=== PATIENT | male | born 1960 | race Caucasian/White ===

== ENCOUNTER 2017-08-13 12:20 | Emergency (ER) | payer OTHER ==
--- NOTE | 2017-08-13 13:50 | EDPHYS ---
Physician Documentation [facility] Name: Klever Clarke Age: 57 yrs Sex: Male : 1960 Arrival Date: 08/13/2017 Time: 12:21 Bed 26 Private MD: None, None ED Physician Raz Valerio HPI: 08/13 13:45 This 57 yrs old Male presents to ER via Ambulatory with complaints of Pain rn All Over. 13:45 Reports recently ran out of his steroids for his lupus, broke out in his typical lupus rn rash recently as well as pain in all joints, requesting refill of prednisone. No other acute complaints. . Onset: The symptoms/episode began/occurred at an unknown time. Severity of symptoms: At their worst the symptoms were mild in the emergency department the symptoms are unchanged. The patient has experienced similar episodes in the past. The patient has not recently seen a physician. Historical: - Allergies: 12:36 No Known Allergies; aj - Home Meds: 12:36 None [Active]; aj - PMHx: 12:36 Lupus; aj - PSHx: 12:36 RIGHT eye sx; aj - Immunization history:: Adult Immunizations up to date. - Social history:: Smoking status: Patient uses tobacco products, smokes one-half pack cigarettes per day. - Ebola Screening: : Patient negative for fever greater than or equal to 101.5 degrees Fahrenheit, and additional compatible Ebola Virus Disease symptoms Patient denies exposure to infectious person Patient denies travel to an Ebola-affected area in the 21 days before illness onset No symptoms or risks identified at this time. - Family history:: not pertinent. - Hospitalizations: : No recent hospitalization is reported. ROS: 13:47 Constitutional: Negative for fever, chills, and weight loss, Eyes: Negative for injury, rn pain, redness, and discharge, Neck: Negative for injury, pain, and swelling, Cardiovascular: Negative for chest pain, palpitations, and edema, Respiratory: Negative for shortness of breath, cough, wheezing, and pleuritic chest pain, Abdomen/GI: Negative for abdominal pain, nausea, vomiting, diarrhea, and constipation, MS/Extremity: generalized joint aches Skin: + generalized facial and truncal rash Exam: 13:47 Constitutional: This is a well developed, well nourished patient who is awake, alert, rn and in no acute distress. Head/Face: Normocephalic, atraumatic. Skin: generalized patchy dry rash over face/neck/torso with base of erythema, no fluctuance, no signs of cellulitis MS/ Extremity: Pulses equal, no cyanosis. Neurovascular intact. Full, normal range of motion. Equal circumference. Vital Signs: 12:36 BP 137 / 93; Pulse 68; Resp 16; Temp 97.4; Pulse Ox 97% on R/A; Weight 106.59 kg; aj Height 6 ft. 1 in. (185.42 cm); 12:36 Body Mass Index 31.00 (106.59 kg, 185.42 cm) aj MDM: 13:28 Patient medically screened. rn 13:47 Differential Diagnosis lupus flare. Data reviewed: vital signs, nurses notes, and as a rn result, I will discharge patient. Counseling: I had a detailed discussion with the patient and/or guardian regarding: the historical points, exam findings, and any diagnostic results supporting the discharge/admit diagnosis, the need for outpatient follow up, to return to the emergency department if symptoms worsen or persist or if there are any questions or concerns that arise at home. Special discussion: I discussed with the patient/guardian in detail that at this point there is no indication for admission to the hospital. It is understood, however, that if the symptoms persist or worsen the patient needs to return immediately for re-evaluation. Based on the history and exam findings, there is no indication for further emergent testing or inpatient evaluation. I discussed with the patient/guardian the need to see the receiving manager for further evaluation of the symptoms. Administered Medications: No medications were administered Disposition: 08/13/17 13:49 Discharged to Home. Impression: Lupus erythematosus. - Condition is Stable. - Prescriptions for prednisone 10 mg Oral tablet - take 1 tablet by ORAL route once daily; 60 tablet. Triamcinolone Acetonide 0.1 % Topical Ointment - apply 1 application by TOPICAL route every 12 hours As needed; 1 tube. - Medication Reconciliation Form, Thank You Letter, Antibiotic Education, Prescription Opioid Use form. - Follow up: Private Physician; When: As needed; Reason: Recheck today's complaints, Re-evaluation by your physician. - Problem is an ongoing problem. - Symptoms are unchanged. Signatures: Elsa Calloway RN RN aj Nieto, Roman, MD MD rn Reaves, Rosita, RN RN kr2 Corrections: (The following items were deleted from the chart) 14:13 13:49 08/13/2017 13:49 Discharged to Home. Impression: Lupus erythematosus. Condition kr2 is Stable. Prescriptions for prednisone 10 mg Oral tablet - take 1 tablet by ORAL route once daily; 60 tablet, Triamcinolone Acetonide 0.1 % Topical Ointment - apply 1 application by TOPICAL route every 12 hours As needed; 1 tube. and Forms are Medication Reconciliation Form, Thank You Letter, Antibiotic Education, Prescription Opioid Use. Follow up: Private Physician; When: As needed; Reason: Recheck today's complaints, Re-evaluation by your physician. Problem is an ongoing problem. Symptoms are unchanged. rn
--- NOTE | 2017-08-13 13:50 | ER ---
Nurse's Notes [facility] Name: Klever Clarke Age: 57 yrs Sex: Male : 1960 Arrival Date: 08/13/2017 Time: 12:21 Bed 26 Private MD: None, None Diagnosis: Lupus erythematosus Presentation: 08/13 12:34 Presenting complaint: Patient states: Pain all over body with patches of dry skin to aj face and ears. Patient reports that he has been off of his RX steroids for lupus and is having trouble getting into explosive man. Would also like a second opinion on previously injured right upper arm and shoulder. Transition of care: patient was not received from another setting of care. Onset of symptoms was August 05, 2017. Risk Assessment: Do you want to hurt yourself or someone else? Patient reports no desire to harm self or others. Care prior to arrival: None. 12:34 Method Of Arrival: Ambulatory 12:34 Acuity: NHI 4 aj 13:30 Initial Sepsis Screen: Does the patient meet any 2 criteria? No. Patient's initial kr2 sepsis screen is negative. Does the patient have a suspected source of infection? No. Patient's initial sepsis screen is negative. Triage Assessment: 12:36 General: Appears in no apparent distress. comfortable, Behavior is calm, cooperative, aj appropriate for age. Pain:. Pain: Complains of pain in buttocks, pelvis, right leg and left leg. Neuro: Level of Consciousness is awake, alert, obeys commands, Oriented to person, place, time, situation, Appropriate for age. Respiratory: Airway is patent Respiratory effort is even, unlabored, Respiratory pattern is regular, symmetrical. Derm: Skin is pink, warm \T\ dry. normal, Rash noted that is macular, on face. Historical: - Allergies: 12:36 No Known Allergies; aj - Home Meds: 12:36 None [Active]; aj - PMHx: 12:36 Lupus; aj - PSHx: 12:36 RIGHT eye sx; aj - Immunization history:: Adult Immunizations up to date. - Social history:: Smoking status: Patient uses tobacco products, smokes one-half pack cigarettes per day. - Ebola Screening: : Patient negative for fever greater than or equal to 101.5 degrees Fahrenheit, and additional compatible Ebola Virus Disease symptoms Patient denies exposure to infectious person Patient denies travel to an Ebola-affected area in the 21 days before illness onset No symptoms or risks identified at this time. - Family history:: not pertinent. - Hospitalizations: : No recent hospitalization is reported. Screenin:30 Abuse screen: Denies threats or abuse. Denies injuries from another. Nutritional kr2 screening: No deficits noted. Tuberculosis screening: No symptoms or risk factors identified. Fall Risk None identified. Assessment: 13:30 General: Appears in no apparent distress. uncomfortable, well groomed, well developed, kr2 well nourished, Behavior is calm, cooperative, appropriate for age. Pain: Complains of pain in entire body Pain currently is 8 out of 10 on a pain scale. Quality of pain is described as aching, Is continuous, Alleviated by nothing. Aggravated by increased activity. Neuro: Level of Consciousness is awake, alert, obeys commands, Oriented to person, place, time, situation, Appropriate for age Intact. Cardiovascular: Capillary refill < 3 seconds in bilateral fingers Patient's skin is warm and dry. Respiratory: Airway is patent Respiratory effort is even, unlabored, Respiratory pattern is regular, symmetrical. GI: Abdomen is flat, non-distended. : No signs and/or symptoms were reported regarding the genitourinary system. EENT: Oral mucosa is moist. Derm: Skin is intact, is healthy with good turgor, Skin is pink, warm \T\ dry. Musculoskeletal: Circulation, motion, and sensation intact. Range of motion: limited in right shoulder. Vital Signs: 12:36 BP 137 / 93; Pulse 68; Resp 16; Temp 97.4; Pulse Ox 97% on R/A; Weight 106.59 kg; aj Height 6 ft. 1 in. (185.42 cm); 12:36 Body Mass Index 31.00 (106.59 kg, 185.42 cm) aj ED Course: 12:21 Patient arrived in ED. sb2 12:22 None, None is Private Physician. sb2 12:36 Triage completed. aj 12:36 Arm band placed on left wrist. Patient placed in waiting room, Patient notified of wait aj time. 13:28 Rosita Bhat, KARINA is Primary Nurse. kr2 13:28 Raz Valerio MD is Attending Physician. rn 13:30 Patient has correct armband on for positive identification. Bed in low position. Call kr2 light in reach. Side rails up X 1. Pulse ox on. NIBP on. Door closed. Head of bed elevated. 14:00 No provider procedures requiring assistance completed. Patient did not have IV access kr2 during this emergency room visit. Administered Medications: No medications were administered Outcome: 13:49 Discharge ordered by . rn 14:00 Discharged to home ambulatory. kr2 14:00 Condition: good 14:00 Discharge instructions given to patient, Instructed on discharge instructions, follow up and referral plans. medication usage, Demonstrated understanding of instructions, follow-up care, medications, Prescriptions given X 2. 14:13 Patient left the ED. kr2 Signatures: Elsa Calloway RN Raz Gerardo MD MD rn Reaves, Karey, RN RN kr2 Maria Teresa Toney sb2
== END 2017-08-13 14:13 | disposition home or self-care (01) ==
LOC: ER 12:20
DX: M32.9 Systemic lupus erythematosus, unspecified (principal); F17.210 Nicotine dependence, cigarettes, uncomplicated
CPT/HCPCS: 99283

== ENCOUNTER 2017-10-21 08:31 | Emergency (ER) | payer OTHER, SELFPAY ==
--- NOTE | 2017-10-21 08:44 | EDPHYS ---
Physician Documentation [facility] Name: Klever Clarke Age: 57 yrs Sex: Male : 1960 Arrival Date: 10/21/2017 Time: 08:34 Bed 19 Private MD: None, None ED Physician Darell Arnold HPI: 10/21 08:45 This 57 yrs old Male presents to ER via Ambulatory with complaints of kb Medication Refill. 08:45 The patient presents to the emergency department requesting refill(s) for: prednisone. kb The patient chronically suffers from Lupus. The patient has experienced similar episodes in the past. The patient has not recently seen a physician. Pt states he has been on prednisone 10mg daily for 6 years. Has been out for 4 days and needs a refill. Cannot get in to see foster care social worker until December. Reports rash and joint pain that normally happen when he doesn't take the prednisone. . Historical: - Allergies: 08:45 No Known Allergies; ch - Home Meds: 08:45 prednisone 10 mg Oral tab once daily [Active]; ch - PMHx: 08:45 Lupus; LOW BACK PAIN; r ARM FX-LOCKED R SHOULDER; ch - PSHx: 08:45 None; ch - Immunization history:: Adult Immunizations up to date. - Social history:: Smoking status: Patient uses tobacco products, smokes one-half pack cigarettes per day. - Ebola Screening: : Patient negative for fever greater than or equal to 101.5 degrees Fahrenheit, and additional compatible Ebola Virus Disease symptoms Patient denies exposure to infectious person Patient denies travel to an Ebola-affected area in the 21 days before illness onset No symptoms or risks identified at this time. ROS: 08:45 Constitutional: Negative for fever, chills, and weight loss, Cardiovascular: Negative kb for chest pain, palpitations, and edema, Respiratory: Negative for shortness of breath, cough, wheezing, and pleuritic chest pain, Abdomen/GI: Negative for abdominal pain, nausea, vomiting, diarrhea, and constipation, Back: Negative for injury and pain, Neuro: Negative for headache, weakness, numbness, tingling, and seizure. 08:45 MS/extremity: Positive for pain, all joints. 08:45 Skin: Positive for rash, diffusely. Exam: 08:45 Constitutional: This is a well developed, well nourished patient who is awake, alert, kb and in no acute distress. Head/Face: Normocephalic, atraumatic. Chest/axilla: Normal chest wall appearance and motion. Nontender with no deformity. No lesions are appreciated. Cardiovascular: Regular rate and rhythm with a normal S1 and S2. No gallops, murmurs, or rubs. Normal PMI, no JVD. No pulse deficits. Respiratory: Lungs have equal breath sounds bilaterally, clear to auscultation and percussion. No rales, rhonchi or wheezes noted. No increased work of breathing, no retractions or nasal flaring. Abdomen/GI: Soft, non-tender, with normal bowel sounds. No distension or tympany. No guarding or rebound. No evidence of tenderness throughout. MS/ Extremity: Pulses equal, no cyanosis. Neurovascular intact. Full, normal range of motion. Neuro: Awake and alert, GCS 15, oriented to person, place, time, and situation. Cranial nerves II-XII grossly intact. Motor strength 5/5 in all extremities. Sensory grossly intact. Cerebellar exam normal. Normal gait. 08:45 Skin: rash a moderate rash is noted, rash can be described as erythematous, scaly, and is diffusely located. Vital Signs: 08:45 BP 148 / 105; Pulse 73; Resp 15; Temp 98.3; Pulse Ox 99% on R/A; Weight 108.86 kg; ch Height 6 ft. 1 in. (185.42 cm); 08:45 Body Mass Index 31.66 (108.86 kg, 185.42 cm) ch MDM: 08:36 Patient medically screened. [facility] 08:49 Data reviewed: vital signs, nurses notes. Data interpreted: Pulse oximetry: on room air kb is 99 %. Interpretation: normal. Counseling: I had a detailed discussion with the patient and/or guardian regarding: the historical points, exam findings, and any diagnostic results supporting the discharge/admit diagnosis, the need for outpatient follow up, a family practitioner, a foster care social worker, to return to the emergency department if symptoms worsen or persist or if there are any questions or concerns that arise at home. Administered Medications: No medications were administered Disposition: 11:42 Co-signature as Attending Physician, Darell Arnold MD I agree with the assessment and jazzy plan of care. Disposition: 10/21/17 08:43 Discharged to Home. Impression: Encounter for issue of repeat prescription. - Condition is Stable. - Discharge Instructions: Medicine Refill at the Emergency Department. - Prescriptions for prednisone 10 mg Oral tablet - take 1 tablet by ORAL route once daily; 30 tablet. - Medication Reconciliation Form, Thank You Letter, Antibiotic Education, Prescription Opioid Use form. - Follow up: Emergency Department; When: As needed; Reason: Worsening of condition. Follow up: Private Physician; When: 2 - 3 days; Reason: Recheck today's complaints, Continuance of care, Re-evaluation by your physician. Signatures: Ting Travis, MEY-C MEY-Lashawn Thornton RN RN ch Anderson, Corey, MD MD cha Corrections: (The following items were deleted from the chart) 08:50 08:43 10/21/2017 08:43 Discharged to Home. Impression: Encounter for issue of repeat ch prescription. Condition is Stable. Forms are Medication Reconciliation Form, Thank You Letter, Antibiotic Education, Prescription Opioid Use. Follow up: Emergency Department; When: As needed; Reason: Worsening of condition. Follow up: Private Physician; When: 2 - 3 days; Reason: Recheck today's complaints, Continuance of care, Re-evaluation by your physician. kb
--- NOTE | 2017-10-21 08:44 | ER ---
Nurse's Notes [facility] Name: Klever Clarke Age: 57 yrs Sex: Male : 1960 Arrival Date: 10/21/2017 Time: 08:34 Bed 19 Private MD: None, None Diagnosis: Encounter for issue of repeat prescription Presentation: 10/21 08:40 Presenting complaint: Patient states: I HAVE LUPUS, NO PCP, AND I CANNOT AFFORD TO SEE MY DOCTOR. I HAVE BEEN OUT OF PREDNISONE FOR THE PAST 4 DAYS. I TAKE 10 MG ONCE DAILY. Transition of care: patient was not received from another setting of care. Onset of symptoms was October 17, 2017. Risk Assessment: Do you want to hurt yourself or someone else? Patient reports no desire to harm self or others. Initial Sepsis Screen: Does the patient meet any 2 criteria? No. Patient's initial sepsis screen is negative. Does the patient have a suspected source of infection? No. Patient's initial sepsis screen is negative. Care prior to arrival: None. 08:40 Method Of Arrival: Ambulatory 08:40 Acuity: NHI 5 Triage Assessment: 08:45 General: Appears in no apparent distress. comfortable, Behavior is calm, cooperative, ch appropriate for age. Pain: Pain began PT HAS CHRONIC PAIN ISSUES, NO NEW OR ACUTE PAIN. Neuro: No deficits noted. Respiratory: No deficits noted. Historical: - Allergies: 08:45 No Known Allergies; ch - Home Meds: 08:45 prednisone 10 mg Oral tab once daily [Active]; - PMHx: 08:45 Lupus; LOW BACK PAIN; r ARM FX-LOCKED R SHOULDER; - PSHx: 08:45 None; - Immunization history:: Adult Immunizations up to date. - Social history:: Smoking status: Patient uses tobacco products, smokes one-half pack cigarettes per day. - Ebola Screening: : Patient negative for fever greater than or equal to 101.5 degrees Fahrenheit, and additional compatible Ebola Virus Disease symptoms Patient denies exposure to infectious person Patient denies travel to an Ebola-affected area in the 21 days before illness onset No symptoms or risks identified at this time. Screenin:46 Abuse screen: Denies threats or abuse. Denies injuries from another. Nutritional ch screening: No deficits noted. Tuberculosis screening: No symptoms or risk factors identified. Fall Risk None identified. Assessment: 08:46 Reassessment: Patient appears in no apparent distress at this time. Patient and/or ch family updated on plan of care and expected duration. Pain level reassessed. Patient is alert, oriented x 3, equal unlabored respirations, skin warm/dry/pink. Vital Signs: 08:45 BP 148 / 105; Pulse 73; Resp 15; Temp 98.3; Pulse Ox 99% on R/A; Weight 108.86 kg; ch Height 6 ft. 1 in. (185.42 cm); 08:45 Body Mass Index 31.66 (108.86 kg, 185.42 cm) ED Course: 08:34 Patient arrived in ED. mr 08:34 None, None is Private Physician. mr 08:36 Darell Arnold MD is Attending Physician. [facility] 08:36 Ting Travis FNP-C is PHCP. kb 08:39 Ting Travis FNP-C is PHCP. sg 08:40 Darell Arnold MD is Attending Physician. 08:40 Lashawn Salvador, RN is Primary Nurse. 08:44 Triage completed. 08:45 Arm band placed on left wrist. Patient placed in an exam room, on a stretcher. ch 08:46 No apparent distress. 08:46 Patient has correct armband on for positive identification. 08:46 No provider procedures requiring assistance completed. Patient did not have IV access ch during this emergency room visit. Administered Medications: No medications were administered Outcome: 08:43 Discharge ordered by . kb 08:46 Discharged to home ambulatory. 08:46 Condition: stable 08:46 Discharge instructions given to patient, Instructed on discharge instructions, follow up and referral plans. medication usage, Demonstrated understanding of instructions, follow-up care, medications, Prescriptions given X 1. 08:50 Patient left the ED. Signatures: Ting Travis FNP-C FNP-Ckb Hammond, Christina RN RN Flip Lea RN RN Darell Blanco MD MD cha Rivera, Maria mr
== END 2017-10-21 08:50 | disposition home or self-care (01) ==
LOC: ER 08:31
DX: Z76.0 Encounter for issue of repeat prescription (principal); F17.210 Nicotine dependence, cigarettes, uncomplicated
CPT/HCPCS: 99282

== ENCOUNTER 2017-12-23 09:51 | Emergency (ER) | payer SELFPAY ==
--- NOTE | 2017-12-23 10:41 | ER ---
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 since Friday it has gotten larger, and I feel burning in my L upper abdomen. When I initially did this, the sent me to [employer]. The company was supposed to settle with me on so I could go get surgery on it. My concern is I do lots of heavy lifting, am I safe to work? Do i need to be on light Duty? Can they stitch it up because its small. Transition of care: patient was not received from another setting of care. Onset of symptoms was December 21, 2017. Risk Assessment: Do you want to hurt yourself or someone else? Patient reports no desire to harm self or others. Initial Sepsis Screen: Does the patient meet any 2 criteria? No. Patient's initial sepsis screen is negative. Does the patient have a suspected source of infection? No. Patient's initial sepsis screen is negative. Care prior to arrival: None. 09:58 Method Of Arrival: Ambulatory 09:58 Acuity: NHI 3 Triage Assessment: 10:01 General: Appears in no apparent distress. uncomfortable, Behavior is calm, cooperative, ch appropriate for age. Pain: Complains of pain in umbilical area and left upper quadrant Pain currently is 2 out of 10 on a pain scale. Historical: - Allergies: 10: No Known Allergies; ch - Home Meds: 10: prednisone 10 mg Oral tab once daily [Active]; - PMHx: 10: Lupus; low back pain; r ARM FX-LOCKED R SHOULDER; Umbilical hernia; - PSHx: 10:01 eye; - Immunization history:: Adult Immunizations up to date, Flu vaccine is not up to date. - Social history:: Smoking status: Patient uses tobacco products, smokes one pack cigarettes per day. - Ebola Screening: : Patient negative for fever greater than or equal to 101.5 degrees Fahrenheit, and additional compatible Ebola Virus Disease symptoms Patient denies exposure to infectious person Patient denies travel to an Ebola-affected area in the 21 days before illness onset No symptoms or risks identified at this time. - Family history:: not pertinent. - Hospitalizations: : No recent hospitalization is reported. Screenin:12 Abuse screen: Denies threats or abuse. Denies injuries from another. Nutritional aj1 screening: No deficits noted. Tuberculosis screening: No symptoms or risk factors identified. Fall Risk None identified. Assessment: 10:12 General: Appears in no apparent distress. comfortable, Behavior is calm, cooperative, aj1 appropriate for age. Pain: Complains of pain in umbilical area Pain does not radiate. Pain currently is 2 out of 10 on a pain scale. Quality of pain is described as burning. Neuro: Level of Consciousness is awake, alert, obeys commands. Cardiovascular: Patient's skin is warm and dry. Respiratory: Airway is patent Respiratory effort is even, unlabored, Respiratory pattern is regular, symmetrical. GI: Abdomen is round Bowel sounds present X 4 quads. Abd is soft and non tender X 4 quads. Reports normal bowel habits, Patient currently denies bloody stool. : No signs and/or symptoms were reported regarding the genitourinary system. EENT: No signs and/or symptoms were reported regarding the EENT system. Derm: No signs and/or symptoms reported regarding the dermatologic system. Skin is pink, warm \T\ dry. normal. Musculoskeletal: No signs and/or symptoms reported regarding the musculoskeletal system. Circulation, motion, and sensation intact. Vital Signs: 10:01 BP 159 / 98; Pulse 61; Resp 14; Temp 97.4; Pulse Ox 99% on R/A; Weight 102.06 kg; ch Height 6 ft. 2 in. (187.96 cm); Pain 2/10; 10:01 Body Mass Index 28.89 (102.06 kg, 187.96 cm) ED Course: 09:53 Patient arrived in ED. as 10:00 Triage completed. 10:01 Arm band placed on left wrist. Patient placed in an exam room, on a stretcher. ch 10:03 Yasmin Gupta RN is Primary Nurse. aj1 10:04 Raz Valerio MD is Attending Physician. rn 10:05 Darell Hale PA is PHCP. cp 10:12 Patient has correct armband on for positive identification. Bed in low position. Call aj1 light in reach. Side rails up X 1. 10:12 No provider procedures requiring assistance completed. aj1 10:46 Patient did not have IV access during this emergency room visit. hb Administered Medications: No medications were administered Outcome: 10:41 Discharge ordered by . rn 10:46 Discharged to home ambulatory. hb 10:46 Condition: stable 10:46 Discharge instructions given to patient, Instructed on discharge instructions, follow up and referral plans. Demonstrated understanding of instructions, follow-up care. 10:46 Patient left the ED. hb Signatures: Lsahawn Salvador, RN RN Yasmin Prieto RN RN aj1 Luzma Schaeffer Roman, MD MD rn Page, Corey, PA PA cp Baxter, Heather, RN RN hb
--- NOTE | 2017-12-23 10:42 | EDPHYS ---
Physician Documentation [facility] Name: Klever Clarke Age: 57 yrs Sex: Male : 1960 Arrival Date: 12/23/2017 Time: 09:53 Bed 24 Private MD: ED Physician Raz Valerio HPI: 12/23 10:31 This 57 yrs old Male presents to ER via Ambulatory with complaints of rn Abdominal Pain - Hernia Enlarged. 10:31 The patient presents with enlarged hernia. Onset: The symptoms/episode began/occurred rn at an unknown time. The symptoms do not radiate. Associated signs and symptoms: Pertinent negatives: nausea and vomiting, anorexia, blood in stools, chest pain, diarrhea, dysuria, fever, hematuria, vomiting. The symptoms are described as achy. Modifying factors: The symptoms are alleviated by nothing, the symptoms are aggravated by nothing. Severity of pain: At its worst the pain was very mild in the emergency department the pain is unchanged. The patient has experienced similar episodes in the past. 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 No vomiting. . Historical: - Allergies: 10: No Known Allergies; ch - Home Meds: 10:01 prednisone 10 mg Oral tab once daily [Active]; ch - PMHx: 10:01 Lupus; low back pain; r ARM FX-LOCKED R SHOULDER; Umbilical hernia; - PSHx: 10:01 eye; ch - Immunization history:: Adult Immunizations up to date, Flu vaccine is not up to date. - Social history:: Smoking status: Patient uses tobacco products, smokes one pack cigarettes per day. - Ebola Screening: : Patient negative for fever greater than or equal to 101.5 degrees Fahrenheit, and additional compatible Ebola Virus Disease symptoms Patient denies exposure to infectious person Patient denies travel to an Ebola-affected area in the 21 days before illness onset No symptoms or risks identified at this time. - Family history:: not pertinent. - Hospitalizations: : No recent hospitalization is reported. ROS: 10:31 Constitutional: Negative for fever, chills, and weight loss, Eyes: Negative for injury, rn pain, redness, and discharge, Cardiovascular: Negative for chest pain, palpitations, and edema, Respiratory: Negative for shortness of breath, cough, wheezing, and pleuritic chest pain, Abdomen/GI: Negative for nausea, vomiting, diarrhea, and constipation, Back: Negative for injury and pain, MS/Extremity: Negative for injury and deformity, Skin: Negative for injury, rash, and discoloration, Neuro: Negative for headache, weakness, numbness, tingling, and seizure. Exam: 10:31 Constitutional: This is a well developed, well nourished patient who is awake, alert, rn and in no acute distress. Walked to room without difficulty. Abdomen/GI: soft, non-tender, + easily reducible small masha-umbilical hernia, no skin changes, no rebound/guarding. Vital Signs: 10:01 BP 159 / 98; Pulse 61; Resp 14; Temp 97.4; Pulse Ox 99% on R/A; Weight 102.06 kg; ch Height 6 ft. 2 in. (187.96 cm); Pain 210; 10:01 Body Mass Index 28.89 (102.06 kg, 187.96 cm) ch MDM: 10:04 Patient medically screened. rn 10:31 Differential diagnosis: hernia. Data reviewed: vital signs, nurses notes, and as a rn result, I will discharge patient. Counseling: I had a detailed discussion with the patient and/or guardian regarding: the historical points, exam findings, and any diagnostic results supporting the discharge/admit diagnosis, the need for outpatient follow up, to return to the emergency department if symptoms worsen or persist or if there are any questions or concerns that arise at home. Special discussion: I discussed with the patient/guardian in detail that at this point there is no indication for admission to the hospital. It is understood, however, that if the symptoms persist or worsen the patient needs to return immediately for re-evaluation. Based on the history and exam findings, there is no indication for further emergent testing or inpatient evaluation. I discussed with the patient/guardian the need to see the general surgeon for further evaluation of the symptoms. ED course: Pt with uncomplicated reducible hernia, no signs/symptoms of obstruction/strangulation/incarceration, will dc home with surgery f/u as needed. . Administered Medications: No medications were administered Disposition: 12/23/17 10:41 Discharged to Home. Impression: Umbilical hernia without obstruction or gangrene. - Condition is Stable. - Discharge Instructions: Hernia, Adult. - Medication Reconciliation Form, Thank You Letter, Antibiotic Education, Prescription Opioid Use form. - Follow up: Private Physician; When: As needed; Reason: Recheck today's complaints, Re-evaluation by your physician. - Problem is chronic. - Symptoms have improved. Signatures: Lashawn Salvador RN RN Raz Valerio MD MD rn Baxter, Heather, RN RN Corrections: (The following items were deleted from the chart) 10:46 10:41 12/23/2017 10:41 Discharged to Home. Impression: Umbilical hernia without hb obstruction or gangrene. Condition is Stable. Forms are Medication Reconciliation Form, Thank You Letter, Antibiotic Education, Prescription Opioid Use. Follow up: Private Physician; When: As needed; Reason: Recheck today's complaints, Re-evaluation by your physician. Problem is chronic. Symptoms have improved. rn
== END 2017-12-23 10:46 | disposition home or self-care (01) ==
LOC: ER 09:51
DX: K42.9 Umbilical hernia without obstruction or gangrene (principal); F17.210 Nicotine dependence, cigarettes, uncomplicated
CPT/HCPCS: 99281

== ENCOUNTER 2018-01-03 08:01 | Emergency (ER) | payer SELFPAY ==
[2018-01-03 09:37] LABS: Absolute Lymphocytes (CBC) 0.4 K/uL (0.7-4.9); Absolute Monocytes 0.5 K/uL (0.1-1.3); Absolute Neutrophil 6.3 K/uL (1.8-8.0); Basophils % 0.1 % (0-1.3); Eosinophils % 1.9 % (0-4.4); Hematocrit 42.5 % (39.6-49.0); Lymphocytes % 5.9 % (15.3-44.8); MCH 31.6 pg (27.0-35.0); MCV 94.8 fL (80-100); MPV 10.3 fL (7.6-11.3); Monocytes % 6.7 % (3.3-12.3); RBC Red Blood Cell Count 4.48 M/uL (4.33-5.43)
[2018-01-03 09:44] LABS: BUN Blood Urea Nitrogen 12 mg/dL (7-18); Bicarbonate 27 mmol/L (21-32); Glucose Level 83 mg/dL (74-106); Sodium Level 139 mmol/L (136-145)
[2018-01-03 09:56] LABS: Urine White Blood Cell Casts OK
[2018-01-03 09:57] LABS: Blood Morphology Comment NOT SEEN (NOT SEEN); Platelet Estimate ADEQ
[2018-01-03] MEDS ORDERED: CEFAZOLIN/SWI 1gm 2 GM/20 ML SYR ONE (10:31)
--- NOTE | 2018-01-03 10:59 | EDPHYS ---
Physician Documentation [facility] Name: Klever Clarke Age: 57 yrs Sex: Male : 1960 Arrival Date: 01/03/2018 Time: 08:06 Bed 5 Private MD: None, None ED Physician Marcus Ramos HPI: 01/03 10:48 This 57 yrs old Male presents to ER via Wheelchair with complaints of Leg gs Pain. 10:48 The patient presents with cellulitis of the right mccarty. Description: erythematous, gs warm. Onset: The symptoms/episode began/occurred 2 day(s) ago, and became persistent. Associated signs and symptoms: Pertinent positives: swelling, Pertinent negatives: fever. Severity of symptoms: At their worst the symptoms were moderate, in the emergency department the symptoms are unchanged. The patient has experienced similar episodes in the past, a few times. Historical: - Allergies: 08:26 No Known Allergies; sv - Home Meds: 08:26 prednisone 10 mg Oral tab once daily [Active]; sv - PMHx: 08:26 low back pain; Lupus; r ARM FX-LOCKED R SHOULDER; Umbilical hernia; sv - PSHx: 08:26 eye; sv - Immunization history:: Flu vaccine is not up to date. - Social history:: Smoking status: Patient uses tobacco products, smokes one pack cigarettes per day. - Ebola Screening: : No symptoms or risks identified at this time. ROS: 10:48 All other systems are negative. gs Exam: 10:48 Head/Face: Normocephalic, atraumatic. Eyes: Pupils equal round and reactive to light, gs extra-ocular motions intact. Lids and lashes normal. Conjunctiva and sclera are non-icteric and not injected. Cornea within normal limits. Periorbital areas with no swelling, redness, or edema. ENT: Nares patent. No nasal discharge, no septal abnormalities noted. Tympanic membranes are normal and external auditory canals are clear. Oropharynx with no redness, swelling, or masses, exudates, or evidence of obstruction, uvula midline. Mucous membranes moist. Neck: Trachea midline, no thyromegaly or masses palpated, and no cervical lymphadenopathy. Supple, full range of motion without nuchal rigidity, or vertebral point tenderness. No Meningismus. Chest/axilla: Normal chest wall appearance and motion. Nontender with no deformity. No lesions are appreciated. Cardiovascular: Regular rate and rhythm with a normal S1 and S2. No gallops, murmurs, or rubs. Normal PMI, no JVD. No pulse deficits. Respiratory: Lungs have equal breath sounds bilaterally, clear to auscultation and percussion. No rales, rhonchi or wheezes noted. No increased work of breathing, no retractions or nasal flaring. Abdomen/GI: Soft, non-tender, with normal bowel sounds. No distension or tympany. No guarding or rebound. No evidence of tenderness throughout. Back: No spinal tenderness. No costovertebral tenderness. Full range of motion. Neuro: Awake and alert, GCS 15, oriented to person, place, time, and situation. Cranial nerves II-XII grossly intact. Motor strength 5/5 in all extremities. Sensory grossly intact. Cerebellar exam normal. Normal gait. 10:48 Constitutional: The patient appears alert, awake. 10:48 Musculoskeletal/extremity: Extremities: noted in the right leg: erythema, swelling, Pulses: are normal with no appreciated deficits, Sensation intact. 10:48 Skin: cellulitis, that is moderate, on the right mccarty. Vital Signs: 08:26 BP 158 / 92; Pulse 72; Resp 20; Temp 99; Pulse Ox 97% ; Weight 104.33 kg; Height 6 ft. sv 1 in. (185.42 cm); Pain 6/10; 08:59 BP 150 / 90; Pulse 70; Resp 18; Pulse Ox 98% ; sv 10:00 BP 148 / 92; Pulse 72; Resp 18; Pulse Ox 99% ; sv 11:30 BP 149 / 90; Pulse 73; Resp 18; Pulse Ox 98% ; sv 08:26 Body Mass Index 30.34 (104.33 kg, 185.42 cm) sv MDM: 08:59 Patient medically screened. gs 10:48 Differential diagnosis: cellulitis, dvt. Data reviewed: vital signs, nurses notes. Response to treatment: the patient's symptoms have mildly improved after treatment, and as a result, I will discharge patient. 01/03 09:00 Order name: CBC with Diff; Complete Time: 09:57 gs 01/03 09:00 Order name: Basic Metabolic Panel; Complete Time: :57 01/03 09:00 Order name: Blood Culture* 01/03 09:00 Order name: US Extremity Venous Unilateral Ltd 01/03 09:42 Order name: CBC Smear Scan; Complete Time: 09:57 EDMS Administered Medications: 10:37 Drug: Ancef 2 grams {Note: given IVP per pharmacy instructions.} Route: IVPB; Infused sv Over: 30 mins; Site: right antecubital; 10:44 Follow up: Response: No adverse reaction; IV Status: Completed infusion; IV Intake: 20mlsv Disposition: 01/03/18 10:59 Discharged to Home. Impression: Cellulitis of right lower limb. - Condition is Stable. - Discharge Instructions: Cellulitis, Adult. - Prescriptions for Keflex 500 mg Oral Capsule - take 1 capsule by ORAL route every 6 hours for 10 days; 40 capsule. - Work release form, Medication Reconciliation Form, Thank You Letter, Antibiotic Education, Prescription Opioid Use form. - Follow up: Private Physician; When: 2 - 3 days; Reason: Re-evaluation by your physician. Signatures: Dispatcher [employer] Nayana Corbin RN RN Marcus Ramos MD MD Corrections: (The following items were deleted from the chart) 11:58 10:59 01/03/2018 10:59 Discharged to Home. Impression: Cellulitis of right lower limb. sv Condition is Stable. Forms are Medication Reconciliation Form, Thank You Letter, Antibiotic Education, Prescription Opioid Use. Follow up: Private Physician; When: 2 - 3 days; Reason: Re-evaluation by your physician.
--- NOTE | 2018-01-03 10:59 | ER ---
Nurse's Notes [facility] Name: Klever Clarke Age: 57 yrs Sex: Male : 1960 Arrival Date: 01/03/2018 Time: 08:06 Bed 5 Private MD: None, None Diagnosis: Cellulitis of right lower limb Presentation: 01/03 08:17 Presenting complaint: Patient states: BLE pain and swelling with R>L started yesterday, sv pt has hx of cellulitis to extremity. c/o left neck pain. Transition of care: patient was not received from another setting of care. Onset of symptoms was January 02, 2018. Risk Assessment: Do you want to hurt yourself or someone else? Patient reports no desire to harm self or others. Initial Sepsis Screen: Does the patient meet any 2 criteria? No. Patient's initial sepsis screen is negative. Does the patient have a suspected source of infection? No. Patient's initial sepsis screen is negative. Care prior to arrival: None. 08:17 Method Of Arrival: Wheelchair sv 08:17 Acuity: NHI 3 sv Triage Assessment: 08:17 General: Appears in no apparent distress. uncomfortable, Behavior is calm, cooperative, sv appropriate for age. Pain: Complains of pain in right leg and left leg Pain currently is 6 out of 10 on a pain scale. Pain began 1 day ago. Is continuous, Aggravated by increased activity, weight bearing. EENT: No signs and/or symptoms were reported regarding the EENT system. Neuro: Level of Consciousness is awake, alert, obeys commands, Oriented to person, place, time, situation, Moves all extremities. Full function. Respiratory: Respiratory effort is even, unlabored, Respiratory pattern is regular, symmetrical. Derm: Skin is normal, Redness noted to BLE. Musculoskeletal: Range of motion: intact in all extremities, Swelling present in right leg and left leg. Historical: - Allergies: 08: No Known Allergies; sv - Home Meds: : prednisone 10 mg Oral tab once daily [Active]; sv - PMHx: 08: low back pain; Lupus; r ARM FX-LOCKED R SHOULDER; Umbilical hernia; sv - PSHx: 08: eye; sv - Immunization history:: Flu vaccine is not up to date. - Social history:: Smoking status: Patient uses tobacco products, smokes one pack cigarettes per day. - Ebola Screening: : No symptoms or risks identified at this time. Screenin:27 Abuse screen: Denies threats or abuse. Denies injuries from another. Nutritional sv screening: No deficits noted. Tuberculosis screening: No symptoms or risk factors identified. Fall Risk None identified. Assessment: 08:30 Reassessment: Patient appears in no apparent distress at this time. No changes from sv previously documented assessment. See triage assessment. 10:37 Reassessment: Patient appears in no apparent distress at this time. No changes from sv previously documented assessment. Patient and/or family updated on plan of care and expected duration. Pain level reassessed. Patient is alert, oriented x 3, equal unlabored respirations, skin warm/dry/pink. 11:57 Reassessment: Patient appears in no apparent distress at this time. No changes from sv previously documented assessment. Patient and/or family updated on plan of care and expected duration. Pain level reassessed. Patient is alert, oriented x 3, equal unlabored respirations, skin warm/dry/pink. Vital Signs: 08:26 BP 158 / 92; Pulse 72; Resp 20; Temp 99; Pulse Ox 97% ; Weight 104.33 kg; Height 6 ft. sv 1 in. (185.42 cm); Pain 6/10; 08:59 BP 150 / 90; Pulse 70; Resp 18; Pulse Ox 98% ; sv 10:00 BP 148 / 92; Pulse 72; Resp 18; Pulse Ox 99% ; sv 11:30 BP 149 / 90; Pulse 73; Resp 18; Pulse Ox 98% ; sv 08:26 Body Mass Index 30.34 (104.33 kg, 185.42 cm) sv ED Course: 08:06 Patient arrived in ED. mr 08:06 None, None is Private Physician. mr 08:12 Nayana Dodge, KARINA is Primary Nurse. sv 08:17 Arm band placed on Patient placed in an exam room, on a stretcher. sv 08:18 Marcus Ramos MD is Attending Physician. gs 08:24 Triage completed. sv 08:27 Patient has correct armband on for positive identification. Placed in gown. Bed in low sv position. Pulse ox on. NIBP on. Door closed. Head of bed elevated. 08:35 Initial lab(s) drawn, by me, sent to lab. Inserted saline lock: 20 gauge in right sv antecubital area, using aseptic technique. Blood collected. Flushed right antecubital with 5 ml normal saline. 10:23 Ultrasound completed. Patient tolerated well. Notified ED Physician miguel a. sg3 10:24 US Extremity Venous Unilateral Ltd In Process Unspecified. EDMS 11:56 No provider procedures requiring assistance completed. IV discontinued, intact, sv bleeding controlled, No redness/swelling at site. Pressure dressing applied. Administered Medications: 10:37 Drug: Ancef 2 grams {Note: given IVP per pharmacy instructions.} Route: IVPB; Infused sv Over: 30 mins; Site: right antecubital; 10:44 Follow up: Response: No adverse reaction; IV Status: Completed infusion; IV Intake: 20mlsv Intake: 10:44 IV: 20ml; Total: 20ml. sv Outcome: 10:59 Discharge ordered by . 11:57 Discharged to home ambulatory, wheelchair offered but pt refused. sv 11:57 Condition: stable 11:57 Discharge instructions given to patient, Instructed on discharge instructions, follow up and referral plans. medication usage, Demonstrated understanding of instructions, follow-up care, medications, Prescriptions given X 1. 11:58 Patient left the ED. sv Signatures: Dispatcher [employer] EDMS Nayana Dodge RN RN sv Rivera, Mary mr Starr, Gregory, MD MD gs Godinez, Sarah sg3
--- NOTE | 2018-01-03 11:36 | RAD REPORT ---
EXAM DESCRIPTION: US - Extremity Venous Uni Ltd - 01/03/2018 10:25 am CLINICAL HISTORY: Right leg pain and swelling COMPARISON: None. TECHNIQUE: Real-time sonographic evaluation of the right lower extremity deep venous systems was per formed. FINDINGS: Normal compressibility, flow augmentation, phasic flow and spontaneous flow are identified in the right lower extremity common femoral, superficial femoral, popliteal and posterior tibial vei ns. No intraluminal filling defects seen. IMPRESSION: No DVT in the right lower extremity.
== END 2018-01-03 11:58 | disposition home or self-care (01) ==
LOC: ER 08:01
DX: L03.115 Cellulitis of right lower limb (principal); F17.210 Nicotine dependence, cigarettes, uncomplicated
CPT/HCPCS: 36415; 80048; 85025; 87040; 93971; 96374; 99284; J0690

== ENCOUNTER 2018-02-09 22:02 | Emergency (ER) | payer SELFPAY ==
[2018-02-09] MEDS ORDERED: FENTANYL CITR 100 MCG/2 ML ONE (22:55)
[2018-02-09] MEDS ORDERED: ONDANSETRON 4 MG/2 ML VIAL ONE (22:56)
[2018-02-09 23:24] LABS: Absolute Lymphocytes (CBC) 1.5 K/uL (0.7-4.9); Absolute Monocytes 0.7 K/uL (0.1-1.3); Absolute Neutrophil 9.4 K/uL (1.8-8.0); Basophils % 1.3 % (0-1.3); Eosinophils % 0.8 % (0-4.4); Hematocrit 42.4 % (39.6-49.0); Lymphocytes % 12.6 % (15.3-44.8); MCH 31.4 pg (27.0-35.0); MCV 95.6 fL (80-100); Monocytes % 6.2 % (3.3-12.3); Protime INR 0.96; RBC Red Blood Cell Count 4.44 M/uL (4.33-5.43)
[2018-02-09 23:45] LABS: ALT/SGPT 19 U/L (12-78); AST/SGOT 12 U/L (15-37); Albumin 3.1 g/dL (3.4-5.0); Alkaline Phosphatase 68 U/L (45-117); BUN Blood Urea Nitrogen 23 mg/dL (7-18); Bicarbonate 32 mmol/L (21-32); Bilirubin Direct 0.2 mg/dL (0-0.2); Bilirubin Total 0.5 mg/dL (0.2-1.0); Glucose Level 124 mg/dL (74-106); Lipase 172 U/L (73-393); NT PRO-BNP 134 pg/mL (<125); Potassium 3.6 mmol/L (3.5-5.1); Protein, Total 6.5 g/dL (6.4-8.2); Sodium Level 142 mmol/L (136-145); Troponin (Emerg Dept Use Only) < 0.02 ng/mL (0.0-0.045)
[2018-02-10] MEDS ORDERED: CEFTRIAXONE 1000 MG/VIAL ONE (00:37)
[2018-02-10] MEDS ORDERED: NA CHLORIDE 0.9% 100 ML IV ONE (00:37)
[2018-02-10] MEDS ORDERED: AZITHROMYCIN 500 MG/250 ML BAG ONE (00:38)
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
--- NOTE | 2018-02-10 12:01 | EKG ---
Test Date: 2018-02-09 Test Time: 22:29:19 Woodworking Bench Carpenter: KAEL MEASUREMENT RESULTS: Intervals: Rate: 69 NH: 122 QRSD: 100 QT: 422 QTc: 452 [place]: P: 19 NH: 122 QRS: -7 T: 17 INTERPRETIVE STATEMENTS: Sinus rhythm with premature atrial complexes Moderate voltage criteria for LVH, may be normal variant Borderline ECG Compared to ECG 03/28/2017 13:11:35 Atrial premature complex(es) now present Electronically Signed On 02-10-18 12:00:29 AUDIO VISUAL EQUIPMENT RENTAL CLERK by Patrick Lobo
== END 2018-02-10 02:58 | disposition home or self-care (01) ==
LOC: ER 22:02
DX: S22.41XA Multiple fractures of ribs, right side, initial encounter for closed fracture (principal); V29.9XXA Motorcycle rider (driver) (passenger) injured in unspecified traffic accident, initial encounter; F17.210 Nicotine dependence, cigarettes, uncomplicated
CPT/HCPCS: 36415; 71046; 71260; 74177; 80048; 80076; 83690; 83880; 84484; 85025; 85610; 93005; 96365; 96367; 96375; 99285; J0456; J2405; J3010; Q9967

== ENCOUNTER 2018-04-03 09:54 | Emergency (ER) | payer OTHER, SELFPAY ==
[2018-04-03] MEDS ORDERED: IBUPROFEN 200 MG TAB PO ONE (11:37)
[2018-04-03] MEDS ORDERED: IBUPROFEN 400 MG TAB ONE (11:37)
[2018-04-03] MEDS ORDERED: METHYLPREDNISOLONE 125 MG INJ ONE (11:37)
[2018-04-03] MEDS ORDERED: CYCLOBENZAPRINE 10 MG TAB ONE (11:37)
--- NOTE | 2018-04-03 11:49 | EDPHYS ---
Physician Documentation [facility] Name: Klever Clarke Age: 57 yrs Sex: Male : 1960 Arrival Date: 04/03/2018 Time: 09:58 Bed 20 Private MD: None, None ED Physician Lynn Jeronimo HPI: 04/03 11:44 This 57 yrs old Male presents to ER via Ambulatory with complaints of Back pm1 Pain. 11:44 The patient presents with pain that is acute. The symptoms are located in the left pm1 subscapular area and right subscapular area. Onset: The symptoms/episode began/occurred 3 day(s) ago. The pain does not radiate. Associated signs and symptoms: Pertinent negatives: abdominal pain, chest pain, fever, incontinence, nausea, numbness, tingling, urinary retention, vomiting, weakness. The problem was sustained Sneeze. Modifying factors: The patient symptoms are alleviated by rest, lying on flat, the patient symptoms are aggravated by coughing, movement. Severity of symptoms: in the emergency department the symptoms are unchanged. The patient has experienced similar episodes in the past, several times. The patient has not recently seen a physician. 11:44 Patient took some steroids that it takes for lupus flare up and it improved his pain. pm1 Historical: - Allergies: 10:08 No Known Allergies; sv - PMHx: 10:08 low back pain; Lupus; r ARM FX-LOCKED R SHOULDER; Umbilical hernia; sv 10:09 COPD; sv - PSHx: 10:08 strabismus surgery; sv - Immunization history:: Adult Immunizations up to date, Flu vaccine is not up to date. - Social history:: Smoking status: Patient uses tobacco products, denies chronic smoking, but will smoke occasionally, Patient/guardian denies using street drugs, IV drugs. - Ebola Screening: : No symptoms or risks identified at this time. ROS: 11:44 Constitutional: Negative for fever, chills, and weight loss, Eyes: Negative for injury, pm1 pain, redness, and discharge, ENT: Negative for injury, pain, and discharge, Neck: Negative for injury, pain, and swelling, Cardiovascular: Negative for chest pain, palpitations, and edema, Respiratory: Negative for shortness of breath, cough, wheezing, and pleuritic chest pain, Abdomen/GI: Negative for abdominal pain, nausea, vomiting, diarrhea, and constipation. 11:44 : Negative for injury, bleeding, discharge, and swelling, MS/Extremity: Negative for injury and deformity, Skin: Negative for injury, rash, and discoloration, Neuro: Negative for headache, weakness, numbness, tingling, and seizure. 11:44 Back: Positive for of the left subscapular area and right subscapular area, pain, Negative for decreased range of motion. Exam: 11:44 Constitutional: This is a well developed, well nourished patient who is awake, alert, pm1 and in no acute distress. Head/Face: Normocephalic, atraumatic. Eyes: Pupils equal round and reactive to light, extra-ocular motions intact. Lids and lashes normal. Conjunctiva and sclera are non-icteric and not injected. Cornea within normal limits. Periorbital areas with no swelling, redness, or edema. ENT: Nares patent. No nasal discharge, no septal abnormalities noted. Tympanic membranes are normal and external auditory canals are clear. Oropharynx with no redness, swelling, or masses, exudates, or evidence of obstruction, uvula midline. Mucous membranes moist. Neck: Trachea midline, no thyromegaly or masses palpated, and no cervical lymphadenopathy. Supple, full range of motion without nuchal rigidity, or vertebral point tenderness. No Meningismus. Chest/axilla: Normal chest wall appearance and motion. Nontender with no deformity. No lesions are appreciated. Cardiovascular: Regular rate and rhythm with a normal S1 and S2. No gallops, murmurs, or rubs. Normal PMI, no JVD. No pulse deficits. Respiratory: Lungs have equal breath sounds bilaterally, clear to auscultation and percussion. No rales, rhonchi or wheezes noted. No increased work of breathing, no retractions or nasal flaring. Abdomen/GI: Soft, non-tender, with normal bowel sounds. No distension or tympany. No guarding or rebound. No evidence of tenderness throughout. 11:44 Skin: Warm, dry with normal turgor. Normal color with no rashes, no lesions, and no evidence of cellulitis. MS/ Extremity: Pulses equal, no cyanosis. Neurovascular intact. Full, normal range of motion. 11:44 Back: normal spinal alignment noted, vertebral tenderness, is not appreciated, muscle spasm, is appreciated in the left subscapular area and right subscapular area. 11:44 Neuro: Orientation: is normal, Mentation: is normal, Motor: is normal, moves all fours, strength is normal, strength is 5/5 in all extremities, Gait: is steady, at a normal pace, without difficulty. Vital Signs: 10:09 BP 134 / 94; Pulse 89; Resp 20; Temp 98.7; Pulse Ox 100% ; Weight 108.86 kg; Height 6 sv ft. 1 in. (185.42 cm); Pain 8; 10:09 Body Mass Index 31.66 (108.86 kg, 185.42 cm) sv MDM: 10:47 Patient medically screened. pm1 11:33 Data reviewed: vital signs. Data interpreted: Pulse oximetry: on room air is 100 %. pm1 Interpretation: normal. 11:44 Counseling: I had a detailed discussion with the patient and/or guardian regarding: the pm1 historical points, exam findings, and any diagnostic results supporting the discharge/admit diagnosis, the need for outpatient follow up, to return to the emergency department if symptoms worsen or persist or if there are any questions or concerns that arise at home. Administered Medications: 11:35 Drug: SOLU-Medrol 125 mg Route: IM; Site: left gluteus; em 11:59 Follow up: Response: No adverse reaction; Pain is decreased em 11:35 Drug: Flexeril 10 mg Route: PO; em 11:59 Follow up: Response: No adverse reaction em 11:35 Drug: Ibuprofen 600 mg Route: PO; em 11:59 Follow up: Response: No adverse reaction; Pain is decreased em Disposition: 16:46 Co-signature as Attending Physician, Lynn Jeronimo MD. ma2 Disposition: 04/03/18 11:49 Discharged to Home. Impression: Strain of muscle and tendon of back wall of thorax. - Condition is Stable. - Discharge Instructions: Muscle Strain. - Prescriptions for Naprosyn 500 mg Oral Tablet - take 1 tablet by ORAL route 2 times per day take with food; 30 tablet. Cyclobenzaprine 10 mg Oral Tablet - take 1 tablet by ORAL route every 8 hours As needed; 30 tablet. Medrol (Sherman) 4 mg Oral Tablets, Dose Pack - take 1 tablet by ORAL route as directed - follow package instructions; 1 packet. - Medication Reconciliation Form, Thank You Letter, Antibiotic Education, Prescription Opioid Use form. - Follow up: Emergency Department; When: As needed; Reason: Worsening of condition. Follow up: Private Physician; When: 2 - 3 days; Reason: Recheck today's complaints, Continuance of care, Re-evaluation by your physician. - Problem is new. - Symptoms have improved. Signatures: Nayana Dodge, RN RN Hima Ozuna, RHEOLOGIST RHEOLOGIST em Albin Gandara, MELON PACKER MELON PACKER pm1 Lynn Jeronimo MD MD ma2 Corrections: (The following items were deleted from the chart) 12:00 11:49 04/03/2018 11:49 Discharged to Home. Impression: Strain of muscle and tendon of em back wall of thorax. Condition is Stable. Forms are Medication Reconciliation Form, Thank You Letter, Antibiotic Education, Prescription Opioid Use. Follow up: Emergency Department; When: As needed; Reason: Worsening of condition. Follow up: Private Physician; When: 2 - 3 days; Reason: Recheck today's complaints, Continuance of care, Re-evaluation by your physician. Problem is new. Symptoms have improved. pm1
--- NOTE | 2018-04-03 11:49 | ER ---
Nurse's Notes [facility] Name: Klever Clarke Age: 57 yrs Sex: Male : 1960 Arrival Date: 04/03/2018 Time: 09:58 Bed 20 Private MD: None, None Diagnosis: Strain of muscle and tendon of back wall of thorax Presentation: 04/03 10:08 Presenting complaint: Patient states: mid back pain x 3 days after sneezing. Transition sv of care: patient was not received from another setting of care. Onset of symptoms was March 31, 2018. Care prior to arrival: None. 10:08 Method Of Arrival: Ambulatory sv 10:08 Acuity: NHI 4 sv Triage Assessment: 10:12 General: Appears in no apparent distress. uncomfortable, Behavior is calm, cooperative, sv appropriate for age. Pain: Complains of pain in mid back area Pain currently is 8 out of 10 on a pain scale. Respiratory: Respiratory effort is even, unlabored, Respiratory pattern is regular, symmetrical. Historical: - Allergies: 10:08 No Known Allergies; sv - PMHx: 10:08 low back pain; Lupus; r ARM FX-LOCKED R SHOULDER; Umbilical hernia; sv 10:09 COPD; sv - PSHx: 10:08 strabismus surgery; sv - Immunization history:: Adult Immunizations up to date, Flu vaccine is not up to date. - Social history:: Smoking status: Patient uses tobacco products, denies chronic smoking, but will smoke occasionally, Patient/guardian denies using street drugs, IV drugs. - Ebola Screening: : No symptoms or risks identified at this time. Screenin:03 Abuse screen: Denies threats or abuse. Nutritional screening: No deficits noted. em Tuberculosis screening: No symptoms or risk factors identified. Fall Risk None identified. Assessment: 11:02 General: Appears in no apparent distress. uncomfortable, Behavior is calm, cooperative. em Pain: Complains of pain in mid back area Pain currently is 8 out of 10 on a pain scale. Pain began 2-3 days ago. Neuro: Level of Consciousness is awake, alert, obeys commands, Oriented to person, place, time, situation, Denies paresthesias. Respiratory: Airway is patent Respiratory effort is even, unlabored, Respiratory pattern is regular, symmetrical. Derm: Skin is intact, is healthy with good turgor, Skin is pink, warm \T\ dry. Musculoskeletal: Range of motion: intact in all extremities. 12:00 Reassessment: Patient appears in no apparent distress at this time. Patient and/or em family updated on plan of care and expected duration. Pain level reassessed. Patient is alert, oriented x 3, equal unlabored respirations, skin warm/dry/pink. Patient states feeling better. Patient states symptoms have improved. Vital Signs: 10:09 BP 134 / 94; Pulse 89; Resp 20; Temp 98.7; Pulse Ox 100% ; Weight 108.86 kg; Height 6 sv ft. 1 in. (185.42 cm); Pain 8/10; 10:09 Body Mass Index 31.66 (108.86 kg, 185.42 cm) sv ED Course: 09:58 Patient arrived in ED. sb2 09:58 None, None is Private Physician. sb2 10:08 Triage completed. sv 10:12 Arm band placed on Patient placed in waiting room, Patient notified of wait time. sv 10:47 Albin Gandara NP is PHCP. pm1 10:47 Lynn Jeronimo MD is Attending Physician. pm1 10:50 Mariana Elder RN is Primary Nurse. ss 11:03 Patient has correct armband on for positive identification. Placed in gown. Bed in low em position. 11:54 No provider procedures requiring assistance completed. Patient did not have IV access em during this emergency room visit. Administered Medications: 11:35 Drug: SOLU-Medrol 125 mg Route: IM; Site: left gluteus; em 11:59 Follow up: Response: No adverse reaction; Pain is decreased em 11:35 Drug: Flexeril 10 mg Route: PO; em 11:59 Follow up: Response: No adverse reaction em 11:35 Drug: Ibuprofen 600 mg Route: PO; em 11:59 Follow up: Response: No adverse reaction; Pain is decreased em Outcome: 11:48 Discharge ordered by MD. pm1 12:00 Patient left the ED. em Signatures: Nayana Dodge RN RN Hima Bradford, MONUMENT ERECTOR MONUMENT ERECTOR em Mariana Elder RN RN Albin Gandara NP SPINNING MULE TENDER pm1 Maria Teresa Toney sb2
== END 2018-04-03 12:00 | disposition home or self-care (01) ==
LOC: ER 09:54
DX: S29.012A Strain of muscle and tendon of back wall of thorax, initial encounter (principal); Z72.0 Tobacco use
CPT/HCPCS: 96372; 99282; J2930

== ENCOUNTER 2018-04-15 08:46 | Emergency (ER) | payer OTHER ==
[2018-04-15] MEDS ORDERED: LEVALBUTEROL 1.25 MG/3 ML NEB ONE (09:23)
[2018-04-15] MEDS ORDERED: NA CHLORIDE 0.9% 500 ML ONE (09:44)
[2018-04-15] MEDS ORDERED: METHYLPREDNISOLONE 125 MG INJ ONE (09:44)
--- NOTE | 2018-04-15 10:07 | RAD REPORT ---
EXAM DESCRIPTION: Nadine Wright And Lat (2 Views)04/15/2018 9:45 am CLINICAL HISTORY: sob COMPARISON: Feb 2018 FINDINGS: Mild right basilar atelectasis has partially resolved. Left lung appears clear of acute i nfiltrate The heart is mildly enlarged
--- NOTE | 2018-04-15 10:42 | EDPHYS ---
Physician Documentation [facility] Name: Klever Clarke Age: 57 yrs Sex: Male : 1960 Arrival Date: 04/15/2018 Time: 08:49 Bed 7 Private MD: ED Physician Raz Valerio HPI: 04/15 10:16 This 57 yrs old Male presents to ER via Wheelchair with complaints of rn Shortness Of Breath. 10:16 The patient has shortness of breath at rest, with light activity. Onset: The rn symptoms/episode began/occurred 2 week(s) ago. Duration: The symptoms are intermittent. The patient's shortness of breath is aggravated by exertion, light activity. Severity of symptoms: At their worst the symptoms were mild in the emergency department the symptoms are unchanged. The patient has experienced similar episodes in the past. The patient has not recently seen a physician. 10:16 Reports ran out of his standing prednisone recently, has hx of lupus and COPD, reports rn hasn't been able to get in with pulmonology and doesn't have nebulizer/inhaler at home.. Historical: - Allergies: 09:06 No Known Allergies; iw - Home Meds: 09:06 prednisone 10 mg Oral tab once daily [Active]; iw - PMHx: 09:06 COPD; low back pain; Lupus; r ARM FX-LOCKED R SHOULDER; Umbilical hernia; iw - PSHx: 09:06 strabismus surgery; iw - Immunization history:: Adult Immunizations up to date. - Ebola Screening: : Patient negative for fever greater than or equal to 101.5 degrees Fahrenheit, and additional compatible Ebola Virus Disease symptoms Patient denies exposure to infectious person Patient denies travel to an Ebola-affected area in the 21 days before illness onset No symptoms or risks identified at this time. - Family history:: not pertinent. - Social history:: Smoking status: Patient uses tobacco products, unknown amount. - Hospitalizations: : No recent hospitalization is reported. ROS: 10:16 Constitutional: Negative for fever, chills, and weight loss, Eyes: Negative for injury, rn pain, redness, and discharge, Neck: Negative for injury, pain, and swelling, Cardiovascular: Negative for chest pain, palpitations, and edema, Respiratory: Negative for pleuritic chest pain, Abdomen/GI: Negative for abdominal pain, nausea, vomiting, diarrhea, and constipation, MS/Extremity: Negative for injury and deformity, Skin: Negative for injury, rash, and discoloration, Neuro: Negative for headache, weakness, numbness, tingling, and seizure. Exam: 10:16 Constitutional: This is a well developed, well nourished patient who is awake, alert, rn and in no acute distress. Head/Face: Normocephalic, atraumatic. Eyes: Pupils equal round and reactive to light, extra-ocular motions intact. Lids and lashes normal. Conjunctiva and sclera are non-icteric and not injected. Cornea within normal limits. Periorbital areas with no swelling, redness, or edema. ENT: MMM, no stridor Cardiovascular: Regular rate and rhythm with a normal S1 and S2. No gallops, murmurs, or rubs. No JVD. No pulse deficits. Respiratory: + mild tachypnea with diminished breath sounds bilateral bases Abdomen/GI: soft, non-tender Skin: Warm, dry with normal turgor. Normal color with no rashes, no lesions, and no evidence of cellulitis. MS/ Extremity: Pulses equal, no cyanosis. Neurovascular intact. Full, normal range of motion. Equal circumference. Neuro: Awake and alert, GCS 15, oriented to person, place, time, and situation. Cranial nerves II-XII grossly intact. Motor strength 5/5 in all extremities. Sensory grossly intact. Vital Signs: 08:57 BP 159 / 119; Pulse 63; Resp 22 S; Temp 97.5(O); Pulse Ox 95% on R/A; Pain 0/10; aa5 09:45 BP 154 / 96; Pulse 65; Resp 13; Pulse Ox 100% ; bp 11:00 BP 143 / 97; Pulse 63; Resp 17; Pulse Ox 100% ; bp MDM: 08:56 Patient medically screened. rn 10:40 Differential diagnosis: Chronic Obstructive Pulmonary Disease pneumonia, Pneumothorax. rn Data reviewed: vital signs, nurses notes, lab test result(s), radiologic studies, plain films, and as a result, I will discharge patient. Counseling: I had a detailed discussion with the patient and/or guardian regarding: the historical points, exam findings, and any diagnostic results supporting the discharge/admit diagnosis, lab results, radiology results, the need for outpatient follow up, to return to the emergency department if symptoms worsen or persist or if there are any questions or concerns that arise at home. Response to treatment: the patient's symptoms have markedly improved after treatment, and as a result, I will discharge patient. Special discussion: I discussed with the patient/guardian in detail that at this point there is no indication for admission to the hospital. It is understood, however, that if the symptoms persist or worsen the patient needs to return immediately for re-evaluation. 04/15 09:03 Order name: Flu; Complete Time: 10:00 rn 04/15 09:03 Order name: XRAY Chest Pa And Lat (2 Views); Complete Time: 10:20 rn 04/15 09:03 Order name: IV Start; Complete Time: 09:18 rn Administered Medications: 09:10 Drug: Xopenex (3) 1.25 mg Route: Inhalation; aa5 09:48 Drug: NS 0.9% 500 ml Route: IV; Rate: bolus; Site: right antecubital; aa5 09:48 Drug: SOLU-Medrol 125 mg Route: IVP; Site: right antecubital; aa5 09:55 Follow up: Response: No adverse reaction aa5 Disposition: 04/15/18 10:41 Discharged to Home. Impression: Chronic obstructive pulmonary disease with (acute) exacerbation. - Condition is Stable. - Discharge Instructions: Chronic Obstructive Pulmonary Disease Exacerbation. - Prescriptions for prednisone 10 mg Oral tablet - take 1 tablet by ORAL route once daily; 30 tablet. Prednisone 20 mg Oral Tablet - take 3 tablet by ORAL route once daily for 5 days; 15 tablet. Albuterol Sulfate 90 mcg/actuation - inhale 1-2 puff by INHALATION route every 4-6 hours; 1 Inhaler. - Medication Reconciliation Form, Thank You Letter, Antibiotic Education, Prescription Opioid Use form. - Follow up: Private Physician; When: As needed; Reason: Recheck today's complaints, Re-evaluation by your physician. - Problem is an acute exacerbation. - Symptoms have improved. Signatures: Dispatcher [employer] Elham Merrill RN RN Raz Valerio MD MD rn Calderon, Audri, RN RN aa5 Len Dumont RN RN bp Corrections: (The following items were deleted from the chart) 11:31 10:41 04/15/2018 10:41 Discharged to Home. Impression: Chronic obstructive pulmonary bp disease with (acute) exacerbation. Condition is Stable. Forms are Medication Reconciliation Form, Thank You Letter, Antibiotic Education, Prescription Opioid Use. Follow up: Private Physician; When: As needed; Reason: Recheck today's complaints, Re-evaluation by your physician. Problem is an acute exacerbation. Symptoms have improved. rn
--- NOTE | 2018-04-15 10:42 | ER ---
Nurse's Notes [facility] Name: Klever Clarke Age: 57 yrs Sex: Male : 1960 Arrival Date: 04/15/2018 Time: 08:49 Bed 7 Private MD: Diagnosis: Chronic obstructive pulmonary disease with (acute) exacerbation Presentation: 04/15 09:04 Presenting complaint: Patient states: SOB X 2 weeks, hx of lupus and COPD. Transition iw of care: patient was not received from another setting of care. Onset of symptoms was April 06, 2018. Risk Assessment: Do you want to hurt yourself or someone else? Patient reports no desire to harm self or others. Initial Sepsis Screen: Does the patient meet any 2 criteria? No. Patient's initial sepsis screen is negative. Does the patient have a suspected source of infection? No. Patient's initial sepsis screen is negative. Care prior to arrival: None. 09:04 Method Of Arrival: Wheelchair iw 09:04 Acuity: NHI 3 iw Triage Assessment: 11:28 Respiratory: Onset: The symptoms/episode began/occurred at an unknown time. the patient bp has moderate shortness of breath. Respiratory: Airway is patent. Historical: - Allergies: 09:06 No Known Allergies; iw - Home Meds: 09:06 prednisone 10 mg Oral tab once daily [Active]; iw - PMHx: 09:06 COPD; low back pain; Lupus; r ARM FX-LOCKED R SHOULDER; Umbilical hernia; iw - PSHx: 09:06 strabismus surgery; iw - Immunization history:: Adult Immunizations up to date. - Ebola Screening: : Patient negative for fever greater than or equal to 101.5 degrees Fahrenheit, and additional compatible Ebola Virus Disease symptoms Patient denies exposure to infectious person Patient denies travel to an Ebola-affected area in the 21 days before illness onset No symptoms or risks identified at this time. - Family history:: not pertinent. - Social history:: Smoking status: Patient uses tobacco products, unknown amount. - Hospitalizations: : No recent hospitalization is reported. Screenin:00 Abuse screen: Denies threats or abuse. Nutritional screening: No deficits noted. aa5 Tuberculosis screening: No symptoms or risk factors identified. Fall Risk None identified. Assessment: 08:58 General: Appears comfortable, Behavior is calm, cooperative. Pain: Denies pain. Neuro: aa5 Level of Consciousness is awake, alert, obeys commands, Oriented to person, place, time, situation. Cardiovascular: Heart tones S1 S2 present Rhythm is regular. Respiratory: Reports shortness of breath on exertion cough that is productive, Airway is patent Respiratory effort is even, unlabored, Respiratory pattern is regular, symmetrical, Breath sounds are clear in right upper lobe, left upper lobe, right middle lobe, left lower lobe, right lower lobe, left posterior upper lobe and right posterior upper lobe Breath sounds are diminished in left posterior lower lobe, right posterior middle lobe and right posterior lower lobe. GI: No signs and/or symptoms were reported involving the gastrointestinal system. : No signs and/or symptoms were reported regarding the genitourinary system. EENT: No signs and/or symptoms were reported regarding the EENT system. Derm: Skin is pink, warm \T\ dry. Musculoskeletal: Range of motion: intact in all extremities. 11:24 Reassessment: PT D/C HOME AMBULATORY, DX WITH ACUTE COPD. bp Vital Signs: 08:57 BP 159 / 119; Pulse 63; Resp 22 S; Temp 97.5(O); Pulse Ox 95% on R/A; Pain 0/10; aa5 09:45 BP 154 / 96; Pulse 65; Resp 13; Pulse Ox 100% ; bp 11:00 BP 143 / 97; Pulse 63; Resp 17; Pulse Ox 100% ; bp ED Course: 08:49 Patient arrived in ED. rg4 08:55 Raz Valerio MD is Attending Physician. rn 08:57 Arm band placed on. aa5 08:57 Patient has correct armband on for positive identification. aa5 08:59 Sheila Rosa RN is Primary Nurse. aa5 09:05 Triage completed. iw 09:17 Inserted saline lock: 22 gauge in right antecubital area, using aseptic technique. jb1 09:32 Patient moved to radiology via wheelchair. jb2 09:39 X-ray completed. Portable x-ray completed in exam room. Patient tolerated procedure jb2 well. 09:40 Patient moved back from radiology. jb2 09:42 XRAY Chest Pa And Lat (2 Views) In Process Unspecified. EDMS 09:55 Report given to KARINA Hunter. aa5 09:55 No provider procedures requiring assistance completed. aa5 11:24 IV discontinued, intact, bleeding controlled, No redness/swelling at site. Pressure bp dressing applied. Administered Medications: 09:10 Drug: Xopenex (3) 1.25 mg Route: Inhalation; aa5 09:48 Drug: NS 0.9% 500 ml Route: IV; Rate: bolus; Site: right antecubital; aa5 09:48 Drug: SOLU-Medrol 125 mg Route: IVP; Site: right antecubital; aa5 09:55 Follow up: Response: No adverse reaction aa5 Outcome: 10:41 Discharge ordered by . rn 11:24 Discharged to home ambulatory. bp 11:24 Condition: stable 11:24 Discharge instructions given to patient, Instructed on discharge instructions, follow up and referral plans. medication usage, benefits of quitting smoking, Demonstrated understanding of instructions, follow-up care, medications, Prescriptions given X 3. 11:31 Patient left the ED. bp Signatures: Dispatcher [employer] EDMS Nick Espinal jb1 Jermaine Conrad2 Elham Lassiter RN RN iw Nieto, Roman, MD MD rn Calderon, Audri, RN RN shana5 Myra Holloway4 Len Dumont RN RN bp
== END 2018-04-15 11:31 | disposition home or self-care (01) ==
LOC: ER 08:46
DX: J44.1 Chronic obstructive pulmonary disease with (acute) exacerbation (principal); Z72.0 Tobacco use
CPT/HCPCS: 71046; 87804; 96374; 99284; J2930

== ENCOUNTER 2018-05-20 10:39 | Emergency (ER) | payer OTHER ==
[2018-05-20] MEDS ORDERED: LEVALBUTEROL 1.25 MG/3 ML NEB ONE ×2 (13:22)
[2018-05-20] MEDS ORDERED: METHYLPREDNISOLONE 125 MG INJ ONE (13:22)
[2018-05-20 13:33] LABS: Absolute Lymphocytes (CBC) 0.7 K/uL (0.7-4.9); Absolute Monocytes 0.4 K/uL (0.1-1.3); Absolute Neutrophil 4.5 K/uL (1.8-8.0); Basophils % 0.1 % (0-1.3); Eosinophils % 1.1 % (0-4.4); Hematocrit 46.5 % (39.6-49.0); Lymphocytes % 12.9 % (15.3-44.8); MPV 9.8 fL (7.6-11.3); Monocytes % 7.3 % (3.3-12.3); RBC Red Blood Cell Count 5.03 M/uL (4.33-5.43)
[2018-05-20 13:34] LABS: Protime INR 1.11
--- NOTE | 2018-05-20 13:43 | RAD REPORT ---
EXAM DESCRIPTION: RAD - Chest Single View - 05/20/2018 1:28 pm CLINICAL HISTORY: shortness of breath Chest pain. COMPARISON: Chest Pa And Lat (2 Views) dated 04/15/2018; Chest Pa And Lat (2 Views) dated 02/09/2018; C hest Single View dated 03/28/2017; Chest Single View dated 01/25/2017 FINDINGS: Portable technique limits examination quality. Mild interstitial prominence is noted, similar to prior study, probably representing mild interstitia l pulmonary edema. The heart is mildly enlarged in size. No displaced fractures. IMPRESSION: Mild CHF suspected.
[2018-05-20 14:02] LABS: ALT/SGPT 16 U/L (12-78); AST/SGOT 17 U/L (15-37); Albumin 3.4 g/dL (3.4-5.0); Alkaline Phosphatase 105 U/L (45-117); BUN Blood Urea Nitrogen 7 mg/dL (7-18); Bicarbonate 28 mmol/L (21-32); Bilirubin Direct 0.2 mg/dL (0-0.2); Bilirubin Total 0.7 mg/dL (0.2-1.0); Glucose Level 79 mg/dL (74-106); Magnesium 1.9 mg/dL (1.8-2.4); NT PRO-BNP 261 pg/mL (<125); Potassium 3.9 mmol/L (3.5-5.1); Protein, Total 7.3 g/dL (6.4-8.2); Sodium Level 141 mmol/L (136-145); Troponin (Emerg Dept Use Only) < 0.02 ng/mL (0.0-0.045)
--- NOTE | 2018-05-20 14:13 | ER ---
Nurse's Notes [facility] Name: Klever Clarke Age: 57 yrs Sex: Male : 1960 Arrival Date: 05/20/2018 Time: 10:42 Bed 13 Private MD: Diagnosis: Chronic obstructive pulmonary disease with (acute) exacerbation Presentation: 05/20 10:54 Presenting complaint: Patient states: recently diagnosed with COPD, coughing at night. dm5 no appetite. Was given albuterol inhaler the last time he was here. Hasn't been able to follow up with regular doctor or specialist. Transition of care: patient was not received from another setting of care. Onset of symptoms was May 19, 2018. Risk Assessment: Do you want to hurt yourself or someone else? Patient reports no desire to harm self or others. Initial Sepsis Screen: Does the patient meet any 2 criteria? No. Patient's initial sepsis screen is negative. Does the patient have a suspected source of infection? No. Patient's initial sepsis screen is negative. Care prior to arrival: None. 10:54 Method Of Arrival: Ambulatory dm5 10:54 Acuity: NHI 3 dm5 Triage Assessment: 10:56 General: Appears in no apparent distress. Behavior is calm. Pain: Complains of pain in dm5 every day lupus pain. Historical: - Allergies: 10:56 No Known Allergies; dm5 - Home Meds: 12:44 prednisone 10 mg Oral tab once daily [Active]; rv - PMHx: 10:56 COPD; low back pain; Lupus; r ARM FX-LOCKED R SHOULDER; Umbilical hernia; dm5 - PSHx: 10:56 eye surgery many years ago; dm5 - Immunization history:: Adult Immunizations not up to date. - Social history:: Smoking status: Patient/guardian denies using tobacco. - Ebola Screening: : Patient negative for fever greater than or equal to 101.5 degrees Fahrenheit, and additional compatible Ebola Virus Disease symptoms Patient denies exposure to infectious person Patient denies travel to an Ebola-affected area in the 21 days before illness onset No symptoms or risks identified at this time. Screenin:42 Abuse screen: Denies threats or abuse. Denies injuries from another. Nutritional rv screening: No deficits noted. Tuberculosis screening: No symptoms or risk factors identified. Fall Risk None identified. Assessment: 12:41 General: Appears in no apparent distress. comfortable, Behavior is calm, cooperative. rv Pain: Denies pain. Neuro: Level of Consciousness is awake, alert, obeys commands, Oriented to person, place, time, situation. Cardiovascular: Capillary refill < 3 seconds. Respiratory: Breath sounds with crackles in left posterior lower lobe. GI: No signs and/or symptoms were reported involving the gastrointestinal system. : No signs and/or symptoms were reported regarding the genitourinary system. EENT: No signs and/or symptoms were reported regarding the EENT system. Derm: Skin is intact. Musculoskeletal: No signs and/or symptoms reported regarding the musculoskeletal system. Vital Signs: 10:56 BP 150 / 111; Pulse 77; Resp 20; Temp 97.9; Pulse Ox 97% on R/A; Weight 104.33 kg; dm5 Height 6 ft. 1 in. (185.42 cm); Pain 0/10; 12:35 BP 126 / 96 LA; Pulse 73; Resp 17 S; Pulse Ox 96% on R/A; rv 13:00 BP 145 / 107 LA; Pulse 79; Resp 17 S; Pulse Ox 95% on R/A; rv 13:30 BP 141 / 87 LA; Pulse 73; Resp 18 S; Pulse Ox 100% on R/A; rv 14:27 BP 152 / 93 LA; Pulse 80; Resp 18; Pulse Ox 96% on R/A; rv 10:56 Body Mass Index 30.34 (104.33 kg, 185.42 cm) dm5 ED Course: 10:42 Patient arrived in ED. as 10:55 Triage completed. dm5 10:56 Arm band placed on right wrist. Patient placed in waiting room. 5 12:34 Mele Dexter PA is PHCP. m 12:34 Darell Arnold MD is Attending Physician. jmm 12:43 Patient has correct armband on for positive identification. Bed in low position. Call rv light in reach. Side rails up X 1. Pulse ox on. NIBP on. 13:20 Inserted saline lock: 20 gauge in right antecubital area, using aseptic technique. rv Blood collected. 13:29 XRAY Chest (1 view) In Process Unspecified. EDMS 13:53 EKG done, by manufacturing technology professor. reviewed by Mele DOW. sm3 14:27 No provider procedures requiring assistance completed. IV discontinued, bleeding rv controlled, No redness/swelling at site. Pressure dressing applied. Administered Medications: 13:10 Drug: Xopenex (3) 1.25 mg Route: Inhalation; rv 13:41 Follow up: Response: Marked relief of symptoms rv 13:20 Drug: SOLU-Medrol 125 mg Route: IVP; Site: right antecubital; rv 13:41 Follow up: Response: Marked relief of symptoms rv Outcome: 14:12 Discharge ordered by MD. patricia 14:27 Discharged to home ambulatory. rv 14:27 Condition: good 14:27 Discharge instructions given to patient, Instructed on discharge instructions, follow up and referral plans. medication usage, Demonstrated understanding of instructions, follow-up care, medications, Prescriptions given X 2. 14:28 Patient left the ED. rv Signatures: Dispatcher [employer] EDMS Shea Green, RN RN dm5 Mele Dexter PA PA jmm Martinez, Amelia as Montes, Shakira sm3 Rajan Colon RN RN rv
--- NOTE | 2018-05-20 14:13 | EDPHYS ---
Physician Documentation [facility] Name: Klever Clarke Age: 57 yrs Sex: Male : 1960 Arrival Date: 05/20/2018 Time: 10:42 Bed 13 Private MD: ED Physician Darell Arnold HPI: 05/20 12:57 This 57 yrs old Male presents to ER via Ambulatory with complaints of COPD jmm Exacerbation. 12:57 The patient or guardian reports cough. Onset: The symptoms/episode began/occurred jmm gradually, 1 month(s) ago. Patient complaints of ongoing shortness of breath over the past month since being diagnosed with COPD. Patient states symptoms have worsened over the past 3 days after running out of his prednisone. Patient denies chest pain but states he feels tightness upon laying down. . Historical: - Allergies: 10:56 No Known Allergies; dm5 - Home Meds: 12:44 prednisone 10 mg Oral tab once daily [Active]; rv - PMHx: 10:56 COPD; low back pain; Lupus; r ARM FX-LOCKED R SHOULDER; Umbilical hernia; dm5 - PSHx: 10:56 eye surgery many years ago; dm5 - Immunization history:: Adult Immunizations not up to date. - Social history:: Smoking status: Patient/guardian denies using tobacco. - Ebola Screening: : Patient negative for fever greater than or equal to 101.5 degrees Fahrenheit, and additional compatible Ebola Virus Disease symptoms Patient denies exposure to infectious person Patient denies travel to an Ebola-affected area in the 21 days before illness onset No symptoms or risks identified at this time. ROS: 12:57 Constitutional: Negative for fever, chills, and weight loss, Eyes: Negative for injury, jmm pain, redness, and discharge. 12:57 Respiratory: Positive for shortness of breath. 12:57 All other systems are negative. Exam: 12:57 Constitutional: This is a well developed, well nourished patient who is awake, alert, jmm and in no acute distress. Head/Face: atraumatic. Eyes: EOMI, no conjunctival erythema appreciated ENT: Moist Mucus Membranes Neck: Trachea midline, Supple Chest/axilla: Normal chest wall appearance and motion. Cardiovascular: Regular rate and rhythm. No edema appreciated 12:57 Abdomen/GI: Non distended, soft Back: Normal ROM Skin: General appearance color normal MS/ Extremity: Moves all extremities, no obvious deformities appreciated, no edema noted to the lower extremities Neuro: Awake and alert, normal gait Psych: Behavior is normal, Mood is normal, Patient is cooperative and pleasant 12:57 Respiratory: decreased breath sounds noted to the right lung base. Vital Signs: 10:56 BP 150 / 111; Pulse 77; Resp 20; Temp 97.9; Pulse Ox 97% on R/A; Weight 104.33 kg; dm5 Height 6 ft. 1 in. (185.42 cm); Pain 0/10; 12:35 BP 126 / 96 LA; Pulse 73; Resp 17 S; Pulse Ox 96% on R/A; rv 13:00 BP 145 / 107 LA; Pulse 79; Resp 17 S; Pulse Ox 95% on R/A; rv 13:30 BP 141 / 87 LA; Pulse 73; Resp 18 S; Pulse Ox 100% on R/A; rv 14:27 BP 152 / 93 LA; Pulse 80; Resp 18; Pulse Ox 96% on R/A; rv 10:56 Body Mass Index 30.34 (104.33 kg, 185.42 cm) dm5 MDM: 12:49 Patient medically screened. jazzy 14:09 Data reviewed: vital signs, EMS record, lab test result(s), EKG, radiologic studies, [facility] plain films. Test interpretation: by ED physician or midlevel provider: ECG. Counseling: I had a detailed discussion with the patient and/or guardian regarding: the historical points, exam findings, and any diagnostic results supporting the discharge/admit diagnosis, lab results, radiology results, the need for outpatient follow up, to return to the emergency department if symptoms worsen or persist or if there are any questions or concerns that arise at home. ED course: Patient states that he feels much better. Patient is alert, non toxic in appearance, and shows no signs of resp distress. I discussed lab and chest xray findings with the patient. Patient will follow up with his PCP for further evaluation. Patient is otherwise given strict return precautions. Patient understood and agrees with the plan of care. . 05/20 12:56 Order name: Basic Metabolic Panel; Complete Time: 14:03 [facility] 05/20 12:56 Order name: CBC with Diff [facility] 05/20 12:56 Order name: LFT's; Complete Time: 14:03 [facility] 05/20 12:56 Order name: Magnesium; Complete Time: 14:03 [facility] 05/20 12:56 Order name: NT PRO-BNP; Complete Time: 14:03 [facility] 05/20 12:56 Order name: PT-INR; Complete Time: 14:03 [facility] 05/20 12:56 Order name: Troponin (emerg Dept Use Only); Complete Time: 14:03 [facility] 05/20 12:56 Order name: XRAY Chest (1 view); Complete Time: 14:03 [facility] 05/20 12:56 Order name: EKG; Complete Time: 12:57 [facility] 05/20 12:56 Order name: Cardiac monitoring; Complete Time: 13:39 [facility] 05/20 12:56 Order name: EKG - Nurse/Tech; Complete Time: 13:39 [facility] 05/20 13:54 Order name: CBC Smear Scan [facility] 05/20 12:56 Order name: IV Saline Lock; Complete Time: 13:39 [facility] 05/20 12:56 Order name: Labs collected and sent; Complete Time: 13:39 [facility] 05/20 12:56 Order name: O2 Per Protocol; Complete Time: 13:39 [facility] 05/20 12:56 Order name: O2 Sat Monitoring; Complete Time: 13:39 jm Administered Medications: 13:10 Drug: Xopenex (3) 1.25 mg Route: Inhalation; rv 13:41 Follow up: Response: Marked relief of symptoms rv 13:20 Drug: SOLU-Medrol 125 mg Route: IVP; Site: right antecubital; rv 13:41 Follow up: Response: Marked relief of symptoms rv Disposition: 15:15 Co-signature as Attending Physician, Darell Arnold MD I agree with the assessment and jazzy plan of care. Disposition: 05/20/18 14:12 Discharged to Home. Impression: Chronic obstructive pulmonary disease with (acute) exacerbation. - Condition is Stable. - Discharge Instructions: Chronic Obstructive Pulmonary Disease Exacerbation. - Prescriptions for Prednisone 20 mg Oral Tablet - take 1 tablet by ORAL route once daily .; 30 tablet. Albuterol Sulfate 90 mcg/actuation - inhale 1-2 puff by INHALATION route every 4-6 hours; 1 Inhaler. - Medication Reconciliation Form, Thank You Letter, Antibiotic Education, Prescription Opioid Use form. - Follow up: Private Physician; When: 2 - 3 days; Reason: Recheck today's complaints, Continuance of care, Re-evaluation by your physician. Signatures: Dispatcher [employer] Shea Thompson, RN RN Darell Menard MD MD cha Mickail, Joel, PA PA jmm Vicente, Ronaldo, RN RN rv Corrections: (The following items were deleted from the chart) 14:28 14:12 05/20/2018 14:12 Discharged to Home. Impression: Chronic obstructive pulmonary rv disease with (acute) exacerbation. Condition is Stable. Forms are Medication Reconciliation Form, Thank You Letter, Antibiotic Education, Prescription Opioid Use. Follow up: Private Physician; When: 2 - 3 days; Reason: Recheck today's complaints, Continuance of care, Re-evaluation by your physician. harshad
[2018-05-20 15:33] LABS: Blood Morphology Comment NOT SEEN (NOT SEEN); Platelet Estimate ADEQ; Urine White Blood Cell Casts OK
--- NOTE | 2018-05-21 10:34 | EKG ---
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
== END 2018-05-20 14:28 | disposition home or self-care (01) ==
LOC: ER 10:39
DX: J44.1 Chronic obstructive pulmonary disease with (acute) exacerbation (principal)
CPT/HCPCS: 36415; 71045; 80048; 80076; 83735; 83880; 84484; 85025; 85610; 93005; 96374; 99285; J2930

== ENCOUNTER 2018-06-11 09:45 | Emergency (ER) | payer OTHER ==
[2018-06-11] MEDS ORDERED: FENTANYL CITR 100 MCG/2 ML ONE (10:37)
[2018-06-11] MEDS ORDERED: NA CHLORIDE 0.9% 1,000 ML ONE (10:38)
[2018-06-11 10:39] LABS: Absolute Lymphocytes (CBC) 1.4 K/uL (0.7-4.9); Absolute Monocytes 0.6 K/uL (0.1-1.3); Absolute Neutrophil 4.9 K/uL (1.8-8.0); Basophils % 1.5 % (0-1.3); Eosinophils % 0.9 % (0-4.4); Hematocrit 46.8 % (39.6-49.0); Lymphocytes % 20.2 % (15.3-44.8); MPV 10.1 fL (7.6-11.3); Monocytes % 8.3 % (3.3-12.3); RBC Red Blood Cell Count 4.91 M/uL (4.33-5.43)
[2018-06-11 10:50] LABS: ALT/SGPT 18 U/L (12-78); AST/SGOT 15 U/L (15-37); Albumin 3.8 g/dL (3.4-5.0); Alkaline Phosphatase 91 U/L (45-117); BUN Blood Urea Nitrogen 19 mg/dL (7-18); Bicarbonate 31 mmol/L (21-32); Bilirubin Direct 0.2 mg/dL (0-0.2); Bilirubin Total 0.6 mg/dL (0.2-1.0); Glucose Level 87 mg/dL (74-106); Lipase 208 U/L (73-393); Potassium 3.7 mmol/L (3.5-5.1); Protein, Total 7.4 g/dL (6.4-8.2); Sodium Level 144 mmol/L (136-145)
[2018-06-11 11:48] LABS: Urine Bacteria <20 /HPF (NONE SEEN); Urine Culture Reflex Order NOT NEEDED; Urine Mucus 2+ /HPF (NONE SEEN); Urine RBC <5 /HPF (NONE SEEN)
--- NOTE | 2018-06-11 12:24 | RAD REPORT ---
EXAM DESCRIPTION: CT - Stone Protocol - 06/11/2018 12:11 pm CLINICAL HISTORY: Flank pain. FLANK PAIN COMPARISON: Stone Protocol dated 05/23/2017; Chest Abdomen Pelvis W Cont dated 02/10/2018 TECHNIQUE: Axial images were obtained without oral or IV contrast. Lack of contrast limits solid org an and vascular assessment. The [id number] spans the entirety of the system partially obscuring uppermost abdomen and lung bases. Coronal reformatted images were obtained and reviewed. All CT scans are performed using dose optimization technique as appropriate and may include automated exposure control or mA/KV adjustment according to patient size. FINDINGS: Linear subsegmental atelectasis is present in the right lung base. Imaged portions of the liver and spleen show no suspicious findings on non-contrast imaging. The panc reas and adrenal glands are normal. No pathologic lymphadenopathy in the abdomen or pelvis. No urinary tract stones or obstructive uropathy. No bowel obstruction, free air, free fluid or abscess. Normal appendix noted.Small fat containing umb ilical hernia. Marked anterolisthesis of L5 on S1 is seen with chronic bilateral spondylolysis. Moderate central com pression deformity affects L4, chronic. IMPRESSION: No urinary tract stones or obstructive uropathy. Significant anterolisthesis of L5 on S1 with bilateral spondylolysis, chronic.
[2018-06-11 12:35] LABS: Urine Blood NEGATIVE (NEG); Urine Glucose NEGATIVE (NEG); Urine Protein NEGATIVE (NEG); Urine pH 5.5 (5.0-7.0)
--- NOTE | 2018-06-11 12:44 | EDPHYS ---
Physician Documentation [facility] Name: Klever Clarke Age: 57 yrs Sex: Male : 1960 Arrival Date: 06/11/2018 Time: 09:48 Bed 15 Private MD: None, None ED Physician Raz Valerio HPI: 06/11 10:13 This 57 yrs old Male presents to ER via Ambulatory with complaints of snw Possible Kidney Stone. 10:13 The patient complains of pain in the right mid back. The pain does not radiate. Onset: snw The symptoms/episode began/occurred gradually, 1 month(s) ago, and became worse 1 week(s) ago. Modifying factors: the symptoms are aggravated by movement. Severity of pain: At its worst the pain was moderate. The patient has experienced similar episodes in the past. one month ago. Pt does now have a PCP, Dr. Velasco, but has not seen him yet. Historical: - Allergies: 10:00 No Known Allergies; ss - Home Meds: 10:00 prednisone 10 mg Oral tab once daily [Active]; ss - PMHx: 10:00 COPD; low back pain; Lupus; ss 10:00 Kidney stones; ss - PSHx: 10:00 eye surgery many years ago; Hernia repair; ss - Immunization history:: Adult Immunizations unknown. - Social history:: Smoking status: Patient/guardian denies using tobacco, but has a distant history of tobacco abuse. - Ebola Screening: : Patient denies exposure to infectious person Patient denies travel to an Ebola-affected area in the 21 days before illness onset. ROS: 10:09 Constitutional: Negative for fever, chills, and weight loss, Eyes: Negative for injury, snw pain, redness, and discharge, ENT: Negative for injury, pain, and discharge, Neck: Negative for injury, pain, and swelling, Cardiovascular: Negative for chest pain, palpitations, and edema, Respiratory: Negative for shortness of breath, cough, wheezing, and pleuritic chest pain, Abdomen/GI: Negative for abdominal pain, nausea, vomiting, diarrhea, and constipation, Back: Negative for injury and pain, : Negative for injury, bleeding, discharge, and swelling, Skin: Negative for injury, rash, and discoloration, Neuro: Negative for headache, weakness, numbness, tingling, and seizure. 10:09 Back: Negative for injury. Right flank pain x 1 month, given Tamulosin with some relief but over the past week the pain has increased in intensity and is more constant MS/Extremity: Negative for injury and deformity. 10:09 Constitutional: Negative for fever. 10:09 Abdomen/GI: Negative for nausea and vomiting. Exam: 10:09 Head/Face: Normocephalic, atraumatic. Eyes: Pupils equal round and reactive to light, snw extra-ocular motions intact. Lids and lashes normal. Conjunctiva and sclera are non-icteric and not injected. Cornea within normal limits. Periorbital areas with no swelling, redness, or edema. ENT: Nares patent. No nasal discharge, no septal abnormalities noted. Tympanic membranes are normal and external auditory canals are clear. Oropharynx with no redness, swelling, or masses, exudates, or evidence of obstruction, uvula midline. Mucous membranes moist. Neck: Trachea midline, no thyromegaly or masses palpated, and no cervical lymphadenopathy. Supple, full range of motion without nuchal rigidity, or vertebral point tenderness. No Meningismus. Chest/axilla: Normal chest wall appearance and motion. Nontender with no deformity. No lesions are appreciated. Cardiovascular: Regular rate and rhythm with a normal S1 and S2. No gallops, murmurs, or rubs. Normal PMI, no JVD. No pulse deficits. Respiratory: Lungs have equal breath sounds bilaterally, clear to auscultation and percussion. No rales, rhonchi or wheezes noted. No increased work of breathing, no retractions or nasal flaring. Abdomen/GI: Soft, non-tender, with normal bowel sounds. No distension or tympany. No guarding or rebound. No evidence of tenderness throughout. Back: No spinal tenderness. No costovertebral tenderness. Full range of motion. MS/ Extremity: Pulses equal, no cyanosis. Neurovascular intact. Full, normal range of motion. Neuro: Awake and alert, GCS 15, oriented to person, place, time, and situation. Cranial nerves II-XII grossly intact. Motor strength 5/5 in all extremities. Sensory grossly intact. Cerebellar exam normal. Normal gait. Psych: Awake, alert, with orientation to person, place and time. Behavior, mood, and affect are within normal limits. 10:09 Constitutional: The patient appears alert, awake, hyperemic appearance 10:09 Skin: Appearance: Color: erythematous, karissa, Temperature: normal temperature, Moisture: normal moisture. Vital Signs: 10:00 BP 141 / 94; Pulse 86; Resp 16; Temp 98.0(TE); Pulse Ox 99% on R/A; Weight 104.33 kg; ss Height 6 ft. 1 in. (185.42 cm); Pain 9/10; 11:39 BP 132 / 84 LA; Pulse 64; Resp 16 S; Pulse Ox 97% on R/A; rv 12:46 BP 143 / 86 LA Supine; Pulse 84; Resp 18; Pulse Ox 99% on R/A; rv 10:00 Body Mass Index 30.34 (104.33 kg, 185.42 cm) ss MDM: 10:03 Patient medically screened. snw 12:47 Data reviewed: vital signs, nurses notes. Data interpreted: Pulse oximetry: on room air snw is 99 %. Interpretation: normal. Counseling: I had a detailed discussion with the patient and/or guardian regarding: the historical points, exam findings, and any diagnostic results supporting the discharge/admit diagnosis, lab results, radiology results, the need for outpatient follow up, to return to the emergency department if symptoms worsen or persist or if there are any questions or concerns that arise at home. Special discussion: I have referred the patient to see his PCP for further evaluation of high blood pressure. Based on the history and exam findings, there is no indication for further emergent testing or inpatient evaluation. I discussed with the patient/guardian the need to see the primary care provider for further evaluation of the symptoms. 06/11 10:01 Order name: Urine Microscopic Only; Complete Time: 11:55 snw 06/11 10:09 Order name: Basic Metabolic Panel; Complete Time: 11:55 snw 06/11 10:09 Order name: CBC with Diff; Complete Time: 11:55 snw 06/11 10:09 Order name: Hepatic Function; Complete Time: 11:55 snw 06/11 10:09 Order name: Lipase; Complete Time: 11:55 snw 06/11 11:40 Order name: Urine Dipstick--Ancillary (enter results) eb 06/11 10:01 Order name: Urine Dipstick-Ancillary (obtain specimen); Complete Time: 11:39 snw 06/11 10:09 Order name: IV Saline Lock; Complete Time: 10:39 snw 06/11 10:09 Order name: Labs collected and sent; Complete Time: 10:39 snw 06/11 11:55 Order name: CT Stone Protocol; Complete Time: 12:36 snw Administered Medications: 10:20 Drug: NS 0.9% 1000 ml Route: IV; Rate: 125 ml/hr; Site: right antecubital; rv 13:35 Follow up: IV Status: Completed infusion rv 10:20 Drug: fentaNYL (PF) 50 mcg Route: IVP; Site: right antecubital; rv 11:09 Follow up: Response: Pain is decreased rv Disposition: 17:48 Co-signature as Attending Physician, Raz Valerio MD. rn Disposition: 06/11/18 12:43 Discharged to Home. Impression: Muscle spasm of back. - Condition is Stable. - Discharge Instructions: Flank Pain, Adult, Hypertension, Muscle Cramps and Spasms. - Prescriptions for orphenadrine citrate 100 mg Oral Tablet Sustained Release - take 1 tablet by ORAL route 2 times per day As needed; 20 tablet. - Work release form, Medication Reconciliation Form, Thank You Letter, Antibiotic Education, Prescription Opioid Use form. - Follow up: Private Physician; When: 2 - 3 days; Reason: Recheck today's complaints, Continuance of care, Re-evaluation by your physician. Follow up: Emergency Department; When: As needed; Reason: Worsening of condition. Signatures: Dispatcher [employer] EDKY Malia Smith, HARNESS FITTER-C HARNESS FITTER-Csnw Raz Valerio MD MD rn Smirch, Shelby, RN RN ss Vicente, Ronaldo, RN RN rv Corrections: (The following items were deleted from the chart) 13:01 12:43 06/11/2018 12:43 Discharged to Home. Impression: Muscle spasm of back. Condition rv is Stable. Forms are Medication Reconciliation Form, Thank You Letter, Antibiotic Education, Prescription Opioid Use. Follow up: Private Physician; When: 2 - 3 days; Reason: Recheck today's complaints, Continuance of care, Re-evaluation by your physician. Follow up: Emergency Department; When: As needed; Reason: Worsening of condition. snw
--- NOTE | 2018-06-11 12:44 | ER ---
Nurse's Notes [facility] Name: Klever Clarke Age: 57 yrs Sex: Male : 1960 Arrival Date: 06/11/2018 Time: 09:48 Bed 15 Private MD: None, None Diagnosis: Muscle spasm of back Presentation: 06/11 09:58 Presenting complaint: Patient states: L flank pain >1 month. Pt reports he was ss diagnosed with a kidney stone a month ago and was given tamsulosin which helped, but the pain has gotten much worse for the past week. Transition of care: patient was not received from another setting of care. Onset of symptoms is unknown. Risk Assessment: Do you want to hurt yourself or someone else? Patient reports no desire to harm self or others. Initial Sepsis Screen: Does the patient meet any 2 criteria? No. Patient's initial sepsis screen is negative. Does the patient have a suspected source of infection? No. Patient's initial sepsis screen is negative. Care prior to arrival: None. 09:58 Method Of Arrival: Ambulatory ss 09:58 Acuity: NHI 3 ss Historical: - Allergies: 10:00 No Known Allergies; ss - Home Meds: 10:00 prednisone 10 mg Oral tab once daily [Active]; ss - PMHx: 10:00 COPD; low back pain; Lupus; ss 10:00 Kidney stones; ss - PSHx: 10:00 eye surgery many years ago; Hernia repair; ss - Immunization history:: Adult Immunizations unknown. - Social history:: Smoking status: Patient/guardian denies using tobacco, but has a distant history of tobacco abuse. - Ebola Screening: : Patient denies exposure to infectious person Patient denies travel to an Ebola-affected area in the 21 days before illness onset. Screenin:40 Abuse screen: Denies threats or abuse. Denies injuries from another. Nutritional rv screening: No deficits noted. Tuberculosis screening: No symptoms or risk factors identified. Fall Risk None identified. Assessment: 10:39 General: Appears in no apparent distress. uncomfortable, Behavior is calm, cooperative. rv Pain: Complains of pain in right mid back. Neuro: Level of Consciousness is awake, alert, obeys commands, Oriented to person, place, time, situation. Cardiovascular: Capillary refill < 3 seconds. Respiratory: Airway is patent. GI: Bowel sounds present X 4 quads. Abd is soft and non tender X 4 quads. : No signs and/or symptoms were reported regarding the genitourinary system. EENT: No signs and/or symptoms were reported regarding the EENT system. Derm: Skin is intact. Musculoskeletal: No signs and/or symptoms reported regarding the musculoskeletal system. 11:39 Reassessment: Patient appears in no apparent distress at this time. Patient and/or rv family updated on plan of care and expected duration. Pain level reassessed. Patient is alert, oriented x 3, equal unlabored respirations, skin warm/dry/pink. Patient states feeling better. Patient states symptoms have improved. Vital Signs: 10:00 BP 141 / 94; Pulse 86; Resp 16; Temp 98.0(TE); Pulse Ox 99% on R/A; Weight 104.33 kg; ss Height 6 ft. 1 in. (185.42 cm); Pain 9/10; 11:39 BP 132 / 84 LA; Pulse 64; Resp 16 S; Pulse Ox 97% on R/A; rv 12:46 BP 143 / 86 LA Supine; Pulse 84; Resp 18; Pulse Ox 99% on R/A; rv 10:00 Body Mass Index 30.34 (104.33 kg, 185.42 cm) ED Course: 09:48 Patient arrived in ED. mr 09:48 None, None is Private Physician. mr 09:59 Triage completed. ss 10:00 Arm band placed on right wrist. ss 10:03 Mal[facility] Smith [facility]-C [facility]. snw 10:03 Raz Valerio MD is Attending Physician. snw 10:30 No provider procedures requiring assistance completed. Inserted saline lock: 20 gauge rv in right antecubital area, using aseptic technique. 10:40 Patient has correct armband on for positive identification. Call light in reach. Side rv rails up X 1. Pulse ox on. NIBP on. 11:39 Urine Microscopic Only Sent. rv 12:12 CT Stone Protocol In Process Unspecified. EDMS 12:48 IV discontinued, bleeding controlled, No redness/swelling at site. Pressure dressing rv applied. 13:00 Rajan Colon RN is Primary Nurse. rv Administered Medications: 10:20 Drug: NS 0.9% 1000 ml Route: IV; Rate: 125 ml/hr; Site: right antecubital; rv 13:35 Follow up: IV Status: Completed infusion rv 10:20 Drug: fentaNYL (PF) 50 mcg Route: IVP; Site: right antecubital; rv 11:09 Follow up: Response: Pain is decreased rv Outcome: 12:43 Discharge ordered by MD. angel 12:47 Discharged to home ambulatory. rv 12:47 Condition: good 13:00 Discharge instructions given to patient, Instructed on discharge instructions, follow rv up and referral plans. medication usage, Demonstrated understanding of instructions, follow-up care, medications, Prescriptions given X 1. 13:01 Patient left the ED. rv Signatures: Dispatcher [employer] EDMS Malia Smith, HAND ZIPPER TRIMMER-C HAND ZIPPER TRIMMER-Jenise Matute Shelby, RN RN Rajan Mahajan RN RN rv
== END 2018-06-11 13:01 | disposition home or self-care (01) ==
LOC: ER 09:45
DX: M62.830 Muscle spasm of back (principal); J44.9 Chronic obstructive pulmonary disease, unspecified
CPT/HCPCS: 36415; 74176; 76377; 80048; 80076; 81003; 81015; 83690; 85025; 96361; 96374; 99284; J3010; J7030

== ENCOUNTER 2018-06-21 11:25 | Emergency (ER) | payer OTHER ==
[2018-06-21] MEDS ORDERED: HYDROCODONE/APAP 7.5/325 MG TAB ONE (12:29)
--- NOTE | 2018-06-21 13:40 | RAD REPORT ---
EXAM DESCRIPTION: RAD - Chest Single View - 06/21/2018 12:45 pm CLINICAL HISTORY: Dyspnea, shortness of breath COMPARISON: May 2018 TECHNIQUE: AP portable chest image was obtained 1229 hours . FINDINGS: Lung volumes are low accentuating lung markings. Patient likely has interstitial edema or infiltrate superimposed on the chronic lung pattern. Heart size is normal range and stable. Vascular engorgement is seen. Trachea is midline. No measurable pleural effusion and no pneumothorax. No acute bony abnormality seen. No acute aortic findings suspected. IMPRESSION: Mild interstitial edema or infiltrate superimposed on chronic interstitial disease.
[2018-06-21] MEDS ORDERED: IPRATROPIUM BROM 0.5MG/2.5ML ONE (13:56)
[2018-06-21] MEDS ORDERED: AZITHROMYCIN 250 MG TAB ONE (13:56)
[2018-06-21] MEDS ORDERED: ALBUTEROL 2.5 MG/3 ML NEB SOL ONE (13:56)
--- NOTE | 2018-06-21 14:27 | EDPHYS ---
Physician Documentation [facility] Name: Klever Clarke Age: 57 yrs Sex: Male : 1960 Arrival Date: 06/21/2018 Time: 11:25 Bed 19 Private MD: Hebert Velasco T ED Physician Darell Arnold HPI: 06/21 13:04 This 57 yrs old Male presents to ER via Ambulatory with complaints of Back kb Pain. 13:04 The patient presents with pain that is acute. The symptoms are located in the mid back kb area. Onset: The symptoms/episode began/occurred 2 week(s) ago, and became worse today. The pain does not radiate. Associated signs and symptoms: The patient has no apparent associated signs or symptoms. The problem was sustained when bending over. Modifying factors: The patient symptoms are alleviated by nothing, the patient symptoms are aggravated by any movement. Severity of symptoms: At their worst the symptoms were moderate, in the emergency department the symptoms have improved. The patient has experienced similar episodes in the past. The patient has not recently seen a physician. Historical: - Allergies: 11:38 No Known Allergies; aa5 - PMHx: 11:38 COPD; Kidney stones; low back pain; Lupus; aa5 - PSHx: 11:38 eye surgery many years ago; Hernia repair; aa5 - Immunization history:: Flu vaccine is not up to date. - Social history:: Smoking status: Patient/guardian denies using tobacco. - Ebola Screening: : No symptoms or risks identified at this time. ROS: 13:03 Constitutional: Negative for fever, chills, and weight loss, Cardiovascular: Negative kb for chest pain, palpitations, and edema, Respiratory: Negative for shortness of breath, cough, wheezing, and pleuritic chest pain, Abdomen/GI: Negative for abdominal pain, nausea, vomiting, diarrhea, and constipation, : Negative for injury, bleeding, discharge, and swelling, MS/Extremity: Negative for injury and deformity, Skin: Negative for injury, rash, and discoloration, Neuro: Negative for headache, weakness, numbness, tingling, and seizure. 13:03 Back: Positive for pain at rest, of the left subscapular area, right subscapular area and thoracic area. Exam: 13:03 Constitutional: This is a well developed, well nourished patient who is awake, alert, kb and in no acute distress. Head/Face: Normocephalic, atraumatic. ENT: Nares patent. No nasal discharge, no septal abnormalities noted. Tympanic membranes are normal and external auditory canals are clear. Oropharynx with no redness, swelling, or masses, exudates, or evidence of obstruction, uvula midline. Mucous membranes moist. Neck: Trachea midline, no thyromegaly or masses palpated, and no cervical lymphadenopathy. Supple, full range of motion without nuchal rigidity, or vertebral point tenderness. No Meningismus. Chest/axilla: Normal chest wall appearance and motion. Nontender with no deformity. No lesions are appreciated. Cardiovascular: Regular rate and rhythm with a normal S1 and S2. No gallops, murmurs, or rubs. Normal PMI, no JVD. No pulse deficits. Respiratory: Lungs have equal breath sounds bilaterally, clear to auscultation and percussion. No rales, rhonchi or wheezes noted. No increased work of breathing, no retractions or nasal flaring. Abdomen/GI: Soft, non-tender, with normal bowel sounds. No distension or tympany. No guarding or rebound. No evidence of tenderness throughout. Skin: Warm, dry with normal turgor. Normal color with no rashes, no lesions, and no evidence of cellulitis. MS/ Extremity: Pulses equal, no cyanosis. Neurovascular intact. Full, normal range of motion. Neuro: Awake and alert, GCS 15, oriented to person, place, time, and situation. Cranial nerves II-XII grossly intact. Motor strength 5/5 in all extremities. Sensory grossly intact. Cerebellar exam normal. Normal gait. 13:03 Back: vertebral tenderness, is appreciated at T10, T11 and T12. Vital Signs: 11:38 BP 160 / 93; Pulse 84; Resp 18 S; Temp 99.2(TE); Pulse Ox 97% on R/A; Weight 93.89 kg aa5 (R); Height 6 ft. 1 in. (185.42 cm) (R); Pain 8/10; 13:32 BP 154 / 105; Pulse 73; Resp 20; Pulse Ox 94% on R/A; Pain 0/10; mh5 14:58 BP 151 / 98; Pulse 74; Resp 18; Pulse Ox 99% on R/A; Pain 0/10; em 11:38 Body Mass Index 27.31 (93.89 kg, 185.42 cm) aa5 MDM: 11:39 Patient medically screened. [facility] 13:03 Data reviewed: vital signs, nurses notes. Data interpreted: Pulse oximetry: on room air kb is 97 %. Interpretation: normal. Counseling: I had a detailed discussion with the patient and/or guardian regarding: the historical points, exam findings, and any diagnostic results supporting the discharge/admit diagnosis, radiology results, the need for outpatient follow up, a family practitioner, to return to the emergency department if symptoms worsen or persist or if there are any questions or concerns that arise at home. 06/21 11:51 Order name: Chest Single View XRAY; Complete Time: 13:41 kb Administered Medications: 12:18 Drug: [place] (7.5 mg-325 mg) 1 tabs Route: PO; em 13:49 Follow up: Response: No adverse reaction; Pain is decreased em 13:49 Drug: DuoNeb (3:1) (2.5 mg - 0.5 mg) 3 ml Route: Nebulizer; em 14:56 Follow up: Response: No adverse reaction; Marked relief of symptoms em 13:49 Drug: Zithromax 500 mg Route: PO; em 14:57 Follow up: Response: No adverse reaction em Disposition: 06/22 09:11 Co-signature as Attending Physician, Darell Arnold MD I agree with the assessment and [facility] plan of care. Disposition: 06/21/18 14:26 Discharged to Home. Impression: Pneumonia, unspecified organism, Back pain, Chronic obstructive pulmonary disease, unspecified. - Condition is Stable. - Discharge Instructions: Chronic Obstructive Pulmonary Disease, Back Pain, Adult, [id number], Community-Acquired Pneumonia, Adult, [id number]. - Prescriptions for Zithromax 500 mg Oral Tablet - take 1 tablet by ORAL route once daily for 5 days; 5 tablet. - Medication Reconciliation Form, Thank You Letter, Antibiotic Education, Prescription Opioid Use form. - Follow up: Private Physician; When: 2 - 3 days; Reason: Recheck today's complaints, Continuance of care, Re-evaluation by your physician. Follow up: Emergency Department; When: As needed; Reason: Worsening of condition. Signatures: Dispatcher [employer] Tign Briceno, TRANSPORTATION ENGINEER-C TRANSPORTATION ENGINEER-Ckb Darell Arnold MD MD cha Munoz, Edgar, CATTLE SORTER CATTLE SORTER em Sheila Rosa, RN RN aa5 Corrections: (The following items were deleted from the chart) 06/21 14:26 14:26 06/21/2018 14:26 Discharged to Home. Impression: Pneumonia, unspecified organism. kb Condition is Stable. Forms are Medication Reconciliation Form, Thank You Letter, Antibiotic Education, Prescription Opioid Use. Follow up: Private Physician; When: 2 - 3 days; Reason: Recheck today's complaints, Continuance of care, Re-evaluation by your physician. Follow up: Emergency Department; When: As needed; Reason: Worsening of condition. kb 14:59 14:26 06/21/2018 14:26 Discharged to Home. Impression: Pneumonia, unspecified organism; em Back pain; Chronic obstructive pulmonary disease, unspecified. Condition is Stable. Forms are Medication Reconciliation Form, Thank You Letter, Antibiotic Education, Prescription Opioid Use. Follow up: Private Physician; When: 2 - 3 days; Reason: Recheck today's complaints, Continuance of care, Re-evaluation by your physician. Follow up: Emergency Department; When: As needed; Reason: Worsening of condition. kb
--- NOTE | 2018-06-21 14:27 | ER ---
Nurse's Notes [facility] Name: Klever Clarke Age: 57 yrs Sex: Male : 1960 Arrival Date: 06/21/2018 Time: 11:25 Bed 19 Private MD: Hebert Velasco T Diagnosis: Pneumonia, unspecified organism;Back pain;Chronic obstructive pulmonary disease, unspecified Presentation: 06/21 11:37 Presenting complaint: Patient states: lower back pain that began last night. Pt states aa5 "I am having back spasms". Transition of care: patient was not received from another setting of care. Onset of symptoms was June 2018. Risk Assessment: Do you want to hurt yourself or someone else? Patient reports no desire to harm self or others. Initial Sepsis Screen: Does the patient meet any 2 criteria? No. Patient's initial sepsis screen is negative. Does the patient have a suspected source of infection? No. Patient's initial sepsis screen is negative. Care prior to arrival: None. 11:37 Method Of Arrival: Ambulatory aa5 11:37 Acuity: NHI 3 aa5 Historical: - Allergies: 11:38 No Known Allergies; aa5 - PMHx: 11:38 COPD; Kidney stones; low back pain; Lupus; aa5 - PSHx: 11:38 eye surgery many years ago; Hernia repair; aa5 - Immunization history:: Flu vaccine is not up to date. - Social history:: Smoking status: Patient/guardian denies using tobacco. - Ebola Screening: : No symptoms or risks identified at this time. Screenin:13 Abuse screen: Denies threats or abuse. Nutritional screening: No deficits noted. em Tuberculosis screening: No symptoms or risk factors identified. Fall Risk None identified. Assessment: 12:04 General: Appears in no apparent distress. uncomfortable, Behavior is calm, cooperative, em Denies fever. Pain: Complains of pain in lumbar area Pain currently is 8 out of 10 on a pain scale. Quality of pain is described as "spasms" Pain began 1 day ago. Aggravated by exercise, repositioning. Neuro: Level of Consciousness is awake, alert, obeys commands, Oriented to person, place, time, situation, Denies paresthesias. Cardiovascular: Capillary refill < 3 seconds Patient's skin is warm and dry. Respiratory: Airway is patent Respiratory effort is even, unlabored, Respiratory pattern is regular, symmetrical. Derm: Skin is intact, is healthy with good turgor, Skin is pink, warm \\T\\ dry. Musculoskeletal: Circulation, motion, and sensation intact. Capillary refill < 3 seconds, Range of motion: intact in all extremities. 12:30 General: The previous assessment is accurate, call light remains within reach. . ss 13:49 Reassessment: Patient appears in no apparent distress at this time. Patient and/or em family updated on plan of care and expected duration. Pain level reassessed. Patient is alert, oriented x 3, equal unlabored respirations, skin warm/dry/pink. Patient denies pain at this time. Patient states feeling better. Patient states symptoms have improved. 14:58 Reassessment: Patient appears in no apparent distress at this time. Patient and/or em family updated on plan of care and expected duration. Pain level reassessed. Patient is alert, oriented x 3, equal unlabored respirations, skin warm/dry/pink. Patient denies pain at this time. Patient states feeling better. Patient states symptoms have improved. Vital Signs: 11:38 BP 160 / 93; Pulse 84; Resp 18 S; Temp 99.2(TE); Pulse Ox 97% on R/A; Weight 93.89 kg aa5 (R); Height 6 ft. 1 in. (185.42 cm) (R); Pain 8/10; 13:32 BP 154 / 105; Pulse 73; Resp 20; Pulse Ox 94% on R/A; Pain 0/10; mh5 14:58 BP 151 / 98; Pulse 74; Resp 18; Pulse Ox 99% on R/A; Pain 0/10; em 11:38 Body Mass Index 27.31 (93.89 kg, 185.42 cm) aa5 ED Course: 11:25 Patient arrived in ED. as 11:25 Hebert Velasco MD is Private Physician. as 11:37 Arm band placed on. aa5 11:38 Triage completed. aa5 11:38 [facility]ing Travis [facility]-C [facility]. kb 11:38 Darell Arnold MD is Attending Physician. kb 11:55 Hima Bradford LVN is Primary Nurse. em 12:13 Patient has correct armband on for positive identification. Bed in low position. Call em light in reach. Side rails up X2. 12:46 Chest Single View XRAY In Process Unspecified. EDMS 14:56 No provider procedures requiring assistance completed. Patient did not have IV access em during this emergency room visit. Administered Medications: 12:18 Drug: [place] (7.5 mg-325 mg) 1 tabs Route: PO; em 13:49 Follow up: Response: No adverse reaction; Pain is decreased em 13:49 Drug: DuoNeb (3:1) (2.5 mg - 0.5 mg) 3 ml Route: Nebulizer; em 14:56 Follow up: Response: No adverse reaction; Marked relief of symptoms em 13:49 Drug: Zithromax 500 mg Route: PO; em 14:57 Follow up: Response: No adverse reaction em Outcome: 14:26 Discharge ordered by . kb 14:56 Discharged to home ambulatory. em 14:56 Condition: good 14:56 Discharge instructions given to patient, Instructed on discharge instructions, follow up and referral plans. medication usage, Demonstrated understanding of instructions, follow-up care, medications, Prescriptions given X 1. 14:59 Patient left the ED. em Signatures: Dispatcher [employer] EDMS Ting Travis, DAIRY MACHINE OPERATOR FARMWORKER-C DAIRY MACHINE OPERATOR FARMWORKER-Ckb Hima Bradford, PHARMACY RESOURCE TECH PHARMACY RESOURCE TECH em Luzma Schaeffer Audri, RN RN aa5 Mariana Elder, Anya Smith RN [facility]
== END 2018-06-21 14:59 | disposition home or self-care (01) ==
LOC: ER 11:25
DX: J18.9 Pneumonia, unspecified organism (principal); J44.9 Chronic obstructive pulmonary disease, unspecified
CPT/HCPCS: 71045; 94640; 99284

== ENCOUNTER 2018-06-22 14:51 | Emergency (ER) | payer OTHER ==
[2018-06-22] MEDS ORDERED: HYDROCODONE/APAP 7.5/325 MG TAB ONE (16:11)
[2018-06-22] MEDS ORDERED: KETOROLAC 30 MG/ML INJ ONE (16:56)
--- NOTE | 2018-06-22 17:17 | ER ---
Nurse's Notes [facility] Name: Klever Clarke Age: 57 yrs Sex: Male : 1960 Arrival Date: 06/22/2018 Time: 15:03 Bed Treatment Private MD: Diagnosis: Low back pain-mid back Presentation: 06/22 15:04 Presenting complaint: Patient states: back pain that began 1 week ago. Pt was seen in ER yesterday for same complaint, but reports that the pain has not improved. Pt states that his PCP told him to come to the ER if his pain is not manageable. Transition of care: patient was not received from another setting of care. Onset of symptoms was June 15, 2018. Risk Assessment: Do you want to hurt yourself or someone else? Patient reports no desire to harm self or others. Initial Sepsis Screen: Does the patient meet any 2 criteria? HR > 90 bpm. Does the patient have a suspected source of infection? No. Patient's initial sepsis screen is negative. Care prior to arrival: None. 15:04 Method Of Arrival: Ambulatory 15:04 Acuity: NHI 4 Historical: - Allergies: 15:07 No Known Allergies; ss - Home Meds: 15:07 prednisone 10 mg Oral tab once daily [Active]; gabapentin oral oral [Active]; ss 15:07 orphenadrine citrate 100 mg oral TbER 1 tab 2 times per day [Active]; ss - PMHx: 15:07 COPD; Kidney stones; low back pain; Lupus; ss - PSHx: 15:07 eye surgery many years ago; Hernia repair; - Immunization history:: Adult Immunizations unknown. - Social history:: Smoking status: Patient/guardian denies using tobacco. - Ebola Screening: : Patient denies exposure to infectious person Patient denies travel to an Ebola-affected area in the 21 days before illness onset. Screenin:14 Abuse screen: Denies threats or abuse. Denies injuries from another. Nutritional aj1 screening: No deficits noted. Tuberculosis screening: No symptoms or risk factors identified. 17:34 Fall Risk None identified. aj1 Assessment: 16:14 General: Appears uncomfortable, Behavior is calm, cooperative, appropriate for age. aj1 Pain: Complains of pain in mid back area. Neuro: Level of Consciousness is awake, alert, obeys commands, Oriented to person, place, time, situation, Moves all extremities. Full function Gait is steady. Cardiovascular: Patient's skin is warm and dry. Respiratory: Airway is patent Respiratory effort is even, unlabored, Respiratory pattern is regular, symmetrical. GI: No signs and/or symptoms were reported involving the gastrointestinal system. : No signs and/or symptoms were reported regarding the genitourinary system. EENT: No signs and/or symptoms were reported regarding the EENT system. Derm: No signs and/or symptoms reported regarding the dermatologic system. Skin is pink, warm \T\ dry. normal. Musculoskeletal: No signs and/or symptoms reported regarding the musculoskeletal system. Circulation, motion, and sensation intact. 16:48 Reassessment: Patient appears in no apparent distress at this time. No changes from 1 previously documented assessment. Patient and/or family updated on plan of care and expected duration. Pain level reassessed. Patient is alert, oriented x 3, equal unlabored respirations, skin warm/dry/pink. Patient reports continued pain at this time. Medicated with Toradol. 17:33 Reassessment: Patient appears in no apparent distress at this time. No changes from aj1 previously documented assessment. Patient and/or family updated on plan of care and expected duration. Pain level reassessed. Patient is alert, oriented x 3, equal unlabored respirations, skin warm/dry/pink. Vital Signs: 15:07 BP 157 / 105; Pulse 98; Resp 18; Temp 98.4(TE); Pulse Ox 95% on R/A; Weight 93.89 kg; ss Height 6 ft. 1 in. (185.42 cm); Pain 9/10; 15:07 Body Mass Index 27.31 (93.89 kg, 185.42 cm) ED Course: 15:03 Patient arrived in ED. as 15:06 Triage completed. ss 15:07 Arm band placed on left wrist. ss 15:46 Ting Travis FNP-C is PHCP. kb 15:46 Darell Arnold MD is Attending Physician. kb 15:55 Yasmin Gupta, KARINA is Primary Nurse. aj1 16:06 Radiology exam delayed due to patient refusing to lay down for exam at this time due to nj pain, will try again at a later time. 16:14 Patient has correct armband on for positive identification. Call light in reach. aj1 16:14 No provider procedures requiring assistance completed. aj1 17:00 Radiology exam delayed due to pt still unable to lay down flat for exam; Ting rizo2 notifiied. 17:16 Emerson Davies MD is Referral Physician. kb 17:34 Patient did not have IV access during this emergency room visit. aj1 Administered Medications: 16:10 Drug: [place] (7.5 mg-325 mg) 1 tabs Route: PO; aj1 17:34 Follow up: Response: No adverse reaction aj1 16:47 Drug: TORadol 60 mg Route: IM; Site: left gluteus; aj1 17:35 Follow up: Response: No adverse reaction aj1 Outcome: 17:16 Discharge ordered by MD. kb 17:34 Discharged to home ambulatory. aj1 17:34 Condition: good 17:34 Discharge instructions given to patient, Instructed on discharge instructions, follow up and referral plans. Demonstrated understanding of instructions, follow-up care. 17:35 Patient left the ED. aj1 Signatures: Ting Travis, CORPORATION OFFICER-C CORPORATION OFFICER-Ckb Yasmin Gupta, RN RN aj1 Luzma Schaeffer Shelby, KARINA RN Cuate Brown [place] vm2 Lizbeth Holloway [facility] Corrections: (The following items were deleted from the chart) 16:10 15:53 Patient moved to [address]
--- NOTE | 2018-06-22 17:17 | EDPHYS ---
Physician Documentation [facility] Name: Klever Clarke Age: 57 yrs Sex: Male : 1960 Arrival Date: 06/22/2018 Time: 15:03 Bed Treatment Private MD: ED Physician Darell Arnold HPI: 06/22 15:57 This 57 yrs old Male presents to ER via Ambulatory with complaints of Back kb Pain. 15:57 The patient presents with pain that is acute. The symptoms are located in the mid back kb area. Onset: The symptoms/episode began/occurred 1 week(s) ago. The pain does not radiate. Associated signs and symptoms: The patient has no apparent associated signs or symptoms. The problem was sustained when lifting heavy object. Modifying factors: The patient symptoms are alleviated by nothing, the patient symptoms are aggravated by any movement. Severity of symptoms: At their worst the symptoms were moderate, in the emergency department the symptoms are unchanged. The patient has not experienced similar symptoms in the past. Pt returned for continued pain to mid back. States he was lifting something heavy at work a week ago and hurt his back. This is his third visit to the ER for same pain. Chest x-ray done yesterday with incidental finding of pneumonia, put on zithromax. States he went to work last night, came home and took gabapentin and a muscle relaxer. 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 States the pain is in his spine and radiates out. Massage decreases the pain. . Historical: - Allergies: 15:07 No Known Allergies; ss - Home Meds: 15:07 prednisone 10 mg Oral tab once daily [Active]; gabapentin oral oral [Active]; ss 15:07 orphenadrine citrate 100 mg oral TbER 1 tab 2 times per day [Active]; ss - PMHx: 15:07 COPD; Kidney stones; low back pain; Lupus; ss - PSHx: 15:07 eye surgery many years ago; Hernia repair; ss - Immunization history:: Adult Immunizations unknown. - Social history:: Smoking status: Patient/guardian denies using tobacco. - Ebola Screening: : Patient denies exposure to infectious person Patient denies travel to an Ebola-affected area in the 21 days before illness onset. ROS: 15:55 Constitutional: Negative for fever, chills, and weight loss, Cardiovascular: Negative kb for chest pain, palpitations, and edema, Respiratory: Negative for shortness of breath, cough, wheezing, and pleuritic chest pain, Abdomen/GI: Negative for abdominal pain, nausea, vomiting, diarrhea, and constipation, : Negative for injury, bleeding, discharge, and swelling, MS/Extremity: Negative for injury and deformity, Skin: Negative for injury, rash, and discoloration, Neuro: Negative for headache, weakness, numbness, tingling, and seizure. 15:55 Back: Positive for pain at rest, pain with movement, of the mid back area. Exam: 15:55 Constitutional: This is a well developed, well nourished patient who is awake, alert, kb and in no acute distress. Head/Face: Normocephalic, atraumatic. Chest/axilla: Normal chest wall appearance and motion. Nontender with no deformity. No lesions are appreciated. Cardiovascular: Regular rate and rhythm with a normal S1 and S2. No gallops, murmurs, or rubs. Normal PMI, no JVD. No pulse deficits. Respiratory: Lungs have equal breath sounds bilaterally, clear to auscultation and percussion. No rales, rhonchi or wheezes noted. No increased work of breathing, no retractions or nasal flaring. Abdomen/GI: Soft, non-tender, with normal bowel sounds. No distension or tympany. No guarding or rebound. No evidence of tenderness throughout. Skin: Warm, dry with normal turgor. Normal color with no rashes, no lesions, and no evidence of cellulitis. MS/ Extremity: Pulses equal, no cyanosis. Neurovascular intact. Full, normal range of motion. Neuro: Awake and alert, GCS 15, oriented to person, place, time, and situation. Cranial nerves II-XII grossly intact. Motor strength 5/5 in all extremities. Sensory grossly intact. Cerebellar exam normal. Normal gait. 15:55 Back: pain, that is mild, of the mid back area, ROM is painful, normal spinal alignment noted. Vital Signs: 15:07 BP 157 / 105; Pulse 98; Resp 18; Temp 98.4(TE); Pulse Ox 95% on R/A; Weight 93.89 kg; ss Height 6 ft. 1 in. (185.42 cm); Pain 9/10; 15:07 Body Mass Index 27.31 (93.89 kg, 185.42 cm) ss MDM: 15:47 Patient medically screened. kb 15:52 Data reviewed: vital signs, nurses notes. Data interpreted: Pulse oximetry: on room air kb is 95 %. Interpretation: normal. 16:33 ED course: pt reports pain gets worse when he lays flat. unable to lay flat for CT at this time. States "that pain medication you gave me yesterday made the pain go away and I felt better so I think I will be able to do it when it kicks in.". 17:14 Counseling: I had a detailed discussion with the patient and/or guardian regarding: the kb historical points, exam findings, and any diagnostic results supporting the discharge/admit diagnosis, the need for outpatient follow up, a family practitioner, to return to the emergency department if symptoms worsen or persist or if there are any questions or concerns that arise at home. ED course: Pt sleeping when I walked into room. Pt comfortable until he tries to lay flat. Unable to lay flat due to increased pain. CT from 06/11/18 reviewed. History and diagnostics discussed with ERP. Pt to be discharged home to follow up with Dr Davies. . Administered Medications: 16:10 Drug: Walton (7.5 mg-325 mg) 1 tabs Route: PO; aj1 17:34 Follow up: Response: No adverse reaction aj 16:47 Drug: TORadol 60 mg Route: IM; Site: left gluteus; aj1 17:35 Follow up: Response: No adverse reaction aj1 Disposition: 06/23 07:00 Co-signature as Attending Physician, Darell Arnold MD I agree with the assessment and jazzy plan of care. Disposition: 06/22/18 17:16 Discharged to Home. Impression: Low back pain - mid back. - Condition is Stable. - Discharge Instructions: Back Injury Prevention, Etix-at-Sxcb, Back Pain, Adult, Ygyu-lr-Teti, Back Exercises, Muly-xk-Nlhj. - Medication Reconciliation Form, Thank You Letter, Antibiotic Education, Prescription Opioid Use form. - Follow up: Emergency Department; When: As needed; Reason: Worsening of condition. Follow up: Private Physician; When: 2 - 3 days; Reason: Recheck today's complaints, Continuance of care, Re-evaluation by your physician. Follow up: Emerson Davies MD; When: 2 - 3 days; Reason: Recheck today's complaints. Signatures: Dispatcher [employer] [facility] Thaddeus Ting, ELECTRIC METER INSPECTOR-C ELECTRIC METER INSPECTOR-Yasmin Talamantes RN RN aj1 Darell Arnold MD MD cha Smirch, Shelby, RN RN ss Corrections: (The following items were deleted from the chart) 06/22 17:11 15:50 Thoracic Spine WO Cont+CT.RAD.BRZ ordered. [facility] EDIA 17:16 17:16 06/22/2018 17:16 Discharged to Home. Impression: Low back pain - mid back. kb Condition is Stable. Forms are Medication Reconciliation Form, Thank You Letter, Antibiotic Education, Prescription Opioid Use. Follow up: Emergency Department; When: As needed; Reason: Worsening of condition. Follow up: Private Physician; When: 2 - 3 days; Reason: Recheck today's complaints, Continuance of care, Re-evaluation by your physician. kb 17:35 17:16 06/22/2018 17:16 Discharged to Home. Impression: Low back pain - mid back. aj1 Condition is Stable. Discharge Instructions: Back Injury Prevention, Iait-cb-Eszc, Back Pain, Adult, Zktg-cd-Dswb, Back Exercises, Ztsw-cc-Dcsa. Forms are Medication Reconciliation Form, Thank You Letter, Antibiotic Education, Prescription Opioid Use. Follow up: Emergency Department; When: As needed; Reason: Worsening of condition. Follow up: Private Physician; When: 2 - 3 days; Reason: Recheck today's complaints, Continuance of care, Re-evaluation by your physician. Follow up: Emerson Davies; When: 2 - 3 days; Reason: Recheck today's complaints. kb
== END 2018-06-22 17:35 | disposition home or self-care (01) ==
LOC: ER 14:51
DX: M54.5 Low back pain (principal); J44.9 Chronic obstructive pulmonary disease, unspecified; Z79.52 Long term (current) use of systemic steroids; Z79.899 Other long term (current) drug therapy
CPT/HCPCS: 96372; 99283

== ENCOUNTER 2018-10-21 18:16 | Emergency (ER) | payer OTHER ==
[2018-10-21] MEDS ORDERED: KETOROLAC 30 MG/ML INJ ONE (19:33)
[2018-10-21] MEDS ORDERED: NA CHLORIDE 0.9% 1,000 ML ONE (19:33)
[2018-10-21 19:40] LABS: Absolute Lymphocytes (CBC) 0.3 K/uL (0.7-4.9); Basophils % 0.4 % (0-1.3); Hematocrit 49.3 % (39.6-49.0); Lymphocytes % 3.1 % (15.3-44.8); MPV 10.1 fL (7.6-11.3); RBC Red Blood Cell Count 5.34 M/uL (4.33-5.43)
[2018-10-21 19:54] LABS: BUN Blood Urea Nitrogen 9 mg/dL (7-18); Bicarbonate 30 mmol/L (21-32); Glucose Level 109 mg/dL (74-106); Potassium 3.9 mmol/L (3.5-5.1); Sodium Level 135 mmol/L (136-145)
[2018-10-21 20:10] LABS: Blood Morphology Comment NOT SEEN (NOT SEEN); Platelet Estimate ADEQ; Urine White Blood Cell Casts OK
--- NOTE | 2018-10-21 22:52 | ER ---
Nurse's Notes [facility] Name: Klever Clarke Age: 58 yrs Sex: Male : 1960 Arrival Date: 10/21/2018 Time: 18:18 Bed 7 Private MD: Diagnosis: Diarrhea, unspecified;Dehydration;Headache Presentation: 10/21 18:46 Presenting complaint: Patient states: "I ate some pepperoni last night and I think it aa5 was questionable because I started with chills, nausea, diarrhea, and stomach cramps". pt denies vomiting. Transition of care: patient was not received from another setting of care. Onset of symptoms was October 21, 2018. Risk Assessment: Do you want to hurt yourself or someone else? Patient reports no desire to harm self or others. Initial Sepsis Screen: Does the patient meet any 2 criteria? No. Patient's initial sepsis screen is negative. Does the patient have a suspected source of infection? No. Patient's initial sepsis screen is negative. Care prior to arrival: None. 18:46 Acuity: NHI 3 aa5 18:46 Method Of Arrival: Ambulatory aa5 Historical: - Allergies: 18:48 No Known Allergies; aa5 - Home Meds: 18:48 prednisone 10 mg Oral tab once daily [Active]; aa5 19:40 gabapentin Oral [Active]; orphenadrine citrate 100 mg Oral TbER 1 tab 2 times per day lp1 [Active]; - PMHx: 18:48 COPD; Kidney stones; low back pain; Lupus; aa5 - PSHx: 18:48 eye surgery many years ago; Hernia repair; aa5 - Immunization history:: Flu vaccine is not up to date. - Social history:: Smoking status: Patient uses tobacco products, denies chronic smoking, but will smoke occasionally. - Ebola Screening: : No symptoms or risks identified at this time. Screenin:32 Abuse screen: Denies threats or abuse. Denies injuries from another. Nutritional lp1 screening: No deficits noted. Tuberculosis screening: No symptoms or risk factors identified. Fall Risk None identified. Assessment: 19:15 General: Appears in no apparent distress. Behavior is calm, cooperative, appropriate lp1 for age. Pain: Complains of pain in right lower quadrant and left lower quadrant Quality of pain is described as aching, crampy. Neuro: Level of Consciousness is awake, alert, obeys commands, Reports headache frontal area, occipital area. Cardiovascular: Patient's skin is warm and dry. Respiratory: Respiratory effort is even, unlabored. GI: Abdomen is non-distended, Bowel sounds present X 4 quads. Reports diarrhea, Patient currently denies vomiting. : No signs and/or symptoms were reported regarding the genitourinary system. EENT: No signs and/or symptoms were reported regarding the EENT system. Derm: Skin is intact, Skin is dry, Skin is normal. Musculoskeletal: Circulation, motion, and sensation intact. 21:06 Reassessment: Patient states headache resolved; Patient states feeling better. Patient lp1 states symptoms have improved. Neuro: Level of Consciousness is awake, alert, obeys commands. Respiratory: Respiratory effort is even, unlabored. Derm: Skin is normal. 21:30 Reassessment: Patient aware of pending discharge, aware of pending discharge papers. lp1 22:00 Reassessment: Provider at bedside with patient; Patient aware of continued stay for lp1 ordered CT. 22:29 Reassessment: Patient is alert, oriented x 3, equal unlabored respirations, skin lp1 warm/dry/pink. Patient aware of pending CT results Patient denies pain at this time. Vital Signs: 18:48 BP 136 / 96; Pulse 83; Resp 18 S; Temp 98.5(O); Pulse Ox 97% on R/A; Weight 90.72 kg aa5 (R); Height 5 ft. 9 in. (175.26 cm) (R); Pain 5/10; 21:05 BP 164 / 92; Pulse 83; Resp 18; Temp 98.6(O); Pulse Ox 95% on R/A; Pain 2/10; lp1 18:48 Body Mass Index 29.53 (90.72 kg, 175.26 cm) aa5 ED Course: 18:18 Patient arrived in ED. as 18:47 Triage completed. aa5 18:47 Arm band placed on. aa5 19:02 Marcus Ramos MD is Attending Physician. 19:20 Radha Castro, RN is Primary Nurse. lp1 19:30 Missed attempt(s): 20 gauge in left forearm. Bleeding controlled, band aid applied, oe catheter tip intact. 19:32 Patient has correct armband on for positive identification. Call light in reach. Pulse lp1 ox on. NIBP on. 19:39 Inserted saline lock: 20 gauge in left antecubital area, using aseptic technique. Blood oe collected. 21:07 No provider procedures requiring assistance completed. lp1 21:30 IV discontinued, No redness/swelling at site. Pressure dressing applied. lp1 22:05 CT Head Brain wo Cont In Process Unspecified. EDMS Administered Medications: 19:39 Drug: NS 0.9% 1000 ml Route: IV; Rate: 1 bolus; Site: left antecubital; lp1 19:39 Drug: TORadol - Ketorolac 15 mg Route: IVP; Site: left antecubital; lp1 Outcome: 22:51 Discharge ordered by . gs 23:33 Patient left the ED. lp1 Signatures: Dispatcher [employer] EDMS Lumza Schaeffer Audri, RN RN aa5 Radha Castro RN RN lp1 Jarek Landers Gregory, MD MD gs Corrections: (The following items were deleted from the chart) 19:39 19:15 Neuro: Level of Consciousness is awake, alert, obeys commands, lp1 lp1
--- NOTE | 2018-10-21 22:52 | EDPHYS ---
Physician Documentation [facility] Name: Klever Clarke Age: 58 yrs Sex: Male : 1960 Arrival Date: 10/21/2018 Time: 18:18 Bed 7 Private MD: ED Physician Marcus Ramos HPI: 10/21 21:35 This 58 yrs old Male presents to ER via Ambulatory with complaints of gs Diarrhea. 21:35 The patient presents to the emergency department with diarrhea, abdominal pain. Onset: gs The symptoms/episode began/occurred last night. Possible causes: bad food exposure. The symptoms are aggravated by nothing. The symptoms are alleviated by nothing. Associated signs and symptoms: Pertinent positives: abdominal pain, diarrhea, nausea. Severity of symptoms: At their worst the symptoms were severe in the emergency department the symptoms have improved moderately. The patient has experienced similar episodes in the past, a few times. also complains of headache gradual onset located back of neck and back of head, not worst ever, feels dehydrated.. Historical: - Allergies: 18:48 No Known Allergies; aa5 - Home Meds: 18:48 prednisone 10 mg Oral tab once daily [Active]; aa5 19:40 gabapentin Oral [Active]; orphenadrine citrate 100 mg Oral TbER 1 tab 2 times per day lp1 [Active]; - PMHx: 18:48 COPD; Kidney stones; low back pain; Lupus; aa5 - PSHx: 18:48 eye surgery many years ago; Hernia repair; aa5 - Immunization history:: Flu vaccine is not up to date. - Social history:: Smoking status: Patient uses tobacco products, denies chronic smoking, but will smoke occasionally. - Ebola Screening: : No symptoms or risks identified at this time. ROS: 21:35 All other systems are negative. gs Exam: 21:35 Head/Face: Normocephalic, atraumatic. Eyes: Pupils equal round and reactive to light, gs extra-ocular motions intact. Lids and lashes normal. Conjunctiva and sclera are non-icteric and not injected. Cornea within normal limits. Periorbital areas with no swelling, redness, or edema. ENT: Nares patent. No nasal discharge, no septal abnormalities noted. Tympanic membranes are normal and external auditory canals are clear. Oropharynx with no redness, swelling, or masses, exudates, or evidence of obstruction, uvula midline. Mucous membranes moist. Neck: Trachea midline, no thyromegaly or masses palpated, and no cervical lymphadenopathy. Supple, full range of motion without nuchal rigidity, or vertebral point tenderness. No Meningismus. Chest/axilla: Normal chest wall appearance and motion. Nontender with no deformity. No lesions are appreciated. Cardiovascular: Regular rate and rhythm with a normal S1 and S2. No gallops, murmurs, or rubs. Normal PMI, no JVD. No pulse deficits. Respiratory: Lungs have equal breath sounds bilaterally, clear to auscultation and percussion. No rales, rhonchi or wheezes noted. No increased work of breathing, no retractions or nasal flaring. Abdomen/GI: Soft, non-tender, with normal bowel sounds. No distension or tympany. No guarding or rebound. No evidence of tenderness throughout. Back: No spinal tenderness. No costovertebral tenderness. Full range of motion. Skin: Warm, dry with normal turgor. Normal color with no rashes, no lesions, and no evidence of cellulitis. MS/ Extremity: Pulses equal, no cyanosis. Neurovascular intact. Full, normal range of motion. Neuro: Awake and alert, GCS 15, oriented to person, place, time, and situation. Cranial nerves II-XII grossly intact. Motor strength 5/5 in all extremities. Sensory grossly intact. Cerebellar exam normal. Normal gait. 21:35 Constitutional: The patient appears alert, awake. Vital Signs: 18:48 BP 136 / 96; Pulse 83; Resp 18 S; Temp 98.5(O); Pulse Ox 97% on R/A; Weight 90.72 kg aa5 (R); Height 5 ft. 9 in. (175.26 cm) (R); Pain 5/10; 21:05 BP 164 / 92; Pulse 83; Resp 18; Temp 98.6(O); Pulse Ox 95% on R/A; Pain 2/10; lp1 18:48 Body Mass Index 29.53 (90.72 kg, 175.26 cm) aa5 MDM: 19:20 Patient medically screened. gs 22:51 Differential diagnosis: Nonspecific abd pain, gastroenteritis, dehydration. Data gs reviewed: vital signs, nurses notes. ED course: pt requested ct wants to make sure she has aneurysm. 10/21 19:15 Order name: CBC with Diff; Complete Time: 20:29 10/21 19:15 Order name: Basic Metabolic Panel; Complete Time: 20:29 10/21 19:47 Order name: CBC Smear Scan; Complete Time: 20:29 EDUT 10/21 21:40 Order name: CT Head Brain wo Cont gs Administered Medications: 19:39 Drug: NS 0.9% 1000 ml Route: IV; Rate: 1 bolus; Site: left antecubital; lp1 19:39 Drug: TORadol - Ketorolac 15 mg Route: IVP; Site: left antecubital; lp1 Disposition: 10/21/18 22:51 Discharged to Home. Impression: Diarrhea, unspecified, Dehydration, Headache. - Condition is Stable. - Discharge Instructions: Dehydration, Adult, Diarrhea, Adult, General Headache Without Cause. - Medication Reconciliation Form, Thank You Letter, Antibiotic Education, Prescription Opioid Use form. - Follow up: Private Physician; When: 2 - 3 days; Reason: Re-evaluation by your physician. Signatures: Dispatcher [employer] EDSheila Bender, RN RN aa5 Radha Castro RN RN lp1 Marcus Ramos MD MD Corrections: (The following items were deleted from the chart) 23:33 22:51 10/21/2018 22:51 Discharged to Home. Impression: Diarrhea, unspecified; lp1 Dehydration; Headache. Condition is Stable. Forms are Medication Reconciliation Form, Thank You Letter, Antibiotic Education, Prescription Opioid Use. Follow up: Private Physician; When: 2 - 3 days; Reason: Re-evaluation by your physician. gs
--- NOTE | 2018-10-22 09:35 | RAD REPORT ---
EXAM DESCRIPTION: CT - Head Brain Wo Cont - 10/22/2018 1:50 am CLINICAL HISTORY: Headache. COMPARISON: None. TECHNIQUE: CT scan of the brain without IV contrast. This exam was performed according to our depa rtmental dose-optimization program, which includes automated exposure control, adjustment of the mA a nd/or kV according to patient size and/or use of iterative reconstruction technique. FINDINGS: The ventricles, cisterns, and sulci are age-appropriate. No evidence of acute infarction, intracranial hemorrhage, extra-axial fluid collection, or midline shift. No air-fluid levels are seen in the paranasal sinuses to suggest acute sinusitis. No depressed skull fracture. IMPRESSION: No acute intracranial findings. Electronically signed by: Hung Mckeon MD 10/21/2018 10:22 PM CDT Due to temporary technical issues with the PACS/Fluency reporting system, reports are being signed by the in house radiologist as a courtesy to ensure prompt reporting. The interpreting radiologist is f ully responsible for the content of the report.
== END 2018-10-21 23:33 | disposition home or self-care (01) ==
LOC: ER 18:16
DX: E86.0 Dehydration (principal); R51 Headache; J44.9 Chronic obstructive pulmonary disease, unspecified; F17.210 Nicotine dependence, cigarettes, uncomplicated; Z87.442 Personal history of urinary calculi
CPT/HCPCS: 85025; 80048; 36415; 70450; J7030

== ENCOUNTER 2018-10-25 06:11 | Emergency (ER) | payer OTHER ==
[2018-10-25] MEDS ORDERED: NA CHLORIDE 0.9% 1,000 ML ONE ×2 (06:21→08:11)
[2018-10-25 06:51] LABS: Absolute Lymphocytes (CBC) 0.6 K/uL (0.7-4.9); Basophils % 0.6 % (0-1.3); Hematocrit 50.8 % (39.6-49.0); Lymphocytes % 8.6 % (15.3-44.8); MPV 10.4 fL (7.6-11.3); RBC Red Blood Cell Count 5.53 M/uL (4.33-5.43)
[2018-10-25 06:54] LABS: ALT/SGPT 14 U/L (12-78); AST/SGOT 17 U/L (15-37); Albumin 3.3 g/dL (3.4-5.0); Alkaline Phosphatase 80 U/L (45-117); BUN Blood Urea Nitrogen 9 mg/dL (7-18); Bicarbonate 31 mmol/L (21-32); Bilirubin Direct 0.1 mg/dL (0-0.2); Bilirubin Total 0.5 mg/dL (0.2-1.0); Glucose Level 108 mg/dL (74-106); Potassium 3.9 mmol/L (3.5-5.1); Protein, Total 7.7 g/dL (6.4-8.2); Sodium Level 138 mmol/L (136-145)
[2018-10-25] MEDS ORDERED: DICYCLOMINE HCL 10 MG CAP ONE (07:35)
[2018-10-25] MEDS ORDERED: CIPROFLOXACIN 400mg IV 400 MG/200 ML BAG IV ONE (08:11)
--- NOTE | 2018-10-25 08:34 | RAD REPORT ---
EXAM DESCRIPTION: CT - Abdomen Pelvis W Contrast - 10/25/2018 7:58 am CLINICAL HISTORY: Abdominal pain with diarrhea COMPARISON: 06/26 TECHNIQUE: Computed axial tomography of the abdomen pelvis was obtained. 100 cc Isovue-300 was admin istered intravenously. Oral contrast was not requested which limits evaluation of bowel. All CT scans are performed using dose optimization technique as appropriate and may include automated exposure control or mA/KV adjustment according to patient size. FINDINGS: Fatty liver Spleen, pancreas, adrenal and kidneys appear unremarkable. There is no evidence of diverticulitis. The wall of the entire colon is mildly to moderately thickene d. Small umbilical hernia. Mild diastasis rectus abdominis muscles Bold thoracic and lumbar vertebral compression fractures. Moderate anterior subluxation of L5 on S1. Spondylosis L5 IMPRESSION: Mild to moderate pancolitis
--- NOTE | 2018-10-25 08:42 | ER ---
Nurse's Notes [facility] Name: Klever Clarke Age: 58 yrs Sex: Male : 1960 Arrival Date: 10/25/2018 Time: 06:12 Bed 18 Private MD: Hebert Velasco T Diagnosis: Pancolitis Presentation: 10/25 06:21 Presenting complaint: Patient states: diarrhea and abd pain x 1 week. Transition of aa1 care: patient was not received from another setting of care. Onset of symptoms was October 18, 2018. Risk Assessment: Do you want to hurt yourself or someone else? Patient reports no desire to harm self or others. Initial Sepsis Screen: Does the patient meet any 2 criteria? No. Patient's initial sepsis screen is negative. Does the patient have a suspected source of infection? No. Patient's initial sepsis screen is negative. Care prior to arrival: None. 06:21 Method Of Arrival: Ambulatory aa1 06:21 Acuity: NHI 3 aa1 Triage Assessment: 06:22 General: Appears in no apparent distress. comfortable, unkempt, Behavior is calm, aa1 cooperative, appropriate for age. Historical: - Allergies: 06:22 No Known Allergies; aa1 - Home Meds: 06:22 prednisone 10 mg Oral tab once daily [Active]; aa1 - PMHx: 06:22 COPD; Kidney stones; low back pain; Lupus; aa1 - PSHx: 06:22 eye surgery many years ago; Hernia repair; aa1 - Immunization history:: Flu vaccine is not up to date. - Social history:: Smoking status: Patient/guardian denies using tobacco. - Ebola Screening: : No symptoms or risks identified at this time. Screenin:29 Abuse screen: Denies threats or abuse. Denies injuries from another. Nutritional rr5 screening: No deficits noted. Tuberculosis screening: No symptoms or risk factors identified. Fall Risk IV access (20 points). Total Aburto Fall Scale indicates No Risk (0-24 pts). Assessment: 06:30 General: Appears in no apparent distress. uncomfortable, Behavior is calm, cooperative, rr5 appropriate for age. 06:30 Pain: Complains of pain in abdomen Pain does not radiate. Pain currently is 7 out of 10 rr5 on a pain scale. Quality of pain is described as aching, Pain began gradually, Is intermittent. Neuro: Level of Consciousness is awake, alert, obeys commands, Oriented to person, place, time, situation, Appropriate for age. Cardiovascular: Capillary refill < 3 seconds Patient's skin is warm and dry. Respiratory: Airway is patent Respiratory effort is even, unlabored, Respiratory pattern is regular, symmetrical. GI: Abdomen is flat, Reports lower abdominal pain, upper abdominal pain, diarrhea. : No signs and/or symptoms were reported regarding the genitourinary system. EENT: No signs and/or symptoms were reported regarding the EENT system. Derm: Skin is intact, Skin temperature is warm. Musculoskeletal: Circulation, motion, and sensation intact. Capillary refill < 3 seconds. 07:18 Reassessment: Patient appears in no apparent distress at this time. Patient and/or em family updated on plan of care and expected duration. Pain level reassessed. Patient is alert, oriented x 3, equal unlabored respirations, skin warm/dry/pink. 07:45 Reassessment: obtained stool specimen, blood noted in loose stool, sent to lab. em 08:30 Reassessment: Patient appears in no apparent distress at this time. Patient and/or em family updated on plan of care and expected duration. Pain level reassessed. Patient is alert, oriented x 3, equal unlabored respirations, skin warm/dry/pink. Patient denies pain at this time. Patient states feeling better. 09:30 Reassessment: Patient appears in no apparent distress at this time. Patient and/or ph family updated on plan of care and expected duration. Pain level reassessed. Patient is alert, oriented x 3, equal unlabored respirations, skin warm/dry/pink. D/C pending completion of IV antibiotics. Vital Signs: 06:22 BP 138 / 90; Pulse 95; Resp 20; Temp 98.3; Pulse Ox 96% on R/A; Weight 90.72 kg; Height aa1 5 ft. 9 in. (175.26 cm); Pain 7/10; 07:19 BP 137 / 89; Pulse 78; Resp 18; Pulse Ox 99% on R/A; em 08:16 BP 134 / 94; Pulse 77; Resp 16; Pulse Ox 99% on R/A; Pain 0/10; em 09:30 BP 132 / 87; Pulse 78; Resp 18; Pulse Ox 98% on R/A; ph 10:30 BP 127 / 87; Pulse 75; Resp 18; Temp 97.8; Pulse Ox 97% on R/A; ph 06:22 Body Mass Index 29.53 (90.72 kg, 175.26 cm) aa1 ED Course: 06:12 Patient arrived in ED. am2 06:12 Hebert Velasco MD is Private Physician. am2 06:15 Malia Smith [facility]-C [facility] snw 06:15 Jas Hart MD is Attending Physician. snw 06:20 Papo Lee RN is Primary Nurse. rr5 06:22 Triage completed. aa1 06:22 Arm band placed on right wrist. aa1 06:29 Inserted saline lock: 20 gauge in right forearm, using aseptic technique. Blood rr5 collected. 06:32 Patient has correct armband on for positive identification. Placed in gown. Bed in low rr5 position. Call light in reach. Side rails up X2. Pulse ox on. NIBP on. 07:54 CT completed. Patient tolerated procedure well. Patient moved back from CT. bq 07:58 CT Abd/Pelvis - IV Contrast Only In Process Unspecified. EDMS 08:41 Hebert Velasco MD is Referral Physician. snw 10:23 No provider procedures requiring assistance completed. IV discontinued, intact, ph bleeding controlled, No redness/swelling at site. Pressure dressing applied. Administered Medications: 06:29 Drug: NS 0.9% 1000 ml Route: IV; Rate: 1 bolus; Site: right forearm; rr5 07:38 Follow up: IV Status: Completed infusion; IV Intake: 1000ml em 07:38 Drug: Bentyl 20 mg Route: PO; em 08:20 Follow up: Response: No adverse reaction; Pain is decreased em 08:18 Drug: NS 0.9% 1000 ml Route: IV; Rate: 125 ml/hr; Site: right forearm; em 10:21 Follow up: Response: No adverse reaction; IV Status: Completed infusion ph 08:20 Drug: Cipro 400 mg Volume: 200 ml; Route: IVPB; Infused Over: 60 mins; Site: right em forearm; 10:22 Follow up: Response: No adverse reaction; IV Status: Completed infusion ph 09:07 Drug: Flagyl 500 mg Volume: 100 ml; Route: IVPB; Rate: 200 ml/hr; Infused Over: 30 em mins; Site: right forearm; 10:22 Follow up: Response: No adverse reaction; IV Status: Completed infusion ph Intake: 07:38 IV: 1000ml; Total: 1000ml. em Outcome: 08:42 Discharge ordered by MD. angel 10:24 Discharged to home ambulatory. ph 10:24 Condition: good 10:24 Discharge instructions given to patient, Instructed on discharge instructions, follow up and referral plans. medication usage, Demonstrated understanding of instructions, follow-up care, medications, Prescriptions given X 3. 10:31 Patient left the ED. ph Signatures: Dispatcher [employer] EDMary Escamilla RN RN aa1 Malia Smith, OPERATION SHIFT SUPERVISOR-C OPERATION SHIFT SUPERVISOR-Csnw Brandi Yoon Edgar, MEDICAL RECORDS ANALYST MEDICAL RECORDS ANALYST Dennise Finn RN RN ph Elsa Galvan Raymond RN RN rr5
--- NOTE | 2018-10-25 08:43 | EDPHYS ---
Physician Documentation [facility] Name: Klever Clarke Age: 58 yrs Sex: Male : 1960 Arrival Date: 10/25/2018 Time: 06:12 Bed 18 Private MD: Hebert Velasco T ED Physician Jas Hart HPI: 10/25 07:33 This 58 yrs old Male presents to ER via Ambulatory with complaints of snw Diarrhea. 07:33 The patient presents to the emergency department with diarrhea, 4 times today. Onset: snw The symptoms/episode began/occurred 1 week(s) ago, and became persistent. Possible causes: unknown. The symptoms are aggravated by nothing. Associated signs and symptoms: Pertinent positives: diarrhea. Severity of symptoms: At their worst the symptoms were moderate in the emergency department the symptoms are unchanged. It is unknown whether or not the patient has had similar symptoms in the past. The patient has been recently seen by a physician: The patient has been recently seen at the [facility] Emergency Department, for similar complaints labs were performed, one week ago, no improvement. Historical: - Allergies: 06:22 No Known Allergies; aa1 - Home Meds: 06:22 prednisone 10 mg Oral tab once daily [Active]; aa1 - PMHx: 06:22 COPD; Kidney stones; low back pain; Lupus; aa1 - PSHx: 06:22 eye surgery many years ago; Hernia repair; aa1 - Immunization history:: Flu vaccine is not up to date. - Social history:: Smoking status: Patient/guardian denies using tobacco. - Ebola Screening: : No symptoms or risks identified at this time. ROS: 07:33 Constitutional: Negative for fever, chills, and weight loss, Eyes: Negative for injury, snw pain, redness, and discharge, ENT: Negative for injury, pain, and discharge, Neck: Negative for injury, pain, and swelling, Cardiovascular: Negative for chest pain, palpitations, and edema, Respiratory: Negative for shortness of breath, cough, wheezing, and pleuritic chest pain, Back: Negative for injury and pain, : Negative for injury, bleeding, discharge, and swelling, MS/Extremity: Negative for injury and deformity, Skin: Negative for injury, rash, and discoloration, Neuro: Negative for headache, weakness, numbness, tingling, and seizure. 07:33 Abdomen/GI: Positive for abdominal pain, diarrhea, abdominal cramps, of the suprapubic area, right lower quadrant and left lower quadrant. Exam: 07:33 Constitutional: This is a well developed, well nourished patient who is awake, alert, snw and in no acute distress. Head/Face: Normocephalic, atraumatic. Eyes: Pupils equal round and reactive to light, extra-ocular motions intact. Lids and lashes normal. Conjunctiva and sclera are non-icteric and not injected. Cornea within normal limits. Periorbital areas with no swelling, redness, or edema. ENT: Nares patent. No nasal discharge, no septal abnormalities noted. Tympanic membranes are normal and external auditory canals are clear. Oropharynx with no redness, swelling, or masses, exudates, or evidence of obstruction, uvula midline. Mucous membranes moist. Neck: Trachea midline, no thyromegaly or masses palpated, and no cervical lymphadenopathy. Supple, full range of motion without nuchal rigidity, or vertebral point tenderness. No Meningismus. Chest/axilla: Normal chest wall appearance and motion. Nontender with no deformity. No lesions are appreciated. Cardiovascular: Regular rate and rhythm with a normal S1 and S2. No gallops, murmurs, or rubs. Normal PMI, no JVD. No pulse deficits. Respiratory: Lungs have equal breath sounds bilaterally, clear to auscultation and percussion. No rales, rhonchi or wheezes noted. No increased work of breathing, no retractions or nasal flaring. Back: No spinal tenderness. No costovertebral tenderness. Full range of motion. Skin: Warm, dry with normal turgor. Normal color with no rashes, no lesions, and no evidence of cellulitis. MS/ Extremity: Pulses equal, no cyanosis. Neurovascular intact. Full, normal range of motion. Neuro: Awake and alert, GCS 15, oriented to person, place, time, and situation. Cranial nerves II-XII grossly intact. Motor strength 5/5 in all extremities. Sensory grossly intact. Cerebellar exam normal. Normal gait. Psych: Awake, alert, with orientation to person, place and time. Behavior, mood, and affect are within normal limits. 07:33 Abdomen/GI: Inspection: abdomen appears normal, Bowel sounds: diminished, Palpation: mild abdominal tenderness, in the suprapubic area, right lower quadrant and left lower quadrant, no appreciated organomegaly. Vital Signs: 06:22 BP 138 / 90; Pulse 95; Resp 20; Temp 98.3; Pulse Ox 96% on R/A; Weight 90.72 kg; Height aa1 5 ft. 9 in. (175.26 cm); Pain 7/10; 07:19 BP 137 / 89; Pulse 78; Resp 18; Pulse Ox 99% on R/A; em 08:16 BP 134 / 94; Pulse 77; Resp 16; Pulse Ox 99% on R/A; Pain 0/10; em 09:30 BP 132 / 87; Pulse 78; Resp 18; Pulse Ox 98% on R/A; ph 10:30 BP 127 / 87; Pulse 75; Resp 18; Temp 97.8; Pulse Ox 97% on R/A; ph 06:22 Body Mass Index 29.53 (90.72 kg, 175.26 cm) aa1 MDM: 06:15 Patient medically screened. snw 07:49 Data reviewed: vital signs, nurses notes. Data interpreted: Pulse oximetry: on room air snw is 99 %. Interpretation: normal. Counseling: I had a detailed discussion with the patient and/or guardian regarding: the historical points, exam findings, and any diagnostic results supporting the discharge/admit diagnosis, the presence of at least one elevated blood pressure reading (>120/80) during this emergency department visit, lab results. 10/25 06:16 Order name: Basic Metabolic Panel; Complete Time: 06:57 snw 10/25 06:16 Order name: CBC with Diff; Complete Time: 07:23 snw 10/25 06:16 Order name: Hepatic Function; Complete Time: 06:57 snw 10/25 07:49 Order name: Stool Culture snw 10/25 07:49 Order name: Ova And Parasites snw 10/25 07:49 Order name: Occult Blood snw 10/25 07:31 Order name: CT Abd/Pelvis - IV Contrast Only; Complete Time: 08:40 snw 10/25 07:49 Order name: Fecal Leukocyte Stain snw 10/25 07:49 Order name: CDIFF snw 10/25 07:50 Order name: Stool Culture EDMS 10/25 07:50 Order name: Ova and Parasites EDTN 10/25 07:50 Order name: Occult Blood; Complete Time: 08:50 EDMS 10/25 06:16 Order name: IV Saline Lock; Complete Time: 06:29 snw 10/25 06:16 Order name: Labs collected and sent; Complete Time: 06:29 snw Administered Medications: 06:29 Drug: NS 0.9% 1000 ml Route: IV; Rate: 1 bolus; Site: right forearm; rr5 07:38 Follow up: IV Status: Completed infusion; IV Intake: 1000ml em 07:38 Drug: Bentyl 20 mg Route: PO; em 08:20 Follow up: Response: No adverse reaction; Pain is decreased em 08:18 Drug: NS 0.9% 1000 ml Route: IV; Rate: 125 ml/hr; Site: right forearm; em 10:21 Follow up: Response: No adverse reaction; IV Status: Completed infusion ph 08:20 Drug: Cipro 400 mg Volume: 200 ml; Route: IVPB; Infused Over: 60 mins; Site: right em forearm; 10:22 Follow up: Response: No adverse reaction; IV Status: Completed infusion ph 09:07 Drug: Flagyl 500 mg Volume: 100 ml; Route: IVPB; Rate: 200 ml/hr; Infused Over: 30 em mins; Site: right forearm; 10:22 Follow up: Response: No adverse reaction; IV Status: Completed infusion ph Disposition: 10/25/18 08:42 Discharged to Home. Impression: Pancolitis. - Condition is Stable. - Discharge Instructions: Food Choices to Help Relieve Diarrhea, Adult, Rehydration, Adult, Colitis, Bloody Diarrhea. - Prescriptions for Bentyl 20 mg Oral Tablet - take 1 tablet by ORAL route every 6 hours As needed; 20 tablet. Cipro 500 mg Oral Tablet - take 1 tablet by ORAL route every 12 hours for 10 days; 20 tablet. Flagyl 500 mg Oral Tablet - take 1 tablet by ORAL route every 8 hours for 10 days; 30 tablet. - Medication Reconciliation Form, Thank You Letter, Antibiotic Education, Prescription Opioid Use, Work release form form. - Follow up: Hebert Velasco MD; When: 2 - 3 days; Reason: Recheck today's complaints, Continuance of care, Re-evaluation by your physician. Follow up: Emergency Department; When: As needed; Reason: Worsening of condition. Addendum: 10/26/2018 10:44 Co-signature as Attending Physician, Jas Hart MD I agree with the assessment and t w4 plan of care. Signatures: Dispatcher [employer] Mary Carpenter, RN RN aa1 Malia Smith, [employer] SUPERVISOR-C [employer] SUPERVISOR-Csnw Hima Bradford, SCIENTOLOGIST SCIENTOLOGIST em Dennise Martinez, RN RN Jas Hart MD MD tw4 Papo Lee RN RN rr5 Corrections: (The following items were deleted from the chart) 10/25 10:31 08:42 10/25/2018 08:42 Discharged to Home. Impression: Pancolitis. Condition is Stable. ph Forms are Medication Reconciliation Form, Thank You Letter, Antibiotic Education, Prescription Opioid Use. Follow up: Hebert Velasco; When: 2 - 3 days; Reason: Recheck today's complaints, Continuance of care, Re-evaluation by your physician. Follow up: Emergency Department; When: As needed; Reason: Worsening of condition. snw
[2018-10-25] MEDS ORDERED: METRONIDAZOLE 500mg IVPB 500 MG/100 ML BAG IV ONE (08:48)
== END 2018-10-25 10:31 | disposition home or self-care (01) ==
LOC: ER 06:11
DX: K51.00 Ulcerative (chronic) pancolitis without complications (principal); J44.9 Chronic obstructive pulmonary disease, unspecified
CPT/HCPCS: 96365; 96361; 87045; 85025; 80048; 36415; 89055; 87177; 82274; 80076; 87046; 87493; 87209; 74177; 99284; Q9967; J7030 ×2; J0744

== ENCOUNTER 2021-02-15 09:45 | Emergency (ER) | payer OTHER, SELFPAY ==
--- OUTSIDE RECORDS SUMMARY | 2021-02-15 09:49 | XMS REPORT | Continuity of Care Document ---
:1960 Author Organization [facility] t Address [address] [place] [address] Care Team Providers Name Role Phone Ally Alexis Jr. Primary Care Physician Marino DURHAM, Rubina Attending Clinician Doctor Unassigned, Name Attending Clinician Unavailable Asael COLLINS Attending Clinician Unavailable Pob[facility], Care [facility] Attending Clinician Unavailable Danitza MATHIAS Attending Clinician Payers Payer Name Policy Type Policy Number Effective Date Expiration Date S ource Problems Condition Condition Condition Status Onset Resolution Last Treating Co mments Source Name Details Category Date Date Treatment Clinician Date No known No known Disease Unive rs active active ity of problems problems [facility] Allergies, Adverse Reactions, Alerts Allergy Allergy Status Severity Reaction(s) Onset Inactive Treating Comm ents Source Name Type Date Date Clinician NO KNOWN Drug Active Univers ALLERGIE Class ity of S [facility] Social History Social Habit Start Date Stop Date Quantity Comments Source Tobacco use and 2020-11-01 2020-11-01 Never used Universit y of exposure 00:00:00 00:00:00 [facility] Alcohol intake 2020-11-01 2020-11-01 Current University of 00:00:00 00:00:00 non-drinker of [facility] alcohol Branch (finding) Sex Ass[birth year] Universit y of 00:00:00 00:00:00 [facility] Smoking Status Start Date Stop Date Source Current every day smoker 2020-11-01 00:00:00 Uni versity of [facility] Medications Ordered Filled Start Stop Current Ordering Indication Dosage Frequency Signature Comments Components Source Medication Medication Date Date Medication? Clinician (SIG) Name Name predniSONE 2020- No [id number] Take 1 Univers 5 mg tablet 11-15 tablet by it y of 00:00: 04:59 mouth [place] 00 :00 daily for Medical 7 days, Branch THEN 0.5 tablets daily for 7 days. predniSONE 2020-2020- No [id number] Take 1 Univers 5 mg tablet 11-15 tablet by it y of 00:00: 04:59 mouth [place] 00 :00 daily for Medical 7 days, Branch THEN 0.5 tablets daily for 7 days. predniSONE 2020-2020- No 20mg Take 20 mg Univers (DELTASONE) 8-25 08-25 by mouth ity of 20 mg 21:01: 00:00 daily. [place] tablet 23 : [facility] predniSONE 2020-2020- No 20mg Take 20 mg Univers (DELTASONE) 8-25 08-25 by mouth ity of 20 mg 21:01: 00:00 daily. [place] tablet 23 : [facility] predniSONE 2020- No [id number] Take 0.5 Univers 20 mg 8-25 - tablets by ity of tablet 00:00: 04:59 mouth 2 [place] 00 :00 ([facility]) [facility] daily for 7 days, THEN 0.5 tablets daily for 7 days. predniSONE 2020- No [id number] Take 0.5 Univers 20 mg 8-25 - tablets by ity of tablet 00:00: 04:59 mouth 2 [place] 00 :00 ([facility]) [facility] daily for 7 days, THEN 0.5 tablets daily for 7 days. methylPREDN 2018-0 Yes 84mg Take 21 Uni vers ISolone 5-07 tablets by ity of (MEDROL, 00:00: mouth [place] SUZY,) 4 mg 00 SEE-INSTRU Med ical tablets CTIONS. Branch follow package directions methylPREDN 2018-0 Yes 84mg Take 21 Uni vers ISolone 5-07 tablets by ity of (MEDROL, 00:00: mouth [place] SUZY,) 4 mg 00 SEE-INSTRU Med ical tablets CTIONS. Branch follow package directions methylPREDN 2018-0 Yes 84mg Take 21 Uni vers ISolone 5-07 tablets by ity of (MEDROL, 00:00: mouth [place] SUZY,) 4 mg 00 SEE-INSTRU Med ical tablets CTIONS. Branch follow package directions methylPREDN 2018-0 Yes 84mg Take 21 Uni vers ISolone 5-07 tablets by ity of (MEDROL, 00:00: mouth [place] SUZY,) 4 mg 00 SEE-INSTRU Med ical tablets CTIONS. Branch follow package directions methylPREDN 2017-0 2020- No 84mg Take 21 Un rey ISolone 5-07 08-25 tablets by ity o f (MEDROL, 00:00: 00:00 mouth [place] SUZY,) 4 mg 00 :00 SEE-INSTRU Med ical tablets CTIONS. Branch follow package directions methylPREDN 2017-0 2020- No 84mg Take 21 Un rey ISolone 5-07 08-25 tablets by ity o f (MEDROL, 00:00: 00:00 mouth [place] SUZY,) 4 mg 00 :00 SEE-INSTRU Med ical tablets CTIONS. Branch follow package directions predniSONE 2018-0 Yes 20mg Take 20 mg U nivers (DELTASONE) 4-12 by mouth ity of 20 mg 14:00: daily. [address] predniSONE 2018-0 Yes 20mg Take 20 mg U nivers (DELTASONE) 4-12 by mouth ity of 20 mg 14:00: daily. [address] predniSONE 2018-0 Yes 20mg Take 20 mg U nivers (DELTASONE) 4-12 by mouth ity of 20 mg 14:00: daily. [address] predniSONE 2018-0 Yes 20mg Take 20 mg U nivers (DELTASONE) 4-12 by mouth ity of 20 mg 14:00: daily. [address] traMADOL 50 2018-0 Yes 50mg Take 1 Univ ers mg tablet 2-19 tablet by ity o f 00:00: mouth [place] every 4 Medical (four) Branch hours as needed for Pain (scale 4-6) or Pain unrelieved by non-narcot ic analgesics . traMADOL 50 2018-0 Yes 50mg Take 1 Univ ers mg tablet 2-19 tablet by ity o f 00:00: mouth [place] every 4 Medical (four) Branch hours as needed for Pain (scale 4-6) or Pain unrelieved by non-narcot ic analgesics . traMADOL 50 Yes 50mg Take 1 Univ ers mg tablet 2-19 tablet by ity o f 00:00: mouth [place] 00 every 4 Medical (four) Branch hours as needed for Pain (scale 4-6) or Pain unrelieved by non-narcot ic analgesics . traMADOL 50 Yes 50mg Take 1 Univ ers mg tablet 2-19 tablet by ity o f 00:00: mouth [place] 00 every 4 Medical (four) Branch hours as needed for Pain (scale 4-6) or Pain unrelieved by non-narcot ic analgesics . traMADOL 50 2020- No 50mg Take 1 Uni vers mg tablet 2- 08-25 tablet by ity of 00:00: 00:00 mouth [place] 00 :00 every 4 Medical (four) Branch hours as needed for Pain (scale 4-6) or Pain unrelieved by non-narcot ic analgesics . traMADOL 50 No 50mg Take 1 Uni vers mg tablet 2-26 10-25 tablet by ity of 00:00: 00:00 mouth [place] 00 :00 every 4 Medical (four) Branch hours as needed for Pain (scale 4-6) or Pain unrelieved by non-narcot ic analgesics . acetaminoph Yes 1-2 by [facility] en-codeine 2-02 mouth ity of (TYLENOL-CO 00:00: every 4-6 [place] DEINE #3) 00 hours as Medica l 300-30 mg needed prn Bran ch tablet pain acetaminoph Yes 1-2 by [facility] en-codeine 2-02 mouth ity of (TYLENOL-CO 00:00: every 4-6 [place] DEINE #3) 00 hours as Medica l 300-30 mg needed prn Bran ch tablet pain acetaminoph Yes 1-2 by [facility] [place] [facility] ers en-codeine 2-02 mouth ity of (TYLENOL-CO 00:00: every 4-6 [place] DEINE #3) 00 hours as Medica l 300-30 mg needed prn Bran ch tablet pain acetaminoph Yes 1-2 by [facility] en-codeine 2-02 mouth ity of (TYLENOL-CO 00:00: every 4-6 [place] DEINE #3) 00 hours as Medica l 300-30 mg needed prn Bran ch tablet pain acetaminoph 2020- No 1-2 by Uni vers en-codeine 04-11 mouth ity of (TYLENOL-CO 00:00: 00:00 every 4-6 [place] DEINE #3) 00 :00 hours as Medica l 300-30 mg needed prn Bran ch tablet pain acetaminoph 2020- No 1-2 by Uni vers en-codeine 04-11 mouth ity of (TYLENOL-CO 00:00: 00:00 every 4-6 [place] DEINE #3) 00 :00 hours as Medica l 300-30 mg needed prn Bran ch tablet pain docusate Yes 100mg Take 1 Univer s (COLACE) 4-20 capsule by ity o f 100 mg 00:00: mouth 3 [place] capsule 00 (three) Medical times Branch daily. Polyethylen Yes 1{packe Take 1 U nivers e Glycol 4-20 t} Packet by ity of 3350 00:00: mouth 2 [place] (MIRALAX) 00 (two) Medical 17 gram times Branch powder daily. docusate Yes 100mg Take 1 Univer s (COLACE) 4-20 capsule by ity o f 100 mg 00:00: mouth 3 [place] capsule 00 (three) Medical times Branch daily. Polyethylen Yes 1{packe Take 1 U nivers e Glycol 4-20 t} Packet by ity of 3350 00:00: mouth 2 [place] (MIRALAX) 00 (two) Medical 17 gram times Branch powder daily. docusate 0 Yes 100mg Take 1 Univer s (COLACE) 4-20 capsule by ity o f 100 mg 00:00: mouth 3 [place] capsule 00 (three) Medical times Branch daily. docusate 2015-0 Yes 100mg Take 1 Univer s (COLACE) 4-20 capsule by ity o f 100 mg 00:00: mouth 3 [place] capsule 00 (three) Medical times Branch daily. Polyethylen Yes 1{packe Take 1 U nivers e Glycol 4-20 t} Packet by ity of 3350 00:00: mouth 2 [place] (MIRALAX) 00 (two) Medical 17 gram times Branch powder daily. Polyethylen Yes 1{packe Take 1 U nivers e Glycol 4-20 t} Packet by ity of 3350 00:00: mouth 2 [place] (MIRALAX) 00 (two) Medical 17 gram times Branch powder daily. docusate 2020- No 100mg Take 1 Unive rs (COLACE) 4-20 08-25 capsule by ity of 100 mg 00:00: 00:00 mouth 3 [place] capsule 00 :00 (three) Medical times Branch daily. Polyethylen 2020- No 1{packe Take 1 Univers e Glycol 4-20 08-25 t} Packet by ity o f 3350 00:00: 00:00 mouth 2 [place] (MIRALAX) 00 :00 (two) Medical 17 gram times Branch powder daily. docusate 2020- No 100mg Take 1 Unive rs (COLACE) 4-20 08-25 capsule by ity of 100 mg 00:00: 00:00 mouth 3 [place] capsule 00 :00 (three) Medical times Branch daily. Polyethylen 2020- No 1{packe Take 1 Univers e Glycol 4-20 08-25 t} Packet by ity o f 3350 00:00: 00:00 mouth 2 [place] (MIRALAX) 00 :00 (two) Medical 17 gram times Branch powder daily. Vital Signs Vital Name Observation Time Observation Value Comments Source Heart rate 2020-11-01 20:25:00 75 /min [facility] Body temperature 2020-11-01 20:25:00 36.33 Jammie [facility] Respiratory rate 2020-11-01 20:25:00 18 /min [facility] Body weight 2020-11-01 20:25:00 90.719 kg [facility] BMI 2020-11-01 20:25:00 26.39 kg/m2 [facility] Oxygen saturation in 2020-11-01 20:25:00 95 /min [facility] Arterial blood by [facility] Pulse oximetry Branch Systolic blood 2020-11-01 20:25:00 149 mm[Hg] [facility] sity of pressure [facility] Diastolic blood 2020-11-01 20:25:00 110 mm[Hg] Unive rsity of pressure [facility] Systolic blood 2019-06-24 15:29:00 156 mm[Hg] Univer sity of pressure [facility] Diastolic blood 2019-06-24 15:29:00 97 mm[Hg] Unive rsity of pressure [facility] Heart rate 2019-06-24 15:29:00 66 /min Universi ty of [facility] Body temperature 2019-06-24 15:22:00 36.67 Jammie [facility] [place] [facility] ersity of [facility] Respiratory rate 2019-06-24 15:22:00 18 /min [facility] [place] [facility] Body height 2019-06-24 15:22:00 185.4 cm Universi ty of [facility] Body weight 2019-06-24 15:22:00 90.719 kg Universi ty [facility] BMI 2019-06-24 15:22:00 26.39 kg/m2 [facility] Oxygen saturation in 2019-06-24 15:22:00 95 /min [facility] Arterial blood by [facility] Pulse oximetry Branch Procedures Procedure Date / Time Performed Performing Clinician [facility] e CONSENT/REFUSAL FOR 2020-11-01 20:11:27 Doctor Unassigned, No Un [facility] DIAGNOSIS AND Name Medical Branch TREATMENT Encounters Start End Encounter Admission Attending Care Care Encounter Source Date/Time Date/Time Type Type Clinicians Facility Department ID 2021-01-08 Emergency [facility] [id number] Univers 18:06:45 ity of [facility] 2020-11-01 2020-11-01 Emergency [facility] [id number] Univers 15:27:00 16:34:00 Maxine Alberto [id number] ity of [place] [id number] [facility] [id number] [facility] 084 Branch 2020-11-01 2020-11-01 Orders Doctor HERRING [id number] Univers 00:00:00 00:00:00 Only Unassigned, SIDRA [id number] ity of [place] [facility] [id number] [facility] [id number] [facility] 009 Branch 2019-06-25 2019-06-25 Telephone NEVAEH Vyas [id number] Univers 00:00:00 00:00:00 Yelena VALENTE [id number] it y of [facility] [id number] Nikita as [id number] [address] 2019-06-24 2019-06-24 Urgent Pob1, Acute Care Clinic [facility] [id number] Univers 10:06:34 10:26:34 [facility] [id number] ity [facility] [id number] Nikita as Lizet [id number] [facility] [address] 2019-06-24 2019-06-24 Outpatient R [facility] [id number] Univers 10:00:00 10:00:00 ity of [facility] Results This patient has no known results.
[2021-02-15] MEDS ORDERED: predniSONE 10 MG TAB ONE (10:21)
--- NOTE | 2021-02-15 11:14 | RAD REPORT ---
EXAM DESCRIPTION: RAD - Chest Single View - 02/15/2021 11:09 am CLINICAL HISTORY: COPD COMPARISON: Chest Pa And Lat (2 Views) dated 10/28/2018; Chest Single View dated 06/21/2018; Chest Sin gle View dated 05/20/2018; Chest Pa And Lat (2 Views) dated 04/15/2018 FINDINGS: Lines: None. Lungs: Increasing a diffuse prominence of the pulmonary interstitium. Pleural: No significant pleural effusions or pneumothorax. Cardiac: Cardiomegaly. Bones: No acute fractures. Other: IMPRESSION: Increasing prominence of the pulmonary interstitium may reflect either interstitial марина a or a mild infectious or inflammatory process.
--- NOTE | 2021-02-15 11:29 | ER ---
Nurse's Notes [facility] Name: Klever Clarke Age: 60 yrs Sex: Male : 1960 Arrival Date: 02/15/2021 Time: 09:48 Bed 7 Private MD: Diagnosis: Acute bronchitis, unspecified Presentation: 02/15 09:57 Chief complaint: Patient states: SOB, nonradiating, midsternal chest pain x 3 days, no [facility] insurance so warp preparer wont refill medication for lupus, haven't had medication in 5 days. Coronavirus screen: shortness of breath, Client presents with at least one sign or symptom that may indicate coronavirus-19. Standard/surgical mask placed on the client. Provider contacted for isolation considerations. Ebola Screen: No symptoms or risks identified at this time. Initial Sepsis Screen: Does the patient meet any 2 criteria? No. Patient's initial sepsis screen is negative. Does the patient have a suspected source of infection? No. Patient's initial sepsis screen is negative. Risk Assessment: Do you want to hurt yourself or someone else? Patient reports no desire to harm self or others. Onset of symptoms was February 12, 2021. Care prior to arrival: None. 09:57 Method Of Arrival: Ambulatory [facility] 09:57 Acuity: NHI 2 jl7 Triage Assessment: 10:00 General: Appears in no apparent distress. uncomfortable, Behavior is cooperative. Pain: jl7 Complains of pain in mid-sternal area Pain does not radiate. Pain currently is 4 out of 10 on a pain scale. Quality of pain is described as pressure, Pain began 2-3 days ago. Cardiovascular: Patient's skin is warm and dry. Respiratory: Airway is patent Respiratory effort is even, labored, Respiratory pattern is symmetrical, tachypnea. Historical: - Allergies: 10:00 No Known Allergies; jl7 - Home Meds: 10:00 prednisone 10 mg Oral tab once daily [Active]; jl7 - PMHx: 10:00 COPD; Kidney stones; low back pain; Lupus; jl7 - Immunization history:: Client reports having NOT received the Covid vaccine. - Social history:: Smoking status: Patient reports the use of cigarette tobacco products. Screenin:03 Abuse screen: Denies threats or abuse. Nutritional screening: No deficits noted. tw2 Tuberculosis screening: No symptoms or risk factors identified. Fall Risk None identified. Assessment: 10:06 Reassessment: provider at bedside at this time. tw2 10:22 General: Appears in no apparent distress. slender, well groomed, Behavior is calm, tw2 cooperative, appropriate for age. Pain: Complains of pain in chest. Neuro: Neuro: Level of Consciousness is awake, alert, obeys commands, Oriented to person, place, time, situation. Cardiovascular: Reports chest pain, shortness of breath, since 3 days now because "rosa maria been without my medication for lupus and my copd seems to be getting worse". Respiratory: Airway is patent Respiratory effort is even, unlabored, Respiratory pattern is regular, symmetrical, tachypnea. Respiratory: Denies cough. GI: No signs and/or symptoms were reported involving the gastrointestinal system. Musculoskeletal: Range of motion: intact in all extremities. 10:53 Reassessment: xray at bedside at this time. tw2 10:54 Reassessment: Patient appears in no apparent distress at this time. No changes from tw2 previously documented assessment. Patient and/or family updated on plan of care and expected duration. Pain level reassessed. 11:44 Reassessment: Patient appears in no apparent distress at this time. No changes from tw2 previously documented assessment. Patient and/or family updated on plan of care and expected duration. Pain level reassessed. Vital Signs: 09:57 BP 153 / 90; Pulse 68; Resp 22; Temp 99.6; Pulse Ox 94% ; Weight 108.86 kg; Height 6 jl7 ft. 1 in. (185.42 cm); Pain 4/10; 10:09 Pulse Ox 95% on R/A; tw2 10:53 BP 134 / 82; Pulse 93; Resp 20; Pulse Ox 95% on R/A; tw2 11:31 BP 136 / 85; Pulse 86; Resp 17; Pulse Ox 95% on R/A; tw2 09:57 Body Mass Index 31.66 (108.86 kg, 185.42 cm) jl7 ED Course: 09:48 Patient arrived in ED. ds1 10:00 Triage completed. jl7 10:00 Arm band placed on right wrist. jl7 10:03 Rosemary Brown MD is Attending Physician. sp3 10:03 Bed in low position. Call light in reach. environmental monitoring technician on. Pulse ox on. NIBP on. tw2 10:06 Petrona Sepulveda, RN is Primary Nurse. tw2 10:09 Patient maintains SpO2 saturation greater than 95% on room air. tw2 11:08 Chest Single View XRAY In Process Unspecified. EDMS 11:44 No provider procedures requiring assistance completed. Patient did not have IV access tw2 during this emergency room visit. Administered Medications: 10:22 Drug: predniSONE 10 mg Route: PO; tw2 10:54 Follow up: Response: No adverse reaction tw2 Outcome: 11:29 Discharge ordered by . sp3 11:44 Discharged to home ambulatory. tw2 11:44 Condition: stable 11:44 Discharge instructions given to patient, Instructed on discharge instructions, follow up and referral plans. medication usage, Demonstrated understanding of instructions, follow-up care, medications. 11:46 Patient left the ED. tw2 Signatures: Dispatcher [employer] EDCT Elizabeth Chavira ds1 Petrona Sepulveda RN RN tw2 Jakob Torre RN RN jl7 Rosemary Brown MD MD sp3 Corrections: (The following items were deleted from the chart) 10:28 10:22 Cardiovascular: Reports chest pain, shortness of breath, tw2 tw2
--- NOTE | 2021-02-15 11:30 | EDPHYS ---
Physician Documentation [facility] Name: Klever Clarke Age: 60 yrs Sex: Male : 1960 Arrival Date: 02/15/2021 Time: 09:48 Bed 7 Private MD: ED Physician Rosemary Brown HPI: 02/15 10:20 This 60 yrs old Male presents to ER via Ambulatory with complaints of Needing sp3 prednisone refill. 10:20 60-year-old male with a history of COPD, lupus, kidney stones presents with chief sp3 complaint needing a prednisone refill secondary to running out. Patient is been on 10 mg prednisone for "years". Patient complains of mild wheezing that he normally gets and a headache which he normally gets when he delays his prednisone or misses a dose on accident. His last dose was 3 days ago. Patient is not having chest pain per se, pain in his left arm, or any other new findings. Patient states he would not of come into the ED but only received it is because he had no other option to get the prednisone. Review of systems is otherwise negative.. Historical: - Allergies: 10:00 No Known Allergies; jl7 - Home Meds: 10:00 prednisone 10 mg Oral tab once daily [Active]; jl7 - PMHx: 10:00 COPD; Kidney stones; low back pain; Lupus; jl7 - Immunization history:: Client reports having NOT received the Covid vaccine. - Social history:: Smoking status: Patient reports the use of cigarette tobacco products. ROS: 10:29 Constitutional: Negative for fever, chills, and weight loss, Eyes: Negative for injury, sp3 pain, redness, and discharge, ENT: Negative for injury, pain, and discharge, Neck: Negative for injury, pain, and swelling, Cardiovascular: Negative for chest pain, palpitations, and edema, Abdomen/GI: Negative for abdominal pain, nausea, vomiting, diarrhea, and constipation, Back: Negative for injury and pain, MS/Extremity: Negative for injury and deformity, Skin: Negative for injury, rash, and discoloration, Neuro: Negative for headache, weakness, numbness, tingling, and seizure, Psych: Negative for depression, anxiety, suicide ideation, homicidal ideation, and hallucinations, Allergy/Immunology: Negative for hives, rash, and allergies, Endocrine: Negative for neck swelling, polydipsia, polyuria, polyphagia, and marked weight changes, Hematologic/Lymphatic: Negative for swollen nodes, abnormal bleeding, and unusual bruising. 10:29 All other systems are negative. Exam: 10:30 Constitutional: This is a well developed, well nourished patient who is awake, alert, sp3 and in no acute distress. Head/Face: Normocephalic, atraumatic. Eyes: Pupils equal round and reactive to light, extra-ocular motions intact. Lids and lashes normal. Conjunctiva and sclera are non-icteric and not injected. Cornea within normal limits. Periorbital areas with no swelling, redness, or edema. ENT: Nares patent. No nasal discharge, no septal abnormalities noted. External auditory canals are clear. Oropharynx with no redness, swelling, or masses, exudates, or evidence of obstruction, uvula midline. Mucous membranes moist. Neck: Trachea midline, no thyromegaly or masses palpated, and no cervical lymphadenopathy. Supple, full range of motion without nuchal rigidity, or vertebral point tenderness. No Meningismus. Chest/axilla: Normal chest wall appearance and motion. Nontender with no deformity. No lesions are appreciated. Cardiovascular: Regular rate and rhythm with a normal S1 and S2. No gallops, murmurs, or rubs. Normal PMI, no JVD. No pulse deficits. Abdomen/GI: Soft, non-tender, with normal bowel sounds. No distension or tympany. No guarding or rebound. No evidence of tenderness throughout. Back: No spinal tenderness. No costovertebral tenderness. Full range of motion. Skin: Warm, dry with normal turgor. Normal color with no rashes, no lesions, and no evidence of cellulitis. MS/ Extremity: Pulses equal, no cyanosis. Neurovascular intact. Full, normal range of motion. Neuro: Awake and alert, GCS 15, oriented to person, place, time, and situation. Cranial nerves II-XII grossly intact. Motor strength 5/5 in all extremities. Sensory grossly intact. Cerebellar exam normal. Normal gait. Psych: Awake, alert, with orientation to person, place and time. Behavior, mood, and affect are within normal limits. 10:30 Respiratory: No respiratory distress or accessory muscle use patient has mild diffuse wheezes scattered inspiratory only. Patient is not tachypneic at all.. 10:31 ECG was reviewed by the Attending Physician. Normal sinus rhythm at 84 bpm with rate sp3 variation due to sinus arrhythmia, normal intervals, normal QRS, mild leftward axis, nonspecific diffuse ST/T changes without evidence of ischemia. Vital Signs: 09:57 BP 153 / 90; Pulse 68; Resp 22; Temp 99.6; Pulse Ox 94% ; Weight 108.86 kg; Height 6 jl7 ft. 1 in. (185.42 cm); Pain 4/10; 10:09 Pulse Ox 95% on R/A; tw2 10:53 BP 134 / 82; Pulse 93; Resp 20; Pulse Ox 95% on R/A; tw2 11:31 BP 136 / 85; Pulse 86; Resp 17; Pulse Ox 95% on R/A; tw2 09:57 Body Mass Index 31.66 (108.86 kg, 185.42 cm) jl7 MDM: 10:05 Patient medically screened. sp3 10:30 Data reviewed: vital signs, nurses notes. ED course: Will review EKG and chest x-ray sp3 and give prednisone here in the ED 10 mg. Will discharge patient home on 30 days supply of 10 mg prednisone until he can be seen by his new emission technician which he has identified in [place]. Patient was also given another local new PCP referral who is seeing him for patients. Patient has no further questions and is acceptable with this plan.. 11:27 ED course: Patient on prednisone and Z-Sherman given chest x-ray findings.. sp3 02/15 10:16 Order name: Chest Single View XRAY; Complete Time: 11:27 sp3 02/15 10:16 Order name: EKG - Nurse/Tech; Complete Time: 10:20 sp3 Administered Medications: 10:22 Drug: predniSONE 10 mg Route: PO; tw2 10:54 Follow up: Response: No adverse reaction tw2 Disposition Summary: 02/15/21 11:29 Discharge Ordered Location: Home sp3 Condition: Stable sp3 Diagnosis - Acute bronchitis, unspecified sp3 Followup: sp3 - With: Private Physician - When: Upon discharge from the Emergency Department - Reason: Recheck today's complaints Discharge Instructions: - Discharge Summary Sheet sp3 - Acute Bronchitis, Adult sp3 Forms: - Medication Reconciliation Form sp3 - Thank You Letter sp3 - Antibiotic Education sp3 - Prescription Opioid Use sp3 Prescriptions: - prednisone 10 mg Oral tablet - take 1 tablet by ORAL route once daily; 30 tablet; Refills: 0, Product sp3 Selection Permitted - Zithromax Z-Sherman 250 mg Oral Tablet - take 1 tablet by ORAL route as directed for 5 days Day 1 - take two (2) tablets sp3 one time. Day 2, 3, 4 , 5 take one (1) tablet once daily.; 6 tablet; Refills: 0, Product Selection Permitted Signatures: Dispatcher [employer] Petrona Teixeira RN RN tw2 Jakob Torre RN RN jl7 Rosemary Brown MD MD sp3
[2021-02-15 11:52] VITALS: TEMP 99.6
[2021-02-15 11:53] VITALS: O2SAT 95
[2021-02-15 11:57] VITALS: BP 136/85
== END 2021-02-15 11:46 | disposition home or self-care (01) ==
LOC: ER 09:45
DX: J20.9 Acute bronchitis, unspecified (principal); J44.9 Chronic obstructive pulmonary disease, unspecified; Z72.0 Tobacco use
CPT/HCPCS: 71045; 93005; 99284; J7512

== ENCOUNTER 2021-05-26 09:26 | Emergency (ER) | payer SELFPAY ==
--- OUTSIDE RECORDS SUMMARY | 2021-05-26 09:29 | XMS REPORT | Continuity of Care Document ---
:1960 Author Organization [facility] t Address [address] [place] [address] Care Team Providers Name Role Phone PCP, DOES NOT HAVE A Primary Care Physician Unavailable FERNANDES Attending Clinician Unavailable Fernandes DO Attending Clinician Doctor Unassigned, Name Attending Clinician Unavailable Marino LEAD RELAY TESTER, G Attending Clinician Asael RN Attending Clinician Unavailable Pob1, Care Clinic Attending Clinician Unavailable Danitza NASHP Attending Clinician FERNANDES Admitting Clinician Unavailable Payers Payer Name Policy Type Policy Number Effective Date Expiration Date S ource Problems Condition Condition Condition Status Onset Resolution Last Treating Co mments Source Name Details Category Date Date Treatment Clinician Date No known No known Disease Unive rs active active ity of problems problems [facility] Allergies, Adverse Reactions, Alerts Allergy Allergy Status Severity Reaction(s) Onset Inactive Treating Comm ents Source Name Type Date Date Clinician NO KNOWN Drug Active Univers ALLERGIE Class ity of S [facility] Social History Social Habit Start Date Stop Date Quantity Comments Source Exposure to Not sure University SARS-CoV-2 [facility] (event) Branch Alcohol intake 2020-11-01 2020-11-01 Current University 00:00:00 00:00:00 non-drinker of [facility] alcohol Branch (finding) Tobacco use and 2017-04-09 2017-04-09 Never used Universit y of exposure 00:00:00 00:00:00 [facility] Sex Ass[birth year] Universit y of 00:00:00 00:00:00 [facility] Smoking Status Start Date Stop Date Source Current every day smoker 2017-04-09 00:00:00 [facility] [place] [facility] Medications Ordered Filled Start Stop Current Ordering Indication Dosage Frequency Signature Comments Components Source Medication Medication Date Date Medication? Clinician (SIG) Name Name naproxen Yes [id number] 550mg Take 1 Univers sodium - tablet by ity of (ANAPROX 00:00: mouth 2 [place] DS) 550 mg 00 (two) Medical tablet times Branch daily with meals. predniSONE Yes [id number] Take bid Univers 10 mg 2-02 for 1 week ity of tablet 00:00: then QD [place] 00 thereafter Medical for lupus Branch predniSONE Yes [id number] Take bid Univers 10 mg 2-02 for 1 week ity of tablet 00:00: then QD [place] 00 thereafter Medical for lupus Branch predniSONE Yes [id number] Take bid Univers 10 mg - for 1 week ity of tablet 00:00: then QD [place] 00 thereafter Medical for lupus Branch predniSONE 2021-2021- No [id number] Take bid Univers 10 mg 2-04 11- for 1 week ity of tablet 00:00: 00:00 then QD [place] 00 :00 thereafter Medical for lupus Branch predniSONE 2020-2020- No [id number] Take 1 Univers 5 mg tablet 11-15 tablet by it y of 00:00: 04:59 mouth [place] 00 :00 daily for Medical 7 days, Branch THEN 0.5 tablets daily for 7 days. predniSONE 2020-2020- No [id number] Take 1 Univers 5 mg tablet 11-15 tablet by it y of 00:00: 04:59 mouth [place] 00 :00 daily for Medical 7 days, Branch THEN 0.5 tablets daily for 7 days. predniSONE 2020-2020- No 20mg Take 20 mg Univers (DELTASONE) 8-25 08-25 by mouth ity of 20 mg 21:01: 00:00 daily. [place] tablet 23 :00 Medical Branch predniSONE 2020-2020- No 20mg Take 20 mg Univers (DELTASONE) 8-25 08-25 by mouth ity of 20 mg 21:01: 00:00 daily. [place] tablet 23 :00 Medical Branch predniSONE 2020-2020- No [id number] Take 0.5 Univers 20 mg 8-25 09-09 tablets by ity of tablet 00:00: 04:59 mouth 2 [place] 00 :00 (two) Medical times [place] daily for 7 days, THEN 0.5 tablets daily for 7 days. predniSONE 2020- No [id number] Take 0.5 Univers 20 mg 8-25 -09 tablets by ity of tablet 00:00: 04:59 mouth 2 [place] 00 :00 (two) Medical times [place] daily for 7 days, THEN 0.5 tablets [...] tablets CTIONS. Branch follow package directions predniSONE Yes 20mg Take 20 mg U nivers (DELTASONE) 4-12 by mouth ity of 20 mg 14:00: daily. [place] tablet 56 Medical Branch predniSONE 2018-0 Yes 20mg Take 20 mg U nivers (DELTASONE) 4-12 by mouth ity of 20 mg 14:00: daily. [place] tablet 56 Medical Branch predniSONE 2018-0 Yes 20mg Take 20 mg U nivers (DELTASONE) 4-12 by mouth ity of 20 mg 14:00: daily. [place] tablet 56 Medical Branch predniSONE 2018-0 Yes 20mg Take 20 mg U nivers (DELTASONE) 4-12 by mouth ity of 20 mg 14:00: daily. [place] tablet 56 Medical Branch traMADOL 50 2018-0 Yes 50mg Take 1 [...] by non-narcot ic analgesics . traMADOL 50 2017-0 2020- No 50mg Take 1 Uni vers mg tablet 2-19 08-25 tablet by ity of 00:00: 00:00 mouth [place] 00 :00 every 4 Medical (four) Branch hours as needed for Pain (scale 4-6) or Pain unrelieved by non-narcot ic analgesics . traMADOL 50 2017-0 2020- No 50mg Take 1 Uni vers mg tablet 2-19 08-25 tablet by ity of 00:00: 00:00 mouth [place] 00 :00 every 4 Medical (four) Branch hours as needed for Pain (scale 4-6) or Pain unrelieved by non-narcot ic analgesics . acetaminoph Yes 1-2 by [facility] ers en-codeine 2-02 mouth ity of (TYLENOL-CO 00:00: every 4-6 [place] DEINE #3) 00 hours as Medica l 300-30 mg needed prn Bran ch tablet pain acetaminoph Yes 1-2 by [facility] ers en-codeine 2-02 mouth ity of (TYLENOL-CO 00:00: every 4-6 [place] DEINE #3) 00 hours as Medica l 300-30 mg needed prn Bran ch tablet pain acetaminoph Yes 1-2 by [facility] en-codeine 2-02 mouth ity of (TYLENOL-CO 00:00: every 4-6 [place] DEINE #3) 00 hours as Medica l 300-30 mg needed prn Bran ch tablet pain acetaminoph Yes 1-2 by [facility] ers en-codeine 2-02 mouth ity of (TYLENOL-CO 00:00: every 4-6 [place] DEINE #3) 00 hours as Medica l 300-30 mg needed prn Bran ch tablet pain acetaminoph 202- No 1-2 by [facility] vers en-codeine 2-02 08-25 mouth ity of (TYLENOL-CO 00:00: 00:00 every 4-6 [place] DEINE #3) 00 :00 hours as Medica l 300-30 mg needed prn Bran ch tablet pain acetaminoph 202- No 1-2 by [facility] vers en-codeine 2-02 08-25 mouth ity of (TYLENOL-CO 00:00: 00:00 every [...] 00 (three) Medical times Branch daily. docusate Yes 100mg Take 1 Univer [...] Name Observation Time Observation Value Comments Source Systolic blood 2021-05-02 18:52:58 140 mm[Hg] Univer sity of [facility] [place] [facility] Diastolic blood 2021-05-02 18:52:58 82 mm[Hg] Unive rsity of pressure [place] [facility] Heart rate 2021-05-02 18:52:58 88 /min [facility] [place] [facility] Respiratory rate 2021-05-02 18:52:58 18 /min Univ [facility] [place] [facility] Oxygen saturation in 2021-05-02 18:52:58 99 /min University of Arterial blood by [place] [employer] [facility] Pulse oximetry Branch Body temperature 2021-05-02 16:31:00 36.44 Jammie Univ [facility] [place] [facility] Body weight 2021-05-02 16:30:00 90.719 kg [facility] [place] [facility] BMI 2021-05-02 16:30:00 26.39 kg/m2 [facility] [place] [facility] Systolic blood 2021-04-11 18:06:00 143 mm[Hg] Univer [facility]ity [facility] [place] [facility] Diastolic blood 2021-04-11 18:06:00 91 mm[Hg] Unive rsity [facility] [place] [facility] Heart rate 2021-04-11 18:04:00 60 /min [facility] [place] [facility] Body temperature 2021-04-11 18:04:00 37.06 Jammie Univ [facility] [place] [facility] Respiratory rate 2021-04-11 18:04:00 18 /min Univ [facility] [place] [facility] Body weight 2021-04-11 18:04:00 90.719 kg [facility] [place] [facility] BMI 2021-04-11 18:04:00 26.39 kg/m2 [facility] [place] [facility] Oxygen saturation in 2021-04-11 18:04:00 96 /min University of Arterial blood by [facility] Pulse oximetry Branch Systolic blood 2020-11-01 20:25:00 149 mm[Hg] Univer sity [facility] [place] [facility] Diastolic blood 2020-11-01 20:25:00 110 mm[Hg] Unive rsity of pressure [place] [facility] Heart rate 2020-11-01 20:25:00 75 /min Universi ty of [facility] Body temperature 2020-11-01 20:25:00 36.33 Jammie Univ ersity of [facility] Respiratory rate 2020-11-01 20:25:00 18 /min Univ ersity of [facility] Body weight 2020-11-01 20:25:00 90.719 kg [facility] [place] [facility] [place] BMI 2020-11-01 20:25:00 26.39 kg/m2 [facility] [place] [facility] [place] Oxygen saturation in 2020-11-01 20:25:00 95 /min University of Arterial blood by [facility] Pulse oximetry Branch Systolic blood 2019-06-24 15:29:00 156 mm[Hg] Univer sity of [facility] Diastolic blood 2019-06-24 15:29:00 97 mm[Hg] Unive rsity of [facility] Heart rate 2019-06-24 15:29:00 66 /min Universi ty [facility] [place] [facility] [place] Body temperature 2019-06-24 15:22:00 36.67 Jammie [facility] ersity [facility] [place] [facility] [place] Respiratory rate 2019-06-24 15:22:00 18 /min [facility] Body height 2019-06-24 15:22:00 185.4 cm Universi ty [facility] [place] [facility] [place] Body weight 2019-06-24 15:22:00 90.719 kg Universi [facility] [place] [facility] [place] BMI 2019-06-24 15:22:00 26.39 kg/m2 [facility]i [facility] [place] [facility] [place] Oxygen saturation in 2019-06-24 15:22:00 95 /min University of Arterial blood by [facility] Pulse oximetry Branch Procedures Procedure Date / Time Performed Performing Clinician [place] e XR KNEE 3 VW LEFT 2021-05-02 16:49:35 Jered Fernandes [facility] CONSENT/REFUSAL FOR 2021-05-02 16:22:18 Doctor Unassigned, No Un [facility] DIAGNOSIS AND Name Medical Branch TREATMENT COMP. METABOLIC PANEL 2021-04-11 19:06:00 Jered Fernandes [facility] ([id number]) [facility] CBC WITH DIFF 2021-04-11 19:06:00 Jered Fernandes o f [facility] NOTICE OF PRIVACY 2021-04-11 17:29:34 Doctor Unassigned, No [facility] [place] [facility] Name Medical Branch CONSENT/REFUSAL FOR 2021-04-11 17:29:14 Doctor Unassigned, No Un [facility] [place] DIAGNOSIS AND Name Medical Branch TREATMENT CONSENT/REFUSAL FOR 2020-11-01 20:11:27 Doctor Unassigned, No Un [facility] [place] DIAGNOSIS AND Name Medical Branch TREATMENT Encounters Start End Encounter Admission Attending Care Care Encounter Source Date/Time Date/Time Type Type Clinicians Facility Department ID 2021-01-08 Emergency [facility] [id number] Univers 18:06:45 ity of [facility] 2021-05-02 2021-05-02 Emergency Yogi FERNANDES [facility] ERT [id number] Univers 10:34:00 12:59:00 JERED pizarro [facility] [place] [facility] 2021-05-02 2021-05-02 Emergency [facility] [id number] Univers 10:34:00 12:59:00 Jered ALBERTO [id number] i ty of [place] 4.2.7.2.[address] [facility] [id number] [facility] 084 [place] 2021-05-02 2021-05-02 Orders Doctor HERRING [id number] Univers 00:00:00 00:00:00 Only Unassigned, SIDRA 350.1.13.10 ity of [place] [facility] 4.2.7.2.686 Nikita as [id number] [facility] 009 Branch 2021-04-11 2021-04-11 [facility] [id number] Univers 12:06:00 13:47:00 JERED pizarro [facility] [place] [facility] 2021-04-11 2021-04-11 [facility] [id number] Univers 12:06:00 13:47:00 Jered ALBERTO 350.1.13.10 i ty of [place] 4.2.7.2.[address] [facility] [id number] [place] [id number] [place] 2020-11-01 2020-11-01 [facility] [id number] Univers 15:27:00 16:34:00 Maxine Alberto 350.1.13.10 ity of [place] 4.2.7.2.686 [place] [facility] [id number] [facility] 084 [place] 2020-11-01 2020-11-01 Orders Doctor NEVAEH [id number] Univers 00:00:00 00:00:00 Only Unassigned, SIDRA [id number] ity of [place] [facility] 4.2.7.2.686 Nikita as [id number] [facility] 009 Branch 2019-06-25 2019-06-25 Telephone NEVAEH Vyas [id number] Univers 00:00:00 00:00:00 Yelena VALENTE 350.1.13.10 it y of HOSPITAL 4.2.7.2.686 Nikita as [id number] [facility] 019 [place] 2019-06-24 2019-06-24 Urgent Pob1, Acute Care Clinic [facility] 1. [id number] Univers 10:06:34 10:26:34 Care Danitza Plix 350.1.13.10 ity of [place] 4.2.7.2.686 Nikita as Professio [id number] [facility] [address] [place] [address] 2019-06-24 2019-06-24 Outpatient R [facility] [id number] Univers 10:00:00 10:00:00 ity of [facility] Results Test Description Test Time Test Comments Results Result Comments Source COMP. METABOLIC PANEL (33136) 2021-04-11 19:24:53 Test Item Value Reference Range Interpretation Comme nts NA (test code = 1767344687) 139 mmol/L 135-145 K (test code = 4338001042) 4.3 mmol/L 3.5-5.0 CL (test code = 3676515980) 102 mmol/L 98-108 CO2 TOTAL (test code = 1542694639) 32 mmol/L 23-31 H AGAP (test code = 0516004579) 2-16 BUN (test code = 2328666602) 3 mg/dL 7-23 L GLUCOSE (test code = 1688840880) 90 mg/dL 70-110 CREATININE (test code = 0.59 mg/dL 0.60-1.25 L 7053261120) TOTAL BILI (test code = 0.6 mg/dL 0.1-1.1 9927482820) CALCIUM (test code = 4538925988) 8.1 mg/dL 8.6-10.6 L T PROTEIN (test code = 1214074399) 7.3 g/dL 6.3-8.2 ALBUMIN (test code = 7623664967) 3.8 g/dL 3.5-5.0 ALK PHOS (test code = 7863243274) 88 U/L 34-122 ALTv (test code = 1742-6) 10 U/L 5-50 AST(SGOT) (test code = 5577929230) 26 U/L 13-40 eGFR (test code = 9834399248) mL/min/1.73m2 MICHELLE (test code = MICHELLE) Association of Glomerular Filtration Rate (GFR) and Staging of Kidney Disease* + +-------- + ------+| GFR (mL/min/1.73 m2) ?| With Kidney Damage ?| ?Without Kidney Damage+ +-- + +| ?>90 ?| ?Stage one ?| ? Normal ?+ +------- + -------+| ?60-89 ?| ?Stage two ?| ? Decreased GFR ? + +-------- + ------+| ?30-59 ?| ?Stage three ?| ? Stage three ? + +-------- + ------+| ?15-29 ?| ?Stage four ? | ? Stage four ?+ +------- + -------+| ?<15 (or dialysis) ? ?| ?Stage five ? | ? Stage five ?+ +------- + -------+ *Each stage assumes the associated GFR level has been in effect for at least three months. ?Stages 1 to 5, with or without kidney disease, indicate chronic kidney disease. Notes: Determination of stages one and two (with eGFR >59mL/min/1.73 m2) requires estimation of kidney damage for at least three months as defined by structural or functional abnormalities of the kidney, manifested by either:Pathological abnormalities or Markers of kidney damage (including abnormalities in the composition of the blood or urine or abnormalities in imaging tests). Lab Interpretation (test code = Abnormal 73796-4) [facility] WITH [id number] 19:22:10 Test Item Value Reference Range Interpretation Comments WBC (test code = See_Comment [Automated 6690-2) message] The sy stem which generated this result transmitted reference range : 4.20 - 10.70 10*3/?L. The reference range was not used to interpret this result as normal/abnormal . RBC (test code = See_Comment [Automated 789-8) message] The sy stem which generated this result transmitted reference range : 4.26 - 5.52 10*6/?L. The reference range was not used to interpret this result as normal/abnormal . HGB (test code = 14.4 g/dL 12.2-16.4 718-7) HCT (test code = 45.3 % 38.4-49.3 4544-3) MCV (test code = 97.6 fL 81.7-95.6 H 787-2) MCH (test code = 31.0 pg 26.1-32.7 785-6) MCHC (test code = 31.8 g/dL 31.2-35.0 786-4) RDW-SD (test code = 46.4 fL 38.5-51.6 40679-0) RDW-CV (test code = 12.9 % 12.1-15.4 788-0) PLT (test code = See_Comment [Automated 777-3) message] The sy stem which generated this result transmitted reference range : 150 - 328 10*3/ ?L. The reference r adriel was not used to interpret this result as normal/abnormal . MPV (test code = 11.7 fL 9.8-13.0 57514-0) NRBC/100 WBC (test See_Comment [Automat ed code = 5433571624) message] The system which generated this result transmitted reference range : 0.0 - 10.0 /100 WBCs. The refer ence range was not u sed to interpret th is result as normal/abnormal . NRBC x10^3 (test code <0.01 See_Comment [Auto mated = 7508842295) message] The s ystem which generated this result transmitted reference range : 10*3/?L. The reference range was not used to interpret this result as normal/abnormal . GRAN MAT (NEUT) % 68.0 % (test code = 770-8) IMM GRAN % (test code 0.50 % = 3028210672) LYMPH % (test code = 16.9 % 736-9) MONO % (test code = 10.5 % 5905-5) EOS % (test code = 3.4 % 713-8) BASO % (test code = 0.7 % 706-2) GRAN MAT x10^3(ANC) 2.98 10*3/uL 1.99-6.95 (test code = 7394657555) IMM GRAN x10^3 (test <0.03 0.00-0.06 code = 4387616603) LYMPH x10^3 (test code 0.74 10*3/uL 1.09-3.23 L = 731-0) MONO x10^3 (test code 0.46 10*3/uL 0.36-1.02 = 742-7) EOS x10^3 (test code = 0.15 10*3/uL 0.06-0.53 711-2) BASO x10^3 (test code 0.03 10*3/uL 0.01-0.09 = 704-7) Lab Interpretation Abnormal (test code = 42082-7) [facility]"
--- NOTE | 2021-05-26 09:55 | EDPHYS ---
Physician Documentation [facility] Name: Klever Clarke Age: 60 yrs Sex: Male : 1960 Arrival Date: 05/26/2021 Time: 09:28 Bed 17 Private MD: ED Physician Lynn Jeronimo HPI: 05/26 09:50 This 60 yrs old Male presents to ER via Ambulatory with complaints of Laceration To kb Leg, Medication Refill. 09:50 The patient has a laceration occurred at home, and there are no complicating factors. kb The injury was accidental. The laceration(s) is(are) located on the right mccarty. Onset: The symptoms/episode began/occurred 1 week(s) ago. Associated signs and symptoms: The patient has no apparent associated signs or symptoms. The patient has not experienced similar symptoms in the past. The patient has not recently seen a physician. Pt states his cat had kittens and they were in a box near the bed. States he stepped down out of bed and either the cat scratched him or he cut his leg on the metal part of the bedframe. States this happened a week ago. Reports the skin was hanging on, but dying so he cut it off. Has not been cleaning the area because he was afraid of getting it wet. States he has been using hydrogen peroxide and antibiotic ointment, but the area surrounding the injury is getting red. Also states he has been on prednisone for years for lupus and has been out for 4 days. States he needs a refill until he gets to the [facility] next week.. Historical: - Allergies: 09:49 No Known Allergies; vg1 - Home Meds: 09:49 prednisone 10 mg Oral tab once daily [Active]; vg1 - PMHx: 09:49 COPD; Kidney stones; low back pain; Lupus; vg1 - Immunization history:: Client reports having NOT received the Covid vaccine. - Social history:: Smoking status: Patient reports the use of cigarette tobacco products, denies chronic smoking, but will smoke occasionally. ROS: 09:47 Constitutional: Negative for fever, chills, and weight loss. kb 09:47 Skin: Positive for erythema, laceration(s), of the right mccarty. 09:47 All other systems are negative. Exam: 09:47 Constitutional: This is a well developed, well nourished patient who is awake, alert, kb and in no acute distress. Head/Face: Normocephalic, atraumatic. ENT: Moist Mucous membranes Respiratory: Respirations even and unlabored. No increased work of breathing. Talking in full sentences MS/ Extremity: Pulses equal, no cyanosis. Neurovascular intact. Full, normal range of motion. Neuro: Awake and alert, GCS 15, oriented to person, place, time, and situation. Moves all extremities. Normal gait. Psych: Awake, alert, with orientation to person, place and time. Behavior, mood, and affect are within normal limits. 09:47 Skin: injury, avulsion(s), A moderate sized of the right mccarty, with surrounding erythema and warmth. Vital Signs: 09:46 BP 154 / 86; Pulse 80; Resp 20; Temp 97.9; Pulse Ox 96% ; Weight 104.33 kg; Height 6 vg1 ft. 2 in. (187.96 cm); Pain 5/10; 10:20 BP 148 / 80; Pulse 18; Resp 16; Pulse Ox 98% ; Pain 2/10; cb5 09:46 Body Mass Index 29.53 (104.33 kg, 187.96 cm) vg1 MDM: 09:38 Patient medically screened. kb 09:47 Data reviewed: vital signs, nurses notes. Data interpreted: Pulse oximetry: on room air kb is 100 %. Interpretation: normal. Counseling: I had a detailed discussion with the patient and/or guardian regarding: the historical points, exam findings, and any diagnostic results supporting the discharge/admit diagnosis, the need for outpatient follow up, a family practitioner, to return to the emergency department if symptoms worsen or persist or if there are any questions or concerns that arise at home. 05/26 09:47 Order name: Wound Care: clean and dress ; Complete Time: 10:09 kb Administered Medications: 10:08 Drug: Tetanus-Diphtheria Toxoid Adult 0.5 ml {Family Worker: [employer]. Exp: cb5 07/28/2022. Lot #: [id number]. } Route: IM; Site: left deltoid; 10:08 Drug: Bactrim (trimethoprim-sulfamethoxazole) (160 mg-800 mg (DS) 1 tablet Route: PO; cb5 10:08 Drug: KeFLEX (cephalexin) 500 mg Route: PO; cb5 Disposition Summary: 05/26/21 09:54 Discharge Ordered Location: Home kb Condition: Stable kb Diagnosis - Local infection of the skin and subcutaneous tissue, unspecified kb - Encounter for issue of repeat prescription kb Followup: kb - With: Emergency Department - When: As needed - Reason: Worsening of condition Followup: kb - With: Private Physician - When: 2 - 3 days - Reason: Recheck today's complaints, Continuance of care, Re-evaluation by your physician Discharge Instructions: - Discharge Summary Sheet kb - Medicine Refill at the Emergency Department kb - Wound Infection, [id number] kb Forms: - Medication Reconciliation Form kb - Thank You Letter kb - Antibiotic Education kb - Prescription Opioid Use kb Prescriptions: - prednisone 10 mg Oral tablet - take 1 tablet by ORAL route once daily; 20 tablet; Refills: 0, Product kb Selection Permitted - Cephalexin 500 mg Oral Capsule - take 1 capsule by ORAL route every 8 hours for 10 days; 30 capsule; Refills: 0, kb Product Selection Permitted - Bactrim DS 800-160 mg Oral Tablet - take 1 tablet by ORAL route every 12 hours for 10 days; 20 tablet; Refills: 0, kb Product Selection Permitted Signatures: Ting Travis, EUSEBIOC MEY-Ebony Leos, RN RN vg1 Margaret Bustos, RN RN cb5
--- NOTE | 2021-05-26 09:55 | ER ---
Nurse's Notes [facility] Name: Klever Clarke Age: 60 yrs Sex: Male : 1960 Arrival Date: 05/26/2021 Time: 09:28 Bed 17 Private MD: Diagnosis: Local infection of the skin and subcutaneous tissue, unspecified;Encounter for issue of repeat prescription Presentation: 05/26 09:46 Chief complaint: Patient states: pt cut Right lower leg on the bed frame about a week vg1 ago; states wound has become worse. Pt Right lower leg appears to be red and hot to touch. Coronavirus screen: Vaccine status: Patient reports being unvaccinated. Client denies travel out of the [place] in the last 14 days. Ebola Screen: Patient negative for fever greater than or equal to 101.5 degrees Fahrenheit, and additional compatible Ebola Virus Disease symptoms. Complicating Factors: There are no complicating factors for this patient. Initial Sepsis Screen: Does the patient meet any 2 criteria? No. Patient's initial sepsis screen is negative. Does the patient have a suspected source of infection? No. Patient's initial sepsis screen is negative. Risk Assessment: Do you want to hurt yourself or someone else? Patient reports no desire to harm self or others. Onset of symptoms was May 19, 2021. 09:46 Method Of Arrival: Ambulatory vg1 09:46 Acuity: NHI 4 vg1 Triage Assessment: 09:49 General: Appears in no apparent distress. uncomfortable, Behavior is calm, cooperative. vg1 Pain: Complains of pain in medial aspect of right calf Pain currently is 5 out of 10 on a pain scale. Injury Description: Laceration sustained to medial aspect of right calf. Historical: - Allergies: 09:49 No Known Allergies; vg1 - Home Meds: 09:49 prednisone 10 mg Oral tab once daily [Active]; vg1 - PMHx: 09:49 COPD; Kidney stones; low back pain; Lupus; vg1 - Immunization history:: Client reports having NOT received the Covid vaccine. - Social history:: Smoking status: Patient reports the use of cigarette tobacco products, denies chronic smoking, but will smoke occasionally. Screenin:40 Abuse screen: Denies threats or abuse. Denies injuries from another. Nutritional cb5 screening: No deficits noted. Tuberculosis screening: No symptoms or risk factors identified. Assessment: 09:40 General: Appears in no apparent distress. comfortable, Behavior is calm, cooperative, cb5 appropriate for age. Pain: Complains of pain in medial aspect of right calf and right leg and right mccarty. Neuro: No deficits noted. Neuro: No deficits noted. Cardiovascular: No deficits noted. Cardiovascular: No deficits noted. Respiratory: No deficits noted. GI: No deficits noted. : No deficits noted. : No deficits noted. EENT: No deficits noted. Derm: Wound noted medial aspect of right calf and right leg and right mccarty Other: redness, no drainage, brown in color in middle. pt stated "I was scratched by a cat and its now scabbing over". Musculoskeletal: pt ambulates with a cane. Vital Signs: 09:46 BP 154 / 86; Pulse 80; Resp 20; Temp 97.9; Pulse Ox 96% ; Weight 104.33 kg; Height 6 vg1 ft. 2 in. (187.96 cm); Pain 5/10; 10:20 BP 148 / 80; Pulse 18; Resp 16; Pulse Ox 98% ; Pain 2/10; cb5 09:46 Body Mass Index 29.53 (104.33 kg, 187.96 cm) vg1 ED Course: 09:28 Patient arrived in ED. as 09:33 Ting Travis [facility]C [facility]. kb 09:33 Lynn Jeronimo MD is Attending Physician. kb 09:40 No provider procedures requiring assistance completed. cb5 09:49 Triage completed. vg1 09:49 Arm band placed on. vg1 09:57 Margaret Bustos, RN is Primary Nurse. cb5 10:32 Bed in low position. Call light in reach. cb5 10:32 Patient did not have IV access during this emergency room visit. cb5 Administered Medications: 10:08 Drug: Tetanus-Diphtheria Toxoid Adult 0.5 ml {Email Marketing Manager: [employer]. Exp: cb5 07/28/2022. Lot #: [id number]. } Route: IM; Site: left deltoid; 10:08 Drug: Bactrim (trimethoprim-sulfamethoxazole) (160 mg-800 mg (DS) 1 tablet Route: PO; cb5 10:08 Drug: KeFLEX (cephalexin) 500 mg Route: PO; cb5 Outcome: 09:54 Discharge ordered by . anca 10:32 Discharged to home ambulatory. cb5 10:32 Condition: stable 10:32 Discharge instructions given to patient. 10:32 Patient left the ED. cb5 Signatures: Ting Travis, DEPUTY SHERIFF BAILIFF-C DEPUTY SHERIFF BAILIFF-Lumza Martins Victoria RN RN vg1 Margaret Bustos, RN RN cb5 Corrections: (The following items were deleted from the chart) 09:53 09:46 BP 154 / 86; Pulse 80bpm; Resp 20bpm; Pulse Ox 96%; Temp 97.9F; Pain 5/10; vg1 vg1
[2021-05-26] MEDS ORDERED: CEPHALEXIN 250 MG CAP ONE (10:04)
[2021-05-26] MEDS ORDERED: SMZ./TMP. 800/160 MG TABLET ONE (10:05)
[2021-05-26] MEDS ORDERED: TETANUS & DIPHTHERIA TOX,ADULT 0.5 ML VIAL ONE (10:05)
[2021-05-26 10:38] VITALS: TEMP 97.9
[2021-05-26 10:39] VITALS: BP 148/80; O2SAT 98
== END 2021-05-26 10:32 | disposition home or self-care (01) ==
LOC: ER 09:26
DX: L08.9 Local infection of the skin and subcutaneous tissue, unspecified (principal); Z76.0 Encounter for issue of repeat prescription; J44.9 Chronic obstructive pulmonary disease, unspecified; F17.210 Nicotine dependence, cigarettes, uncomplicated; Z87.442 Personal history of urinary calculi
CPT/HCPCS: 90471; 90714; 99283

== ENCOUNTER 2021-07-13 12:33 | Emergency (ER) | payer SELFPAY ==
--- OUTSIDE RECORDS SUMMARY | 2021-07-13 12:36 | XMS REPORT | Continuity of Care Document ---
:1960 Author Organization [facility] t Address [address] [place] [address] Care Team Providers Name Role Phone PCP, DOES NOT HAVE A Primary Care Physician Unavailable FERNANDES Attending Clinician Unavailable Fernandes DO Attending Clinician Doctor Unassigned, Name Attending Clinician Unavailable Marino DURHAM G Attending Clinician Asael COLLINS Attending Clinician Unavailable [facility] Attending Clinician Unavailable Danitza NASHP Attending Clinician FERNANDES Admitting Clinician Unavailable Payers Payer Name Policy Type Policy Number Effective Date Expiration Date S ource Problems Condition Condition Condition Status Onset Resolution Last Treating Co mments Source Name Details Category Date Date Treatment Clinician Date No known No known Disease NPI:1 83 active active [id number] problems problems Allergies, Adverse Reactions, Alerts Allergy Allergy Status Severity Reaction(s) Onset Inactive Treating Comm ents Source Name Type Date Date Clinician NO KNOWN Drug Active NPI:183 ALLERGIE Class [id number] S Social History Social Habit Start Date Stop Date Quantity Comments Source Exposure to Not sure NPI:[id number] SARS-CoV-2 (event) Alcohol intake 2020-11-01 2020-11-01 Current NPI:[id number] 00:00:00 00:00:00 non-drinker of alcohol (finding) Tobacco use and 2017-04-09 2017-04-09 Never used NPI:[id number] exposure 00:00:00 00:00:00 [birth year] NPI:[id number] 00:00:00 00:00:00 Smoking Status Start Date Stop Date Source Current every day smoker 2017-04-09 00:00:00 NPI :[id number] Medications Ordered Filled Start Stop Current Ordering Indication Dosage Frequency Signature Comments Components Source Medication Medication Date Date Medication? Clinician (SIG) Name Name naproxen Yes [id number] 550mg Take 1 NPI:183 sodium -23 tablet by [id number] (ANAPROX 00:00: mouth 2 DS) 550 mg 00 (two) tablet times daily with meals. predniSONE Yes [id number] Take bid NPI:183 10 mg 2-02 for 1 week [id number] tablet 00:00: then QD 00 thereafter for lupus predniSONE Yes [id number] Take bid NPI:183 10 mg 2-02 for 1 week [id number] tablet 00:00: then QD 00 thereafter for lupus predniSONE Yes [id number] Take bid NPI:183 10 mg 2-02 for 1 week [id number] tablet 00:00: then QD 00 thereafter for lupus predniSONE 2021-2021- No [id number] Take bid NPI:183 10 mg 2-02 02-02 for 1 week [id number] tablet 00:00: 00:00 then QD 00 :00 thereafter for lupus predniSONE 2020-2020- No [id number] Take 1 NPI:183 5 mg tablet 11-15 tablet by [id number] 00:00: 04:59 mouth 00 :00 daily for 7 days, THEN 0.5 tablets daily for 7 days. predniSONE 2020-2020- No [id number] Take 1 NPI:183 5 mg tablet 11-15 tablet by [id number] 00:00: 04:59 mouth 00 :00 daily for 7 days, THEN 0.5 tablets daily for 7 days. predniSONE 2020-2020- No 20mg Take 20 mg NPI:183 (DELTASONE) 11-01- by mouth [id number] 20 mg 21:01: 00:00 daily. tablet 23 :00 predniSONE 2020-2020- No 20mg Take 20 mg NPI:183 (DELTASONE) -01 11- by mouth [id number] 20 mg 21:01: 00:00 daily. tablet 23 :00 predniSONE 2020-2020- No [id number] Take 0.5 NPI:183 20 mg 8-25 09-09 tablets by [id number] tablet 00:00: 04:59 mouth 2 00 :00 (two) times daily for 7 days, THEN 0.5 tablets daily for 7 days. predniSONE 2020- No [id number] Take 0.5 NPI:183 20 mg 8-25 09- tablets by [id number] tablet 00:00: 04:59 mouth 2 00 :00 (two) times daily for 7 days, THEN 0.5 tablets daily for 7 days. methylPREDN 2018-0 Yes 84mg Take 21 NPI :183 ISolone 5-07 tablets by [id number] (MEDROL, 00:00: mouth SUZY,) 4 mg 00 SEE-INSTRU tablets CTIONS. follow package directions methylPREDN 2018-0 Yes 84mg Take 21 NPI :183 ISolone 5-07 tablets by [id number] (MEDROL, 00:00: mouth SUZY,) 4 mg 00 SEE-INSTRU tablets CTIONS. follow package directions methylPREDN 2018-0 Yes 84mg Take 21 NPI :183 ISolone 5-07 tablets by [id number] (MEDROL, 00:00: mouth SUZY,) 4 mg 00 SEE-INSTRU tablets CTIONS. follow package directions methylPREDN 2018-0 Yes 84mg Take 21 NPI :183 ISolone 5-07 tablets by [id number] (MEDROL, 00:00: mouth SUZY,) 4 mg 00 SEE-INSTRU tablets CTIONS. follow package directions methylPREDN 2018-0 2020- No 84mg Take 21 DOUGH CATCHER I:183 ISolone 5-07 08-25 [place] [id number] (MEDROL, 00:00: 00:00 mouth SUZY,) 4 mg 00 :00 SEE-INSTRU tablets CTIONS. follow package directions methylPREDN 2018-0 2020- No 84mg Take 21 DOUGH CATCHER I:183 ISolone 5-07 08-25 [place] [id number] (MEDROL, 00:00: 00:00 mouth SUZY,) 4 mg 00 :00 SEE-INSTRU tablets CTIONS. follow package directions predniSONE 2018-0 Yes 20mg Take 20 mg N PI:183 (DELTASONE) 4-12 by mouth [id number] 20 mg 14:00: daily. tablet 56 predniSONE 2018-0 Yes 20mg Take 20 mg N PI:183 (DELTASONE) 4-12 by mouth [id number] 781 20 mg 14:00: daily. tablet 56 predniSONE 2018-0 Yes 20mg Take 20 mg N PI:183 (DELTASONE) 4-12 by mouth [id number] 20 mg 14:00: daily. tablet 56 predniSONE 2018-0 Yes 20mg Take 20 mg N PI:183 (DELTASONE) 4-12 by mouth [id number] 781 20 mg 14:00: daily. tablet 56 traMADOL 50 2018-0 Yes 50mg Take 1 NPI: 183 mg tablet 2-19 [place] [id number] 00:00: mouth 00 every 4 (four) hours as needed for Pain (scale 4-6) or Pain unrelieved by non-narcot ic analgesics . traMADOL 50 2017-0 Yes 50mg Take 1 NPI: 183 mg tablet 2-19 [place] [id number] 00:00: mouth 00 every 4 (four) hours as needed for Pain (scale 4-6) or Pain unrelieved by non-narcot ic analgesics . traMADOL 50 2017-0 Yes 50mg Take 1 NPI: 183 mg tablet 2-19 tablet by [id number] 00:00: mouth 00 every 4 (four) hours as needed for Pain (scale 4-6) or Pain unrelieved by non-narcot ic analgesics . traMADOL 50 2017-0 Yes 50mg Take 1 NPI: 183 mg tablet 2-19 [place] [id number] 00:00: mouth 00 every 4 (four) hours as needed for Pain (scale 4-6) or Pain unrelieved by non-narcot ic analgesics . traMADOL 50 2017-2020- No 50mg Take 1 NPI :183 mg tablet 2-26 10- tablet by [id number] 00:00: 00:00 mouth 00 :00 every 4 (four) hours as needed for Pain (scale 4-6) or Pain unrelieved by non-narcot ic analgesics . traMADOL 50 2017-0 2020- No 50mg Take 1 NPI :183 mg tablet 2-26 10-25 tablet by [id number] 00:00: 00:00 mouth 00 :00 every 4 (four) hours as needed for Pain (scale 4-6) or Pain unrelieved by non-narcot ic analgesics . acetaminoph 2018-0 Yes 1-2 by NPI: 183 en-codeine 2- mouth [id number] (TYLENOL-CO 00:00: every 4-6 DEINE #3) 00 hours as 300-30 mg needed prn tablet pain acetaminoph 20180 Yes 1-2 by NPI: 183 en-codeine 2-02 mouth [id number] (TYLENOL-CO 00:00: every 4-6 DEINE #3) 00 hours as 300-30 mg needed prn tablet pain acetaminoph Yes 1-2 by NPI: 183 en-codeine 2-02 mouth [id number] (TYLENOL-CO 00:00: every 4-6 DEINE #3) 00 hours as 300-30 mg needed prn tablet pain acetaminoph Yes 1-2 by NPI: 183 en-codeine 2-02 mouth [id number] (TYLENOL-CO 00:00: every 4-6 DEINE #3) 00 hours as 300-30 mg needed prn tablet pain acetaminoph 202- No 1-2 by NPI :183 en-codeine 2-02 -25 mouth [id number] (TYLENOL-CO 00:00: 00:00 every 4-6 DEINE #3) 00 :00 hours as 300-30 mg needed prn tablet pain acetaminoph 202- No 1-2 by NPI :183 en-codeine 2-02 08-25 mouth [id number] (TYLENOL-CO 00:00: 00:00 every 4-6 DEINE #3) 00 :00 hours as 300-30 mg needed prn tablet pain docusate Yes 100mg Take 1 NPI:18 3 (COLACE) 4-[place] [id number] 100 mg 00:00: mouth 3 capsule 00 (three) times daily. Polyethylen Yes 1{packe Take 1 N PI:183 e Glycol 4-20 t} Packet by [id number] 3350 00:00: mouth 2 (MIRALAX) 00 (two) 17 gram times powder daily. docusate 0 Yes 100mg Take 1 NPI:18 3 (COLACE) 4-20 [place] [id number] 100 mg 00:00: mouth 3 capsule 00 (three) times daily. Polyethylen 2015- Yes 1{packe Take 1 N PI:183 e Glycol 4-20 t} Packet by [id number] 1 3350 00:00: mouth 2 (MIRALAX) 00 (two) 17 gram times powder daily. docusate Yes 100mg Take 1 NPI:18 3 (COLACE) 4-[place] [id number] 100 mg 00:00: mouth 3 capsule 00 (three) times daily. docusate Yes 100mg Take 1 NPI:18 3 (COLACE) 4-20 [place] [id number] 100 mg 00:00: mouth 3 capsule 00 (three) times daily. Polyethylen Yes 1{packe Take 1 N PI:183 e Glycol 4-20 t} Packet by [id number] 3350 00:00: mouth 2 (MIRALAX) 00 (two) 17 gram times powder daily. Polyethylen Yes 1{packe Take 1 N PI:183 e Glycol 4-20 t} Packet by [id number] 1 3350 00:00: mouth 2 (MIRALAX) 00 (two) 17 gram times powder daily. docusate 2020- No 100mg Take 1 NPI:1 83 (COLACE) 4-20 08-25 capsule by [id number] 100 mg 00:00: 00:00 mouth 3 capsule 00 :00 (three) times daily. Polyethylen 2020- No 1{packe Take 1 NPI:183 e Glycol 4-20 08-25 t} [place] [id number] 3350 00:00: 00:00 mouth 2 (MIRALAX) 00 :00 (two) 17 gram times powder daily. docusate 2020- No 100mg Take 1 NPI:1 83 (COLACE) 4-20 08-25 capsule by [id number] 100 mg 00:00: 00:00 mouth 3 capsule 00 :00 (three) times daily. Polyethylen 2020- No 1{packe Take 1 NPI:183 e Glycol 4-20 08-25 t} [place] [id number] 3350 00:00: 00:00 mouth 2 (MIRALAX) 00 :00 (two) 17 gram times powder daily. Vital Signs Vital Name Observation Time Observation Value Comments Source Systolic blood pressure 2021-05-02 18:52:58 140 mm[Hg] Diastolic blood 2021-05-02 18:52:58 82 mm[Hg] NPI:1 [id number] pressure Heart rate 2021-05-02 18:52:58 88 /min NPI:1831 [id number] Respiratory rate 2021-05-02 18:52:58 18 /min Oxygen saturation in 2021-05-02 18:52:58 99 /min Arterial blood by Pulse oximetry Body temperature 2021-05-02 16:31:00 36.44 Jammie Body weight 2021-05-02 16:30:00 90.719 kg NPI:1831 622703 BMI 2021-05-02 16:30:00 26.39 kg/m2 NPI:1831 [id number] Systolic blood pressure 2021-04-11 18:06:00 143 mm[Hg] Diastolic blood 2021-04-11 18:06:00 91 mm[Hg] NPI:1 [id number] pressure Heart rate 2021-04-11 18:04:00 60 /min NPI:1831 116071 Body temperature 2021-04-11 18:04:00 37.06 Jammie Respiratory rate 2021-04-11 18:04:00 18 /min Body weight 2021-04-11 18:04:00 90.719 kg NPI:1831 006269 BMI 2021-04-11 18:04:00 26.39 kg/m2 NPI:1831 [id number] Oxygen saturation in 2021-04-11 18:04:00 96 /min Arterial blood by Pulse oximetry Systolic blood pressure 2020-11-01 20:25:00 149 mm[Hg] Diastolic blood 2020-11-01 20:25:00 110 mm[Hg] NPI:1 [id number] pressure Heart rate 2020-11-01 20:25:00 75 /min NPI:1831 636648 Body temperature 2020-11-01 20:25:00 36.33 Jammie Respiratory rate 2020-11-01 20:25:00 18 /min Body weight 2020-11-01 20:25:00 90.719 kg NPI:1831 [id number] BMI 2020-11-01 20:25:00 26.39 kg/m2 NPI:1831 225572 Oxygen saturation in 2020-11-01 20:25:00 95 /min Arterial blood by Pulse oximetry Systolic blood pressure 2019-06-24 15:29:00 156 mm[Hg] Diastolic blood 2019-06-24 15:29:00 97 mm[Hg] NPI:1 [id number] pressure Heart rate 2019-06-24 15:29:00 66 /min NPI:1831 318248 Body temperature 2019-06-24 15:22:00 36.67 Jammie Respiratory rate 2019-06-24 15:22:00 18 /min Body height 2019-06-24 15:22:00 185.4 cm NPI:1831 [id number] Body weight 2019-06-24 15:22:00 90.719 kg NPI:1831 971200 BMI 2019-06-24 15:22:00 26.39 kg/m2 NPI:1831 321619 Oxygen saturation in 2019-06-24 15:22:00 95 /min Arterial blood by Pulse oximetry Procedures Procedure Date / Time Performed Performing Clinician Sourc e XR KNEE 3 VW LEFT 2021-05-02 16:49:35 Jered Fernandes NPI:[id number] CONSENT/REFUSAL FOR 2021-05-02 16:22:18 Doctor Unassigned, No DOUGH CATCHER I:[id number] DIAGNOSIS AND TREATMENT Name COMP. METABOLIC PANEL 2021-04-11 19:06:00 Jered Fernandes NPI:[id number] ([id number]) CBC WITH DIFF 2021-04-11 19:06:00 Jered Fernandes NPI:[id number] NOTICE OF PRIVACY 2021-04-11 17:29:34 Doctor Unassigned, No PRACTICES Name CONSENT/REFUSAL FOR 2021-04-11 17:29:14 Doctor Unassigned, No DOUGH CATCHER I:[id number] DIAGNOSIS AND TREATMENT Name CONSENT/REFUSAL FOR 2020-11-01 20:11:27 Doctor Unassigned, No DOUGH CATCHER I:[id number] DIAGNOSIS AND TREATMENT Name Encounters Start End Encounter Admission Attending Care Care Encounter Source Date/Time Date/Time Type Type Clinicians Facility Department ID 2021-01-08 Emergency [facility] [id number] NPI:183 18:06:45 [id number] 8909-02-23 2021-05-02 [facility] [id number] NPI:183 10:34:00 12:59:00 JERED [id number] 1 2021-05-02 2021-05-02 [facility] [id number] NPI:183 10:34:00 12:59:00 Jered ALBERTO 350.1.13.10 1 [id number] [place] 4.2.7.2.686 [place] [id number] 2021-05-02 2021-05-02 Orders Doctor HERRING 1.2.840.114 [id number] NPI:183 00:00:00 00:00:00 Only Unassigned, SIDRA 350.1.13.10 [id number] [place] [address] [id number] 009 2021-04-11 2021-04-11 [facility] [id number] NPI:183 12:06:00 13:47:00 JERED [id number] 1 2021-04-11 2021-04-11 [facility] [id number] NPI:183 12:06:00 13:47:00 Jered ALBERTO 350.1.13.10 1 [id number] [place] 4.2.7.2.686 [place] [id number] 2020-11-01 2020-11-01 [facility] [id number] NPI:183 15:27:00 16:34:00 Maxine Alberto 350.1.13.10 [id number] [place] 4.2.7.2.686 [place] [id number] 2020-11-01 2020-11-01 Orders Doctor NEVAEH 1.2.840.114 [id number] NPI:183 00:00:00 00:00:00 Only UnassignedSIDRA 350.1.13.10 [id number] [facility] 4.2.7.2.686 [id number] 009 2019-06-25 2019-06-25 Telephone NEVAEH Vyas [id number] NPI:183 00:00:00 00:00:00 Yelena VALENTE 350.1.13.10 13 [id number] [facility] 4.2.7.2.686 [id number] 019 2019-06-24 2019-06-24 Urgent Pob1, Acute Care Clinic [facility] 1. 2.840.114 [id number] NPI:183 10:06:34 10:26:34 [facility] 350.1.13.10 [id number] [place] 4.2.7.2.686 [place] [id number] [address] 2019-06-24 2019-06-24 Outpatient R [facility] [id number] NPI:183 10:00:00 10:00:00 [id number] 1 Results Test Description Test Time Test Comments Results Result Comments Source COMP. METABOLIC PANEL (58836) 2021-04-11 19:24:53 Test Item Value Reference Range Interpretation Comme nts NA (test code = 5887674949) 139 mmol/L 135-145 K (test code = 7481855604) 4.3 mmol/L 3.5-5.0 CL (test code = 0181553548) 102 mmol/L 98-108 CO2 TOTAL (test code = 2390104165) 32 mmol/L 23-31 H AGAP (test code = 9383469545) 2-16 BUN (test code = 8157657058) 3 mg/dL 7-23 L GLUCOSE (test code = 3430668310) 90 mg/dL 70-110 CREATININE (test code = 0.59 mg/dL 0.60-1.25 L 6469027635) TOTAL BILI (test code = 0.6 mg/dL 0.1-1.2 6930620595) CALCIUM (test code = 3871142224) 8.1 mg/dL 8.6-10.6 L T PROTEIN (test code = 7743677229) 7.3 g/dL 6.3-8.2 ALBUMIN (test code = 8276369279) 3.8 g/dL 3.5-5.0 ALK PHOS (test code = 8230187148) 88 U/L 34-122 ALTv (test code = 1742-6) 10 U/L 5-50 AST(SGOT) (test code = 6530334424) 26 U/L 13-40 eGFR (test code = 8250337778) mL/min/1.73m2 MICHELLE (test code = MICHELLE) Association [...] tests). Lab Interpretation (test code = Abnormal 70830-6) NPI:[id number] WITH [id number] 19:22:10 Test Item Value Reference Range Interpretation Comments WBC (test code = See_Comment [Automated 7790-2) message] The sy stem which generated this [...] RDW-SD (test code = 46.4 fL 38.5-51.6 65619-8) RDW-CV (test code = 12.9 % 12.1-15.4 788-0) PLT (test code = See_Comment [Automated 777-3) message] The sy stem which generated this result transmitted reference range : 150 - 328 10*3/ ?L. The reference r adriel was not used to interpret this result as normal/abnormal . MPV (test code = 11.7 fL 9.8-13.0 25900-4) NRBC/100 WBC (test See_Comment [Automat ed code = 0154584540) message] The system which generated this result transmitted reference range : 0.0 - 10.0 /100 WBCs. The refer ence range was not u sed to interpret th is result as normal/abnormal . NRBC x10^3 (test code <0.01 See_Comment [Auto mated = 3490828016) message] The s ystem which generated this result transmitted reference range : 10*3/?L. The reference range was not used to interpret this result as normal/abnormal . GRAN MAT (NEUT) % 68.0 % (test code = 770-8) IMM GRAN % (test code 0.50 % = 4287196316) LYMPH % (test code = 16.9 % 736-9) MONO % (test code = 10.5 % 5905-5) EOS % (test code = 3.4 % 713-8) BASO % (test code = 0.7 % 706-2) GRAN MAT x10^3(ANC) 2.98 10*3/uL 1.99-6.95 (test code = 0302567219) IMM GRAN x10^3 (test <0.03 0.00-0.06 code = 5718891365) LYMPH x10^3 (test code 0.74 10*3/uL 1.09-3.23 L = 731-0) MONO x10^3 (test code 0.46 10*3/uL 0.36-1.02 = 742-7) EOS x10^3 (test code = 0.15 10*3/uL 0.06-0.53 711-2) BASO x10^3 (test code 0.03 10*3/uL 0.01-0.09 = 704-7) Lab Interpretation Abnormal (test code = 44136-3) "
--- NOTE | 2021-07-13 13:17 | ER ---
Nurse's Notes [facility] Name: Klever Clarke Age: 60 yrs Sex: Male : 1960 Arrival Date: 07/13/2021 Time: 12:39 Bed 10 Private MD: Diagnosis: Encounter for issue of repeat prescription Presentation: 07/13 12:55 Chief complaint: Patient states: I'm a lupus pt and I lost my insurance, and has been iw without his prednisone since Friday, normally takes 20 mg daily , has had nausea and a headache. Coronavirus screen: At this time, the client does not indicate any symptoms associated with coronavirus-19. Ebola Screen: Patient negative for fever greater than or equal to 101.5 degrees Fahrenheit, and additional compatible Ebola Virus Disease symptoms Patient denies exposure to infectious person. Patient denies travel to an Ebola-affected area in the 21 days before illness onset. No symptoms or risks identified at this time. Initial Sepsis Screen: Does the patient meet any 2 criteria? No. Patient's initial sepsis screen is negative. Does the patient have a suspected source of infection? No. Patient's initial sepsis screen is negative. Risk Assessment: Do you want to hurt yourself or someone else? Patient reports no desire to harm self or others. Onset of symptoms was July 13, 2021. 12:55 Method Of Arrival: Ambulatory iw 12:55 Acuity: NHI 4 iw Historical: - Allergies: 12:57 No Known Allergies; iw - Home Meds: 12:57 prednisone 20 mg oral tab once daily [Active]; iw - PMHx: 12:57 COPD; Kidney stones; low back pain; Lupus; iw Screenin:58 Abuse screen: Denies threats or abuse. Denies injuries from another. Nutritional iw screening: No deficits noted. Tuberculosis screening: No symptoms or risk factors identified. Fall Risk None identified. Assessment: 12:58 General: Appears in no apparent distress. Behavior is calm, cooperative. Neuro: iw Oriented to person, place, time, situation, Moves all extremities. Cardiovascular: Patient's skin is warm and dry. Respiratory: Respiratory effort is even, unlabored. Derm: Skin is healthy with good turgor. Vital Signs: 12:55 BP 122 / 101; Pulse 93; Resp 16; Temp 98.9; Pulse Ox 99% on R/A; iw ED Course: 12:39 Patient arrived in ED. ds1 12:57 Triage completed. iw 12:57 Arm band placed on. iw 12:58 Elham Lassiter RN is Primary Nurse. iw 12:58 Darell Hale PA is PHCP. cp 12:58 Rosemary Brown MD is Attending Physician. cp 13:19 No provider procedures requiring assistance completed. Patient did not have IV access iw during this emergency room visit. Administered Medications: No medications were administered Outcome: 13:16 Discharge ordered by . cp 13:28 Patient left the ED. iw Signatures: Elizabeth Chavira ds1 Elham Lassiter RN RN iw Darell Hale PA PA cp
--- NOTE | 2021-07-13 13:17 | EDPHYS ---
Physician Documentation [facility] Name: Klever Clarke Age: 60 yrs Sex: Male : 1960 Arrival Date: 07/13/2021 Time: 12:39 Bed 10 Private MD: ED Physician Rosemary Brown HPI: 07/13 13:10 This 60 yrs old Male presents to ER via Ambulatory with complaints of Medication Refill.cp 13:10 The patient presents to the emergency department requesting refill(s) for: oral cp prednisone. The patient chronically suffers from Lupus. Patient reports he is currently in process of finding new physician and reports nausea and headache yesterday. Ran out of prednisone 4 days ago. Historical: - Allergies: 12:57 No Known Allergies; iw - Home Meds: 12:57 prednisone 20 mg oral tab once daily [Active]; iw - PMHx: 12:57 COPD; Kidney stones; low back pain; Lupus; iw ROS: 13:12 Constitutional: Negative for body aches, chills, fever, poor PO intake. cp 13:12 Eyes: Negative for injury, pain, redness, and discharge. cp 13:12 Cardiovascular: Negative for chest pain, palpitations. 13:12 Respiratory: Negative for cough, shortness of breath, wheezing. 13:12 Abdomen/GI: Negative for vomiting, diarrhea, constipation. 13:12 Neuro: Negative for altered mental status, headache, weakness. 13:12 All other systems are negative. Exam: 13:15 Constitutional: The patient appears in no acute distress, alert, awake, non-toxic, well cp developed, well nourished. 13:15 Head/Face: Normocephalic, atraumatic. cp 13:15 Cardiovascular: Rate: normal, Rhythm: regular. 13:15 Respiratory: the patient does not display signs of respiratory distress, Respirations: normal, no use of accessory muscles, no retractions, labored breathing, is not present, Breath sounds: are clear throughout, no decreased breath sounds. 13:15 Abdomen/GI: Exam negative for discomfort, distension, guarding, Inspection: abdomen appears normal. 13:15 Skin: rash can be described as erythematous, on the face. Vital Signs: 12:55 BP 122 / 101; Pulse 93; Resp 16; Temp 98.9; Pulse Ox 99% on R/A; iw MDM: 13:09 Patient medically screened. cp 13:16 Data reviewed: vital signs, nurses notes. 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 Administered Medications: No medications were administered Disposition Summary: 07/13/21 13:16 Discharge Ordered Location: Home cp Problem: chronic cp Symptoms: are unchanged cp Condition: Stable cp Diagnosis - Encounter for issue of repeat prescription cp Followup: cp - With: Private Physician - When: 2 - 3 days - Reason: Recheck today's complaints Discharge Instructions: - Discharge Summary Sheet cp - Medicine Refill at the Emergency Department cp Forms: - Medication Reconciliation Form cp - Thank You Letter cp - Antibiotic Education cp - Prescription Opioid Use cp Prescriptions: - Prednisone 20 mg Oral Tablet - take 1 tablet by ORAL route once daily .; 30 tablet; Refills: 0, Product cp Selection Permitted Signatures: Elham Lassiter RN RN iw Darell Hale PA PA cp Corrections: (The following items were deleted from the chart) 13:12 13:10 This 60 yrs old Male presents to ER via Ambulatory with complaints of Nausea. cp cp 13:13 13:10 Patient reports he is currently in process of finding new physician. cp cp 13:13 13:10 Patient reports he is currently in process of finding new physician and reports cp nausea and headache yesterday. Ran out of prednisone 1 week ago. cp
[2021-07-13 13:50] VITALS: BP 122/101; TEMP 98.9; O2SAT 99
== END 2021-07-13 13:28 | disposition home or self-care (01) ==
LOC: ER 12:33
DX: Z76.0 Encounter for issue of repeat prescription (principal)
CPT/HCPCS: 99281

== ENCOUNTER 2021-09-01 08:32 | Emergency (ER) | payer SELFPAY ==
--- OUTSIDE RECORDS SUMMARY | 2021-09-01 08:35 | XMS REPORT | Continuity of Care Document ---
:1960 Author Organization [facility] t Address [address] [place] [address] Care Team Providers Name Role Phone PCP, DOES NOT HAVE A Primary Care Physician Unavailable FERNANDES Attending Clinician Unavailable Fernandes DO Attending Clinician Doctor Unassigned, Name Attending Clinician Unavailable Marino LINING IRONER, G Attending Clinician Asael RN Attending Clinician [...] rs active active ity of problems problems [facility] Allergies, Adverse Reactions, Alerts Allergy Allergy Status Severity Reaction(s) Onset Inactive Treating Comm ents Source Name Type Date Date Clinician NO KNOWN Drug Active Univers ALLERGIE Class ity of S [facility] Social History Social Habit Start Date Stop Date Quantity Comments Source Exposure to Not sure University SARS-CoV-2 [facility] (event) Branch Alcohol intake 2020-11-01 2020-11-01 Current University 00:00:00 00:00:00 non-drinker of [facility] alcohol Branch (finding) Tobacco use and 2017-04-09 2017-04-09 Never used Universit y of exposure 00:00:00 00:00:00 [facility] Sex Ass[birth year] Universit y of 00:00:00 00:00:00 [facility] Smoking Status Start Date Stop Date Source Current every day smoker 2017-04-09 00:00:00 [facility] [place] [facility] Medications Ordered Filled Start Stop Current Ordering Indication Dosage Frequency Signature Comments Components Source Medication Medication Date Date Medication? Clinician (SIG) Name Name naproxen Yes [id number] 550mg Take 1 Univers sodium - tablet by ity of (ANAPROX 00:00: mouth 2 [place] DS) 550 mg 00 (two) Medical tablet times Branch daily with meals. predniSONE Yes [id number] Take bid Univers 10 mg 2-02 for 1 week ity of tablet 00:00: then QD [place] 00 thereafter Medical for lupus Branch predniSONE Yes [id number] Take bid Univers 10 mg 2-02 for 1 week ity of tablet 00:00: then QD [place] 00 thereafter Medical for lupus Branch predniSONE Yes [id number] Take bid Univers 10 mg - for 1 week ity of tablet 00:00: then QD [place] 00 thereafter Medical for lupus Branch predniSONE 2021-2021- No [id number] Take bid Univers 10 mg 2-04 11- for 1 week ity of tablet 00:00: 00:00 then QD [place] 00 :00 thereafter Medical for lupus Branch predniSONE 2020-2020- No [id number] Take 1 Univers 5 mg tablet 11-15 tablet by it y of 00:00: 04:59 mouth [place] 00 :00 daily for Medical 7 days, Branch THEN 0.5 tablets daily for 7 days. predniSONE 2020-2020- No [id number] Take 1 Univers 5 mg tablet 11-15 [...] 23 :00 Medical Branch predniSONE 2020-2020- No [id number] Take 0.5 Univers 20 mg 8-25 09-09 tablets by ity of tablet 00:00: 04:59 mouth 2 [place] 00 :00 (two) Medical times [place] daily for 7 days, THEN 0.5 tablets daily for 7 days. predniSONE 2020- No [id number] Take 0.5 Univers 20 mg 8-25 -09 tablets by ity of tablet 00:00: 04:59 mouth 2 [place] 00 :00 (two) Medical times [place] daily for 7 days, THEN 0.5 tablets [...] mouth ity of 20 mg 14:00: daily. [place] tablet 56 Medical Branch predniSONE 2018-0 Yes [...] mouth ity of 20 mg 14:00: daily. [place] tablet 56 Medical Branch traMADOL 50 2018-0 [...] ic analgesics . acetaminoph Yes 1-2 by [facility] ers en-codeine 2-02 mouth ity of (TYLENOL-CO 00:00: every 4-6 [place] DEINE #3[place] 00 hours as Medica l 300-30 mg needed prn Bran ch tablet pain acetaminoph Yes 1-2 by [facility] ers en-codeine 2-02 mouth ity of (TYLENOL-CO 00:00: every 4-6 [place] DEINE #3) 00 hours as Medica l 300-30 mg needed prn Bran ch tablet pain acetaminoph Yes 1-[address] [facility] en-codeine 2-02 mouth ity of (TYLENOL-CO 00:00: every 4-6 [place] DEINE #3) 00 hours as Medica l 300-30 mg needed prn Bran ch tablet pain acetaminoph Yes 1-2 by [facility] ers en-codeine 2-02 mouth ity of (TYLENOL-CO 00:00: every 4-6 [place] DEINE #3) 00 hours as Medica l 300-30 mg needed prn Bran ch tablet pain acetaminoph 202- No 1-2 by [facility] vers en-codeine 2-02 08-25 mouth ity of (TYLENOL-CO 00:00: 00:00 every 4-6 [place] DEINE #3) 00 :00 hours as Medica l 300-30 mg needed prn Bran ch tablet pain acetaminoph 202- No 1-2 by [facility] vers en-codeine 2-02 08-25 mouth ity of [...] 18:52:58 140 mm[Hg] Univer [facility]ity of [facility] [place] [facility] Diastolic blood 2021-05-02 18:52:58 82 mm[Hg] Unive rsity of [facility] [place] [facility] Heart rate 2021-05-02 18:52:58 88 /min [facility] [place] [facility] Respiratory rate 2021-05-02 18:52:58 18 /min Univ [facility] [place] [facility] Oxygen saturation in 2021-05-02 18:52:58 99 /min University of Arterial blood by [place] [facility] Pulse oximetry Branch Body temperature 2021-05-02 16:31:00 36.44 Jammie [facility] [place] [facility] Body weight 2021-05-02 16:30:00 90.719 kg [facility] [place] [facility] BMI 2021-05-02 16:30:00 26.39 kg/m2 [facility] [place] [facility] Systolic blood 2021-04-11 18:06:00 143 mm[Hg] [facility] [place] [facility] Diastolic blood 2021-04-11 18:06:00 91 mm[Hg] Unive rsity [facility] [place] [facility] Heart rate 2021-04-11 18:04:00 60 /min [facility] [place] [facility] Body temperature 2021-04-11 18:04:00 37.06 Jammie [facility] [place] [facility] Respiratory rate 2021-04-11 18:04:00 18 /min [facility] [place] [facility] Body weight 2021-04-11 18:04:00 90.719 kg [facility] [place] [facility] BMI 2021-04-11 18:04:00 26.39 kg/m2 [facility] [place] [facility] Oxygen saturation in 2021-04-11 18:04:00 96 /min University of Arterial blood by [facility] Pulse oximetry Branch Systolic blood 2020-11-01 20:25:00 149 mm[Hg] [facility]iver [facility] [place] [facility] Diastolic blood 2020-11-01 20:25:00 110 mm[Hg] Unive rsity of pressure [place] [facility] Heart rate 2020-11-01 20:25:00 75 /min Universi ty of [facility] Body temperature 2020-11-01 20:25:00 36.33 Jammie Univ ersity of [facility] Respiratory rate 2020-11-01 20:25:00 18 /min Univ ersity of [facility] Body weight 2020-11-01 20:25:00 90.719 kg [facility] [place] [facility] [place] BMI 2020-11-01 20:25:00 26.39 kg/m2 [facility] [place] [facility] [place] Oxygen saturation in 2020-11-01 20:25:00 95 /min University of Arterial blood by [facility] Pulse oximetry Branch Systolic blood 2019-06-24 15:29:00 156 mm[Hg] Univer sity of [facility] Diastolic blood 2019-06-24 15:29:00 97 mm[Hg] Unive rsity of [facility] Heart rate 2019-06-24 15:29:00 66 /min [facility] [place] [facility] [place] Body temperature 2019-06-24 15:22:00 36.67 Jammie [facility] ers[facility] [place] [facility] [place] Respiratory rate 2019-06-24 15:22:00 18 /min [facility] Body height 2019-06-24 15:22:00 185.4 cm [facility] [place] [facility] [place] Body weight 2019-06-24 15:22:00 90.719 kg [facility] [place] [facility] [place] BMI 2019-06-24 15:22:00 26.39 kg/m2 [facility] [place] [facility] [place] Oxygen saturation in 2019-06-24 15:22:00 95 /min University of Arterial blood by [facility] Pulse oximetry Branch Procedures Procedure Date / Time Performed Performing Clinician [place] e XR KNEE 3 VW LEFT 2021-05-02 16:49:35 Jered Fernandes [facility] CONSENT/REFUSAL FOR 2021-05-02 16:22:18 Doctor Unassigned, No Un [facility] DIAGNOSIS AND Name Medical Branch TREATMENT COMP. METABOLIC PANEL 2021-04-11 19:06:00 Jerde Fernandes [facility] ([id number]) [facility] CBC WITH DIFF 2021-04-11 19:06:00 Jered Fernandes o f [facility] NOTICE OF PRIVACY 2021-04-11 17:29:34 Doctor Unassigned, No Univ [facility] [place] [facility] Name Medical Branch CONSENT/REFUSAL FOR 2021-04-11 17:29:14 Doctor Unassigned, No Un [facility] [place] DIAGNOSIS AND Name Medical Branch TREATMENT CONSENT/REFUSAL FOR 2020-11-01 20:11:27 Doctor Unassigned, No Un [facility] [place] DIAGNOSIS AND Name Medical Branch TREATMENT Encounters Start End Encounter Admission Attending Care Care Encounter Source Date/Time Date/Time Type Type Clinicians Facility Department ID 2021-01-08 Emergency [facility] [id number] Univers 18:06:45 ity of [facility] 2021-05-02 2021-05-[address] [facility] ERT [id number] Univers 10:34:00 12:59:00 JERED pizarro [facility] 2021-05-02 2021-05-02 Emergency [facility] [id number] Univers 10:34:00 12:59:00 Jered ALBERTO [id number] i ty of [place] 4.2.7.2.686 [facility] [phone] [facility] 084 [place] 2021-05-02 2021-05-02 Orders Doctor HERRING [id number] Univers 00:00:00 00:00:00 Only Unassigned, SIDRA [id number] ity of [place] [facility] 4.2.7.2.686 Nikita as [phone] [facility] 009 Branch 2021-04-11 2021-04-11 Emergency [facility] [id number] Univers 12:06:00 13:47:00 JERED pizarro [facility] 2021-04-11 2021-04-11 [facility] [id number] Univers 12:06:00 13:47:00 Jered ALBERTO [id number] i ty of [place] 4.2.7.2.686 [facility] [phone] [place] [id number] [place] 2020-11-01 2020-11-01 [facility] [id number] Univers 15:27:00 16:34:00 Maxine Alberto 350.1.13.10 ity of [place] 4.2.7.2.686 [place] [facility] [phone] [facility] 084 [place] 2020-11-01 2020-11-01 Orders Doctor NEVAEH [id number] Univers 00:00:00 00:00:00 Only Unassigned, SIDRA [id number] ity of [place] [facility] 4.2.7.2.686 Nikita as [id number] [facility] 009 Branch 2019-06-25 2019-06-25 Telephone NEVAEH Vyas [id number] Univers 00:00:00 00:00:00 Yelena VALENTE 350.1.13.10 it y of HOSPITAL 4.2.7.2.686 Nikita as [id number] [facility] 019 [place] 2019-06-24 2019-06-24 Urgent Pob1, Acute Care Clinic [facility] [id number]. [id number] Univers 10:06:34 10:26:34 Care Danitza [employer] [id number] ity of [place] 4.2.7.2.686 Nikita as Professio [phone] Mn dical [facility] 044 [place] [address] 2019-06-24 2019-06-24 Outpatient R [facility] [id number] Univers 10:00:00 10:00:00 ity of [facility] Results Test Description Test Time Test Comments Results Result Comments Source COMP. METABOLIC PANEL ([id number]) 2021-04-11 19:24:53 Test Item Value Reference Range Interpretation Comme nts NA (test code = 4447476963) 139 mmol/L 135-145 K (test code = 1950105676) 4.3 mmol/L 3.5-5.0 CL (test code = 0038717701) 102 mmol/L 98-108 CO2 TOTAL (test code = 4278696138) 32 mmol/L 23-31 H AGAP (test code = 7049951961) 2-16 BUN (test code = 8282492280) 3 mg/dL 7-23 L GLUCOSE (test code = 4732231244) 90 mg/dL 70-110 CREATININE (test code = 0.59 mg/dL 0.60-1.25 L 3124305578) TOTAL BILI (test code = 0.6 mg/dL 0.1-1.8 1679229087) CALCIUM (test code = 8167419526) 8.1 mg/dL 8.6-10.6 L T PROTEIN (test code = 3940629673) 7.3 g/dL 6.3-8.2 ALBUMIN (test code = 8915921378) 3.8 g/dL 3.5-5.0 ALK PHOS (test code = 9579944610) 88 U/L 34-122 ALTv (test code = 1742-6) 10 U/L 5-50 AST(SGOT) (test code = 1276753148) 26 U/L 13-40 eGFR (test code = 5049188666) mL/min/1.73m2 MICHELLE (test code = MICHELLE) Association [...] tests). Lab Interpretation (test code = Abnormal 18755-6) [facility] WITH [id number] 19:22:10 Test Item Value Reference Range Interpretation [...] RDW-SD (test code = 46.4 fL 38.5-51.6 24216-7) RDW-CV (test code = 12.9 % 12.1-15.4 788-0) PLT (test code = See_Comment [Automated 777-3) message] The sy stem which generated this result transmitted reference range : 150 - 328 10*3/ ?L. The reference r adriel was not used to interpret this result as normal/abnormal . MPV (test code = 11.7 fL 9.8-13.0 16714-1) NRBC/100 WBC (test See_Comment [Automat ed code = 8256044958) message] The system which generated this result transmitted reference range : 0.0 - 10.0 /100 WBCs. The refer ence range was not u sed to interpret th is result as normal/abnormal . NRBC x10^3 (test code <0.01 See_Comment [Auto mated = 8647804356) message] The s ystem which generated this result transmitted reference range : 10*3/?L. The reference range was not used to interpret this result as normal/abnormal . GRAN MAT (NEUT) % 68.0 % (test code = 770-8) IMM GRAN % (test code 0.50 % = 2246427181) LYMPH % (test code = 16.9 % 736-9) MONO % (test code = 10.5 % 5905-5) EOS % (test code = 3.4 % 713-8) BASO % (test code = 0.7 % 706-2) GRAN MAT x10^3(ANC) 2.98 10*3/uL 1.99-6.95 (test code = 2178773453) IMM GRAN x10^3 (test <0.03 0.00-0.06 code = 0688682760) LYMPH x10^3 (test code 0.74 10*3/uL 1.09-3.23 L = 731-0) MONO x10^3 (test code 0.46 10*3/uL 0.36-1.02 = 742-7) EOS x10^3 (test code = 0.15 10*3/uL 0.06-0.53 711-2) BASO x10^3 (test code 0.03 10*3/uL 0.01-0.09 = 704-7) Lab Interpretation Abnormal (test code = 18160-0) [place] [facility]"
--- NOTE | 2021-09-01 08:54 | EDPHYS ---
Physician Documentation [facility] Name: Klever Clarke Age: 61 yrs Sex: Male : 1960 Arrival Date: 09/01/2021 Time: 08:34 Bed Waiting Private MD: ED Physician Lynn Jeronimo HPI: 09/01 08:50 This 61 yrs old Male presents to ER via Unassigned with complaints of Medication pm1 Refill, lupus flare. 08:50 The patient presents to the emergency department requesting refill(s) for: Prednisone. pm1 The patient chronically suffers from lupus. The patient has experienced similar episodes in the past, This is the patient's 4th ER visit for repeat prescriptions. The patient has not recently seen a physician. Patient is here for medication refill of his steroids for lupus. Patient is requesting prednisone 20 mg PO daily. 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 Reports that he is currently trying to file for disability. Historical: - Allergies: 08:51 No Known Allergies; jl7 - PMHx: 08:51 COPD; Kidney stones; Lupus; low back pain; jl7 - Immunization history:: Adult Immunizations unknown. - Social history:: Smoking status: unknown. ROS: 08:51 Constitutional: Negative for fever, chills, and weight loss, Cardiovascular: Negative pm1 for chest pain, palpitations, and edema, Respiratory: Negative for shortness of breath, cough, wheezing, and pleuritic chest pain, Skin: Negative for injury, rash, and discoloration, Neuro: Negative for headache, weakness, numbness, tingling, and seizure. 08:51 MS/extremity: Positive for joint pain, Negative for injury or acute deformity, decreased range of motion. 08:51 All other systems are negative. Exam: 08:51 Constitutional: This is a well developed, well nourished patient who is awake, alert, pm1 and in no acute distress. Vital Signs: 08:49 BP 140 / 98; Pulse 64; Resp 15; Temp 99.1; Pulse Ox 99% ; jl7 MDM: 08:53 Data reviewed: vital signs. Data interpreted: Pulse oximetry: on room air is 99 %. pm1 Interpretation: normal. Counseling: I had a detailed discussion with the patient and/or guardian regarding: the historical points, exam findings, and any diagnostic results supporting the discharge/admit diagnosis, the need for outpatient follow up, a family practitioner, a mechanical drawing teacher, to return to the emergency department if symptoms worsen or persist or if there are any questions or concerns that arise at home. 08:54 Patient medically screened. pm1 Administered Medications: No medications were administered Disposition Summary: 09/01/21 08:54 Discharge Ordered Location: Home pm1 Problem: new pm1 Symptoms: have improved pm1 Condition: Stable pm1 Diagnosis - Encounter for issue of repeat prescription pm1 Followup: pm1 - With: Emergency Department - When: As needed - Reason: Worsening of condition Followup: pm1 - With: Private Physician - When: 2 - 3 days - Reason: Recheck today's complaints, Continuance of care, Re-evaluation by your physician Discharge Instructions: - Discharge Summary Sheet pm1 - Medicine Refill at the Emergency Department pm1 Forms: - Medication Reconciliation Form pm1 - Thank You Letter pm1 - Antibiotic Education pm1 - Prescription Opioid Use pm1 Prescriptions: - Prednisone 20 mg Oral Tablet - take 1 tablet by ORAL route once daily .; 20 tablet; Refills: 0, Product pm1 Selection Permitted Addendum: 09/02/2021 17:58 Co-signature as Attending Physician, Lynn Jeronimo MD. herve a2 Signatures: Albin Gandara NP [employer] H[employer] RESOURCES ASSISTANT pm1 Jakob Torre, RN RN jl7 Lynn Jeronimo MD MD ma2
--- NOTE | 2021-09-01 08:54 | ER ---
Nurse's Notes [facility] Name: Klever Clarke Age: 61 yrs Sex: Male : 1960 Arrival Date: 09/01/2021 Time: 08:34 Bed Waiting Private MD: Diagnosis: Encounter for issue of repeat prescription Presentation: 09/01 08:49 Chief complaint: Patient states: Unable to obtain PCP until disability is approved, jl7 needing a refill for prednisone for lupus flare up. Coronavirus screen: At this time, the client does not indicate any symptoms associated with coronavirus-19. Ebola Screen: No symptoms or risks identified at this time. Initial Sepsis Screen: Does the patient meet any 2 criteria? No. Patient's initial sepsis screen is negative. Does the patient have a suspected source of infection? No. Patient's initial sepsis screen is negative. Risk Assessment: Do you want to hurt yourself or someone else? Patient reports no desire to harm self or others. Onset of symptoms is unknown. Care prior to arrival: None. 08:49 Method Of Arrival: Ambulatory jl7 08:49 Acuity: NHI 5 jl7 Triage Assessment: 08:51 General: Appears in no apparent distress. uncomfortable, Behavior is calm, cooperative, jl7 appropriate for age. Pain: Complains of pain in all over Pain currently is 10 out of 10 on a pain scale. Historical: - Allergies: 08:51 No Known Allergies; jl7 - PMHx: 08:51 COPD; Kidney stones; Lupus; low back pain; jl7 - Immunization history:: Adult Immunizations unknown. - Social history:: Smoking status: unknown. Screenin:53 Abuse screen: Denies threats or abuse. Denies injuries from another. Nutritional jl7 screening: No deficits noted. Tuberculosis screening: No symptoms or risk factors identified. Fall Risk None identified. Assessment: 08:53 Reassessment: HERMINIO Talamantes in triage assessing pt. jl7 Vital Signs: 08:49 BP 140 / 98; Pulse 64; Resp 15; Temp 99.1; Pulse Ox 99% ; jl7 ED Course: 08:34 Patient arrived in ED. as 08:47 Albin Gandara NP is PHCP. pm1 08:47 Lynn Jeronimo MD is Attending Physician. pm1 08:51 Triage completed. jl7 08:51 Arm band placed on right wrist. jl7 08:53 Patient has correct armband on for positive identification. jl7 08:53 No provider procedures requiring assistance completed. Patient did not have IV access jl7 during this emergency room visit. Administered Medications: No medications were administered Medication: 08:53 VIS not applicable for this client. jl7 Outcome: 08:54 Discharge ordered by MD. pm1 08:59 Discharged to home ambulatory. jl7 08:59 Condition: stable 08:59 Discharge instructions given to patient, Instructed on discharge instructions, follow up and referral plans. medication usage, Demonstrated understanding of instructions, follow-up care, medications, Prescriptions given X 1. 08:59 Patient left the ED. jl7 Signatures: Luzma Schaeffer Patrick, NP CERAMICS MACHINE OPERATOR pm1 Jakob Torre, KARINA RN jl7
[2021-09-01 09:05] VITALS: BP 140/98; TEMP 99.1; O2SAT 99
== END 2021-09-01 08:59 | disposition home or self-care (01) ==
LOC: ER 08:32
DX: Z76.0 Encounter for issue of repeat prescription (principal)
CPT/HCPCS: 99282

== ENCOUNTER 2021-10-12 09:40 | Emergency (ER) | payer SELFPAY ==
--- OUTSIDE RECORDS SUMMARY | 2021-10-12 09:44 | XMS REPORT | Continuity of Care Document ---
:1960 Author Organization [facility] t Address [address] [place] [address] Care Team Providers Name Role Phone PCP, PATIENT DOES NOT HAVE A Primary Care Physician UnavailJERED Hernandez Attending Clinician Unavailable Jered Fernandes DO Attending Clinician Doctor Unassigned, Boulevard Attending Clinician Unavailable Maxine Pichardo NP Attending Clinician Yelena Vyas RN Attending Clinician Unavailable Pob1, Acute Care Clinic Attending Clinician Unavailable Maria De Jesus Craig Attending Clinician JERED FERNANDES Admitting Clinician Unavailable Payers Payer Name Policy Type Policy Number Effective Date Expiration Date S ource Problems Condition Condition Condition Status Onset Resolution Last Treating Co mments Source Name Details Category Date Date Treatment Clinician Date No known No known Disease Unive rs active active ity of problems problems [facility] Allergies, Adverse Reactions, Alerts Allergy Allergy Status Severity Reaction(s) Onset Inactive Treating Comm ents Source Name Type Date Date Clinician NO KNOWN Drug Active Univers ALLERGIE Class ity of S [facility] Social History Social Habit Start Date Stop Date Quantity Comments Source Exposure to Not sure [facility] SARS-CoV-2 [facility] (event) Branch Alcohol intake 2020-11-01 2020-11-01 Current University of 00:00:00 00:00:00 non-drinker of [facility] alcohol Branch (finding) Tobacco use and 2017-04-09 2017-04-09 Never used Universit y of exposure 00:00:00 00:00:00 [facility] Sex Ass[birth year] Universit y of 00:00:00 00:00:00 [facility] Smoking Status Start Date Stop Date Source Current every day smoker 2017-04-09 00:00:00 Uni versity of [facility] Medications Ordered Filled Start Stop Current Ordering Indication Dosage Frequency Signature Comments Components Source Medication Medication Date Date Medication? Clinician (SIG) Name Name naproxen Yes [id number] 550mg Take 1 Univers sodium 2-23 tablet by ity of (ANAPROX 00:00: mouth 2 [place] DS) 550 mg 00 (two) Medical tablet times Branch daily with meals. predniSONE Yes [id number] Take bid Univers 10 mg 2-02 for 1 week ity of tablet 00:00: then QD [place] 00 thereafter Medical for lupus Branch predniSONE Yes [id number] Take bid Univers 10 mg 2-02 for 1 week ity of tablet 00:00: then QD [place] 00 thereafter Medical for lupus Branch predniSONE Yes [id number] Take bid Univers 10 mg 2-02 for 1 week ity of tablet 00:00: then QD [place] 00 thereafter Medical for lupus Branch predniSONE 2021-2021- No [id number] Take bid Univers 10 mg 2-02 02-02 for 1 week ity of tablet 00:00: 00:00 then QD [place] 00 :00 thereafter Medical for lupus Branch predniSONE 2020-2020- No [id number] Take 1 Univers 5 mg tablet 11-15 tablet by it y of 00:00: 04:59 mouth [place] 00 :00 daily for Medical 7 days, Branch THEN 0.5 tablets daily for 7 days. predniSONE 2020-2020- No [id number] Take 1 Univers 5 mg tablet 11-15 [...] [place] tablet 23 :00 Medical Branch predniSONE 2020- No [id number] Take 0.5 Univers 20 mg 8-25 -09 tablets by ity of tablet 00:00: 04:59 mouth 2 [place] 00 :00 (two) Medical times [place] daily for 7 days, THEN 0.5 tablets daily for 7 days. predniSONE 2020- No [id number] Take 0.5 Univers 20 mg 8-25 -09 tablets by ity of tablet 00:00: 04:59 mouth 2 [place] 00 :00 (two) [facility] daily for 7 days, THEN 0.5 tablets daily for 7 days. methylPREDN 2018- Yes 84mg Take 21 Uni vers ISolone 5-07 tablets by ity of (MEDROL, 00:00: mouth [place] SUZY,) 4 mg 00 SEE-INSTRU Med ical tablets CTIONS. Branch follow package directions methylPREDN 2017-0 Yes 84mg Take 21 Uni vers ISolone 5-07 tablets by ity of (MEDROL, 00:00: mouth [place] SUZY,) 4 mg 00 SEE-INSTRU Med ical tablets CTIONS. Branch follow package directions methylPREDN 2017-0 Yes 84mg Take 21 Uni vers ISolone [...] mouth ity of 20 mg 14:00: daily. [place] tablet 56 Medical Branch predniSONE 2018-0 Yes 20mg Take 20 mg U nivers (DELTASONE) 4-12 by mouth ity of 20 mg 14:00: daily. [place] tablet 56 Medical Branch predniSONE 2018-0 Yes 20mg Take 20 mg U nivers (DELTASONE) 4-12 by mouth ity of 20 mg 14:00: daily. [place] tablet 56 Medical Branch predniSONE 2018-0 Yes 20mg Take 20 mg U nivers (DELTASONE) 4-12 by mouth ity of 20 mg 14:00: daily. [place] tablet 56 Medical Branch traMADOL 50 2018-0 Yes 50mg Take 1 Univ ers mg tablet 2-19 tablet by ity o f 00:00: mouth [place] 00 every 4 Medical (four) Branch hours as needed for Pain (scale 4-6) or Pain unrelieved by non-narcot ic analgesics . traMADOL 50 2018-0 Yes 50mg Take 1 Univ ers mg tablet 2-19 tablet by ity o f 00:00: mouth [place] 00 every 4 Medical (four) Branch hours as needed for Pain (scale 4-6) or Pain unrelieved by non-narcot ic analgesics . traMADOL 50 2018-0 Yes 50mg Take 1 Univ ers mg tablet 2-19 tablet by ity o f 00:00: mouth [place] 00 every 4 Medical (four) Branch hours as needed for Pain (scale 4-6) or Pain unrelieved by non-narcot ic analgesics . traMADOL 50 2018-0 Yes 50mg Take 1 Univ ers mg tablet 2-19 tablet by ity o f 00:00: mouth [place] [id number] every 4 Medical (four) Branch hours as needed for Pain (scale 4-6) or Pain unrelieved by non-narcot ic analgesics . traMADOL 50 2017-0 2020- No 50mg Take 1 Uni vers mg tablet 2-19 08-25 tablet by ity of 00:00: 00:00 mouth [place] 00 :00 every 4 Medical (four) Branch hours as needed for Pain (scale 4-6) or Pain unrelieved by non-narcot ic analgesics . traMADOL 50 2018-0 2020- No 50mg Take 1 Uni vers mg tablet 2-19 08-25 tablet by ity of 00:00: 00:00 mouth [place] 00 :00 every 4 Medical (four) Branch hours as needed for Pain (scale 4-6) or Pain unrelieved by non-narcot ic analgesics . acetaminoph Yes 1-2 by [place] [facility] en-codeine 04-11 mouth ity of (TYLENOL-CO 00:00: every 4-6 [place] DEINE #3) 00 hours as Medica l 300-30 mg needed prn Bran ch tablet pain acetaminoph Yes 1-2 by [place] [facility] en-codeine 04-11 mouth ity of (TYLENOL-CO 00:00: every 4-6 [place] DEINE #3) 00 hours as Medica l 300-30 mg needed prn Bran ch tablet pain acetaminoph Yes 1-2 by [place] [facility] en-codeine 04-11 mouth ity of (TYLENOL-CO 00:00: every 4-6 [place] DEINE #3) 00 hours as Medica l 300-30 mg needed prn Bran ch tablet pain acetaminoph Yes 1-2 by [place] [facility] en-codeine 04-11 mouth ity of (TYLENOL-CO 00:00: every 4-6 [place] DEINE #3) 00 hours as Medica l 300-30 mg needed prn Bran ch tablet pain acetaminoph 2020- No 1-2 by [facility] en-codeine 04-11 08-25 mouth ity of (TYLENOL-CO 00:00: 00:00 every 4-6 [place] DEINE #3) 00 :00 hours as Medica l 300-30 mg needed prn Bran ch tablet pain acetaminoph 2020- No 1-2 by [facility] en-codeine 2- 08-25 mouth ity of (TYLENOL-CO 00:00: 00:00 [...] e Glycol 4-20 08-25 t} Packet by juarez billingsley f 1855 00:00: 00:00 mouth 2 [place] (MIRALAX) 00 :00 (two) Medical 17 gram times Branch powder daily. Vital Signs Vital Name Observation Time Observation Value Comments Source Systolic blood 2021-05-02 18:52:58 140 mm[Hg] Univer sity of pressure [place] [facility] Diastolic blood 2021-05-02 18:52:58 82 mm[Hg] Unive rsity of pressure [place] [facility] Heart rate 2021-05-02 18:52:58 88 /min Universi ty of [place] [facility] Respiratory rate 2021-05-02 18:52:58 18 /min Univ ersity of [facility] Branch Oxygen saturation in 2021-05-02 18:52:58 99 /min University of Arterial blood by [facility] Pulse oximetry Branch Body temperature 2021-05-02 16:31:00 36.44 Jammie Univ ersity of [place] [facility] Body weight 2021-05-02 16:30:00 90.719 kg Universi ty of [place] [facility] BMI 2021-05-02 16:30:00 26.39 kg/m2 Universi ty of [place] [facility] Systolic blood 2021-04-11 18:06:00 143 mm[Hg] Univer sity of pressure [place] [facility] Diastolic blood 2021-04-11 18:06:00 91 mm[Hg] Unive rsity of pressure [place] [facility] Heart rate 2021-04-11 18:04:00 60 /min Universi ty of [place] [facility] Body temperature 2021-04-11 18:04:00 37.06 Jammie Univ ersity of [place] [facility] Respiratory rate 2021-04-11 18:04:00 18 /min Univ ersity of [place] [facility] Body weight 2021-04-11 18:04:00 90.719 kg Universi ty of [place] [facility] BMI 2021-04-11 18:04:00 26.39 kg/m2 Universi ty of [place] [facility] Oxygen saturation in 2021-04-11 18:04:00 96 /min University of Arterial blood by [facility] Pulse oximetry Branch Systolic blood 2020-11-01 20:25:00 149 mm[Hg] Univer sity of pressure [place] [facility] Diastolic blood 2020-11-01 20:25:00 110 mm[Hg] Unive rsity of pressure [facility] Heart rate 2020-11-01 20:25:00 75 /min Universi ty of [facility] Body temperature 2020-11-01 20:25:00 36.33 Jammie Univ ersity of [facility] Respiratory rate 2020-11-01 20:25:00 18 /min Univ ersity of [facility] Body weight 2020-11-01 20:25:00 90.719 kg Universi ty of [place] [facility] [place] BMI 2020-11-01 20:25:00 26.39 kg/m2 Universi ty of [facility] Oxygen saturation in 2020-11-01 20:25:00 95 /min University of Arterial blood by [facility] Pulse oximetry Branch Systolic blood 2019-06-24 15:29:00 156 mm[Hg] Univer sity of pressure [facility] Diastolic blood 2019-06-24 15:29:00 97 mm[Hg] Unive rsity of pressure [facility] Heart rate 2019-06-24 15:29:00 66 /min Universi ty of [facility] Body temperature 2019-06-24 15:22:00 36.67 Jammie [facility] ersity of [facility] Respiratory rate 2019-06-24 15:22:00 18 /min [facility] Body height 2019-06-24 15:22:00 185.4 cm Universi ty of [place] [facility] [place] Body weight 2019-06-24 15:22:00 90.719 kg Universi ty of [place] [facility] [place] BMI 2019-06-24 15:22:00 26.39 kg/m2 Universi ty [facility] [place] [facility] Oxygen saturation in 2019-06-24 15:22:00 95 /min University of Arterial blood by [facility] Pulse oximetry Branch Procedures Procedure Date / Time Performed Performing Clinician Sourc e XR KNEE 3 VW LEFT 2021-05-02 16:49:35 Jered Fernandes [facility] CONSENT/REFUSAL FOR 2021-05-02 16:22:18 Doctor Unassigned, No Un [facility] DIAGNOSIS AND Name Medical Branch TREATMENT COMP. METABOLIC PANEL 2021-04-11 19:06:00 [facility] ([id number]) [facility] CBC WITH DIFF 2021-04-11 19:06:00 Jered Fernandes o f [facility] NOTICE OF PRIVACY 2021-04-11 17:29:34 Doctor Unassigned, No Univ ersity of [place] PRACTICES Name [facility] CONSENT/REFUSAL FOR 2021-04-11 17:29:14 Doctor Unassigned, No Un [facility] [place] DIAGNOSIS AND Name [facility] TREATMENT CONSENT/REFUSAL FOR 2020-11-01 20:11:27 Doctor Unassigned, No Un [facility] [place] DIAGNOSIS AND Name [facility] TREATMENT Encounters Start End Encounter Admission Attending Care Care Encounter Source Date/Time Date/Time Type Type Clinicians Facility Department ID 2021-01-08 Emergency [facility] [id number] Univers 18:06:45 ity [facility] [place] [facility] 2021-05-02 2021-05-02 [facility] [id number] Univers 10:34:00 12:59:00 JERED pizarro [facility] [place] [facility] 2021-05-02 2021-05-02 [facility] [id number] Univers 10:34:00 12:59:00 Jered ALBERTO [id number] i ty of [place] 4.2.7.2.686 [facility] [id number] [address] 2021-05-02 2021-05-02 Orders Doctor HERR[place] [id number] Univers 00:00:00 00:00:00 Only Unassigned, SIDRA [id number] [facility] 4.2.7.2.686 Nikita as [phone] [address] 2021-04-11 2021-04-11 Emergency [facility] ERT [id number] Univers 12:06:00 13:47:00 JERED pizarro [facility] [place] [facility] 2021-04-11 2021-04-11 [facility] [id number] Univers 12:06:00 13:47:00 Jered ALBERTO 350.1.13.10 i ty of [place] 4.2.7.2.686 [facility] [id number] [address] 2020-11-01 2020-11-01 Emergency [facility], [facility] [id number] Univers 15:27:00 16:34:00 Maxine Alberto 350.1.13.10 ity of [place] 4.2.7.[address] [place] [facility] [id number] [facility] [address] [place] 2020-11-01 2020-11-01 Orders Doctor NEVAEH [id number] Univers 00:00:00 00:00:00 Only Unassigned, SIDRA 350.1.13.10 ity of [place] HOSPITAL 4.2.7.2.686 Nikita as [id number] [facility] [address] [place] 2019-06-25 2019-06-25 Telephone NEVAEH Vyas [id number] Univers 00:00:00 00:00:00 Yelena VALENTE 350.1.13.10 it y of HOSPITAL 4.2.7.2.686 Nikita as [phone] [facility] [address] [place] 2019-06-24 2019-06-24 Urgent Pob1, Acute Care Clinic [facility] [id number]. [id number] Univers 10:06:34 10:26:34 Care Maria De [facility] [id number] ity of [place] 4.2.7.2.686 Nikita as Professio [id number] Mt dical [facility] [address] [place] 2019-06-24 2019-06-24 Outpatient R [facility] [id number] Univers 10:00:00 10:00:00 ity of [facility] Results Test Description Test Time Test Comments Results Result Comments Source COMP. METABOLIC PANEL (85071) 2021-04-11 19:24:53 Test Item Value Reference Range Interpretation Comme nts NA (test code = 9285592964) 139 mmol/L 135-145 K (test code = 0238013453) 4.3 mmol/L 3.5-5.0 CL (test code = 3488842392) 102 mmol/L 98-108 CO2 TOTAL (test code = 2641878722) 32 mmol/L 23-31 H AGAP (test code = 0222562802) 2-16 BUN (test code = 3616681744) 3 mg/dL 7-23 L GLUCOSE (test code = 7724718938) 90 mg/dL 70-110 CREATININE (test code = 0.59 mg/dL 0.60-1.25 L 7753942492) TOTAL BILI (test code = 0.6 mg/dL 0.1-1.4 4052851646) CALCIUM (test code = 2811323439) 8.1 mg/dL 8.6-10.6 L T PROTEIN (test code = 5911411862) 7.3 g/dL 6.3-8.2 ALBUMIN (test code = 5725583743) 3.8 g/dL 3.5-5.0 ALK PHOS (test code = 2800532522) 88 U/L 34-122 ALTv (test code = 1742-6) 10 U/L 5-50 AST(SGOT) (test code = 3375365917) 26 U/L 13-40 eGFR (test code = 8941948791) mL/min/1.73m2 MICHELLE (test code = MICHELLE) Association [...] tests). Lab Interpretation (test code = Abnormal 44923-3) [facility] WITH [id number] 19:22:10 Test Item Value Reference Range Interpretation [...] RDW-SD (test code = 46.4 fL 38.5-51.6 19043-5) RDW-CV (test code = 12.9 % 12.1-15.4 788-0) PLT (test code = See_Comment [Automated 777-3) message] The sy stem which generated this result transmitted reference range : 150 - 328 10*3/ ?L. The reference r adriel was not used to interpret this result as normal/abnormal . MPV (test code = 11.7 fL 9.8-13.0 94654-3) NRBC/100 WBC (test See_Comment [Automat ed code = 2086047792) message] The system which generated this result transmitted reference range : 0.0 - 10.0 /100 WBCs. The refer ence range was not u sed to interpret th is result as normal/abnormal . NRBC x10^3 (test code <0.01 See_Comment [Auto mated = 4275178782) message] The s ystem which generated this result transmitted reference range : 10*3/?L. The reference range was not used to interpret this result as normal/abnormal . GRAN MAT (NEUT) % 68.0 % (test code = 770-8) IMM GRAN % (test code 0.50 % = 5749909257) LYMPH % (test code = 16.9 % 736-9) MONO % (test code = 10.5 % 5905-5) EOS % (test code = 3.4 % 713-8) BASO % (test code = 0.7 % 706-2) GRAN MAT x10^3(ANC) 2.98 10*3/uL 1.99-6.95 (test code = 3764485406) IMM GRAN x10^3 (test <0.03 0.00-0.06 code = 6156483394) LYMPH x10^3 (test code 0.74 10*3/uL 1.09-3.23 L = 731-0) MONO x10^3 (test code 0.46 10*3/uL 0.36-1.02 = 742-7) EOS x10^3 (test code = 0.15 10*3/uL 0.06-0.53 711-2) BASO x10^3 (test code 0.03 10*3/uL 0.01-0.09 = 704-7) Lab Interpretation Abnormal (test code = 17073-3) [facility]"
--- NOTE | 2021-10-12 09:53 | EDPHYS ---
Physician Documentation [facility] Name: Klever Clarke Age: 61 yrs Sex: Male : 1960 Arrival Date: 10/12/2021 Time: 09:41 Bed Waiting Private MD: ED Physician Vidal Galdamez HPI: 10/12 09:49 This 61 yrs old Male presents to ER via Ambulatory with complaints of jl9 Medication Refill. 09:49 The patient presents to the emergency department requesting refill(s) for: Prednisone . jl9 Historical: - Allergies: 09:47 No Known Allergies; ap3 - Home Meds: 09:47 prednisone 20 mg Oral tab once daily [Active]; ap3 - PMHx: 09:47 COPD; Kidney stones; low back pain; Lupus; ap3 - Immunization history:: Client reports having NOT received the Covid vaccine. - Social history:: Smoking status: Patient denies any tobacco usage or history of. ROS: 09:51 Constitutional: Negative for fever, chills, and weight loss, Eyes: Negative for injury, jl9 pain, redness, and discharge, ENT: Negative for injury, pain, and discharge, Neck: Negative for injury, pain, and swelling, Cardiovascular: Negative for chest pain, palpitations, and edema, Respiratory: Negative for shortness of breath, cough, wheezing, and pleuritic chest pain, Abdomen/GI: Negative for abdominal pain, nausea, vomiting, diarrhea, and constipation, Back: Negative for injury and pain, MS/Extremity: Negative for injury and deformity, Skin: Negative for injury, rash, and discoloration, Neuro: Negative for headache, weakness, numbness, tingling, and seizure, Psych: Negative for depression, anxiety, suicide ideation, homicidal ideation, and hallucinations, Allergy/Immunology: Negative for hives, rash, and allergies, Endocrine: Negative for neck swelling, polydipsia, polyuria, polyphagia, and marked weight changes, Hematologic/Lymphatic: Negative for swollen nodes, abnormal bleeding, and unusual bruising. Exam: 09:52 Constitutional: This is a well developed, well nourished patient who is awake, alert, jl9 and in no acute distress. Head/Face: Normocephalic, atraumatic. Eyes: Pupils equal round and reactive to light, extra-ocular motions intact. Lids and lashes normal. Conjunctiva and sclera are non-icteric and not injected. Cornea within normal limits. Periorbital areas with no swelling, redness, or edema. ENT: Mucous membranes moist. Neck: Trachea midline, no thyromegaly or masses palpated, and no cervical lymphadenopathy. Supple, full range of motion without nuchal rigidity, or vertebral point tenderness. No Meningismus. Chest/axilla: Normal chest wall appearance and motion. Nontender with no deformity. No lesions are appreciated. Cardiovascular: Regular rate and rhythm with a normal S1 and S2. No gallops, murmurs, or rubs. Normal PMI, no JVD. No pulse deficits. Respiratory: Lungs have equal breath sounds bilaterally, clear to auscultation and percussion. No rales, rhonchi or wheezes noted. No increased work of breathing, no retractions or nasal flaring. Abdomen/GI: Soft, non-tender, with normal bowel sounds. No distension or tympany. No guarding or rebound. No evidence of tenderness throughout. Back: No spinal tenderness. No costovertebral tenderness. Full range of motion. Skin: Warm, dry with normal turgor. Normal color with no rashes, no lesions, and no evidence of cellulitis. MS/ Extremity: Pulses equal, no cyanosis. Neurovascular intact. Full, normal range of motion. Neuro: Awake and alert, GCS 15, oriented to person, place, time, and situation. Cranial nerves II-XII grossly intact. Motor strength 5/5 in all extremities. Sensory grossly intact. Cerebellar exam normal. Normal gait. Psych: Awake, alert, with orientation to person, place and time. Behavior, mood, and affect are within normal limits. Vital Signs: 09:45 BP 121 / 76; Pulse 68; Resp 18; Temp 98.5; Pulse Ox 98% ; Weight 98.43 kg; Height 6 ft. ap3 1 in. (185.42 cm); 09:45 Body Mass Index 28.63 (98.43 kg, 185.42 cm) ap3 MDM: 09:52 Data reviewed: vital signs, nurses notes. jl9 09:53 Patient medically screened. jl9 Administered Medications: No medications were administered Disposition: 10:35 Co-signature as Attending Physician, Vidal Galdamez MD I agree with the assessment and kdr plan of care. Disposition Summary: 10/12/21 09:53 Discharge Ordered Location: Home jl9 Condition: Stable jl9 Diagnosis - Patient's other noncompliance with medication regimen jl9 Followup: jl9 - With: Private Physician - When: As needed - Reason: Recheck today's complaints, Continuance of care, Re-evaluation by your physician Discharge Instructions: - Discharge Summary Sheet jl9 - Medicine Refill at the Emergency Department jl9 Forms: - Medication Reconciliation Form jl9 - Thank You Letter jl9 - Antibiotic Education jl9 - Prescription Opioid Use jl9 Prescriptions: - Prednisone 20 mg Oral Tablet - take 1 tablet by ORAL route once daily for 1 month; 30 tablet; Refills: 0, jl9 Product Selection Permitted Signatures: Vidal Galdamez MD MD kdr Prokisch, Amanda, RN RN Nick Davis jl9
--- NOTE | 2021-10-12 09:53 | ER ---
Nurse's Notes [facility] Name: Klever Clarke Age: 61 yrs Sex: Male : 1960 Arrival Date: 10/12/2021 Time: 09:41 Bed Waiting Private MD: Diagnosis: Patient's other noncompliance with medication regimen Presentation: 10/12 09:45 Chief complaint: Patient states: he has lupus and has been out of his predinsone for ap3 approx one week, and states he feels he is in the beginning of a flare up. 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 Coronavirus screen: At this time, the client does not indicate any symptoms associated with coronavirus-19. Ebola Screen: No symptoms or risks identified at this time. Initial Sepsis Screen: Does the patient meet any 2 criteria? No. Patient's initial sepsis screen is negative. Does the patient have a suspected source of infection? No. Patient's initial sepsis screen is negative. Risk Assessment: Do you want to hurt yourself or someone else? Patient reports no desire to harm self or others. Onset of symptoms was October 05, 2021. 09:45 Method Of Arrival: Ambulatory ap3 09:45 Acuity: NHI 4 ap3 Triage Assessment: 09:48 General: Appears in no apparent distress. Behavior is calm, cooperative. Pain: ap3 Complains of pain in generalized body aches Pain began years ago. Neuro: Level of Consciousness is awake, alert, obeys commands, Oriented to person, place, time, situation, Speech is normal. Cardiovascular: Patient's skin is warm and dry. Respiratory: Airway is patent Respiratory effort is even, unlabored, Respiratory pattern is regular, symmetrical. Historical: - Allergies: 09:47 No Known Allergies; ap3 - Home Meds: 09:47 prednisone 20 mg Oral tab once daily [Active]; ap3 - PMHx: 09:47 COPD; Kidney stones; low back pain; Lupus; ap3 - Immunization history:: Client reports having NOT received the Covid vaccine. - Social history:: Smoking status: Patient denies any tobacco usage or history of. Screenin:48 Abuse screen: Denies threats or abuse. Nutritional screening: No deficits noted. ap3 Tuberculosis screening: No symptoms or risk factors identified. 09:49 Fall Risk Fall in past 12 months (25 points). Secondary diagnosis (15 points) impaired ap3 mobility, No IV (0 pts). Ambulatory Aid- Crutches/Cane/Walker (15 pts). Gait- Normal/Bed Rest/Wheelchair (0 pts) Mental Status- Oriented to own ability (0 pts). Total Aburto Fall Scale indicates High Risk Score (45 or more points). Vital Signs: 09:45 BP 121 / 76; Pulse 68; Resp 18; Temp 98.5; Pulse Ox 98% ; Weight 98.43 kg; Height 6 ft. ap3 1 in. (185.42 cm); 09:45 Body Mass Index 28.63 (98.43 kg, 185.42 cm) ap3 ED Course: 09:41 Patient arrived in ED. am2 09:42 Nick Beckford is PHCP. jl9 09:42 Vidal Galdamez MD is Attending Physician. jl9 09:47 Triage completed. ap3 09:49 Arm band placed on right wrist. ap3 09:51 Patient has correct armband on for positive identification. Pulse ox on. NIBP on. ap3 09:51 No provider procedures requiring assistance completed. Patient did not have IV access ap3 during this emergency room visit. Administered Medications: No medications were administered Medication: 09:49 VIS not applicable for this client. ap3 Outcome: 09:53 Discharge ordered by . jl9 09:58 Discharged to home ambulatory. ap3 09:58 Condition: good 09:58 Discharge instructions given to patient, Instructed on discharge instructions, follow up and referral plans. medication usage, Demonstrated understanding of instructions, follow-up care, medications, Prescriptions given X 1. 09:58 Patient left the ED. ap3 Signatures: Elsa Galvan Amanda, RN RN ap3 Nick Beckford jl9
[2021-10-12 10:05] VITALS: BP 121/76; TEMP 98.5; O2SAT 98
== END 2021-10-12 09:58 | disposition home or self-care (01) ==
LOC: ER 09:40
DX: Z91.14 Patient's other noncompliance with medication regimen (principal)
CPT/HCPCS: 99283

== ENCOUNTER 2021-12-10 09:46 | Emergency (ER) | payer SELFPAY ==
--- OUTSIDE RECORDS SUMMARY | 2021-12-10 09:49 | XMS REPORT | Continuity of Care Document ---
:1960 Author Organization [facility] t Address [address] [place] [address] Care Team Providers Name Role Phone PCP, PATIENT DOES NOT HAVE A Primary Care Physician UnavailJERED Hernandez Attending Clinician Unavailable Jered Fernandes DO Attending Clinician Doctor Unassigned, [place] Attending Clinician Unavailable Maxine Pichardo NP Attending [...] rs active active ity of problems problems [facility] [place] [facility] Allergies, Adverse Reactions, Alerts Allergy Allergy Status Severity Reaction(s) Onset Inactive Treating Comm ents Source Name Type Date Date Clinician NO KNOWN Drug Active Univers ALLERGIE Class ity of S [facility] Social History Social Habit Start Date Stop Date Quantity Comments Source Exposure to Not sure [facility] SARS-CoV-2 [facility] (event) Branch Alcohol intake 2020-11-01 2020-11-01 Current University of 00:00:00 00:00:00 non-drinker of [facility] alcohol Branch (finding) Tobacco use and 2017-04-09 2017-04-09 Never used Universit y of exposure 00:00:00 00:00:00 [facility] Sex Ass[birth year] Universit y of 00:00:00 00:00:00 [facility] Smoking Status Start Date Stop Date Source Current every day smoker 2017-04-09 00:00:00 Uni versity of [facility] Medications Ordered Filled Start Stop Current Ordering Indication Dosage Frequency Signature Comments Components Source Medication Medication Date Date Medication? Clinician (SIG) Name Name naproxen Yes [id number] 550mg Take 1 Univers sodium 2-23 tablet by ity of (ANAPROX 00:00: mouth 2 [place] DS) 550 mg 00 (two) Medical tablet times Branch daily with meals. predniSONE Yes [id number] Take bid Univers 10 mg 2-02 for 1 week ity of tablet 00:00: then QD [place] 00 thereafter Medical for lupus Branch predniSONE Yes [id number] Take bid Univers 10 mg 2-02 for 1 week ity of tablet 00:00: then QD [place] 00 thereafter Medical for lupus Branch predniSONE Yes [id number] Take bid Univers 10 mg 2-02 for 1 week ity of tablet 00:00: then QD [place] 00 thereafter Medical for lupus Branch predniSONE 2021-2021- No [id number] Take bid Univers 10 mg 2-02 02-02 for 1 week ity of tablet 00:00: 00:00 then QD [place] 00 :00 thereafter Medical for lupus Branch predniSONE 2020-2020- No [id number] Take 1 Univers 5 mg tablet 11-15 tablet by it y of 00:00: 04:59 mouth [place] 00 :00 daily for Medical 7 days, Branch THEN 0.5 tablets daily for 7 days. predniSONE 2020-2020- No [id number] Take 1 Univers 5 mg tablet 11-15 [...] 23 :00 Medical Branch predniSONE 2020- No [id number] Take 0.5 Univers 20 mg 8-25 -09 tablets by ity of tablet 00:00: 04:59 mouth 2 [place] 00 :00 (two) Medical times [place] daily for 7 days, THEN 0.5 tablets daily for 7 days. predniSONE 2020- No [id number] Take 0.5 Univers 20 mg 8-25 -09 tablets by ity of tablet 00:00: 04:59 mouth 2 [place] 00 :00 (two) [facility] daily for 7 days, THEN 0.5 [...] mouth ity of 20 mg 14:00: daily. [place] tablet 56 Medical Branch predniSONE 2018-0 Yes 20mg Take 20 mg U nivers (DELTASONE) 4-12 by mouth ity of 20 mg 14:00: daily. [place] tablet 56 Medical Branch predniSONE 2018-0 Yes 20mg Take 20 mg U nivers (DELTASONE) 4-12 by mouth ity of 20 mg 14:00: daily. [place] tablet 56 Medical Branch predniSONE 2018-0 Yes 20mg Take 20 mg U nivers (DELTASONE) 4-12 by mouth ity of 20 mg 14:00: daily. [place] tablet 56 Medical Branch traMADOL 50 2018-0 Yes 50mg Take 1 Univ ers mg tablet 2-19 tablet by ity o f 00:00: mouth [place] 00 every 4 Medical (four) Branch hours as needed for Pain (scale 4-6) or Pain unrelieved by non-narcot ic analgesics . traMADOL 50 2018-0 Yes 50mg Take 1 Univ ers mg tablet 2-19 tablet by ity o f 00:00: mouth [place] 00 every 4 Medical (four) Branch hours as needed for Pain (scale 4-6) or Pain unrelieved by non-narcot ic analgesics . traMADOL 50 2018-0 Yes 50mg Take 1 Univ ers mg tablet 2-19 tablet by ity o f 00:00: mouth [place] 00 every 4 Medical (four) Branch hours as needed for Pain (scale 4-6) or Pain unrelieved by non-narcot ic analgesics . traMADOL 50 2018-0 Yes 50mg Take 1 Univ ers mg tablet 2-19 tablet by ity o f 00:00: mouth [place] [id number] every 4 Medical (four) Branch hours as needed for Pain (scale 4-6) or Pain unrelieved by non-narcot ic analgesics . traMADOL 50 2017-0 2020- No 50mg Take 1 Uni vers mg tablet 2-19 08-25 tablet by ity of 00:00: 00:00 mouth [place] 00 :00 every 4 Medical (four) Branch [...] ic analgesics . acetaminoph Yes 1-2 by [facility] en-codeine 04-11 mouth ity of (TYLENOL-CO 00:00: every 4-6 [place] DEINE #3) 00 hours as Medica l 300-30 mg needed prn Bran ch tablet pain acetaminoph Yes 1-2 by [facility] en-codeine 04-11 mouth ity of (TYLENOL-CO 00:00: every 4-6 [place] DEINE #3) 00 hours as Medica l 300-30 mg needed prn Bran ch tablet pain acetaminoph Yes 1-2 by [facility] en-codeine 04-11 mouth ity of (TYLENOL-CO 00:00: every 4-6 [place] DEINE #3) 00 hours as Medica l 300-30 mg needed prn Bran ch tablet pain acetaminoph Yes 1-2 by [facility] en-codeine 04-11 mouth ity of (TYLENOL-CO 00:00: every 4-6 [place] DEINE #3) 00 hours as Medica l 300-30 mg needed prn Bran ch tablet pain acetaminoph 2020- No 1-2 by [place] [facility] en-codeine 04-11 08-25 mouth ity of (TYLENOL-CO 00:00: 00:00 every 4-6 [place] DEINE #3) 00 :00 hours as Medica l 300-30 mg needed prn Bran ch tablet pain acetaminoph 2020- No 1-2 by [facility] en-codeine 2- 08-25 mouth ity of (TYLENOL-CO [...] 08-25 t} Packet by juarez billingsley f [id number] 00:00: 00:00 mouth 2 [place] (MIRALAX) 00 :00 (two) Medical 17 gram times Branch powder daily. Vital Signs Vital Name Observation Time Observation Value Comments Source Systolic blood 2021-05-02 18:52:58 140 mm[Hg] Univer sity of pressure [place] [facility] Diastolic blood 2021-05-02 18:52:58 82 mm[Hg] Unive rsity of pressure [place] [facility] Heart rate 2021-05-02 18:52:58 88 /min Universi ty of [place] [facility] Respiratory rate 2021-05-02 18:52:58 18 /min Univ ersity of [facility] [place] [facility] Branch Oxygen saturation in 2021-05-02 18:52:58 99 /min University of Arterial blood by [facility] Pulse oximetry Branch Body temperature 2021-05-02 16:31:00 36.44 Jammie Univ ersity of [place] [facility] Body weight 2021-05-02 16:30:00 90.719 kg Universi ty of [place] [facility] BMI 2021-05-02 16:30:00 26.39 kg/m2 Universi ty of [place] [facility] Systolic blood 2021-04-11 18:06:00 143 mm[Hg] Univer sity of pressure [place] [facility] Diastolic blood 2021-04-11 18:06:00 91 mm[Hg] Unive rsity of pressure [place] [facility] Heart rate 2021-04-11 18:04:00 60 /min Universi ty of [place] [facility] Body temperature 2021-04-11 18:04:00 37.06 Jammie Univ ersity of [place] [facility] Respiratory rate 2021-04-11 18:04:00 18 /min Univ ersity of [place] [facility] Body weight 2021-04-11 18:04:00 90.719 kg Universi ty of [place] [facility] BMI 2021-04-11 18:04:00 26.39 kg/m2 Universi ty of [place] [facility] Oxygen saturation in 2021-04-11 18:04:00 96 /min University of Arterial blood by [facility] Pulse oximetry Branch Systolic blood 2020-11-01 20:25:00 149 mm[Hg] Univer sity of pressure [place] [facility] Diastolic blood 2020-11-01 20:25:00 110 mm[Hg] Unive rsity of pressure [facility] Heart rate 2020-11-01 20:25:00 75 /min Universi ty of [facility] Body temperature 2020-11-01 20:25:00 36.33 Jammie Univ ersity of [facility] Respiratory rate 2020-11-01 20:25:00 18 /min Univ ersity of [facility] Body weight 2020-11-01 20:25:00 90.719 kg Universi ty of [place] [facility] [place] BMI 2020-11-01 20:25:00 26.39 kg/m2 Universi ty of [facility] [place] [facility] Oxygen saturation in 2020-11-01 20:25:00 95 /min University of Arterial blood by [facility] Pulse oximetry Branch Systolic blood 2019-06-24 15:29:00 156 mm[Hg] Univer sity of pressure [facility] [place] [facility] Diastolic blood 2019-06-24 15:29:00 97 mm[Hg] Unive rsity of pressure [facility] Heart rate 2019-06-24 15:29:00 66 /min Universi ty of [facility] Body temperature 2019-06-24 15:22:00 36.67 Jammie [facility] ersity of [facility] Respiratory rate 2019-06-24 15:22:00 18 /min [facility] Body height 2019-06-24 15:22:00 185.4 cm Universi ty of [place] [facility] [place] Body weight 2019-06-24 15:22:00 90.719 kg Universi ty of [place] [facility] [place] BMI 2019-06-24 15:22:00 26.39 kg/m2 Universi ty [facility] Oxygen saturation in 2019-06-24 15:22:00 95 /min University of Arterial blood by [facility] Pulse oximetry Branch Procedures Procedure Date / Time Performed Performing Clinician Sourc e XR KNEE 3 VW LEFT 2021-05-02 16:49:35 Jered Fernandes [facility] CONSENT/REFUSAL FOR 2021-05-02 16:22:18 Doctor Unassigned, No Un [facility] DIAGNOSIS AND Name Medical Branch TREATMENT COMP. METABOLIC PANEL 2021-04-11 19:06:00 [facility] ([id number] CBC WITH DIFF 2021-04-11 19:06:00 Jered Fernandes o f [facility] NOTICE OF PRIVACY 2021-04-11 17:29:34 Doctor Unassigned, No Univ ersity of [place] PRACTICES Name [facility] CONSENT/REFUSAL FOR 2021-04-11 17:29:14 Doctor Unassigned, No Un iversity of [place] DIAGNOSIS AND Name [facility] TREATMENT CONSENT/REFUSAL FOR 2020-11-01 20:11:27 Doctor Unassigned, No Un iversity of [place] DIAGNOSIS AND Name [facility] TREATMENT Encounters Start End Encounter Admission Attending Care Care Encounter Source Date/Time Date/Time Type Type Clinicians Facility Department ID 2021-01-08 Emergency [facility] [id number] Univers 18:06:45 ity [facility] 2021-05-02 2021-05-02 [facility] [id number] Univers 10:34:00 12:59:00 JERED pizarro [facility] 2021-05-02 2021-05-02 [facility] [id number] Univers 10:34:00 12:59:00 Jered ALBERTO [id number] i ty of [place] 4.2.7.2.686 [facility] [id number] [address] 2021-05-02 2021-05-02 Orders Doctor HERRING [id number] Univers 00:00:00 00:00:00 Only Unassigned, SIDRA [id number] ity of [place] [facility] [id number] Nikita as [id number] [address] 2021-04-11 2021-04-11 Emergency [facility] ERT [id number] Univers 12:06:00 13:47:00 JERED pizarro [facility] 2021-04-11 2021-04-11 [facility] [id number] Univers 12:06:00 13:47:00 Jered ALBERTO [id number] i ty of [place] [id number] [facility] [id number] [address] 2020-11-01 2020-11-01 Emergency [facility], [facility] [id number] Univers 15:27:00 16:34:00 Maxine Alberto [id number] ity of [place] 4.2.7.2.686 [place] [facility] [id number] [facility] [address]84 [place] 2020-11-01 2020-11-01 Orders Doctor NEVAEH [id number] Univers 00:00:00 00:00:00 Only Unassigned, SIDRA [id number] ity of [place] [facility] [id number] Nikita as [id number] [facility] 009 [place] 2019-06-25 2019-06-25 Telephone NEVAEH Vyas [id number] Univers 00:00:00 00:00:00 Yelena VALENTE [id number] it y of HOSPITAL [id number] Nikita as [id number] [facility] 019 [place] 2019-06-24 2019-06-24 Urgent Pob1, Acute Care Clinic [facility] 1. [id number] Univers 10:06:34 10:26:34 Care [facility] [id number] ity of [place] [id number] Nikita as Professio [id number] [place] [facility] [facility] [address] [place] [address] 2019-06-24 2019-06-24 Outpatient R [facility] [id number] Univers 10:00:00 10:00:00 ity of [facility] Results Test Description Test Time Test Comments Results Result Comments Source COMP. METABOLIC PANEL (78343) 2021-04-11 19:24:53 Test Item Value Reference Range Interpretation Comme nts NA (test code = 5073839292) 139 mmol/L 135-145 K (test code = 6786159755) 4.3 mmol/L 3.5-5.0 CL (test code = 1370783583) 102 mmol/L 98-108 CO2 TOTAL (test code = 9394927736) 32 mmol/L 23-31 H AGAP (test code = 1320152513) 2-16 BUN (test code = 0138832240) 3 mg/dL 7-23 L GLUCOSE (test code = 8498728791) 90 mg/dL 70-110 CREATININE (test code = 0.59 mg/dL 0.60-1.25 L 7672433249) TOTAL BILI (test code = 0.6 mg/dL 0.1-1.5 5067873747) CALCIUM (test code = 3524021362) 8.1 mg/dL 8.6-10.6 L T PROTEIN (test code = 5523999008) 7.3 g/dL 6.3-8.2 ALBUMIN (test code = 4313664973) 3.8 g/dL 3.5-5.0 ALK PHOS (test code = 9724162386) 88 U/L 34-122 ALTv (test code = 1742-6) 10 U/L 5-50 AST(SGOT) (test code = 3781199182) 26 U/L 13-40 eGFR (test code = 6805020296) mL/min/1.73m2 MICHELLE (test code = MICHELLE) Association [...] tests). Lab Interpretation (test code = Abnormal 65375-6) [facility] WITH [id number] 19:22:10 Test Item Value Reference Range Interpretation [...] RDW-SD (test code = 46.4 fL 38.5-51.6 94684-1) RDW-CV (test code = 12.9 % 12.1-15.4 788-0) PLT (test code = See_Comment [Automated 777-3) message] The sy stem which generated this result transmitted reference range : 150 - 328 10*3/ ?L. The reference r adriel was not used to interpret this result as normal/abnormal . MPV (test code = 11.7 fL 9.8-13.0 30788-9) NRBC/100 WBC (test See_Comment [Automat ed code = 8447093401) message] The system which generated this result transmitted reference range : 0.0 - 10.0 /100 WBCs. The refer ence range was not u sed to interpret th is result as normal/abnormal . NRBC x10^3 (test code <0.01 See_Comment [Auto mated = 2473539734) message] The s ystem which generated this result transmitted reference range : 10*3/?L. The reference range was not used to interpret this result as normal/abnormal . GRAN MAT (NEUT) % 68.0 % (test code = 770-8) IMM GRAN % (test code 0.50 % = 6593930060) LYMPH % (test code = 16.9 % 736-9) MONO % (test code = 10.5 % 5905-5) EOS % (test code = 3.4 % 713-8) BASO % (test code = 0.7 % 706-2) GRAN MAT x10^3(ANC) 2.98 10*3/uL 1.99-6.95 (test code = 2419415744) IMM GRAN x10^3 (test <0.03 0.00-0.06 code = 3457958454) LYMPH x10^3 (test code 0.74 10*3/uL 1.09-3.23 L = 731-0) MONO x10^3 (test code 0.46 10*3/uL 0.36-1.02 = 742-7) EOS x10^3 (test code = 0.15 10*3/uL 0.06-0.53 711-2) BASO x10^3 (test code 0.03 10*3/uL 0.01-0.09 = 704-7) Lab Interpretation Abnormal (test code = 21401-1) [facility]"
--- NOTE | 2021-12-10 10:37 | EDPHYS ---
Physician Documentation [facility] Name: Klever Clarke Age: 61 yrs Sex: Male : 1960 Arrival Date: 12/10/2021 Time: 09:47 Bed 2 Private MD: ED Physician Abdelrahman Krishna HPI: 12/10 10:33 This 61 yrs old Male presents to ER via Ambulatory with complaints of Lupus Flare Up. jr11 10:33 Is a 61-year-old that states that when he starts running out of prednisone he starts jr11 getting mouth ulcers, started getting mouth ulcers last week, and of his prednisone for 1 day. Patient is here for prescription refill of prednisone, takes 20 mg but cut some in half. Patient is working on getting into a lupus clinic.. Onset: The symptoms/episode began/occurred last week. Severity of symptoms: At their worst the symptoms were moderate in the emergency department the symptoms are worse. No fever, chills, nausea, vomiting, abd pain. Historical: - Allergies: 10:22 No Known Allergies; ph - Home Meds: 10:22 prednisone 20 mg Oral tab once daily [Active]; ph - PMHx: 10:22 COPD; Kidney stones; Lupus; low back pain; ph - Immunization history:: Adult Immunizations unknown. - Social history:: Smoking status: Patient denies any tobacco usage or history of. ROS: 10:33 All other systems are negative. jr11 Exam: 10:33 Constitutional: This is a well developed, well nourished patient who is awake, alert, jr11 and in no acute distress. Head/Face: Normocephalic, atraumatic. Eyes: Extra-ocular motions intact. Lids and lashes normal. Conjunctiva and sclera are non-icteric and not injected. Cornea within normal limits. Periorbital areas with no swelling, redness, or edema. ENT: small amount ulceration to inner lip mucosa Neck: Trachea midline, no thyromegaly or masses palpated, and no cervical lymphadenopathy. Supple, full range of motion without nuchal rigidity, or vertebral point tenderness. No Meningismus. Chest/axilla: Normal chest wall appearance and motion. Nontender with no deformity. No lesions are appreciated. Cardiovascular: Regular rate and rhythm with a normal S1 and S2. No gallops, murmurs, or rubs. Normal PMI, no JVD. No pulse deficits. Abdomen/GI: Soft, non-tender, with normal bowel sounds. No distension or tympany. No guarding or rebound. No evidence of tenderness throughout. Back: No spinal tenderness. No costovertebral tenderness. Full range of motion. Skin: erythematous plaques diffusely MS/ Extremity: Pulses equal, no cyanosis. Neurovascular intact. Full, normal range of motion. Vital Signs: 10:18 BP 150 / 104; Pulse 56; Resp 18; Temp 98.1; Pulse Ox 96% on R/A; Weight 106.59 kg; ph Height 6 ft. 1 in. (185.42 cm); Pain 8/10; 10:48 BP 148 / 98; Pulse 57; Resp 18; Temp 97.8; Pulse Ox 98% on R/A; ph 10:18 Body Mass Index 31.00 (106.59 kg, 185.42 cm) ph MDM: 10:32 Patient medically screened. jr11 10:33 Differential Diagnosis lupus, rash, medication refill. Data reviewed: vital signs, jr11 nurses notes. ED course: Pt understands that this is not good care to continue to get prednisone from ED. He needs to follow up with specialist. He understands risks of on going prednisone use. ER warnings given, will give prednisone since it is more detrimental to stop abruptly. . Administered Medications: No medications were administered Disposition Summary: 12/10/21 10:36 Discharge Ordered Location: Home jr Condition: Stable jr11 Diagnosis - Rash and other nonspecific skin eruption jr11 - Systemic lupus erythematosus, unspecified jr11 Discharge Instructions: - Discharge Summary Sheet jr11 - Systemic Lupus Erythematosus, Adult jr11 Forms: - Medication Reconciliation Form jr11 - Thank You Letter jr11 - Antibiotic Education jr11 - Prescription Opioid Use jr11 Prescriptions: - Prednisone 20 mg Oral Tablet - take 1 tablet by ORAL route once daily for 30 days; 30 tablet; Refills: 0, jr11 Product Selection Permitted Signatures: Dennise Martinez RN RN Abdelrahman Krishna MD MD jr11
--- NOTE | 2021-12-10 10:37 | ER ---
Nurse's Notes [facility] Name: Klever Clarke Age: 61 yrs Sex: Male : 1960 Arrival Date: 12/10/2021 Time: 09:47 Bed 2 Private MD: Diagnosis: Rash and other nonspecific skin eruption;Systemic lupus erythematosus, unspecified Presentation: 12/10 10:18 Chief complaint: Patient states: Hx of lupus, ran out of prednisone approx 1 week ago ph and "everything is starting to flare up." C/O pain to back, shoulders, sores in mouth. 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 Coronavirus screen: Vaccine status: Patient reports being unvaccinated. Ebola Screen: No symptoms or risks identified at this time. Initial Sepsis Screen: Does the patient meet any 2 criteria? No. Patient's initial sepsis screen is negative. Does the patient have a suspected source of infection? No. Patient's initial sepsis screen is negative. Risk Assessment: Do you want to hurt yourself or someone else? Patient reports no desire to harm self or others. Onset of symptoms was December 10, 2021. 10:18 Method Of Arrival: Ambulatory ph 10:18 Acuity: NHI 4 ph Triage Assessment: 10:22 General: Appears in no apparent distress. uncomfortable, Behavior is calm, cooperative, ph appropriate for age. Pain: Complains of pain in back and right shoulder, "aching all over.". Neuro: Level of Consciousness is awake, alert, obeys commands, Oriented to person, place, time, situation. Cardiovascular: Capillary refill < 3 seconds in bilateral fingers Patient's skin is warm and dry. Respiratory: Airway is patent Respiratory effort is even, unlabored, Respiratory pattern is regular, symmetrical. Derm: Skin is healthy with good turgor, Skin is pink, warm \\T\\ dry. Musculoskeletal: Circulation, motion, and sensation intact. Range of motion: intact in all extremities. Historical: - Allergies: 10:22 No Known Allergies; ph - Home Meds: 10: prednisone 20 mg Oral tab once daily [Active]; ph - PMHx: 10:22 COPD; Kidney stones; Lupus; low back pain; ph - Immunization history:: Adult Immunizations unknown. - Social history:: Smoking status: Patient denies any tobacco usage or history of. Screenin:24 Abuse screen: Denies threats or abuse. Denies injuries from another. Nutritional ph screening: No deficits noted. Tuberculosis screening: No symptoms or risk factors identified. Fall Risk None identified. Assessment: 10:25 Reassessment: Patient appears in no apparent distress at this time. No changes from db previously documented assessment. Patient and/or family updated on plan of care and expected duration. Pain level reassessed. Patient is alert, oriented x 3, equal unlabored respirations, skin warm/dry/pink. General: Appears in no apparent distress. comfortable, Behavior is calm, cooperative, quiet. Pain:. Neuro: No deficits noted. Level of Consciousness is awake, alert, obeys commands, Oriented to person, place, time, Appropriate for age Speech is normal, Pupils are PERRLA. Cardiovascular: No deficits noted. Cardiovascular: Denies chest pain. Respiratory: No deficits noted. Respiratory: Airway is patent Respiratory pattern is regular. GI: No deficits noted. : No deficits noted. EENT: No deficits noted. Derm: No deficits noted. Derm: Rash noted that is red, noted rash to face neck hands. hx of lupus. Musculoskeletal: No deficits noted. Vital Signs: 10:18 BP 150 / 104; Pulse 56; Resp 18; Temp 98.1; Pulse Ox 96% on R/A; Weight 106.59 kg; ph Height 6 ft. 1 in. (185.42 cm); Pain 8/10; 10:48 BP 148 / 98; Pulse 57; Resp 18; Temp 97.8; Pulse Ox 98% on R/A; ph 10:18 Body Mass Index 31.00 (106.59 kg, 185.42 cm) ph ED Course: 09:47 Patient arrived in ED. rg4 09:49 Abdelrahman Krishna MD is Attending Physician. [email or web address] 10:11 Arm band placed on Patient placed in an exam room, on a stretcher. db 10:22 Triage completed. ph 10:25 Patient has correct armband on for positive identification. Bed in low position. Side db rails up X 1. 10:25 No provider procedures requiring assistance completed. Patient did not have IV access db during this emergency room visit. 10:39 Dennise Martinez, RN is Primary Nurse. ph Administered Medications: No medications were administered Medication: 10:25 VIS not applicable for this client. ph Outcome: 10:36 Discharge ordered by . [email or web address] 10:48 Discharged to home ambulatory. ph 10:48 Condition: good 10:48 Discharge instructions given to patient, Instructed on discharge instructions, follow up and referral plans. medication usage, Demonstrated understanding of instructions, follow-up care, medications, Prescriptions given X 1. 10:50 Patient left the ED. ph Signatures: Dennise Martinez, RN RN Myra Paz 4 Abdelrahman Krishna MD MD [email or web address] Manuela Benavides RN RN db
[2021-12-10 11:01] VITALS: BP 148/98; TEMP 97.8; O2SAT 98
== END 2021-12-10 10:50 | disposition home or self-care (01) ==
LOC: ER 09:46
DX: R21 Rash and other nonspecific skin eruption (principal); M32.9 Systemic lupus erythematosus, unspecified; J44.9 Chronic obstructive pulmonary disease, unspecified
CPT/HCPCS: 99282

== ENCOUNTER 2024-10-26 23:21 | Emergency (ER) | payer OTHER ==
--- OUTSIDE RECORDS SUMMARY | 2024-10-26 23:24 | XMS REPORT | Continuity of Care Document ---
Author Name Unknown Address [address] [place] [address] [facility] Address [address] [place] [address] Care Team Providers Care Fiber Artist Name Role Phone Pcp, Patient Does Not Have A Primary Care Physic billy Doctor Unassigned, [place] Attending Clinician U MIKEY Lopez Attending Clinician Unavailable Mikey Fernandes DO Attending Clinician [phone] Doctor Unassigned, [place] Attending Clinician U Maxine Espinal NP Attending Clinician [phone] Yelena Vyas RN Attending Clinician Unavailable [facility], [facility] Attending Clinician UnaMaria De Jesus Falk Attending Clinician [phone] MIKEY FERNANDES Admitting Clinician Unavailable Payers Payer Name Policy Type Policy Number Effective Date Expirati on Date Source Problems Condition Name Condition Details Condition Category Status Onset Date Resolution Date Last Treatment Date Treating Clinician Comments Source No known active problems No known active problems Disease [facility] Allergies, Adverse Reactions, Alerts Allergy Name Allergy Type Status Severity Reaction(s) Onset Date Inactive Date Treating Clinician Comments Source NO KNOWN ALLERGIE S Drug Class Active [facility] Social History Social Habit Start Date Stop Date Quantity Comments Source History of tobacco use Smokes tobacco daily [facility] Sexual orientation [facility] Exposure to SARS-CoV-2 (event) 2021-04-02 00:00:00 2021-05-02 12:59:00 Not sure [facility] History of Social function 2020-11-01 00:00:00 2020-11-01 00:00:00 [facility] Alcohol intake 2020-11-01 00:00:00 2020-11-01 00:00:00 Current non-drinker of alcohol (finding) [facility] Alcoholic beverage intake 2017-04-24 00:00:00 2017-04-24 00:00:00 Current non-drinker of alcohol (finding) [facility] Tobacco use and exposure 2017-04-24 00:00:00 2017-04-24 00:00:00 Smokeless tobacco non-user [facility] Sex assigned at 1960 00:00:00 1960 00:00:00 [facility] Smoking Status Start Date Stop Date Source Smokes tobacco daily 2017-04-09 00:00:00 [facility] Medications Ordered Medication Name Filled Medication Name Start Date Stop Date Current Medication? Ordering Clinician Indication Dosage Frequency Signature (SIG) Comments Components Source naproxen sodium (ANAPROX DS) 550 mg tablet 05-02 00:00: 00 Yes [id number] 550mg Take 1 tablet by mouth 2 (two) times daily with meals. [facility] predniSONE 10 mg tablet 04-11 00:00: 00 Yes [id number] Take bid for 1 week then QD thereafter for lupus [facility] predniSONE 5 mg tablet 11-15 00:00: 00 11-30 04:59 :00 No [id number] Take 1 tablet by mouth daily for 7 days, THEN 0.5 tablets daily for 7 days. [facility] predniSONE (DELTASONE) 20 mg tablet 11-01 21:01: 23 11-01 00:00 :00 No 20mg Take 20 mg by mouth daily. [facility] predniSONE 20 mg tablet 11-01 00:00: 00 11-16 04:59 :00 No [id number] Take 0.5 tablets by mouth 2 (two) times daily for 7 days, THEN 0.5 tablets daily for 7 days. [facility] methylPREDN ISolone (MEDROL, SUZY,) 4 mg tablets 07 00:00: 00 11-01 00:00 :00 No 84mg Take 21 tablets by mouth SEE-INSTRU CTIONS. follow package directions [facility] predniSONE (DELTASONE) 20 mg tablet 06-19 14:00: 56 Yes 20mg Take 20 mg by mouth daily. [facility] traMADOL 50 mg tablet 04-28 00:00: 00 11-01 00:00 :00 No 50mg Take 1 tablet by mouth every 4 (four) hours as needed for Pain (scale 4-6) or Pain unrelieved by non-narcot ic analgesics . [facility] acetaminoph en-codeine (TYLENOL-CO DEINE #3) 300-30 mg tablet 04-11 00:00: 00 11-01 00:00 :00 No 1-2 by mouth every 4-6 hours as needed prn pain [facility] docusate (COLACE) 100 mg capsule 06-27 00:00: 00 11-01 00:00 :00 No 100mg Take 1 capsule by mouth 3 (three) times daily. [facility] Polyethylen e Glycol 3350 (MIRALAX) 17 gram powder 06-27 00:00: 00 11-01 00:00 :00 No 1{packe t} Take 1 Packet by mouth 2 (two) times daily. [facility] Vital Signs Vital Name Observation Time Observation Value Comments S ource Systolic blood pressure 2021-05-02 18:52:58 140 mm[Hg] [facility] Diastolic blood pressure 2021-05-02 18:52:58 82 mm[Hg] [facility] Heart rate 2021-05-02 18:52:58 88 /min [facility] Respiratory rate 2021-05-02 18:52:58 18 /min [facility] Oxygen saturation in Arterial blood by Pulse oximetry 2021-05-02 18:52:58 99 /min [facility] Body temperature 2021-05-02 16:31:00 36.44 Jammie [facility] Body weight 2021-05-02 16:30:00 90.719 kg [facility] BMI 2021-05-02 16:30:00 26.39 kg/m2 [facility] Systolic blood pressure 2021-04-11 18:06:00 143 mm[Hg] [facility] Diastolic blood pressure 2021-04-11 18:06:00 91 mm[Hg] [facility] Heart rate 2021-04-11 18:04:00 60 /min [facility] Body temperature 2021-04-11 18:04:00 37.06 Jammie [facility] Respiratory rate 2021-04-11 18:04:00 18 /min [facility] Body weight 2021-04-11 18:04:00 90.719 kg [facility] BMI 2021-04-11 18:04:00 26.39 kg/m2 [facility] Oxygen saturation in Arterial blood by Pulse oximetry 2021-04-11 18:04:00 96 /min [facility] Systolic blood pressure 2020-11-01 20:25:00 149 mm[Hg] [facility] Diastolic blood pressure 2020-11-01 20:25:00 110 mm[Hg] [facility] Heart rate 2020-11-01 20:25:00 75 /min [facility] Body temperature 2020-11-01 20:25:00 36.33 Jammie [facility] Respiratory rate 2020-11-01 20:25:00 18 /min [facility] Body weight 2020-11-01 20:25:00 90.719 kg [facility] BMI 2020-11-01 20:25:00 26.39 kg/m2 [facility] Oxygen saturation in Arterial blood by Pulse oximetry 2020-11-01 20:25:00 95 /min [facility] Systolic blood pressure 2019-06-24 15:29:00 156 mm[Hg] [facility] Diastolic blood pressure 2019-06-24 15:29:00 97 mm[Hg] [facility] Heart rate 2019-06-24 15:29:00 66 /min [facility] Body temperature 2019-06-24 15:22:00 36.67 Jammie [facility] Respiratory rate 2019-06-24 15:22:00 18 /min [facility] Body height 2019-06-24 15:22:00 185.4 cm [facility] Body weight 2019-06-24 15:22:00 90.719 kg [facility] BMI 2019-06-24 15:22:00 26.39 kg/m2 [facility] Oxygen saturation in Arterial blood by Pulse oximetry 2019-06-24 15:22:00 95 /min [place] [facility] Procedures Procedure Date / Time Performed Performing Clinicia n Source XR KNEE 3 VW LEFT 2021-05-02 16:49:35 [facility] CONSENT/REFUSAL FOR DIAGNOSIS AND TREATMENT 2021-05-02 16:22:18 Doctor Unassigned, [place] [facility] COMP. METABOLIC PANEL (10639) 2021-04-11 19:06:00 Mikey Fernandes [facility] CBC WITH DIFF 2021-04-11 19:06:00 Mikey Fernandes [facility] NOTICE OF PRIVACY PRACTICES 2021-04-11 17:29:34 Doctor Unassigned, [place] [facility] CONSENT/REFUSAL FOR DIAGNOSIS AND TREATMENT 2021-04-11 17:29:14 Doctor Unassigned, [place] [facility] CONSENT/REFUSAL FOR DIAGNOSIS AND TREATMENT 2020-11-01 20:11:27 Doctor Unassigned, [place] [facility] MEDICAL RELEASE/CLEARANCE FORMS 2017-07-08 05:01:00 Doctor Unassigned, [place] [facility] DISABILITY/FMLA 2017-06-24 05:01:00 Doctor Unass igned, [place] [facility] DISABILITY/FMLA 2017-04-28 06:01:00 Doctor Unass igned, [place] [facility] DISABILITY/FMLA 2017-04-10 06:01:00 Doctor Unass igned, [place] [facility] Encounters Start Date/Time End Date/Time Encounter Type Admission Type Attending [facility] Care Facility Care Department Encounter ID Source 2021-01-08 18:06:45 Emergency [facility] [id number] [facility] 2017-04-09 00:00:00 2024-04-24 03:27:24 Orders Only Doctor Unassigned, [place] Doctor Unassigned, [place] [facility] 1.2.840.114 350.1.13.10 4.2.7.2.686 [id number] [id number] [facility] 2017-04-24 00:00:00 2024-04-24 03:26:15 Orders Only Doctor Unassigned, [place] Doctor Unassigned, [place] [facility] 1.2.840.114 350.1.13.10 4.2.7.2.686 [id number] [id number] [facility] 2017-05-22 00:00:00 2024-04-24 03:24:23 Orders Only Doctor Unassigned, [place] Doctor Unassigned, [place] [facility] 1.2.840.114 350.1.13.10 4.2.7.2.686 [id number] [id number] [facility] 2017-06-19 00:00:00 2024-04-24 03:22:22 Orders Only Doctor Unassigned, [place] Doctor Unassigned, [place] [facility] 1.2.840.114 350.1.13.10 4.2.7.2.686 [id number] [id number] [facility] 2017-07-03 00:00:00 2024-04-24 03:20:36 Orders Only Doctor Unassigned, [place] Doctor Unassigned, [place] [facility] 1.2.840.114 350.1.13.10 4.2.7.2.686 [id number] [id number] [facility] 2017-07-14 00:00:00 2024-04-24 03:19:32 Orders Only Doctor Unassigned, [place] Doctor Unassigned, [place] [facility] 1.2.840.114 350.1.13.10 4.2.7.2.686 [id number] [id number] [facility] 2021-05-02 10:34:00 2021-05-02 12:59:00 Emergency MIKEY GARCIA [facility] ERT [id number] [facility] 2021-05-02 10:34:00 2021-05-02 12:59:00 Emergency Mikey Fernandes [facility] 1.2.840.114 350.1.13.10 4.2.7.2.686 [id number] [facility] 2021-05-02 00:00:00 2021-05-02 00:00:00 Orders Only Doctor Unassigned, [place] [facility] 1.2840.114 350.1.13.10 4.2.7.2.686 [id number] [id number] [facility] 2021-04-11 12:06:00 2021-04-11 13:47:00 Emergency X MIKEY FERNANDES [facility] ERT [id number] [facility] 2021-04-11 12:06:00 2021-04-11 13:47:00 Emergency Singer Mikey [facility] 1.2840.114 350.1.13.10 4.2.7.2.686 [id number] [facility] 2020-11-01 15:27:00 2020-11-01 16:34:00 Emergency Marino Maxine Cespedes [facility] 1.2.840.114 350.1.13.10 4.2.7.2.686 [id number] [facility] 2020-11-01 00:00:00 2020-11-01 00:00:00 Orders Only Doctor Unassigned, [place] [facility] 1.2.840.114 350.1.13.10 4.2.7.2.686 [id number] [id number] [facility] 2019-06-25 00:00:00 2019-06-25 00:00:00 Telephone Yelena Vyas [facility] 1.2.840.114 350.1.13.10 4.2.7.2.686 [id number] [facility] 2019-06-24 10:06:34 2019-06-24 10:26:34 Urgent Care P[facility], [facility] [address] 1.2840.114 350.1.13.10 4.2.7.2.686 [id number] [facility] 2019-06-24 10:00:00 2019-06-24 10:00:00 Outpatient R [facility] [id number] [facility] Results Test Description Test Time Test Comments Results Result Co mments Source [facility] WITH [id number] 19:22:10* Test Item Value Reference Range Interpretation Comme nts WBC (test code = 6690-2) See_Comment [Automated Provena ge] The system which generated this result transmitted reference range: 4.20 - 10.70 10*3/?L. The reference range was not used to interpret this result as normal/abnormal. RBC (test code = 789-8) See_Comment [Automated Provena ge] The system which generated this result transmitted reference range: 4.26 - 5.52 10*6/?L. The reference range was not used to interpret this result as normal/abnormal. HGB (test code = 718-7) 14.4 g/dL 12.2-16.4 HCT (test code = 4544-3) 45.3 % 38.4-49.3 MCV (test code = 787-2) 97.6 fL 81.7-95.6 H MCH (test code = 785-6) 31.0 pg 26.1-32.7 MCHC (test code = 786-4) 31.8 g/dL 31.2-35.0 RDW-SD (test code = 77978-2) 46.4 fL 38.5-51.6 RDW-CV (test code = 788-0) 12.9 % 12.1-15.4 PLT (test code = 777-3) See_Comment [Automated messa ge] The system which generated this result transmitted reference range: 150 - 328 10*3/?L. The reference range was not used to interpret this result as normal/abnormal. MPV (test code = 98749-0) 11.7 fL 9.8-13.0 NRBC/100 WBC (test code = 4683708858) See_Comment [Automated Kovio ssage] The system which generated this result transmitted reference range: 0.0 - 10.0 /100 WBCs. The reference range was not used to interpret this result as normal/abnormal. NRBC x10^3 (test code = 1077309637) <0.01 See_Comment [Automated messa ge] The system which generated this result transmitted reference range: 10*3/?L. The reference range was not used to interpret this result as normal/abnormal. GRAN MAT (NEUT) % (test code = 770-8) 68.0 % IMM GRAN % (test code = 5810816067) 0.50 % LYMPH % (test code = 736-9) 16.9 % MONO % (test code = 5905-5) 10.5 % EOS % (test code = 713-8) 3.4 % BASO % (test code = 706-2) 0.7 % GRAN MAT x10^3(ANC) (test code = 4686728337) 2.98 10*3/uL 1.99-6.95 IMM GRAN x10^3 (test code = 5499840487) <0.03 0.00-0.06 LYMPH x10^3 (test code = 731-0) 0.74 10*3/uL 1.09-3.23 L MONO x10^3 (test code = 742-7) 0.46 10*3/uL 0.36-1.02 EOS x10^3 (test code = 711-2) 0.15 10*3/uL 0.06-0.53 BASO x10^3 (test code = 704-7) 0.03 10*3/uL 0.01-0.09 Lab Interpretation (test code = 94135-8) Abnormal [facility]
[2024-10-27] MEDS ORDERED: ACETAMINOPHEN 500 MG TAB ONE (02:09)
[2024-10-27] MEDS ORDERED: IBUPROFEN 400 MG TAB ONE (02:09)
--- NOTE | 2024-10-27 02:10 | EDPHYS ---
Physician Documentation [facility] Name: Klever Clarke Age: 64 yrs Sex: Male : 1960 Arrival Date: 10/26/2024 Time: 23:21 Bed 7 Private MD: ED Physician Jose Thomas HPI: 10/26 23:39 This 64 yrs old Male presents to ER via Unassigned with complaints of head sp4 injury . 10/27 18:55 64-year-old male who is homeless presents with complaint of posterior head injury [place] Patient [place] with EMS.. Historical: - PMHx: 10/26 23:53 COPD; low back pain; Lupus; Kidney stones; mf3 - Immunization history:: Adult Immunizations unknown. - Infectious Disease History:: Denies. - Social history:: Smoking status: Patient reports the use of cigarette tobacco products, smokes one pack cigarettes per day. - Family history:: not pertinent. ROS: 10/27 18:55 Constitutional: Negative for fever, chills, and weight loss, positive acute head injury sp4 positive posterior scalp contusion All other systems are negative, Exam: 18:55 Constitutional: Ill-appearing male, with poor hygiene. Thin appearing male no sp4 distress Head/Face: Normocephalic, atraumatic. Eyes: Pupils equal round and reactive to light, extra-ocular motions intact. Lids and lashes normal. Conjunctiva and sclera are not injected. Cornea within normal limits. Periorbital areas with no swelling, redness, or edema. ENT: Nares patent. No nasal discharge, no septal abnormalities noted. Tympanic membranes are normal and external auditory canals are clear. Oropharynx with no redness, swelling, or masses, exudates, or evidence of obstruction, uvula midline. Mucous membranes moist. Neck: Trachea midline, no thyromegaly or masses palpated, and no cervical lymphadenopathy. Supple, full range of motion without nuchal rigidity, or vertebral point tenderness. Chest/axilla: Normal chest wall appearance and motion. Nontender with no deformity. No lesions are appreciated. Cardiovascular: Regular rate and rhythm with a normal S1 and S2. No gallops, murmurs, or rubs. No pulse deficits. Respiratory: Lungs have equal breath sounds bilaterally, clear to auscultation and percussion. No rales, rhonchi or wheezes noted. No increased work of breathing, no retractions or nasal flaring. Abdomen/GI: Soft, with normal bowel sounds. No distension or tympany. No guarding or rebound. No evidence of tenderness throughout. Back: No spinal tenderness. No costovertebral tenderness. Skin: Warm, dry with normal turgor. Normal color with no rashes, no lesions, and no evidence of cellulitis. MS/ Extremity: Pulses equal, no cyanosis. Neurovascular intact. Full, normal range of motion. Neuro: Awake and alert, GCS 15, oriented to person, place, time, and situation. Cranial nerves II-XII grossly intact. Motor strength 5/5 in all extremities. Sensory grossly intact. Psych: Awake, alert, with orientation to person, place and time. Behavior, mood, and affect are within normal limits Vital Signs: 10/26 23:51 BP 122 / 98; Pulse 78; Resp 18; Temp 98.2; Pulse Ox 99% on R/A; Weight 74.84 kg; Height mf3 5 ft. 6 in. ; 23:58 BP 117 / 89; Pulse 76; Resp 19; Pulse Ox 99% ; 3 10/27 01:49 BP 99 / 76; Pulse 92; Resp 18; Temp 98.2; Pulse Ox 98% ; Pain 0/10; bm8 10/26 23:51 Body Mass Index 26.63 (74.84 kg, 167.64 cm) [facility] 10/27 01:49 Pain Scale: Adult bm8 Jona Coma Score: 18:55 Eye Response: spontaneous(4). Motor Response: obeys commands(6). Verbal Response: sp4 oriented(5). Total: 15. 18:55 Eye Response: spontaneous(4). Motor Response: obeys commands(6). Verbal Response: sp4 oriented(5). Total: 15. MDM: 10/26 23:41 Medical Screening Exam initiated 4 10/27 02:08 ED course: EXAM: CT Head Without Intravenous Contrast CLINICAL HISTORY: The patient is sp4 64 years old and is Male; head injury TECHNIQUE: Axial computed tomography images of the head/brain without intravenous contrast. Sagittal and coronal reformatted images were created and reviewed. This CT exam was performed using one or more of the following dose reduction techniques: automated exposure control, adjustment of the mA and/or kV according to patient size, and/or use of iterative reconstruction technique. COMPARISON: October 21, 2018 FINDINGS: BRAIN: Encephalomalacia within the right temporal and parietal lobes is noted. Evidence of prior right basal ganglia lacunar infarct is noted. There is diffuse cerebral atrophy present. There is patchy hypoattenuation of the deep white matter which is non-specific, but most likely owing to chronic small vessel ischemic change in a patient of this age group. No intracranial hemorrhage, mass effect, midline shift is seen. There are no extra-axial fluid collections. VENTRICLES: Unremarkable. No ventriculomegaly. BONES/JOINTS: No acute fracture. SOFT TISSUES: Unremarkable. SINUSES: Unremarkable as visualized. No acute sinusitis. MASTOID AIR CELLS: Unremarkable as visualized. No mastoid effusion. ORBITS: Unremarkable as visualized. IMPRESSION: No acute intracranial findings. 18:55 ED course: CT negative patient is stable for discharge from the emergency department.. sp4 18:56 Differential diagnosis: cluster headache, hypertensive headache, migraine, subarachnoid sp4 bleed, subdural hematoma, tension headache, vasomotor headache. Data reviewed: vital signs, nurses notes, EMS record, radiologic studies, CT scan. 10/26 23:41 Order name: CT Head Brain wo Cont sp4 Administered Medications: 02:17 Drug: Ibuprofen PO 800 mg PO once Route: PO; bm8 02:18 Follow up: Response: No adverse reaction bm8 02:17 Drug: Acetaminophen PO 1000 mg PO once Route: PO; bm8 02:18 Follow up: Response: No adverse reaction bm8 Disposition: 02:09 Chart complete. sp4 Disposition Summary: 10/27/24 02:09 Discharge Ordered Notes: Location: Home sp4 Problem: new sp4 Symptoms: have improved sp4 Condition: Stable sp4 Diagnosis - Acute closed head injury, acute posterior scalp contusion sp4 Followup: sp4 - With: Private Physician - When: As needed - Reason: Discharge Instructions: - Discharge Summary Sheet sp4 - Head Injury, Adult, [id number] sp4 Forms: - Patient Portal Instructions sp4 Signatures: Dispatcher [employer] Jose Radford MD MD sp4 Fred Wild RN RN bm8 Mary Coppola RN RN 3
--- NOTE | 2024-10-27 02:10 | ER ---
Nurse's Notes [facility] Name: Klever Clarke Age: 64 yrs Sex: Male : 1960 Arrival Date: 10/26/2024 Time: 23:21 Bed 7 Private MD: Diagnosis: Acute closed head injury, acute posterior scalp contusion Presentation: 10/26 23:51 Chief complaint: Patient states: Pt to ED via EMS. pt /o of fall off of picnic table mf3 and is c/o right elbow. Coronavirus screen: Client denies travel out of the [place] in the last 14 days. At this time, the client does not indicate any symptoms associated with coronavirus-19. Ebola Screen: No symptoms or risks identified at this time. Initial Sepsis Screen: Does the patient meet any 2 criteria? No. Patient's initial sepsis screen is negative. Does the patient have a suspected source of infection? No. Patient's initial sepsis screen is negative. Risk Assessment: Do you want to hurt yourself or someone else? Patient reports no desire to harm self or others. Onset of symptoms was October 26, 2024. 23:51 Method Of Arrival: EMS: [facility] 3 23:51 Acuity: [facility] 3 mf3 Triage Assessment: 23:53 General: Appears in no apparent distress. Behavior is calm, cooperative, appropriate mf3 for age. Pain: Complains of pain in right arm Pain currently is 5 out of 10 on a pain scale. Neuro: Level of Consciousness is awake, alert, obeys commands, Oriented to person, place, time, situation, none. Cardiovascular: Capillary refill Patient's skin is warm and dry. Respiratory: Airway is patent Respiratory effort is even, unlabored, Respiratory pattern is regular, symmetrical. GI: No signs and/or symptoms were reported involving the gastrointestinal system. : No signs and/or symptoms were reported regarding the genitourinary system. Derm: No signs and/or symptoms reported regarding the dermatologic system. Musculoskeletal: Range of motion: intact in all extremities, Historical: - PMHx: 23:53 COPD; low back pain; Lupus; Kidney stones; mf3 - Immunization history:: Adult Immunizations unknown. - Infectious Disease History:: Denies. - Social history:: Smoking status: Patient reports the use of cigarette tobacco products, smokes one pack cigarettes per day. - Family history:: not pertinent. Screenin:55 [facility] ED Fall Risk Assessment (Adult) History of falling in the last 3 months, mf3 including since admission Yes- single mechanical fall (1 pt) Confusion or Disorientation No (0 pts) Intoxicated or Sedated No (0 pts) Impaired Gait No (0 pts) Mobility Assist Device Used No (0 pt) Altered Elimination No (0 pt) Score/Fall Risk Level 0 - 2 = Low Risk Educated pt \T\ family on fall prevention, incl call for assistance when getting out of bed, Hourly rounding (assess needs \T\ fall precautionary measures) done. Abuse screen: Denies threats or abuse. Denies injuries from another. Nutritional screening: No deficits noted. Tuberculosis screening: No symptoms or risk factors identified. Never had TB. Assessment: 23:57 General: Appears in no apparent distress. Behavior is calm, cooperative, appropriate mf3 for age. Pain: Complains of pain in right arm Pain currently is 5 out of 10 on a pain scale. Neuro: Level of Consciousness is awake, alert, obeys commands, Oriented to person, place, time, situation, Appropriate for age. Cardiovascular: Capillary refill Patient's skin is warm and dry. Respiratory: Airway is patent Trachea midline Respiratory effort is even, unlabored. GI: No signs and/or symptoms were reported involving the gastrointestinal system. : No signs and/or symptoms were reported regarding the genitourinary system. EENT: No signs and/or symptoms were reported regarding the EENT system. Derm: No signs and/or symptoms reported regarding the dermatologic system. Musculoskeletal: Range of motion: intact in all extremities. 10/27 01:57 Reassessment: No changes from previously documented assessment. Patient and/or family mf3 updated on plan of care and expected duration. Pain level reassessed. Patient is alert, oriented x 3, equal unlabored respirations, skin warm/dry/pink. Vital Signs: 10/26 23:51 BP 122 / 98; Pulse 78; Resp 18; Temp 98.2; Pulse Ox 99% on R/A; Weight 74.84 kg; Height mf3 5 ft. 6 in. ; 23:58 BP 117 / 89; Pulse 76; Resp 19; Pulse Ox 99% ; mf3 10/27 01:49 BP 99 / 76; Pulse 92; Resp 18; Temp 98.2; Pulse Ox 98% ; Pain 0/10; bm8 10/26 23:51 Body Mass Index 26.63 (74.84 kg, 167.64 cm) 3 10/27 01:49 Pain Scale: Adult bm8 Jona Coma Score: 18:55 Eye Response: spontaneous(4). Motor Response: obeys commands(6). Verbal Response: sp4 oriented(5). Total: 15. 18:55 Eye Response: spontaneous(4). Motor Response: obeys commands(6). Verbal Response: sp4 oriented(5). Total: 15. ED Course: 10/26 23:32 Patient arrived in ED. br2 23:39 Jose Thomas MD is Attending Physician. sp4 23:50 Mary Coppola, RN is Primary Nurse. 3 23:53 Triage completed. 3 23:53 Arm band placed on right wrist. 3 23:55 Bed in low position. Call light in reach. Side rails up X2. Provided Education on: pt 3 educated on plan of care. 23:59 CT Head Brain wo Cont In Process Unspecified. EDCT 10/27 02:17 No provider procedures requiring assistance completed. Patient did not have IV access bm8 during this emergency room visit. Administered Medications: 02:17 Drug: Ibuprofen PO 800 mg PO once Route: PO; bm8 02:18 Follow up: Response: No adverse reaction bm8 02:17 Drug: Acetaminophen PO 1000 mg PO once Route: PO; bm8 02:18 Follow up: Response: No adverse reaction 8 Medication: 10/26 23:55 VIS not applicable for this client. 3 Outcome: 10/27 02:09 Discharge ordered by . sp4 02:17 Discharged to home ambulatory, bm8 02:17 Condition: stable 02:17 Discharge instructions given to patient, Instructed on discharge instructions, follow up and referral plans. Demonstrated understanding of instructions, follow-up care, 02:18 Patient left the ED. bm8 Signatures: Dispatcher [employer] [facility] Jose Thomas MD MD sp4 Fred Wild, RN RN bm8 Shaylee Cabrera, RN KARINA br2 Mary Coppola RN RN 3
--- NOTE | 2024-10-27 02:43 | RAD REPORT ---
EXAM: CT Head Without Intravenous Contrast CLINICAL HISTORY: The patient is 64 years old and is Male; head injury TECHNIQUE: Axial computed tomography images of the head/brain without intravenous contrast. Sagittal and cor onal reformatted images were created and reviewed. This CT exam was performed using one or more of the following dose reduction techniques: automated exposure control, adjustment of the mA and/or kV according to patient size, and/or use of iterative reconstruction technique. COMPARISON: October 21, 2018 FINDINGS: BRAIN: Encephalomalacia within the right temporal and parietal lobes is noted. Evidence of prior right basal ganglia lacunar infarct is noted. There is diffuse cerebral atrophy present. There is patchy hypoattenuation of the deep white matter which is non-specific, but most likely owing to chron ic small vessel ischemic change in a patient of this age group. No intracranial hemorrhage, mass effect, midline shift is seen. There are no extra-axial fluid collections. VENTRICLES: Unremarkable. No ventriculomegaly. BONES/JOINTS: No acute fracture. SOFT TISSUES: Unremarkable. SINUSES: Unremarkable as visualized. No acute sinusitis. MASTOID AIR CELLS: Unremarkable as visualized. No mastoid effusion. ORBITS: Unremarkable as visualized. IMPRESSION: No acute intracranial findings. Electronically signed by: Ana Flood MD 10/27/2024 01:03 AM CDT RP Due to temporary technical issues with the PACS/[employer] reporting system, reports are being sarah d by the in-house radiologist without review as a courtesy to ensure prompt reporting the interpreting radiologist is fully responsible for the content of the report. Transcribed Date/Time: 10/27/2024 2:43 AM
[2024-10-27 06:58] VITALS: TEMP 98.2
[2024-10-27 07:04] VITALS: BP 99/76; O2SAT 98
== END 2024-10-27 02:18 | disposition home or self-care (01) ==
LOC: ER 23:21
DX: S00.03XA Contusion of scalp, initial encounter (principal); W17.89XA Other fall from one level to another, initial encounter; Z59.00 Homelessness unspecified
CPT/HCPCS: 70450

== ENCOUNTER 2024-12-08 10:25 | Inpatient (IN) | payer OTHER ==
--- OUTSIDE RECORDS SUMMARY | 2024-12-08 10:29 | XMS REPORT | Continuity of Care Document ---
Author Name Unknown Address [address] [address] [place] [address] [facility] Address [address] [facility] [address] [place] [address] Care Team Providers Care General Purchasing Agent Name Role Phone Pcp, Patient Does Not Have A Primary Care Physic billy Doctor Unassigned, [place] Attending Clinician U MIKEY Lopez Attending Clinician Unavailable Mikey Fernandes DO Attending Clinician [phone] Doctor Unassigned, [place] Attending Clinician U Maxine Espinal NP Attending Clinician [phone] Yelena Vyas RN Attending Clinician Unavailable [facility], Acute [facility] Attending Clinician UnaMaria De Jesus Falk Attending Clinician [phone] MIKEY FERNANDES Admitting Clinician Unavailable Payers Payer Name Policy Type Policy Number Effective Date Expirati on Date Source Problems Condition Name Condition Details Condition Category Status Onset Date Resolution Date Last Treatment Date Treating Clinician Comments Source No known active problems No known active problems Disease [facility] Allergies, Adverse Reactions, Alerts Allergy Name Allergy Type Status Severity Reaction(s) Onset Date Inactive Date Treating Clinician Comments Source NO KNOWN ALLERGIE S Drug Class Active [facility] Social History Social Habit Start Date Stop Date Quantity Comments Source History of tobacco use Smokes tobacco daily [facility] Sexual orientation U [facility] Exposure to SARS-CoV-2 (event) 2021-04-02 00:00:00 2021-05-02 12:59:00 Not sure [facility] History of Social function 2020-11-01 00:00:00 2020-11-01 00:00:00 [facility] Alcohol intake 2020-11-01 00:00:00 2020-11-01 00:00:00 Current non-drinker of alcohol (finding) [facility] Alcoholic beverage intake 2017-04-24 00:00:00 2017-04-24 00:00:00 Current non-drinker of alcohol (finding) [facility] Tobacco use and exposure 2017-04-24 00:00:00 2017-04-24 00:00:00 Smokeless tobacco non-user [facility] Sex assigned at 1960 00:00:00 1960 00:00:00 [facility] Smoking Status Start Date Stop Date Source Smokes tobacco daily 2017-04-09 00:00:00 [facility] Medications Ordered Medication Name Filled Medication Name Start Date Stop Date Current Medication? Ordering Clinician Indication Dosage Frequency Signature (SIG) Comments Components Source naproxen sodium (ANAPROX DS) 550 mg tablet 05-02 00:00: 00 Yes [id number] 550mg Take 1 tablet by mouth 2 (two) times daily with meals. [facility] predniSONE 10 mg tablet 04-11 00:00: 00 Yes [id number] Take bid for 1 week then QD thereafter for lupus [facility] predniSONE 5 mg tablet 11-15 00:00: 00 11-30 04:59 :00 No [id number] Take 1 tablet by mouth daily for 7 days, THEN 0.5 tablets daily for 7 days. [facility] predniSONE (DELTASONE) 20 mg tablet 11-01 21:01: 23 11-01 00:00 :00 No 20mg Take 20 mg by mouth daily. [facility] predniSONE 20 mg tablet 11-01 00:00: 00 11-16 04:59 :00 No [id number] Take 0.5 tablets by mouth 2 (two) times daily for 7 days, THEN 0.5 tablets daily for 7 days. [facility] methylPREDN ISolone (MEDROL, SUZY,) 4 mg tablets 07 00:00: 00 11-01 00:00 :00 No 84mg Take 21 tablets by mouth SEE-INSTRU CTIONS. follow package directions [facility] predniSONE (DELTASONE) 20 mg tablet 06-19 14:00: 56 Yes 20mg Take 20 mg by mouth daily. [facility] traMADOL 50 mg tablet 04-28 00:00: 00 11-01 00:00 :00 No 50mg Take 1 tablet by mouth every 4 (four) hours as needed for Pain (scale 4-6) or Pain unrelieved by non-narcot ic analgesics . [facility] acetaminoph en-codeine (TYLENOL-CO DEINE #3) 300-30 mg tablet 04-11 00:00: 00 11-01 00:00 :00 No 1-2 by mouth every 4-6 hours as needed prn pain [facility] docusate (COLACE) 100 mg capsule 06-27 00:00: 00 11-01 00:00 :00 No 100mg Take 1 capsule by mouth 3 (three) times daily. [facility] Polyethylen e Glycol 3350 (MIRALAX) 17 gram powder 06-27 00:00: 00 11-01 00:00 :00 No 1{packe t} Take 1 Packet by mouth 2 (two) times daily. [facility] Vital Signs Vital Name Observation Time Observation Value Comments S ource Systolic blood pressure 2021-05-02 18:52:58 140 mm[Hg] [facility] Diastolic blood pressure 2021-05-02 18:52:58 82 mm[Hg] [facility] Heart rate 2021-05-02 18:52:58 88 /min [facility] Respiratory rate 2021-05-02 18:52:58 18 /min [facility] Oxygen saturation in Arterial blood by Pulse oximetry 2021-05-02 18:52:58 99 /min [facility] Body temperature 2021-05-02 16:31:00 36.44 J[facility]ie [facility] Body weight 2021-05-02 16:30:00 90.719 kg [facility] BMI 2021-05-02 16:30:00 26.39 kg/m2 [facility] Systolic blood pressure 2021-04-11 18:06:00 143 mm[Hg] [facility] Diastolic blood pressure 2021-04-11 18:06:00 91 mm[Hg] [facility] Heart rate 2021-04-11 18:04:00 60 /min [facility] Body temperature 2021-04-11 18:04:00 37.06 [facility] Respiratory rate 2021-04-11 18:04:00 18 /min [facility] Body weight 2021-04-11 18:04:00 90.719 kg [facility] BMI 2021-04-11 18:04:00 26.39 kg/m2 [facility] Oxygen saturation in Arterial blood by Pulse oximetry 2021-04-11 18:04:00 96 /min [facility] Systolic blood pressure 2020-11-01 20:25:00 149 mm[Hg] [facility] Diastolic blood pressure 2020-11-01 20:25:00 110 mm[Hg] [facility] Heart rate 2020-11-01 20:25:00 75 /min [facility] Body temperature 2020-11-01 20:25:00 36.33 [facility] Respiratory rate 2020-11-01 20:25:00 18 /min [facility] Body weight 2020-11-01 20:25:00 90.719 kg [facility] BMI 2020-11-01 20:25:00 26.39 kg/m2 [facility] Oxygen saturation in Arterial blood by Pulse oximetry 2020-11-01 20:25:00 95 /min [facility] Systolic blood pressure 2019-06-24 15:29:00 156 mm[Hg] [facility] Diastolic blood pressure 2019-06-24 15:29:00 97 mm[Hg] [facility] Heart rate 2019-06-24 15:29:00 66 /min [facility] Body temperature 2019-06-24 15:22:00 36.67 [facility] Respiratory rate 2019-06-24 15:22:00 18 /min [facility] Body height 2019-06-24 15:22:00 185.4 cm [facility] Body weight 2019-06-24 15:22:00 90.719 kg [facility] BMI 2019-06-24 15:22:00 26.39 kg/m2 [facility] Oxygen saturation in Arterial blood by Pulse oximetry 2019-06-24 15:22:00 95 /min [place] [facility] Procedures Procedure Date / Time Performed Performing Clinicia n Source XR KNEE 3 VW LEFT 2021-05-02 16:49:35 Singer [facility] CONSENT/REFUSAL FOR DIAGNOSIS AND TREATMENT 2021-05-02 16:22:18 Doctor Unassigned, [facility] [facility] COMP. METABOLIC PANEL (72516) 2021-04-11 19:06:00 Mikey Fernandes [facility] CBC WITH DIFF 2021-04-11 19:06:00 Mikey Fernandes [facility] NOTICE OF PRIVACY PRACTICES 2021-04-11 17:29:34 Doctor Unassigned, [place] [facility] CONSENT/REFUSAL FOR DIAGNOSIS AND TREATMENT 2021-04-11 17:29:14 Doctor Unassigned, [place] [facility] CONSENT/REFUSAL FOR DIAGNOSIS AND TREATMENT 2020-11-01 20:11:27 Doctor Unassigned, [place] [facility] MEDICAL RELEASE/CLEARANCE FORMS 2017-07-08 05:01:00 Doctor Unassigned, [place] [facility] DISABILITY/FMLA 2017-06-24 05:01:00 Doctor Unass igned, [place] [facility] DISABILITY/FMLA 2017-04-28 06:01:00 Doctor Unass igned, [place] [facility] DISABILITY/FMLA 2017-04-10 06:01:00 Doctor Unass igned, [place] [facility] Encounters Start Date/Time End Date/Time Encounter Type Admission Type Attending [facility] Care Facility Care Department Encounter ID Source 2021-01-08 18:06:45 Emergency [facility] [id number] [facility] 2017-04-09 00:00:00 2024-04-24 03:27:24 Orders Only Doctor Unassigned, [place] Doctor Unassigned, [place] [facility] 1.2.840.114 350.1.13.10 4.2.7.2.686 [id number] [id number] [facility] 2017-04-24 00:00:00 2024-04-24 03:26:15 Orders Only Doctor Unassigned, [place] Doctor Unassigned, [place] [facility] 1.2.840.114 350.1.13.10 4.2.7.2.686 [id number] [facility] 2017-05-22 00:00:00 2024-04-24 03:24:23 Orders Only Doctor Unassigned, [place] Doctor Unassigned, [place] [facility] 1.2.840.114 350.1.13.10 4.2.7.2.686 [id number] [facility] 2017-06-19 00:00:00 2024-04-24 03:22:22 Orders Only Doctor Unassigned, [place] Doctor Unassigned, [place] [facility] 1.2.840.114 350.1.13.10 4.2.7.2.686 [id number] [facility] 2017-07-03 00:00:00 2024-04-24 03:20:36 Orders Only Doctor Unassigned, [place] Doctor Unassigned, [place] [facility] 1.2.840.114 350.1.13.10 4.2.7.2.686 [id number] [facility] 2017-07-14 00:00:00 2024-04-24 03:19:32 Orders Only Doctor Unassigned, [place] Doctor Unassigned, [place] [facility] 1.2.840.114 350.1.13.10 4.2.7.2.686 [id number] [facility] 2021-05-02 10:34:00 2021-05-02 12:59:00 Emergency MIKEY GARCIA [facility] [id number] [facility] 2021-05-02 10:34:00 2021-05-02 12:59:00 Emergency Mikey Fernandes [facility] 1.2.840.114 350.1.13.10 4.2.7.2.686 [id number] [facility] 2021-05-02 00:00:00 2021-05-02 00:00:00 Orders Only Doctor Unassigned, [place]ball [facility] 1.2840.114 350.1.13.10 4.2.7.2.686 [id number] [facility] 2021-04-11 12:06:00 2021-04-11 13:47:00 Emergency X MIKEY FERNANDES [facility] [id number] [facility] 2021-04-11 12:06:00 2021-04-11 13:47:00 Emergency Singer Mikey [facility] 1.2840.114 350.1.13.10 4.2.7.2.686 [id number] [facility] 2020-11-01 15:27:00 2020-11-01 16:34:00 Emergency Marino Maxine Cespedes [facility] 1.2.840.114 350.1.13.10 4.2.7.2.686 [id number] [facility] 2020-11-01 00:00:00 2020-11-01 00:00:00 Orders Only Doctor Unassigned, Kimball [facility] 1.2.840.114 350.1.13.10 4.2.7.2.686 [id number] [id number] [facility] 2019-06-25 00:00:00 2019-06-25 00:00:00 Telephone Yelena Vyas [facility] 1.2.840.114 350.1.13.10 4.2.7.2.686 [id number] [facility] 2019-06-24 10:06:34 2019-06-24 10:26:34 Urgent Care [facility] 1.2840.114 350.1.13.10 4.2.7.2.686 [id number] [facility] 2019-06-24 10:00:00 2019-06-24 10:00:00 Outpatient R [facility] [id number] [facility] Results Test Description Test Time Test Comments Results Result Co mments Source [facility] WITH [id number] 19:22:10* Test Item Value Reference Range Interpretation Comme nts WBC (test code = 6690-2) See_Comment [Automated [employer]] The system which generated this result transmitted reference range: 4.20 - 10.70 10*3/?L. The reference range was not used to interpret this result as normal/abnormal. RBC (test code = 789-8) See_Comment [Automated [employer]] The system which generated this result [...] 31.8 g/dL 31.2-35.0 RDW-SD (test code = 73351-8) 46.4 fL 38.5-51.6 RDW-CV (test code = 788-0) 12.9 % 12.1-15.4 PLT (test code = 777-3) See_Comment [Automated messa ge] The system which generated this result transmitted reference range: 150 - 328 10*3/?L. The reference range was not used to interpret this result as normal/abnormal. MPV (test code = 49346-6) 11.7 fL 9.8-13.0 NRBC/100 WBC (test code = 0944693364) See_Comment [Automated [employer] ssage] The system which generated this result transmitted reference range: 0.0 - 10.0 /100 WBCs. The reference range was not used to interpret this result as normal/abnormal. NRBC x10^3 (test code = 6189937165) <0.01 See_Comment [Automated messa ge] The system which generated this result transmitted reference range: 10*3/?L. The reference range was not used to interpret this result as normal/abnormal. GRAN MAT (NEUT) % (test code = 770-8) 68.0 % IMM GRAN % (test code = 9494303575) 0.50 % LYMPH % (test code = 736-9) 16.9 % MONO % (test code = 5905-5) 10.5 % EOS % (test code = 713-8) 3.4 % BASO % (test code = 706-2) 0.7 % GRAN MAT x10^3(ANC) (test code = 6534143315) 2.98 10*3/uL 1.99-6.95 IMM GRAN x10^3 (test code = 9854448677) <0.03 0.00-0.06 LYMPH x10^3 (test code = 731-0) 0.74 10*3/uL 1.09-3.23 L MONO x10^3 (test code = 742-7) 0.46 10*3/uL 0.36-1.02 EOS x10^3 (test code = 711-2) 0.15 10*3/uL 0.06-0.53 BASO x10^3 (test code = 704-7) 0.03 10*3/uL 0.01-0.09 Lab Interpretation (test code = 94755-7) Abnormal [facility]
[2024-12-08 11:27] LABS: Absolute Lymphocytes (CBC) 0.3 K/uL (0.7-4.9); Hematocrit 34.9 % (39.6-49.0); Hemoglobin 11.2 g/dL (13.6-17.9); MCH 28.3 pg (27.0-35.0); MCHC 32.0 g/dL (32.0-36.0); MCV 88.3 fL (80-100); MPV 8.8 fL (7.6-11.3); Nucleated RBC Absolute Count 0.0 (0-0); Nucleated Red Blood Cells % 0.0 % (0-0); RBC Red Blood Cell Count 3.95 M/uL (4.33-5.43); White Blood Count 3.30 thou/uL (4.3-10.9)
[2024-12-08 11:37] LABS: PT Prothrombin Time 14.1 SECONDS (10-13.0); PTT, Activated Partial Thromb 42.3 SECONDS (27.2-37.4); Protime INR 1.26
[2024-12-08 11:52] LABS: AST/SGOT 19 U/L (15-37); Albumin 2.6 g/dL (3.4-5.0); Albumin/Globulin Ratio 0.4 (1.1-1.8); Alkaline Phosphatase 60 U/L (45-117); Anion Gap 10.0 mEq/L (5.0-15.0); BUN Blood Urea Nitrogen 14 mg/dL (7-18); Globulin 5.8 g/dL (2.3-3.5); Glucose Level 115 mg/dL (74-106); NT PRO-BNP 746 pg/mL (<125); Potassium 4.0 mEq/L (3.5-5.1); Troponin High Sensitivity 8.5 pg/mL (<58.9)
[2024-12-08 11:57] LABS: ALT/SGPT < 14 U/L (16-61)
--- NOTE | 2024-12-08 11:58 | RAD REPORT ---
EXAM: Chest Pa And Lat (2 Views) HISTORY: 64 years Male COUGH COMPARISON: 09/26/2024 FINDINGS: LUNGS/PLEURA: The lungs are clear. No pleural effusions or pneumothorax. No pulmonary edema. Emphysem a. CARDIAC/MEDIASTINUM: The cardiac silhouette is within normal limits. UPPER ABDOMEN: No significant abnormality. BONES: No acute abnormality. LINES/TUBES/OTHER: N/A IMPRESSION: No evidence of acute cardiopulmonary disease.
--- NOTE | 2024-12-08 12:05 | EDPHYS ---
Physician Documentation [facility] Name: Klever Clarke Age: 64 yrs Sex: Male : 1960 Arrival Date: 12/08/2024 Time: 10:25 Bed 5 Private MD: ED Physician Master Foy HPI: 12/08 11:37 This 64 yrs old Male presents to ER via Ambulatory with complaints of Chest Pain, ms3 Congestion. 11:37 64-year-old male with past medical history of COPD, kidney stones, back pain, lupus ms3 presents to the emergency department for cough and congestion that has been ongoing for 2 weeks and has progressively gotten worse. Patient states he was seen in the emergency department diagnosed with a lung infection and could not afford his antibiotics. . Historical: - Allergies: 10:46 No Known Allergies; dd2 - PMHx: 10:46 COPD; Kidney stones; low back pain; Lupus; dd2 - PSHx: 10:46 None; dd2 - Immunization history:: Adult Immunizations unknown. - Infectious Disease History:: Denies. - Social history:: Smoking status: Patient/guardian denies using tobacco, Stopped _ months ago 1. ROS: 11:37 Constitutional: Negative for fever, and chills. Cardiovascular: Negative for chest ms3 pain, and palpitations. 11:37 MS/Extremity: Negative for injury and deformity, Skin: Negative for injury, rash, and discoloration, 11:37 Cardiovascular: Positive for chest pain, 11:37 Respiratory: Positive for cough, shortness of breath, Exam: 11:37 Constitutional: This is a well developed, well nourished patient who is awake, alert, ms3 and in no acute distress. Cardiovascular: Regular rate and rhythm with a normal S1 and S2. No gallops, murmurs, or rubs. Normal PMI, no JVD. No pulse deficits. Abdomen/GI: Soft, non-tender, with normal bowel sounds. No distension or tympany. No guarding or rebound. No evidence of tenderness throughout. Skin: Warm, dry with normal turgor. Normal color with no rashes, no lesions, and no evidence of cellulitis. 11:37 Respiratory: mild respiratory distress is noted, Respirations: normal, Breath sounds: rhonchi, are heard diffusely, 11:40 ECG was reviewed by the Attending Physician. ms3 Vital Signs: 10:43 BP 107 / 83; Pulse 109; Resp 18; Temp 98.6; Pulse Ox 100% on R/A; Pain 2/10; dd2 11:05 BP 106 / 86; Pulse 96; Resp 16; Pulse Ox 98% on R/A; db 12:30 BP 101 / 79; Pulse 81; Resp 15; Pulse Ox 96% on R/A; db 13:30 BP 106 / 76; Pulse 89; Resp 20; Pulse Ox 100% ; db 10:43 Pain Scale: Adult dd2 MDM: 10:58 Medical Screening Exam initiated ms3 11:37 Differential diagnosis: pneumonia, pneumothorax, Bronchitis. ms3 12:04 Data reviewed: vital signs, nurses notes, lab test result(s), EKG, radiologic studies, ms3 and as a result, I will admit patient. Consideration of Admission/Observation Patient was admitted/placed on observation. Management of patient was discussed with the following: Hospitalist: [place] on behalf of Dr Anne. I considered the following discharge prescriptions or medication management in the emergency department Medications were administered in the Emergency Department. See MAR. Independent interpretation of the following test(s) in the Emergency Department X-Ray: My interpretation is CXR images reviewed by me do not reveal consolidation. Counseling: I had a detailed discussion with the patient and/or guardian regarding the historical points, exam findings, and any diagnostic results supporting the discharge/admit diagnosis, lab results, radiology results, the need for further work-up and treatment in the hospital. ED course: Discussed necessity for admission with patient. Patient understands agrees to plan. All questions were answered.. 12/08 10:58 Order name: CBC with Diff; Complete Time: 11:37 ms3 12/08 10:58 Order name: CMP; Complete Time: 11:58 ms3 12/08 11:11 Order name: Blood Culture Adult (2) bp 12/08 11:11 Order name: Lactate w/ 2H reflex if indic.; Complete Time: 12:00 bp 12/08 11:11 Order name: Protime (+inr); Complete Time: 11:58 bp 12/08 11:11 Order name: Ptt, Activated; Complete Time: 11:58 bp 12/08 11:29 Order name: Troponin High Sensitivity; Complete Time: 11:58 EDMS 12/08 11:29 Order name: NT PRO-BNP; Complete Time: 11:58 EDMS 12/08 12:03 Order name: Ghost Lactate-NO COLLECT Timer EDMS 12/08 12:14 Order name: COVID-19 Ag + Flu A+B Ag la1 12/08 12:27 Order name: Basic Metabolic Panel EDMS 12/08 12:27 Order name: Basic Metabolic Panel EDMS 12/08 12:27 Order name: Basic Metabolic Panel EDMS 12/08 12:27 Order name: Basic Metabolic Panel EDMS 12/08 12:27 Order name: Basic Metabolic Panel EDMS 12/08 12:27 Order name: CBC with Automated Diff EDMS 12/08 12:27 Order name: CBC with Automated Diff EDMS 12/08 12:27 Order name: CBC with Automated Diff EDMS 12/08 12:27 Order name: CBC with Automated Diff EDMS 12/08 12:27 Order name: CBC with Automated Diff EDMS 12/08 12:27 Order name: T4 Free EDMS 12/08 12:27 Order name: T4 Free EDMS 12/08 12:27 Order name: Thyroid Stimulating Hormone EDMS 12/08 12:27 Order name: Thyroid Stimulating Hormone EDMS 12/08 10:58 Order name: Chest Pa And Lat (2 Views) XRAY; Complete Time: 11:58 ms3 12/08 11:11 Order name: EKG; Complete Time: 11:12 bp 12/08 11:11 Order name: Accucheck; Complete Time: 11:12 bp 12/08 11:11 Order name: Cardiac monitoring; Complete Time: 11:12 bp 12/08 11:11 Order name: EKG - Nurse/Tech; Complete Time: 11:12 bp 12/08 11:11 Order name: IV Saline Lock - Large Bore; Complete Time: 11:12 bp 12/08 11:11 Order name: Labs collected and sent; Complete Time: 11:11 bp 12/08 11:11 Order name: O2 Per Protocol; Complete Time: 11:11 bp 12/08 11:11 Order name: O2 Sat Monitoring; Complete Time: 11:11 bp 12/08 11:11 Order name: Vital Signs; Complete Time: 11:11 bp EC:40 Rate is 96 beats/min. Rhythm is regular. Left axis deviation noted. SC interval is ms3 normal. QRS interval is normal. Clinical impression: NSR w/ Non-specific ST/T Changes. Interpreted by me. Reviewed by me. Administered Medications: 12:45 Drug: Rocephin IV 1 grams IV at calculated rate once; Given slow IV push per pharmacy bp instructions Route: IV; Rate: calculated rate; Site: right forearm; 14:09 Follow up: Response: No adverse reaction; IV Status: Completed infusion; IV Intake: 50mldb 12:45 Drug: AZITHromycin IVPB 500 mg IVPB once over 1 hrs; (mix in 250 mL NS) Route: IVPB; bp Infused Over: 1 hrs; Site: right forearm; 14:08 Follow up: Response: No adverse reaction; IV Status: Completed infusion; IV Intake: db 250ml 12:45 Drug: MethylPrednisoLONE IVP 125 mg IVP once Route: IVP; Site: right forearm; bp 14:08 Follow up: Response: No adverse reaction db 12:45 Drug: DuoNeb Nebulize (2.5 mg - 0.5 mg) 3 ml Nebulizer once Route: Nebulizer; bp 14:08 Follow up: Response: No adverse reaction db Disposition Summary: 12/08/24 12:04 Hospitalization Ordered Notes: Hospitalization Status: Inpatient Admission ms3 Provider: Lynn Anne ms3 Location: Telemetry/MedSurg (Inpatient) ms3 Condition: Stable ms3 Problem: new ms3 Symptoms: are unchanged ms3 Bed/Room Type: Standard ms3 Room Assignment: 425(12/08/24 12:33) bd Diagnosis - Severe sepsis without septic shock ms3 - Other pneumonia, unspecified organism ms3 Forms: - Medication Reconciliation Form ms3 - SBAR form ms3 - Leadership Thank You Letter ms3 Signatures: Dispatcher [employer] EDMS Paige William bd Bismark Murry, AIRPLANE DISPATCH CLERK-C AIRPLANE DISPATCH CLERK-Cla1 Len Dumont, RN RN bp Master Foy DO DO ms3 Manuela Benavides, RN RN db SERGEY ALY RN RN dd2 Corrections: (The following items were deleted from the chart) 11:28 11:12 PROBNP+C.LAB.BRZ ordered. EDMS EDMS 11:28 11:12 Troponin High Sensitivity+C.LAB.BRZ ordered. EDMS EDMS 12:33 12:04 ms3 bd
--- NOTE | 2024-12-08 12:05 | ER ---
Nurse's Notes [facility] Name: Klever Clarke Age: 64 yrs Sex: Male : 1960 Arrival Date: 12/08/2024 Time: 10:25 Bed 5 Private MD: Diagnosis: Severe sepsis without septic shock;Other pneumonia, unspecified organism Presentation: 12/08 10:43 Chief complaint: Patient states: HE IS COUGHING A LOT, THICK MUCUS COMING UP AND FEELS dd2 IT IN HIS LUNGS AND PAIN IN HIS CHEST WHEN HE COUGHS. PT REPORTS HERE A FEW WEEKS AGO BUT WAS UNABLE TO GET THE MEDICATION. ALSO REPORTS URINARY FREQUENCY AND ODOR IN URINE. Coronavirus screen: At this time, the client does not indicate any symptoms associated with coronavirus-19. Ebola Screen: No symptoms or risks identified at this time. Initial Sepsis Screen: Does the patient meet any 2 criteria? No. Patient's initial sepsis screen is negative. Does the patient have a suspected source of infection? No. Patient's initial sepsis screen is negative. Risk Assessment: Do you want to hurt yourself or someone else? Patient reports no desire to harm self or others. Onset of symptoms is unknown. 10:43 Method Of Arrival: Ambulatory dd2 10:43 Acuity: NHI 3 dd2 Triage Assessment: 10:46 General: Appears in no apparent distress. ill, Behavior is calm, cooperative, dd2 appropriate for age. Pain: Complains of pain in chest Pain currently is 2 out of 10 on a pain scale. at worst was 10 out of 10 on a pain scale. Aggravated by COUGHING. Cardiovascular: Reports chest pain, WHEN COUGHING. Respiratory: Reports cough that is pain with cough. 10:46 : Reports urinary frequency, ODOR IN URINE. dd2 Historical: - Allergies: 10:46 No Known Allergies; dd2 - PMHx: 10:46 COPD; Kidney stones; low back pain; Lupus; dd2 - PSHx: 10:46 None; dd2 - Immunization history:: Adult Immunizations unknown. - Infectious Disease History:: Denies. - Social history:: Smoking status: Patient/guardian denies using tobacco, Stopped _ months ago 1. Screenin:20 [facility] ED Fall Risk Assessment (Adult) History of falling in the last 3 months, db including since admission No falls in past 3 months (0 pts) Confusion or Disorientation No (0 pts) Intoxicated or Sedated No (0 pts) Impaired Gait Yes (1 pt) Mobility Assist Device Used Yes (1 pt) Altered Elimination No (0 pt) Score/Fall Risk Level 0 - 2 = Low Risk Oriented to surroundings, Maintained a safe environment. Abuse screen: Denies threats or abuse. Denies injuries from another. Nutritional screening: No deficits noted. Tuberculosis screening: No symptoms or risk factors identified. Assessment: 11:18 Reassessment: Patient appears in no apparent distress at this time. Patient and/or db family updated on plan of care and expected duration. Pain level reassessed. Patient is alert, oriented x 3, equal unlabored respirations, skin warm/dry/pink. General: Appears in no apparent distress. uncomfortable, Behavior is calm, cooperative. Pain: Complains of pain in chest Pain does not radiate. Pain began 2 WEEKS AGO. Neuro: Level of Consciousness is awake, alert, obeys commands, Oriented to person, place, time, situation, Speech is normal. Cardiovascular: Reports chest pain. Respiratory: Airway is patent Respiratory effort is even, unlabored, Respiratory pattern is regular, symmetrical. EENT: Reports CHEST CONGESTION. 12:46 Reassessment: Patient appears in no apparent distress at this time. Patient and/or db family updated on plan of care and expected duration. Pain level reassessed. Patient is alert, oriented x 3, equal unlabored respirations, skin warm/dry/pink. 13:55 Reassessment: Patient appears in no apparent distress at this time. Patient and/or db family updated on plan of care and expected duration. Pain level reassessed. Patient is alert, oriented x 3, equal unlabored respirations, skin warm/dry/pink. Vital Signs: 10:43 BP 107 / 83; Pulse 109; Resp 18; Temp 98.6; Pulse Ox 100% on R/A; Pain 2/10; dd2 11:05 BP 106 / 86; Pulse 96; Resp 16; Pulse Ox 98% on R/A; db 12:30 BP 101 / 79; Pulse 81; Resp 15; Pulse Ox 96% on R/A; db 13:30 BP 106 / 76; Pulse 89; Resp 20; Pulse Ox 100% ; db 10:43 Pain Scale: Adult dd2 ED Course: 10:39 Patient arrived in ED. cj3 10:39 Master Foy DO is Attending Physician. ms3 10:46 Triage completed. dd2 10:46 Arm band placed on left wrist. dd2 11:07 Len Dumont, RN is Primary Nurse. bp 11:10 Inserted saline lock: 22 gauge in right forearm, using aseptic technique. Blood bp collected. Flushed with 10 mL NS. 11:10 Initial lab(s) drawn, by me, sent to lab. First set of blood cultures drawn by me, bp Second set of blood cultures drawn by me, EKG done, by ED staff, reviewed by Master Foy DO. 11:22 Patient has correct armband on for positive identification. Bed in low position. Call db light in reach. Side rails up X 1. Client placed on continuous cardiac and pulse oximetry monitoring. NIBP monitoring applied. gambling monitor on. Pulse ox on. NIBP on. Warm blanket given. Pillow given. 11:52 Chest Pa And Lat (2 Views) XRAY In Process Unspecified. EDMS 12:04 Lynn Anne MD is Hospitalizing Provider. ms3 12:36 COVID-19 Ag + Flu A+B Ag Sent. ts3 13:55 Provided Education on: ADMISSION. db 13:55 No provider procedures requiring assistance completed. Patient admitted, IV remains in db place. Patient maintains SpO2 saturation greater than 95% on room air. Administered Medications: 12:45 Drug: Rocephin IV 1 grams IV at calculated rate once; Given slow IV push per pharmacy bp instructions Route: IV; Rate: calculated rate; Site: right forearm; 14:09 Follow up: Response: No adverse reaction; IV Status: Completed infusion; IV Intake: 50mldb 12:45 Drug: AZITHromycin IVPB 500 mg IVPB once over 1 hrs; (mix in 250 mL NS) Route: IVPB; bp Infused Over: 1 hrs; Site: right forearm; 14:08 Follow up: Response: No adverse reaction; IV Status: Completed infusion; IV Intake: db 250ml 12:45 Drug: MethylPrednisoLONE IVP 125 mg IVP once Route: IVP; Site: right forearm; bp 14:08 Follow up: Response: No adverse reaction db 12:45 Drug: DuoNeb Nebulize (2.5 mg - 0.5 mg) 3 ml Nebulizer once Route: Nebulizer; bp 14:08 Follow up: Response: No adverse reaction db Medication: 11:32 VIS not applicable for this client. db Intake: 14:08 IV: 250ml; Total: 250ml. db 14:09 IV: 50ml; Total: 300ml. db Outcome: 12:04 Decision to Hospitalize by Provider. ms3 13:55 Admitted to ER Hold. Please see [facility] for further documentation. db 13:55 Condition: stable 13:55 Instructed on the need for admit, 13:58 Patient left the ED. iw Signatures: Dispatcher [employer] EDElham Pena RN RN iw Len Dumont RN RN bp Master Foy DO DO ms3 Manuela Benavides RN RN db SERGEY ALY RN RN dd2 Margarette Gupta 3 Adilia Ervin ts3 Corrections: (The following items were deleted from the chart) 10:48 10:43 Chief complaint: Patient states: HE IS COUGHING A LOT, THICK MUCUS COMING UP AND dd2 FEELS IT IN HIS LUNGS AND PAIN IN HIS CHEST WHEN HE COUGHS. PT REPORTS HERE A FEW WEEKS AGO BUT WAS UNABLE TO GET THE MEDICATION. dd2
[2024-12-08] MEDS ORDERED: ONDANSETRON 4 MG/2 ML VIAL IV PRN (12:21)
[2024-12-08] MEDS ORDERED: ALBUTEROL 2.5 MG/3 ML NEB SOL NEB PRN (12:21)
[2024-12-08] MEDS ORDERED: IPRATROPIUM BROM 0.5MG/2.5ML NEB PRN (12:21)
--- NOTE | 2024-12-08 12:41 | P.HP ---
Certification for Inpatient Patient admitted to: Inpatient With expected LOS: >2 Midnights Patient will require the following post-hospital care: None Practitioner: I am a practitioner with admitting privileges, knowledge of patient current condition, hospital course, and medical plan of care. Services: Services provided to patient in accordance with Admission requirements found in Title 42 Section 412.3 of the Code of Federal Regulations <Bismark Murry - Last Filed: 12/08/24 12:37> Patient History Date of Service: 12/08/24 Reason for admission: COPD exacerbation History of Present Illness: 64-year-old male with history of lupus, COPD presents emergency department chief complaint of cough, shortness of breath and increased pedal production over the course of last 2 weeks. He does smoke around 1 pack/day but has not been smoking for the last 1 week. Patient was evaluated here in the emergency department his labs were significant for a white blood cell 3.3 hemoglobin 11.2 hematocrit 34.9 lactate 2.3 sodium 132 chloride 97 COVID and influenza test are pending chest x-ray showed no acute findings. Patient has SIRS criteria plus a cough, ER concern clinically for pneumonia and diagnosed with severe sepsis and pneumonia. Started on antibiotics Rocephin/symptomatic patient be admitted to hospital for further management of suspected COPD exacerbation and pneumonia with severe sepsis. - Past Medical/Surgical History Diabetic: No -: Systemic lupus erythematous -: COPD -: eye surgery Psychosocial/ Personal History: Lives at home with his friend - Social History Smoking Status: Current every day smoker Alcohol use: Yes CD- Drugs: No Caffeine use: Yes <Bismark Murry - Last Filed: 12/08/24 12:37> Date of Service: 12/08/24 <Lynn Anne - Last Filed: 12/13/24 12:39> Allergies No Known Allergies Allergy (Verified 03/29/17 01:26) Home Medications: Codeine/APAP [Tylenol #3*] 1 tab PO QID 03/29/17 Albuterol Inhaler [Ventolin Inhaler*] 2 puff IH Q6H PRN #1 hfa.aer.ad 03/30/17 Mometasone/Formoterol [Dulera 200 Mcg/5 Mcg Inhaler] 2 puff IH BID #1 inhaler 03/30/17 lisinopriL [Lisinopril] 10 mg PO DAILY #30 tablet 03/30/17 Amox/Clavulanate [Augmentin 875-125 Tab] 875 mg PO BID 7 Days #14 tab 12/09/24 predniSONE [Deltasone*] See Rx Instructions .ROUTE .COMPLEX #35 tab 12/09/24 Review of Systems 10-point ROS is otherwise unremarkable Respiratory: Cough, Shortness of Breath, SOB with Excertion, Sputum, Wheezing <Bismark Murry - Last Filed: 12/08/24 12:37> Physical Examination - Physical Exam General: Alert, In no apparent distress, Oriented x3, Cachectic HEENT: Atraumatic, PERRLA, EOMI Neck: Supple, 2+ carotid pulse no bruit, No LAD Respiratory: Diminished, Expiratory wheezes, Rhonchi/gurgles Cardiovascular: Regular rate/rhythm, Normal S1 S2 Gastrointestinal: Normal bowel sounds, No tenderness Musculoskeletal: No tenderness Integumentary: No rashes Neurological: Normal speech, Normal strength at 5/5 x4 extr, Normal affect - Studies Laboratory Data (last 24 hrs) 12/08/24 12/08/24 12/08/24 11:10 11:10 11:10 WBC 3.30 L Hgb 11.2 L Hct 34.9 L Plt Count 246 PT 14.1 H INR 1.26 APTT 42.3 H Sodium 132 L Potassium 4.0 BUN 14 Creatinine 0.75 Glucose 115 H Total Bilirubin 0.4 AST 19 ALT < 14 L Alkaline Phosphatase 60 <Bismark Murry - Last Filed: 12/08/24 12:37> - Studies Microbiology Data (last 24 hrs): 12/08/24 11:10 Blood - Blood Aerobic Blood Culture - Final No growth in 5 days. 12/08/24 11:10 Blood - Blood Anaerobic Blood Culture - Final No growth in 5 days. 12/08/24 11:00 Blood - Blood Aerobic Blood Culture - Final No growth in 5 days. 12/08/24 11:00 Blood - Blood Anaerobic Blood Culture - Final No growth in 5 days. <Lynn Anne - Last Filed: 12/13/24 12:39> Assessment and Plan - Plan Assessment: COPD with exacerbation Rule out pneumonia with severe sepsis Lupus Plan: COPD with exacerbation Start steroids, nebulizer treatments Pulmonology consultation Start Dulera Counseled on need for tobacco cessation As needed antitussives Rule out pneumonia with severe sepsis Chest x-ray does not show any pneumonia present SIRS criteria plus cough present Continue empiric antibiotics with Rocephin/Zithromax for now Monitor for fevers, CBC Lupus Used to be on chronic prednisone at 10 mg daily, has been off of it for few mo nths now DVT PPX: lovenox Code status: Full code Discharge Plan: Home Plan to discharge in: 72 Hours - Advance Directives Does patient have a Living Will: No Does patient have a Durable POA for Healthcare: No - Code Status/Comfort Care Code Status Assessed: Yes (Full code) Critical Care: No Time Spent Managing Pts Care (In Minutes): 70 <Bismark Murry - Last Filed: 12/08/24 12:37> Date of Service: 12/08/24 Patient was seen and examined. Events of the last 24 hours have been noted. Spoke with with SHEILA regarding patient's clinical picture after evaluating and examining the patient independently. I performed a substantial part of the MDM during this patient's care today. I personally made or approved the documented management plan and acknowledge its risk of complications. I agree with the findings and documentation provided in the SHEILA's notes. <Lynn Anne - Last Filed: 12/13/24 12:39>
[2024-12-08] MEDS ORDERED: METHYLPREDNISOLONE 125 MG INJ ONE (12:49)
[2024-12-08] MEDS ORDERED: AZITHROMYCIN 500 MG INJ IVPB ONE (12:49)
[2024-12-08] MEDS ORDERED: CEFTRIAXONE 1000 MG/VIAL ONE (12:49)
[2024-12-08] MEDS ORDERED: ALBUTEROL 2.5 MG/3 ML NEB SOL ONE (12:49)
[2024-12-08] MEDS ORDERED: IPRATROPIUM BROM 0.5MG/2.5ML ONE (12:49)
[2024-12-08] MEDS ORDERED: NA CHLORIDE 0.9% 250 ML ONE (12:49)
[2024-12-08 13:31] LABS: Influenza A Ag Negative; Influenza B Ag Negative; SARS-CoV-2 Antigen Rapid Res Negative (Negative)
[2024-12-08 14:41] VITALS: BMI 17.7
[2024-12-08] MEDS: GUAIFENESIN 600 MG SA TAB PO SCH (19:50)
[2024-12-08] MEDS: predniSONE 20 MG TAB PO SCH (19:50)
[2024-12-08] MEDS: ACETAMINOPHEN 325 MG TABLET PO PRN (19:50)
[2024-12-08] MEDS: HEPARIN 5000 UNIT/ML 1 ML VIAL SQ SCH (19:51)
[2024-12-08] MEDS: DULERA 200/5 (MOMETASONE/FORMOTEROL) INHALER IH SCH (19:52)
[2024-12-08 22:58] VITALS: O2SAT 99
[2024-12-09 06:17] LABS: Absolute Lymphocytes (CBC) 0.2 K/uL (0.7-4.9); Hematocrit 26.9 % (39.6-49.0); Hemoglobin 9.0 g/dL (13.6-17.9); MCH 29.0 pg (27.0-35.0); MCHC 33.4 g/dL (32.0-36.0); MCV 86.7 fL (80-100); MPV 8.8 fL (7.6-11.3); Nucleated RBC Absolute Count 0.0 (0-0); Nucleated Red Blood Cells % 0.2 % (0-0); RBC Red Blood Cell Count 3.10 M/uL (4.33-5.43); White Blood Count 1.40 thou/uL (4.3-10.9)
[2024-12-09 06:44] LABS: Anion Gap 6.8 mEq/L (5.0-15.0); BUN Blood Urea Nitrogen 16.0 mg/dL (7-18); Glucose Level 127.0 mg/dL (74-106); Potassium 3.8 mEq/L (3.5-5.1); Thyroid Stimulating Hormone 1.01 uIU/mL (0.358-3.740)
[2024-12-09 08:13] VITALS: BP 99/63; TEMP 97.5
[2024-12-09] MEDS: POTASSIUM 25 MEQ EFFERV TAB PO ONE (08:32)
[2024-12-09] MEDS: AMOX/K CLAV 875 MG TAB PO SCH (08:46)
[2024-12-09] MEDS ORDERED: AZITHROMYCIN IV 500 MG in NA CHLORIDE 0.9% 250 ML IVPB SCH (09:00)
[2024-12-09] MEDS ORDERED: CEFTRIAXONE 1,000 MG in NA CHLORIDE 0.9% 50 ML IVPB SCH (09:00)
--- NOTE | 2024-12-09 09:01 | P.DS ---
Admission Date: 12/08/24 Discharge Date: 12/09/24 Reason for Admission: COPD exacerbation Brief History of Present Illness: 64-year-old male with history of lupus, COPD presents emergency department chief complaint of cough, shortness of breath and increased pedal production over the course of last 2 weeks. He does smoke around 1 pack/day but has not been smoking for the last 1 week. Patient was evaluated here in the emergency department his labs were significant for a white blood cell 3.3 hemoglobin 11.2 hematocrit 34.9 lactate 2.3 sodium 132 chloride 97 COVID and influenza test are pending chest x-ray showed no acute findings. Patient has SIRS criteria plus a cough, ER concern clinically for pneumonia and diagnosed with severe sepsis and pneumonia. Started on antibiotics Rocephin/symptomatic patient be admitted to hospital for further management of suspected COPD exacerbation and pneumonia with severe sepsis. Hospital Course: Assessment: COPD with exacerbation Rule out pneumonia with severe sepsis-ruled out Lupus Patient was admitted to hospital for COPD exacerbation. He had rapid improvement/resolution of his symptoms overnight and is feeling much better, his symptoms improved which were given expected. Patient was seen by pulmonology in the hospital, recommends discharge with close outpatient follow-up in the office on Friday, patient will call for an appointment. Prescription for prednisone 10 mg twice daily for 1 week followed by 10 mg once daily for 1 week and Augmentin sent to his [facility] in [place]. Additionally he will continue to use the Dulera inhaler during that time as prescribed. Please call for an appointment to follow-up with Dr. Hastings on Wednesday 12/13. <Bismark Murry - Last Filed: 12/09/24 09:00> Admission Date: 12/08/24 Discharge Date: 12/09/24 Hospital Course: Patient was seen and examined. Events of the last 24 hours have been noted. Spoke with with SHEILA regarding patient's clinical picture after evaluating and examining the patient independently. I performed a substantial part of the MDM during this patient's care today. I personally made or approved the documented management plan and acknowledge its risk of complications. I agree with the findings and documentation provided in the SHEILA's notes. <Lynn Anne - Last Filed: 12/13/24 12:36> Disposition: ROUTINE DISCHARGE Discharge Condition: GOOD Vital Signs/Physical Exam: Temp Pulse Resp BP Pulse Ox 97.5 F 58 18 99/63 98 12/09/24 08:00 12/09/24 08:00 12/09/24 08:00 12/09/24 08:00 12/09/24 08:00 General: Alert, In no apparent distress, Oriented x3 HEENT: Atraumatic, PERRLA Neck: Supple, JVD not distended Respiratory: Clear to auscultation bilaterally, Expiratory wheezes (mild) Cardiovascular: Regular rate/rhythm, Normal S1 S2 Gastrointestinal: Normal bowel sounds, No tenderness Musculoskeletal: No tenderness Integumentary: No rashes Neurological: Normal speech Laboratory Data at Discharge: WBC 1.40 thou/uL (4.3-10.9) L 12/09/24 05:52 Hgb 9.0 g/dL (13.6-17.9) L D 12/09/24 05:52 Hct 26.9 % (39.6-49.0) L 12/09/24 05:52 Plt Count 187 thou/uL (152-406) 12/09/24 05:52 PT 14.1 SECONDS (10-13.0) H 12/08/24 11:10 INR 1.26 12/08/24 11:10 APTT 42.3 SECONDS (27.2-37.4) H 12/08/24 11:10 Sodium 132 mEq/L (136-145) L 12/09/24 05:52 Potassium 3.8 mEq/L (3.5-5.1) 12/09/24 05:52 BUN 16 mg/dL (7-18) 12/09/24 05:52 Creatinine 0.57 mg/dL (0.70-1.30) L 12/09/24 05:52 Glucose 127 mg/dL (74-106) H 12/09/24 05:52 Total Bilirubin 0.4 mg/dL (0.2-1.0) 12/08/24 11:10 AST 19 U/L (15-37) 12/08/24 11:10 ALT < 14 U/L (16-61) L 12/08/24 11:10 Alkaline Phosphatase 60 U/L (45-117) 12/08/24 11:10 <Bismark Murry William - Last Filed: 12/09/24 09:00> Vital Signs/Physical Exam: Temp Pulse Resp BP Pulse Ox 97.5 F 58 18 99/63 98 12/09/24 08:00 12/09/24 08:00 12/09/24 08:00 12/09/24 08:00 12/09/24 08:00 Laboratory Data at Discharge: WBC 1.40 thou/uL (4.3-10.9) L 12/09/24 05:52 Hgb 9.0 g/dL (13.6-17.9) L D 12/09/24 05:52 Hct 26.9 % (39.6-49.0) L 12/09/24 05:52 Plt Count 187 thou/uL (152-406) 12/09/24 05:52 PT 14.1 SECONDS (10-13.0) H 12/08/24 11:10 INR 1.26 12/08/24 11:10 APTT 42.3 SECONDS (27.2-37.4) H 12/08/24 11:10 Sodium 132 mEq/L (136-145) L 12/09/24 05:52 Potassium 3.8 mEq/L (3.5-5.1) 12/09/24 05:52 BUN 16 mg/dL (7-18) 12/09/24 05:52 Creatinine 0.57 mg/dL (0.70-1.30) L 12/09/24 05:52 Glucose 127 mg/dL (74-106) H 12/09/24 05:52 Total Bilirubin 0.4 mg/dL (0.2-1.0) 12/08/24 11:10 AST 19 U/L (15-37) 12/08/24 11:10 ALT < 14 U/L (16-61) L 12/08/24 11:10 Alkaline Phosphatase 60 U/L (45-117) 12/08/24 11:10 <Lynn Anne - Last Filed: 12/13/24 12:36> Diet: Regular Activity: Ad holland Time spent managing pt's care (in minutes): 35 <Bismark Murry - Last Filed: 12/09/24 09:00> <Lynn Anne - Last Filed: 12/13/24 12:36> Home Medications: Codeine/APAP [Tylenol #3*] 1 tab PO QID 03/29/17 Albuterol Inhaler [Ventolin Inhaler*] 2 puff IH Q6H PRN #1 hfa.aer.ad 03/30/17 Mometasone/Formoterol [Dulera 200 Mcg/5 Mcg Inhaler] 2 puff IH BID #1 inhaler 03/30/17 lisinopriL [Lisinopril] 10 mg PO DAILY #30 tablet 03/30/17 Amox/Clavulanate [Augmentin 875-125 Tab] 875 mg PO BID 7 Days #14 tab 12/09/24 predniSONE [Deltasone*] See Rx Instructions .ROUTE .COMPLEX #35 tab 12/09/24 New Medications: Amox/Clavulanate [Augmentin 875-125 Tab] 875 mg PO BID 7 Days #14 tab predniSONE [Deltasone*] See Rx Instructions .ROUTE .COMPLEX #35 tab Physician Discharge Instructions: Patient was admitted to hospital for COPD exacerbation. He had rapid improvement/resolution of his symptoms overnight and is feeling much better, his symptoms improved which were given expected. Patient was seen by pulmonology in the hospital, recommends discharge with close outpatient follow-up in the office on Friday, patient will call for an appointment. Prescription for prednisone 10 mg twice daily for 1 week followed by 10 mg once daily for 1 week and Augmentin sent to his [facility] in [place]. Additionally he will continue to use the Dulera inhaler during that time as prescribed. Please call for an appointment to follow-up with Dr. Hastings on Wednesday 12/13. Followup: Kyler Hastings MD [ACTIVE - CAN ADMIT] - 12/13/24 NONE,NONE [Primary Care Provider] -
[2024-12-09 10:51] LABS: White Blood Cell Scan OK (OK)
[2024-12-09 10:52] LABS: Blood Morphology Comment NOT SEEN (NOT SEEN)
--- NOTE | 2024-12-09 12:36 | P.CNS ---
Date of Consult: 12/09/24 Reason for Consult: COPD exacerbation Chief Complaint: COPD exacerbation History of Present Illness: Patient is 64 years of age with a history of COPD has been sick for about a week has been complaining of fluid in his lung yesterday was worse ended up with c hoking coughing productive mucus ended up here in the hospital he does not take any bronchodilators was used to be on prednisone feeling much better now no fever chills chest pain patient is an active smoker Allergies No Known Allergies Allergy (Verified 03/29/17 01:26) Home Medications: Codeine/APAP [Tylenol #3*] 1 tab PO QID 03/29/17 Albuterol Inhaler [Ventolin Inhaler*] 2 puff IH Q6H PRN #1 hfa.aer.ad 03/30/17 Mometasone/Formoterol [Dulera 200 Mcg/5 Mcg Inhaler] 2 puff IH BID #1 inhaler 03/30/17 lisinopriL [Lisinopril] 10 mg PO DAILY #30 tablet 03/30/17 Amox/Clavulanate [Augmentin 875-125 Tab] 875 mg PO BID 7 Days #14 tab 12/09/24 predniSONE [Deltasone*] See Rx Instructions .ROUTE .COMPLEX #35 tab 12/09/24 - Past Medical/Surgical History Diabetic: No -: Systemic lupus erythematous -: COPD -: eye surgery Psychosocial/ Personal History: Lives at home with his friend - Social History Smoking Status: Current every day smoker Alcohol use: No CD- Drugs: Yes Caffeine use: No Place of Residence: [facility] Review of Systems 10-point ROS is otherwise unremarkable General: Weakness Respiratory: Cough, Shortness of Breath Physical Examination Temp Pulse Resp BP Pulse Ox 97.5 F 58 18 99/63 98 12/09/24 08:00 12/09/24 08:00 12/09/24 08:00 12/09/24 08:00 12/09/24 08:00 General: Alert, Oriented x3 Respiratory: Clear to auscultation bilaterally, Diminished Cardiovascular: No edema, Regular rate/rhythm, Normal S1 S2 Gastrointestinal: Normal bowel sounds, Soft and benign - Problems (1) COPD with acute exacerbation Current Visit: No Status: Acute Plan: Patient is 64 years of age with a history of COPD heavy smoker admitted with an exacerbation chest x-ray shows COPD changes patient is feeling better discharged on prednisone 20 mg twice a day for 5 days then 10 mg a day continue with a long-acting bronchodilator follow-up with me in 2 weeks he will need outpatient PFT has been counseled about smoking labs vital signs all reviewed mildly anemic room air sat is satisfactory discharged home on Augmentin
== END 2024-12-09 12:51 | disposition home or self-care (01) | DRG 191 ==
LOC: ER 10:25 → ERHOLD 12:21 → 4TH 13:10
PROVIDERS: ADMIT Hospitalist; ATTEND Hospitalist
DX: J44.1 Chronic obstructive pulmonary disease with (acute) exacerbation (principal); R64 Cachexia; Z68.1 Body mass index [BMI] 19.9 or less, adult; D64.9 Anemia, unspecified; M32.9 Systemic lupus erythematosus, unspecified; F17.200 Nicotine dependence, unspecified, uncomplicated; T36.96XA Underdosing of unspecified systemic antibiotic, initial encounter; Z11.52 Encounter for screening for COVID-19; Z79.52 Long term (current) use of systemic steroids; Z79.899 Other long term (current) drug therapy; Z91.141 Patient's other noncompliance with medication regimen due to financial hardship
CPT/HCPCS: 36415; 71046; 80048; 80053; 83605; 83880; 84439; 84443; 84484; 85025; 85610; 85730; 87040; 87428; 93005; 96365; 96368; 96375; 99285; J0456; J0696; J1644; J2919; J3535; J7050; J7512; J7613; J7644

== ENCOUNTER 2024-12-15 17:53 | Emergency (ER) | payer OTHER ==
--- OUTSIDE RECORDS SUMMARY | 2024-12-15 17:56 | XMS REPORT | Continuity of Care Document ---
Author Name Unknown Address [address] [facility] [address] [place] [address] Organization [facility] Address [address] [facility]. 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 Role Phone Pcp, Patient Does Not Have A Primary Care Physic billy Doctor Unassigned, [place] Attending Clinician U JERED Lopez Attending Clinician Unavailable Jered Fernandes DO Attending Clinician [phone] Doctor Unassigned, [place] Attending Clinician U dave Pichardo GEOTHERMAL TECHNICIANMaxine Attending Clinician [phone] Yelena Vyas RN Attending Clinician Unavailable [facility], Acute Care Clinic Attending Clinician UnaMaria De Jesus Falk Attending Clinician [phone] JERED FERNANDES Admitting Clinician Unavailable Payers Payer Name Policy Type Policy Number Effective Date Expirati on Date Source Problems Condition Name Condition Details Condition Category Status Onset Date Resolution Date Last Treatment Date Treating Clinician Comments Source No known active problems No known active problems Disease [facility] Allergies, Adverse Reactions, Alerts Allergy Name Allergy Type Status Severity Reaction(s) Onset Date Inactive Date Treating Clinician Comments Source NO KNOWN ALLERGIE S Drug Class Active [facility] Social History Social Habit Start Date Stop Date Quantity Comments Source History of tobacco use Smokes tobacco daily [facility] Sexual orientation [facility] Exposure to SARS-CoV-2 (event) 2021-04-02 00:00:00 2021-05-02 12:59:00 Not sure [facility] History of Social function 2020-11-01 00:00:00 2020-11-01 00:00:00 [facility] Alcohol intake 2020-11-01 00:00:00 2020-11-01 00:00:00 Current non-drinker of alcohol (finding) [facility] Alcoholic beverage intake 2017-04-24 00:00:00 2017-04-24 00:00:00 Current non-drinker of alcohol (finding) [facility] Tobacco use and exposure 2017-04-24 00:00:00 2017-04-24 00:00:00 Smokeless tobacco non-user [facility] Sex assigned at 1960 00:00:00 1960 00:00:00 [facility] Smoking Status Start Date Stop Date Source Smokes tobacco daily 2017-04-09 00:00:00 [facility] Medications Ordered Medication Name Filled Medication Name Start Date Stop Date Current Medication? Ordering Clinician Indication Dosage Frequency Signature (SIG) Comments Components Source naproxen sodium (ANAPROX DS) 550 mg tablet 05-02 00:00: 00 Yes [id number] 550mg Take 1 tablet by mouth 2 (two) times daily with meals. [facility] predniSONE 10 mg tablet 04-11 00:00: 00 Yes [id number] Take bid for 1 week then QD thereafter for lupus [facility] predniSONE 5 mg tablet 11-15 00:00: 00 11-30 04:59 :00 No [id number] Take 1 tablet by mouth daily for 7 days, THEN 0.5 tablets daily for 7 days. [facility] predniSONE (DELTASONE) 20 mg tablet 11-01 21:01: 23 11-01 00:00 :00 No 20mg Take 20 mg by mouth daily. [facility] predniSONE 20 mg tablet 11-01 00:00: 00 11-16 04:59 :00 No [id number] Take 0.5 tablets by mouth 2 (two) times daily for 7 days, THEN 0.5 tablets daily for 7 days. [facility] methylPREDN ISolone (MEDROL, SUZY,) 4 mg tablets 07-14 00:00: 00 11-01 00:00 :00 No 84mg Take 21 tablets by mouth SEE-INSTRU CTIONS. follow package directions [facility] predniSONE (DELTASONE) 20 mg tablet 06-19 14:00: 56 Yes 20mg Take 20 mg by mouth daily. [facility] traMADOL 50 mg tablet 04-28 00:00: 00 11-01 00:00 :00 No 50mg Take 1 tablet by mouth every 4 (four) hours as needed for Pain (scale 4-6) or Pain unrelieved by non-narcot ic analgesics . [facility] acetaminoph en-codeine (TYLENOL-CO DEINE #3) 300-30 mg tablet 04-11 00:00: 00 11-01 00:00 :00 No 1-2 by mouth every 4-6 hours as needed prn pain [facility] docusate (COLACE) 100 mg capsule 06-27 00:00: 00 11-01 00:00 :00 No 100mg Take 1 capsule by mouth 3 (three) times daily. [facility] Polyethylen e Glycol 3350 (MIRALAX) 17 gram powder 06-27 00:00: 00 11-01 00:00 :00 No 1{packe t} Take 1 Packet by mouth 2 (two) times daily. [facility] Vital Signs Vital Name Observation Time Observation Value Comments S yves Systolic blood pressure 2021-05-02 18:52:58 140 mm[Hg] [facility] Diastolic blood pressure 2021-05-02 18:52:58 82 mm[Hg] [facility] Heart rate 2021-05-02 18:52:58 88 /min [facility] Respiratory rate 2021-05-02 18:52:58 18 /min [facility] Oxygen saturation in Arterial blood by Pulse oximetry 2021-05-02 18:52:58 99 /min [facility] Body temperature 2021-05-02 16:31:00 36.44 Jammie [facility] Body weight 2021-05-02 16:30:00 90.719 kg [facility] BMI 2021-05-02 16:30:00 26.39 kg/m2 [facility] Systolic blood pressure 2021-04-11 18:06:00 143 mm[Hg] [facility] Diastolic blood pressure 2021-04-11 18:06:00 91 mm[Hg] [facility] Heart rate 2021-04-11 18:04:00 60 /min [facility] Body temperature 2021-04-11 18:04:00 37.06 Jammie [facility] Respiratory rate 2021-04-11 18:04:00 18 /min [facility] Body weight 2021-04-11 18:04:00 90.719 kg [facility] BMI 2021-04-11 18:04:00 26.39 kg/m2 [facility] Oxygen saturation in Arterial blood by Pulse oximetry 2021-04-11 18:04:00 96 /min [facility] Systolic blood pressure 2020-11-01 20:25:00 149 mm[Hg] [facility] Diastolic blood pressure 2020-11-01 20:25:00 110 mm[Hg] [facility] Heart rate 2020-11-01 20:25:00 75 /min [facility] Body temperature 2020-11-01 20:25:00 36.33 Jammie [facility] Respiratory rate 2020-11-01 20:25:00 18 /min [facility] Body weight 2020-11-01 20:25:00 90.719 kg [facility] BMI 2020-11-01 20:25:00 26.39 kg/m2 [facility] Oxygen saturation in Arterial blood by Pulse oximetry 2020-11-01 20:25:00 95 /min [facility] Systolic blood pressure 2019-06-24 15:29:00 156 mm[Hg] [facility] Diastolic blood pressure 2019-06-24 15:29:00 97 mm[Hg] [facility] Heart rate 2019-06-24 15:29:00 66 /min [facility] Body temperature 2019-06-24 15:22:00 36.67 Jammie [facility] Respiratory rate 2019-06-24 15:22:00 18 /min [facility] Body height 2019-06-24 15:22:00 185.4 cm [facility] Body weight 2019-06-24 15:22:00 90.719 kg [facility] BMI 2019-06-24 15:22:00 26.39 kg/m2 [facility] Oxygen saturation in Arterial blood by Pulse oximetry 2019-06-24 15:22:00 95 /min [place] [facility] Procedures Procedure Date / Time Performed Performing Clinicia n Source XR KNEE 3 VW LEFT 2021-05-02 16:49:35 Singer Jered [facility] CONSENT/REFUSAL FOR DIAGNOSIS AND TREATMENT 2021-05-02 16:22:18 Doctor Unassigned, [place] [facility] COMP. METABOLIC PANEL (38404) 2021-04-11 19:06:00 Jered Fernandes [facility] CBC WITH DIFF 2021-04-11 19:06:00 Jered Fernandes [facility] NOTICE OF PRIVACY PRACTICES 2021-04-11 17:29:34 Doctor Unassigned, [place] [facility] CONSENT/REFUSAL FOR DIAGNOSIS AND TREATMENT 2021-04-11 17:29:14 Doctor Unassigned, [place] [facility] CONSENT/REFUSAL FOR DIAGNOSIS AND TREATMENT 2020-11-01 20:11:27 Doctor Unassigned, [place] [facility] MEDICAL RELEASE/CLEARANCE FORMS 2017-07-08 05:01:00 Doctor Unassigned, [place] [facility] DISABILITY/FMLA 2017-06-24 05:01:00 Doctor Unass igned, [place] [facility] DISABILITY/FMLA 2017-04-28 06:01:00 Doctor Unass igned, [place] [facility] DISABILITY/FMLA 2017-04-10 06:01:00 Doctor Unass igned, [place] [facility] Encounters Start Date/Time End Date/Time Encounter Type Admission Type Attending [facility] Care Facility Care Department Encounter ID Source 2021-01-08 18:06:45 Emergency [facility] [id number] [facility] 2017-04-09 00:00:00 2024-04-24 03:27:24 Orders Only Doctor Unassigned, [place] Doctor Unassigned, [place] [facility] 1.2.840.114 350.1.13.10 4.2.7.2.686 [id number] [id number] [facility] 2017-04-24 00:00:00 2024-04-24 03:26:15 Orders Only Doctor Unassigned, [place] Doctor Unassigned, [place] [facility] 1.2.840.114 350.1.13.10 4.2.7.2.686 [id number] [facility] 2017-05-22 00:00:00 2024-04-24 03:24:23 Orders Only Doctor Unassigned, [place] Doctor Unassigned, [place] [facility] 1.2.840.114 350.1.13.10 4.2.7.2.686 [id number] [facility] 2017-06-19 00:00:00 2024-04-24 03:22:22 Orders Only Doctor Unassigned, [place] Doctor Unassigned, [place] [facility] 1.2.840.114 350.1.13.10 4.2.7.2.686 [id number] [facility] 2017-07-03 00:00:00 2024-04-24 03:20:36 Orders Only Doctor Unassigned, [place] Doctor Unassigned, [place] [facility] 1.2.840.114 350.1.13.10 4.2.7.2.686 [id number] [facility] 2017-07-14 00:00:00 2024-04-24 03:19:32 Orders Only Doctor Unassigned, [place] Doctor Unassigned, [place] [facility] 1.2.840.114 350.1.13.10 4.2.7.2.686 [id number] [facility] 2021-05-02 10:34:00 2021-05-02 12:59:00 Emergency JERED GARCIA DEMARISA ERT [id number] [facility] 2021-05-02 10:34:00 2021-05-02 12:59:00 Emergency Jered Fernandes [facility] 1.2.840.114 350.1.13.10 4.2.7.2.686 [id number] [facility] 2021-05-02 00:00:00 2021-05-02 00:00:00 Orders Only Doctor Unassigned, [place] [facility] 1.2.840.114 350.1.13.10 4.2.7.2.686 [id number] [facility] 2021-04-11 12:06:00 2021-04-11 13:47:00 Emergency JERED GARCIA RUST ERT [id number] [facility] 2021-04-11 12:06:00 2021-04-11 13:47:00 Emergency Singer Jered [facility] 1.2.840.114 350.1.13.10 4.2.7.2.686 [id number] [facility] 2020-11-01 15:27:00 2020-11-01 16:34:00 Emergency GrantwilverTiffanieMaxine G [facility] 1.2.840.114 350.1.13.10 4.2.7.2.686 [id number] [facility] 2020-11-01 00:00:00 2020-11-01 00:00:00 Orders Only Doctor Unassigned, [place] [facility] 1.2.840.114 350.1.13.10 4.2.7.2.686 [id number] [facility] 2019-06-25 00:00:00 2019-06-25 00:00:00 Telephone Yelena Vyas [facility] 1.2.840.114 350.1.13.10 4.2.7.2.686 [id number] [facility] 2019-06-24 10:06:34 2019-06-24 10:26:34 [facility] 1.2.840.114 350.1.13.10 4.2.7.2.686 [id number] [facility] 2019-06-24 10:00:00 2019-06-24 10:00:00 Outpatient R [facility] [id number] [facility] Results Test Description Test Time Test Comments Results Result Co mments Source [facility] WITH [id number] 19:22:10* Test Item Value Reference Range Interpretation Comme nts WBC (test code = 6690-2) See_Comment [Automated [employer]] The system which generated this result transmitted reference range: 4.20 - 10.70 10*3/?L. The reference range was not used to interpret this result as normal/abnormal. RBC (test code = 789-8) See_Comment [Automated [employer]] The system which generated this result transmitted [...] 31.8 g/dL 31.2-35.0 RDW-SD (test code = 72138-5) 46.4 fL 38.5-51.6 RDW-CV (test code = 788-0) 12.9 % 12.1-15.4 PLT (test code = 777-3) See_Comment [Automated messa ge] The system which generated this result transmitted reference range: 150 - 328 10*3/?L. The reference range was not used to interpret this result as normal/abnormal. MPV (test code = 12781-6) 11.7 fL 9.8-13.0 NRBC/100 WBC (test code = 1486437675) See_Comment [Automated ncyclo ssage] The system which generated this result transmitted reference range: 0.0 - 10.0 /100 WBCs. The reference range was not used to interpret this result as normal/abnormal. NRBC x10^3 (test code = 2924935440) <0.01 See_Comment [Automated messa ge] The system which generated this result transmitted reference range: 10*3/?L. The reference range was not used to interpret this result as normal/abnormal. GRAN MAT (NEUT) % (test code = 770-8) 68.0 % IMM GRAN % (test code = 8038457482) 0.50 % LYMPH % (test code = 736-9) 16.9 % MONO % (test code = 5905-5) 10.5 % EOS % (test code = 713-8) 3.4 % BASO % (test code = 706-2) 0.7 % GRAN MAT x10^3(ANC) (test code = 1646718763) 2.98 10*3/uL 1.99-6.95 IMM GRAN x10^3 (test code = 2440850205) <0.03 0.00-0.06 LYMPH x10^3 (test code = 731-0) 0.74 10*3/uL 1.09-3.23 L MONO x10^3 (test code = 742-7) 0.46 10*3/uL 0.36-1.02 EOS x10^3 (test code = 711-2) 0.15 10*3/uL 0.06-0.53 BASO x10^3 (test code = 704-7) 0.03 10*3/uL 0.01-0.09 Lab Interpretation (test code = 71267-1) Abnormal [facility]
--- NOTE | 2024-12-15 18:43 | RAD REPORT ---
EXAMINATION: Ct Stroke Brain Wo Cont CLINICAL INDICATION: Male, 64 years old.STROKE ALERT TECHNIQUE: Axial CT images from the skull base to the vertex without intravenous contrast. Coronal an d sagittal reformatted images were created from the data set. One or more of the following dose reduction techniques were used: Automated exposure control, adjustment of the mA and/or kV according to patient size, and/or iterative reconstruction. Unless otherwise specified, incidental findings do not require dedicated imaging follow-up. [id number]. COMPARISON: 10/27/2024 FINDINGS: INTRACRANIAL: Small hyperattenuating focus in the right periventricular region similar to 10/27/2024 a nd probably represents some mineralization. No acute large vascular territory infarct. No hydrocephalus. No mass effect or midline shift. 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 Small remote right frontal periventricular lacunar infarcts. VASCULATURE: No visualized abnormalities in the arteries or dural venous sinuses. SCALP/SKULL: No calvarial fracture identified. No acute soft tissue abnormality. SINUSES: The visualized paranasal sinuses are mostly clear. No significant mastoid fluid. IMPRESSION: No acute intracranial abnormality. The findings were communicated to Darell Hael on 12/15/2024 6:41 PM.
[2024-12-15 18:47] LABS: Absolute Lymphocytes (CBC) 0.2 K/uL (0.7-4.9); Hematocrit 31.2 % (39.6-49.0); Hemoglobin 10.3 g/dL (13.6-17.9); MCH 29.4 pg (27.0-35.0); MCHC 32.9 g/dL (32.0-36.0); MCV 89.2 fL (80-100); MPV 8.1 fL (7.6-11.3); Nucleated RBC Absolute Count 0.0 (0-0); Nucleated Red Blood Cells % 0.0 % (0-0); RBC Red Blood Cell Count 3.50 M/uL (4.33-5.43); White Blood Count 9.70 thou/uL (4.3-10.9)
--- NOTE | 2024-12-15 18:49 | EDPHYS ---
Physician Documentation [facility] Name: Klever Clarke Age: 64 yrs Sex: Male : 1960 Arrival Date: 12/15/2024 Time: 17:53 Bed IW8 Private MD: ED Physician Master Foy HPI: 12/15 18:10 This 64 yrs old Male presents to ER via Wheelchair with complaints of S/S of Possible cp Stroke. 18:10 The patient's problem is reported as weakness, in the left upper extremity. Onset: The cp symptoms/episode began/occurred this morning. Patient's baseline: Neuro: alert and fully oriented, Motor: no deficits, Ambulation: walks without assistance, Speech: normal. Patient is a 64-year-old male who presents to the emergency department with complaints of left arm weakness. Patient reports he awoke this morning about 130 to use the restroom and as he was going to sit down he missed the toilet and fell to the ground. Since patient complains of left arm weakness. Once again he reports this incident occurred about 130 this morning. Historical: - Allergies: 18:35 No Known Allergies; dd2 - PMHx: 18:35 COPD; Kidney stones; low back pain; Lupus; dd2 - PSHx: 18:35 None; dd2 - Immunization history:: Adult Immunizations unknown. - Infectious Disease History:: Denies. - Social history:: Smoking status: unknown. ROS: 18:12 Constitutional: Negative for body aches, chills, fever, cp 18:12 Cardiovascular: Negative for chest pain, 18:12 Abdomen/GI: Negative for abdominal pain, vomiting, diarrhea, constipation, 18:12 MS/extremity: Positive for of the left arm, weakness, 18:12 Eyes: Negative for injury, pain, redness, and discharge, cp 18:12 ENT: Negative for drainage from ear(s), ear pain, sore throat, difficulty swallowing, cp difficulty handling secretions, 18:12 Respiratory: Negative for cough, shortness of breath, wheezing, 18:12 Neuro: Positive for weakness, of the left hand and left arm, Negative for altered mental status, numbness, 18:12 All other systems are negative, Exam: 18:13 Head/Face: Normocephalic, atraumatic. cp 18:13 Constitutional: The patient appears in no acute distress, alert, awake, non-diaphoretic, non-toxic, well developed, frail, 18:13 Eyes: Periorbital structures: appear normal, Conjunctiva: normal, no exudate, no injection, Sclera: no appreciated abnormality, Lids and lashes: appear normal, bilaterally, 18:13 ENT: External ear(s): are unremarkable, Nose: is normal, Mouth: Lips: dry, Oral mucosa: cp moist, Posterior pharynx: Airway: no evidence of obstruction, patent, 18:13 Neck: ROM/movement: is normal, is supple, without pain, no range of motions cp limitations, 18:13 Chest/axilla: Inspection: normal, 18:13 Cardiovascular: Rate: normal, 18:13 Respiratory: the patient does not display signs of respiratory distress, Respirations: shallow respirations, that is mild, Breath sounds: bronchial sounds, that are mild, are heard diffusely, 18:13 Abdomen/GI: Inspection: abdomen appears normal, Palpation: abdomen is soft and non-tender, 18:13 Back: pain, is absent, ROM is normal, cp 18:13 Skin: cellulitis, is not appreciated, no rash present. cp 18:13 Neuro: Orientation: to person, place, situation, Mentation: able to follow commands, Motor: moves all fours, Sensation: no obvious gross deficits, Gait: is unsteady, 19:00 ECG was reviewed by the Attending Physician. cp 19:00 Radiologist reports: occlusion of proximal right M1 MCA cp Vital Signs: 18:39 BP 129 / 78; Pulse 100; Resp 16; Temp 99.6(O); Pulse Ox 100% ; Weight 58.5 kg; db 19:00 BP 101 / 68; Pulse 108; Resp 16; Pulse Ox 99% ; db 19:42 BP 112 / 71; Pulse 98; Resp 20; Pulse Ox 99% ; kd3 NIH Stroke Scale Scores: 18:46 NIHSS Score: 4 ms3 18:58 NIHSS Score: 4 db MDM: 18:03 Medical Screening Exam initiated cp 19:45 Data reviewed: vital signs, lab test result(s), EKG, radiologic studies, CT scan, plain cp films, I have discussed the patient's presentation/case with the attending Emergency Department Physician; and as a result, I will transfer patient. 19:45 Differential diagnosis: CVA, TIA, metabolic disorder, drug effects. I considered the cp following discharge prescriptions or medication management in the emergency department Medications were administered in the Emergency Department. See MAR. Independent interpretation of the following test(s) in the Emergency Department EKG: See my EKG interpretation above. Counseling: I had a detailed discussion with the patient and/or guardian regarding the historical points, exam findings, and any diagnostic results supporting the discharge/admit diagnosis, lab results, radiology results, the need to transfer to another facility, for higher level of care. 12/15 18:09 Order name: Basic Metabolic Panel; Complete Time: 19:19 cp 12/15 19:20 Interpretation: Normal except: NA 133; CL 97; CO2 35; BUN 22; CRE 0.62. cp 12/15 18:09 Order name: CBC with Diff; Complete Time: 16:57 cp 12/15 18:09 Order name: Hepatic Function; Complete Time: 19:19 cp 12/15 18:09 Order name: High Sensitivity Troponin; Complete Time: 19:19 cp 12/15 18:09 Order name: Magnesium; Complete Time: 19:19 cp 12/15 18:09 Order name: Protime (+inr); Complete Time: 19:19 cp 12/15 18:09 Order name: Ptt, Activated; Complete Time: 19:19 cp 12/15 18:10 Order name: UA Rfx Lc Cult if indicated; Complete Time: 19:19 cp 12/15 18:59 Order name: Glucose, Ancillary Testing; Complete Time: 19:01 EDMS 12/15 18:09 Order name: CT Head Angio; Complete Time: 19:19 cp 12/15 19:23 Interpretation: Report reviewed. cp 12/15 18:09 Order name: CT Neck Angio; Complete Time: 19:01 cp 12/15 18:09 Order name: CT Stroke Brain w/o Contrast; Complete Time: 18:50 cp 12/15 18:09 Order name: Stroke CXR 1 View; Complete Time: 16:57 cp 12/15 18:14 Order name: CT C Spine; Complete Time: 19:19 cp 12/15 18:09 Order name: Accucheck; Complete Time: 18:55 cp 12/15 18:09 Order name: Cardiac monitoring; Complete Time: 18:53 cp 12/15 18:09 Order name: EKG - Nurse/Tech; Complete Time: 18:53 cp 12/15 18: Order name: IV Saline Lock; Complete Time: 18:55 cp 12/15 18: Order name: Labs collected and sent; Complete Time: 18:55 cp 12/15 18: Order name: NPO; Complete Time: 18:55 cp 12/15 18: Order name: O2 Per Protocol; Complete Time: 18:53 cp 12/15 18: Order name: O2 Sat Monitoring; Complete Time: 18:53 cp 12/15 18: Order name: Stroke Swallow Screen; Complete Time: 19:29 cp EC:00 Rate is 98 beats/min. Rhythm is regular. KS interval is normal. QRS interval is normal. cp QT interval is normal. T waves are Inverted in lead aVR. Interpreted by me. Reviewed by me. Administered Medications: 19:15 Drug: foLIC Acid IVPB 1 mg IVPB once Route: IVPB; Site: right antecubital; kb4 19:40 Not Given (PT TRANSFERED ): ns 0.9% 1000 ml IV at 125 ml/hr once kd3 Disposition: 18:47 I reviewed the patient's care provided by Advanced Practice Provider \T\ agree w/ the ms3 diagnosis \T\ care plan. I personally saw the pt \T\ performed a substantive portion of the visit, incldng all aspects of the (History/Exam/Medical Decision Making). Contraindication for TNKase- symptoms greater than 4.5 hours. Disposition Summary: 12/15/24 18:49 Transfer Ordered Notes: Transfer Location: [facility] ms3 Reason: Higher level of care ms3 Condition: Stable ms3 Problem: new ms3 Symptoms: are unchanged ms3 Accepting Physician: Dr Quoc Manning(12/15/24 19:43) vc1 Diagnosis - M1 Occlussion- Ischemic Stroke ms3 - Fall from or off toilet without subsequent striking against object, initial ms3 encounter - Abnormal levels of other serum enzymes cp Forms: - Medication Reconciliation Form ms3 - SBAR form ms3 NIH Stroke Scale - NIH Stroke Score Date: 12/15/2024 Time: 18:46 Total Score = 4 10. Dysarthria (speech clarity - read or repeat words) - 0(Normal) 11. Extinction and Inattention (visual/tactile/auditory/spatial/personal) - 0(No abnormality) 1a. Level of Consciousness (LOC) - 0(Alert) 1b. Level of Consciousness (LOC) (Month \T\ Age) - 0(Both) 1c. LOC Commands (Open \T\ Closes Eyes/Patient Placement Coordinator) - 0(Both) 2. Best Gaze (Lateral Gaze Paresis) - 0(Normal) 3. Visual Field Loss - 1(Partial hemianopia) 4. Facial Palsy - 1(Minor Paralysis) 5a. Left Arm: Motor (10-second hold) - 1(Drift) 5b. Right Arm: Motor (10-second hold) - 0(No drift) 6a. Left Leg: Motor (5-second hold - always test supine) - 0(No drift) 6b. Right Leg: Motor (5-second hold - always test supine) - 0(No drift) 7. Limb Ataxia (finger/nose \T\ heel/mccarty - test with eyes open) - 1(Present in one limb) 8. Sensory Loss (pinprick arms/legs/face) - 0(Normal) 9. Best Language: Aphasia (description/naming/reading) - 0(No aphasia) Initials: ms3 NIH Stroke Scale - NIH Stroke Score Date: 12/15/2024 Time: 18:58 Total Score = 4 10. Dysarthria (speech clarity - read or repeat words) - 0(Normal) 11. Extinction and Inattention (visual/tactile/auditory/spatial/personal) - 0(No abnormality) 1a. Level of Consciousness (LOC) - 0(Alert) 1b. Level of Consciousness (LOC) (Month \T\ Age) - 0(Both) 1c. LOC Commands (Open \T\ Closes Eyes/Patient Placement Coordinator) - 0(Both) 2. Best Gaze (Lateral Gaze Paresis) - 0(Normal) 3. Visual Field Loss - 1(Partial hemianopia) 4. Facial Palsy - 1(Minor Paralysis) 5a. Left Arm: Motor (10-second hold) - 1(Drift) 5b. Right Arm: Motor (10-second hold) - 0(No drift) 6a. Left Leg: Motor (5-second hold - always test supine) - 0(No drift) 6b. Right Leg: Motor (5-second hold - always test supine) - 0(No drift) 7. Limb Ataxia (finger/nose \T\ heel/mccarty - test with eyes open) - 1(Present in one limb) 8. Sensory Loss (pinprick arms/legs/face) - 0(Normal) 9. Best Language: Aphasia (description/naming/reading) - 0(No aphasia) Initials: db Signatures: Dispatcher [employer] EDMS Darell Hale PA-C PA-C cp Sims, Marcus, DO MELÉNDEZ ms3 Josiane Dennison RN RN vc1 SERGEY ALY RN RN dd2 Dlicia Shaikh RN RN kb4 Caro Lyman RN kd3 Corrections: (The following items were deleted from the chart) 18:09 18:09 BASIC METABOLIC PANEL+C.LAB.BRZ ordered. EDMS EDMS 18:10 18:09 CBC+H.LAB.BRZ ordered. EDMS EDMS 18:10 18:09 HEPATIC FUNCTION+C.LAB.BRZ ordered. EDMS EDMS 18:10 18:09 Troponin High Sensitivity+C.LAB.BRZ ordered. EDMS EDMS 18:10 18:09 MAGNESIUM+C.LAB.BRZ ordered. EDMS EDMS 18:10 18:09 PROTIME (+INR)+COAG.LAB.BRZ ordered. EDMS EDMS 18:10 18:09 PTT, ACTIVATED+COAG.LAB.BRZ ordered. EDMS EDMS 18:10 18:10 Head Angio+CT.RAD.BRZ ordered. EDMS EDMS 18:10 18:10 Neck Angio+CT.RAD.BRZ ordered. EDMS EDMS 18:10 18:10 CT-STROKE BRAIN W/O CONTRAST+CT.RAD.BRZ ordered. EDMS EDMS 18:10 18:10 Chest Single View+RAD.RAD.BRZ ordered. EDMS EDMS 18:10 18:10 UA Rfx Lc Cult if indicated+U.LAB.BRZ ordered. EDMS EDMS 18:15 18:15 C Spine Wo Con+CT.RAD.BRZ ordered. EDMS EDMS 18:50 18:47 I reviewed the patient's care provided by Advanced Practice Provider \T\ ms3 agree w/ the diagnosis \T\ care plan. I personally saw the pt \T\ performed a substantive portion of the visit, incldng all aspects of the (History/Exam/Medical Decision Making). ms3 19:11 18:49 Dr marrufo cp 19:13 19:11 Dr Quoc Manning cp cp 19:43 19:13 Dr Quoc Manning cp vc1 12/16 17:00 16:59 Data reviewed: vital signs, cp cp
--- NOTE | 2024-12-15 18:49 | ER ---
Nurse's Notes [facility] Name: Klever Clarke Age: 64 yrs Sex: Male : 1960 Arrival Date: 12/15/2024 Time: 17:53 Bed IW8 Private MD: Diagnosis: M1 Occlussion- Ischemic Stroke;Fall from or off toilet without subsequent striking against object, initial encounter;Abnormal levels of other serum enzymes Presentation: 12/15 18:05 Chief complaint: Patient states: HE WENT TO THE BATHROOM AT 1;30 THIS MORNING, FELT dd2 WEAK ON THE LT SIDE, LOST BALANCE AND FELL OFF TOILET. Coronavirus screen: At this time, the client does not indicate any symptoms associated with coronavirus-19. Ebola Screen: No symptoms or risks identified at this time. No acute neurological deficit is noted. Initial Sepsis Screen:. Onset of symptoms was December 15, 2024 at 01:30. 18:05 Method Of Arrival: Wheelchair dd2 18:05 Acuity: NHI 2 dd2 18:39 The patients blood glucose was checked before arriving to the hospital and was found to db be normal. Initial Sepsis Screen: Does the patient meet any 2 criteria? Yes Does the patient have a suspected source of infection? No. Patient's initial sepsis screen is negative. Risk Assessment: Do you want to hurt yourself or someone else? Patient reports no desire to harm self or others. Triage Assessment: 18:35 The onset of the patients symptoms was December 15, 2024 at 01:30. General: Appears ill, dd2 Behavior is calm, cooperative, appropriate for age. Pain: Complains of pain in neck. Neuro: Reports weakness in left arm and left leg. Stroke Activation: Physician: ED Attending; Name: ; Notified At: ; Arrived At: Physician: Mid-Level Provider; Name: SKINNY HALE; Notified At: 18:04; Arrived At: 18:04 Physician: [not used]; Name: ; Notified At: ; Arrived At: Physician: [not used]; Name: ; Notified At: ; Arrived At: Physician: [not used]; Name: ; Notified At: ; Arrived At: Historical: - Allergies: 18:35 No Known Allergies; dd2 - PMHx: 18:35 COPD; Kidney stones; low back pain; Lupus; dd2 - PSHx: 18:35 None; dd2 - Immunization history:: Adult Immunizations unknown. - Infectious Disease History:: Denies. - Social history:: Smoking status: unknown. Screenin:08 [facility] ED Fall Risk Assessment (Adult) History of falling in the last 3 months, db including since admission No falls in past 3 months (0 pts) Confusion or Disorientation No (0 pts) Intoxicated or Sedated No (0 pts) Impaired Gait Yes (1 pt) Mobility Assist Device Used Yes (1 pt) Altered Elimination No (0 pt) Score/Fall Risk Level 0 - 2 = Low Risk Oriented to surroundings, Maintained a safe environment. Abuse screen: Denies threats or abuse. Denies injuries from another. Nutritional screening: No deficits noted. Tuberculosis screening: No symptoms or risk factors identified. Assessment: 18:39 VAN Scoring: Arm Drift: Minor drift Visual Disturbance: Field Cut: Abnormal visual db elizalde noted. Provider notified of +VAN scoring. Aphasia: No aphasia noted. Neglect: No neglect noted. TNKase (Tenecteplase) Screening: Contraindications: Intracranial hemorrhage and its risk factor and suspicion of subarachnoid bleed: Not Applicable. Reassessment: Patient appears in no apparent distress at this time. Patient and/or family updated on plan of care and expected duration. Pain level reassessed. Patient is alert, oriented x 3, equal unlabored respirations, skin warm/dry/pink. General: Appears in no apparent distress. comfortable, Behavior is calm, cooperative, appropriate for age. Neuro: Level of Consciousness is awake, alert, obeys commands, Oriented to person, place, time, situation. Respiratory: Airway is patent Respiratory effort is even, unlabored, Respiratory pattern is regular, agonal. 19:05 Reassessment: REPORT TO KARINA JAQUEZ AND NIGHT RN. db 19:12 Reassessment: Patient appears in no apparent distress at this time. Patient and/or db family updated on plan of care and expected duration. Pain level reassessed. Patient is alert, oriented x 3, equal unlabored respirations, skin warm/dry/pink. REPORT CALLED TO KARINA UFNK AT [facility]. 19:15 [place] Swallow Protocol Exclusion Criteria: Exclusion Criteria Result: Proceed Brief kd3 Cognitive Screen Oral Mechanism Examination Oral Mechanism Result: Normal. 3 oz Water Swallow Challenge: Pt able to drink all water without stopping, coughing, choking or throat clearing: No Result: FAIL MD Notified: Master Foy DO. Vital Signs: 18:39 BP 129 / 78; Pulse 100; Resp 16; Temp 99.6(O); Pulse Ox 100% ; Weight 58.5 kg; db 19:00 BP 101 / 68; Pulse 108; Resp 16; Pulse Ox 99% ; db 19:42 BP 112 / 71; Pulse 98; Resp 20; Pulse Ox 99% ; kd3 NIH Stroke Scale Scores: 18:46 NIHSS Score: 4 ms3 18:58 NIHSS Score: 4 db ED Course: 17:54 Patient arrived in ED. mr 17:57 Skinny Hale PA-C is PHCP. cp 17:57 Master Foy DO is Attending Physician. cp 18:08 Triage completed. dd2 18:25 CT Stroke Brain w/o Contrast In Process Unspecified. EDMS 18:28 CT C Spine In Process Unspecified. EDMS 18:30 CT Head Angio In Process Unspecified. EDMS 18:30 CT Neck Angio In Process Unspecified. EDMS 18:35 Arm band placed on right wrist. dd2 18:39 Manuela Benavides, RN is Primary Nurse. db 18:40 Patient has correct armband on for positive identification. Bed in low position. Call db light in reach. Side rails up X 1. Client placed on continuous cardiac and pulse oximetry monitoring. NIBP monitoring applied. pvc monitor on. Pulse ox on. NIBP on. Pillow given. 18:40 Initial lab(s) drawn, sent to lab. Inserted saline lock: 20 gauge in right antecubital db area, using aseptic technique. Blood collected. Flushed with 10 mL NS. 18:53 EKG done, by ED staff, reviewed by Skinny Hale PA-C. rk3 19:23 Stroke CXR 1 View In Process Unspecified. EDMS 19:24 Caro Lyman, KARINA is Primary Nurse. kd3 19:30 No provider procedures requiring assistance completed. Inserted saline lock: 22 gauge kd3 in right forearm, using aseptic technique. Blood collected. Flushed with 10 mL NS IV discontinued, intact, bleeding controlled, No redness/swelling at site. Pressure dressing applied. Administered Medications: 19:15 Drug: foLIC Acid IVPB 1 mg IVPB once Route: IVPB; Site: right antecubital; kb4 19:40 Not Given (PT TRANSFERED ): ns 0.9% 1000 ml IV at 125 ml/hr once kd3 Medication: 18:39 VIS not applicable for this client. db Outcome: 18:49 ER care complete, transfer ordered by . ms3 19:41 Transferred by helicopter to [facility], [facility], 3 19:41 Condition: stable 19:41 Discharge instructions given to patient, Instructed on the need for transfer, 19:43 Patient left the ED. vc1 NIH Stroke Scale - NIH Stroke Score Date: 12/15/2024 Time: 18:46 Total Score = 4 10. Dysarthria (speech clarity - read or repeat words) - 0(Normal) 11. Extinction and Inattention (visual/tactile/auditory/spatial/personal) - 0(No abnormality) 1a. Level of Consciousness (LOC) - 0(Alert) 1b. Level of Consciousness (LOC) (Month \T\ Age) - 0(Both) 1c. LOC Commands (Open \T\ Closes Eyes/Scrap Sorter) - 0(Both) 2. Best Gaze (Lateral Gaze Paresis) - 0(Normal) 3. Visual Field Loss - 1(Partial hemianopia) 4. Facial Palsy - 1(Minor Paralysis) 5a. Left Arm: Motor (10-second hold) - 1(Drift) 5b. Right Arm: Motor (10-second hold) - 0(No drift) 6a. Left Leg: Motor (5-second hold - always test supine) - 0(No drift) 6b. Right Leg: Motor (5-second hold - always test supine) - 0(No drift) 7. Limb Ataxia (finger/nose \T\ heel/mccarty - test with eyes open) - 1(Present in one limb) 8. Sensory Loss (pinprick arms/legs/face) - 0(Normal) 9. Best Language: Aphasia (description/naming/reading) - 0(No aphasia) Initials: ms3 NIH Stroke Scale - NIH Stroke Score Date: 12/15/2024 Time: 18:58 Total Score = 4 10. Dysarthria (speech clarity - read or repeat words) - 0(Normal) 11. Extinction and Inattention (visual/tactile/auditory/spatial/personal) - 0(No abnormality) 1a. Level of Consciousness (LOC) - 0(Alert) 1b. Level of Consciousness (LOC) (Month \T\ Age) - 0(Both) 1c. LOC Commands (Open \T\ Closes Eyes/Scrap Sorter) - 0(Both) 2. Best Gaze (Lateral Gaze Paresis) - 0(Normal) 3. Visual Field Loss - 1(Partial hemianopia) 4. Facial Palsy - 1(Minor Paralysis) 5a. Left Arm: Motor (10-second hold) - 1(Drift) 5b. Right Arm: Motor (10-second hold) - 0(No drift) 6a. Left Leg: Motor (5-second hold - always test supine) - 0(No drift) 6b. Right Leg: Motor (5-second hold - always test supine) - 0(No drift) 7. Limb Ataxia (finger/nose \T\ heel/mccarty - test with eyes open) - 1(Present in one limb) 8. Sensory Loss (pinprick arms/legs/face) - 0(Normal) 9. Best Language: Aphasia (description/naming/reading) - 0(No aphasia) Initials: db Signatures: Dispatcher [employer] EDMS Andrade, Jenise, Reg Reg mr Alexia Skinny, Master Nguyen PA-C, cp, DO DO ms3 Caro Lyman, RN RN kd3 Josiane Dennison RN RN vc1 Manuela Benavides RN RN db SERGEY ALY RN RN dd2 Dilcia Shaikh RN RN kb4 Ryley Ferrell rk3 Corrections: (The following items were deleted from the chart) 19:00 18:39 NIHSS Score: 4 db db 19:17 19:09 BP 101 / 68; Pulse 108bpm; db db 19:36 19:29 [place] Swallow Protocol Exclusion Criteria: Exclusion Criteria Result: kd3 Proceed Brief Cognitive Screen Oral Mechanism Examination Oral Mechanism Result: Normal. 3 oz Water Swallow Challenge: Pt able to drink all water without stopping, coughing, choking or throat clearing: No Result: FAIL MD Notified: Master Foy DO kd3
--- NOTE | 2024-12-15 18:53 | RAD REPORT ---
EXAMINATION: Neck Angio CLINICAL INDICATION: Male, 64 years old. left arm weakness TECHNIQUE: Axial CT images were obtained from the aortic arch to the skull base after intravenous con trast utilizing angiographic protocol with 3D post-processing (maximum intensity projection images, volume rendered images and/or shaded surface rendered images). One or more of the following dose redu ction techniques were used: Automated exposure control, adjustment of the mA and/or kV according to patient size, and/or iterative reconstruction. Unless otherwise specified, incidental findings do not require dedicated imaging follow-up. [id number]. NASCET criteria used. Mild 0-49% stenosis Moderate 50-69% stenosis Severe 70-99% stenosis COMPARISON: No prior exam. FINDINGS: AORTA: Atherosclerotic changes but otherwise unremarkable. RIGHT: - CCA: Atherosclerotic changes but no flow limiting stenosis. - ICA: Atherosclerotic changes but no flow limiting stenosis. - ECA: No flow limiting stenosis (>= 50%). No dissection. LEFT: - CCA: Atherosclerotic changes but no flow limiting stenosis. - ICA: Atherosclerotic changes but no flow limiting stenosis. - ECA: No flow limiting stenosis (>= 50%). No dissection. VERTEBRAL: Patent SOFT TISSUE: No significant neck soft tissue abnormalities. The visualized lung apices are clear. 3D images confirm these findings. IMPRESSION: No arterial dissection or stenosis identified within the neck.
[2024-12-15 19:03] LABS: PT Prothrombin Time 12.4 SECONDS (10-13.0); PTT, Activated Partial Thromb 29.5 SECONDS (27.2-37.4); Protime INR 1.1
[2024-12-15 19:08] LABS: ALT/SGPT 23 U/L (16-61); AST/SGOT 17 U/L (15-37); Albumin 2.6 g/dL (3.4-5.0); Albumin/Globulin Ratio 0.6 (1.1-1.8); Alkaline Phosphatase 54 U/L (45-117); Anion Gap 5.7 mEq/L (5.0-15.0); BUN Blood Urea Nitrogen 22 mg/dL (7-18); Globulin 4.3 g/dL (2.3-3.5); Glucose Level 101 mg/dL (74-106); Magnesium 1.6 mg/dL (1.6-2.4); Potassium 4.7 mEq/L (3.5-5.1)
[2024-12-15] MEDS ORDERED: FOLIC ACID 5 MG/ML VIAL ONE (19:08)
--- NOTE | 2024-12-15 19:08 | RAD REPORT ---
EXAMINATION: Head angio CLINICAL INDICATION: Male, 64 years old. left arm weakness TECHNIQUE: Axial CT images were obtained through the head after intravenous contrast utilizing angiog raphic protocol with 3D post-processing (maximum intensity projection images, volume rendered images and/or shaded surface rendered images). One or more of the following dose reduction technique s were used: Automated exposure control, adjustment of the mA and/or kV according to patient size, and/or iterative reconstruction. Unless otherwise specified, incidental findings do not require dedic ated imaging follow-up. COMPARISON: No prior exam. FINDINGS: RIGHT: ICA: Atherosclerotic calcifications but no flow limiting stenosis. NOMI: No aneurysm, stenosis, or occlusion. MCA: Right proximal M1 MCA occlusion. There is reconstitution of the distal right M1 MCA and M2 segme nts of the though they are diminutive. These findings may be chronic. CARTON FILLER: No aneurysm, stenosis, or occlusion. -type right CARTON FILLER. LEFT: ICA: Atherosclerotic calcifications but no flow limiting stenosis. NOMI: No aneurysm, stenosis, or occlusion. MCA: No aneurysm, stenosis, or occlusion. CARTON FILLER: No aneurysm, stenosis, or occlusion. Vertebrobasilar: The vertebral arteries are patent. The basilar artery is normal in appearance. 3D images confirm these findings. IMPRESSION: Proximal right M1 MCA occlusion of uncertain chronicity. The patient has remote right MCA territory i nfarcts. There is some reconstitution of the distal right M1 segment and M2 and beyond though the vessels are diminutive suggesting a chronic occlusion. The findings were communicated to Dr. Foy on 12/15/2024 7:05 PM.
[2024-12-15 19:11] LABS: Bilirubin Indirect, Calculated 0.2 mg/dL (0.2-0.8)
[2024-12-15 19:12] LABS: Calcium Oxalate Crystals- Ur Few /HPF (None Seen); Sqamous Epithelial None Seen /HPF (None Seen); Urine Culture Reflex Order NOT NEEDED; Urine Microscopic Reflex YN ORDER UMIC
[2024-12-15 19:13] LABS: Troponin High Sensitivity 364.1 pg/mL (<58.9)
--- NOTE | 2024-12-15 19:15 | RAD REPORT ---
EXAMINATION: C Spine Wo Con CLINICAL INDICATION: Male, 64 years old. fall TECHNIQUE: Axial CT images through the cervical spine were obtained without intravenous contrast. Sag ittal and coronal reformatted images were created from the data set. One or more of the following dose reduction techniques were used: Automated exposure control, adjustment of the mA and/or kV accor ding to patient size, and/or iterative reconstruction. Unless otherwise specified, incidental findings do not require dedicated imaging follow-up. [id number]. COMPARISON: No prior exams FINDINGS: ALIGNMENT: The cervical spine has normal alignment without scoliosis or spondylolisthesis. BONE: Vertebral body heights are maintained. No aggressive osseous lesions. DEGENERATIVE: Multilevel cervical spondylosis with evidence of bilateral neural foraminal narrowing. No high grade central spinal stenosis. SOFT TISSUE: Coronary calcifications. IMPRESSION: No acute cervical spine abnormalities.
--- NOTE | 2024-12-15 19:29 | RAD REPORT ---
EXAM: Chest Single View HISTORY: 64 years Male left arm weakness COMPARISON: 12/08/2024 FINDINGS: LUNGS/PLEURA: Mild basilar opacities, increased from prior. CARDIAC/MEDIASTINUM: Stable size and configuration. UPPER ABDOMEN: No significant abnormality. BONES: No acute abnormality. LINES/TUBES/OTHER: N/A IMPRESSION: Mild increased basilar opacities which could reflect increased atelectasis. No consolidative pneumoni a or edema.
[2024-12-15 19:57] VITALS: BP 112/71; TEMP 99.6; O2SAT 99
[2024-12-15 20:16] LABS: Blood Morphology Comment NOT SEEN (NOT SEEN); White Blood Cell Scan OK (OK)
== END 2024-12-15 19:43 | disposition short-term general hospital (02) ==
LOC: ER 17:53
DX: I63.511 Cerebral infarction due to unspecified occlusion or stenosis of right middle cerebral artery (principal); R29.704 NIHSS score 4; R74.8 Abnormal levels of other serum enzymes; W18.11XA Fall from or off toilet without subsequent striking against object, initial encounter
CPT/HCPCS: 93005; 85025; 81001; 80048; 36415; 83735; 85610; 82947; 80076; 85730; 84484; 72125; 70496; 70498; 70450; 71045; 96374; 99285; Q9967